=== PATIENT | male | born 1960 | race Caucasian/White ===

== ENCOUNTER → 2022-12-19 | Outpatient (CLI) | payer MEDICAID, SELFPAY ==
--- NOTE | 2022-12-19 07:57 | ECHOCS_ITS ---
Reason For Study: HTN urgency Procedure This was a 2D Doppler, Color Flow transthoracic echocardiogram. The study was technically difficult. Contrast injection was performed. Left Ventricle Normal LV size. Left ventricular systolic function is lower limits of normal. The estimated ejection fraction is 50 %. No regional wall motion abnormalities noted. Right Ventricle Normal RV size. Normal systolic function. Atria Normal left atrium. Normal right atrium. Mitral Valve Normal mitral valve. Tricuspid Valve Normal tricuspid valve. Aortic Valve The aortic valve is not well visualized. Pulmonic Valve The pulmonic valve is not well visualized. Great Vessels Normal aortic root. The pulmonary artery is normal size. Normal inferior vena cava. Pericardium/Pleural No pericardial effusion. Medication 22 gauge I.V. with prn adaptor inserted into right arm. Diluted definity 3ml given slow IV push to enhance endocardial definition. MMode/2D Measurements & Calculations LVIDd: 5.2 cm IVSd: 1.3 cm Ao root diam: 3.3 cm LVIDs: 4.3 cm LVPWd: 1.1 cm LA dimension: 3.8 cm RVDd: 3.6 cm FS: 17.5 % LAV(MOD-bp): 55.4 ml LA A4 area: 16.3 cm2 RA A4 area: 11.8 cm2 LAV(MOD-bp) Indexed: 24.2 ml/m2 LAV(MOD-sp2): 65.5 ml LAV(MOD-sp4): 41.2 ml Time Measurements MV dec time: 0.18 sec Doppler Measurements & Calculations MV E max stanley: 41.0 cm/sec Lat Peak E' Stanley: 5.4 cm/sec Med Peak E' Stanley: 6.0 cm/sec MV A max stanley: 92.9 cm/sec E/E' lat: 7.6 E/E' med: 6.8 MV E/A: 0.44 MV V2 max: 106.4 cm/sec MV P1/2t max stanley: 56.6 cm/sec Ao V2 max: 114.4 cm/sec MV max P.5 mmHg MV P1/2t: 75.9 msec Ao max P.2 mmHg MV V2 mean: 54.3 cm/sec MV dec slope: 218.5 cm/sec2 Ao V2 mean: 73.2 cm/sec MV mean P.5 mmHg Ao mean P.5 mmHg MV V2 VTI: 21.7 cm MVA(P1/2t): 2.9 cm2 Ao V2 VTI: 24.1 cm AV (velocity ratio): 0.79 LV V1 max: 92.9 cm/sec PA V2 max: 107.4 cm/sec LV V1 max P.5 mmHg PA V2 mean: 75.7 cm/sec LV V1 mean P.7 mmHg LV V1 mean: 60.9 cm/sec LV V1 VTI: 19.0 cm ECHO/Echo Complete W/ Contrast Interpretation Summary Normal LV size. Left ventricular systolic function is lower limits of normal. The estimated ejection fraction is 50 %. The study was technically difficult. Contrast injection was performed. Ordering Physician: Wendy Morillo Referring Physician: Wendy Morillo Performed By: Jun Frost RCS
== END | disposition home or self-care (01) ==
PROVIDERS: PCP Nurse Practitioner Family; Referring Provider Nurse Practitioner Family; Visit Provider Nurse Practitioner Family
DX: I16.0 Hypertensive urgency (principal)
CPT/HCPCS: 93306; Q9957; A4216; C8929

== ENCOUNTER → 2023-01-24 | Outpatient (CLI) | payer MEDICAID, SELFPAY ==
--- NOTE | 2023-01-24 12:42 | STRESSREP ---
Stress Test Report Date: 01/24/2023 Procedure: Exercise tolerance test Indications: Dyspnea Consent: Per the patient Procedure: The patient exercised on a Chema protocol for 5 minutes achieving a peak heart rate of 121 bpm (77% predicted maximal heart rate) with a peak blood pressure 204/90 mmHg and a peak MET capacity of approximately 7.0 MET's. The baseline ECG demonstrated T wave changes in inferior leads. The peak exercise ECG demonstrated pseudonormalization of the T waves changes. There were no cardiac dysrhythmias pretest, during exercise, or recovery. The functional capacity was considered suboptimal. The patient had no complaints of chest discomfort during exercise or recovery. He did complain of shortness of breath with exercise. The examination was discontinued secondary to complaints of shortness of breath. Impression: 1. 77% of maximal predicted heart rate achieved. 2. Baseline EKG with T wave changes in inferior leads suggestive of ischemia. This decreases the specificity of the test. There was resolution of these baseline T wave changes with exercise. This could denote pseudonormalization. Recommend repeat study with imaging if clinically indicated. 3. There were no cardiac dysrhythmias during exercise or recovery 4. Hypertensive response to exercise. This note was generated with [employer] software. It may contain incorrect words, spelling, and punctuation that were not noted in checking the note before signing.
== END | disposition home or self-care (01) ==
LOC: CVS 10:42
PROVIDERS: PCP Nurse Practitioner Family; Referring Provider Nurse Practitioner Family; Visit Provider Nurse Practitioner Family
DX: R06.09 Other forms of dyspnea (principal); I10 Essential (primary) hypertension
CPT/HCPCS: 93017

== ENCOUNTER → 2023-02-13 | Outpatient (CLI) | payer MEDICAID, SELFPAY ==
--- NOTE | 2023-02-13 09:48 | STRESSREP_ITS ---
Stress Test Report Date: 02/13/2023 Procedure: Exercise tolerance test/imaging study Indications: Abnormal ECG/abnormal exercise stress Consent: Per the patient Procedure: The patient exercised on a Chema protocol for 6 minutes and 1 seconds achieving a peak heart rate of 133 bpm (84% predicted maximal heart rate) with a peak blood pressure 220/90 mmHg and a peak MET capacity of 7.0 METs. The baseline ECG demonstrated normal sinus rhythm with T wave inversions in inferior leads. The peak exercise ECG demonstrated no diagnostic ischemic changes. Occasional PVCs noted with exercise. The functional capacity was considered average. There was complaint of shortness of breath with exercise. The examination was discontinued secondary to dyspnea. The patient was injected with 14.4 mCi of technetium 99m Cardiolite and subsequently rest SPECT Cardiolite nuclear imaging was obtained in the horizontal long, vertical long, and short axis views. Post-exercise, the patient was injected with 44.5 mCi of technetium 99m Cardiolite and subsequently stress SPECT Cardiolite nuclear imaging was obtained in the horizontal long, vertical long, and short axis views. A gated Cardiolite study at peak stress was obtained. Rest and stress SPECT Cardiolite nuclear imaging status post realignment, normalization, and attenuation correction, demonstrates medium sized inferior reversible defect of moderate intensity. The gated Cardiolite study demonstrates inferior hypokinesis. The reported LVEF is 45%. Impression: 1. Technically adequate (percent predicted maximal heart rate greater than 85%) exercise tolerance test 2. Peak exercise ECG with no diagnostic ischemic changes 3. Occasional PVCs noted 4. Rest and stress SPECT Cardiolite nuclear imaging demonstrate small to moderate inferior reversible perfusion defect suggestive of ischemia. 5. The gated Cardiolite study reports an LVEF of 45%. This note was generated with [employer] software. It may contain incorrect words, spelling, and punctuation that were not noted in checking the note before signing.
== END | disposition home or self-care (01) ==
LOC: CVS 06:11
PROVIDERS: Referring Provider Internal Medicine Cardiovascular Disease; Visit Provider Internal Medicine Cardiovascular Disease
DX: R94.30 Abnormal result of cardiovascular function study, unspecified (principal); E11.9 Type 2 diabetes mellitus without complications; R07.9 Chest pain, unspecified; E78.00 Pure hypercholesterolemia, unspecified; I10 Essential (primary) hypertension
CPT/HCPCS: 78452; 93017; A9500; A4216

== ENCOUNTER → 2023-02-15 | Outpatient (CLI) | payer MEDICAID, SELFPAY ==
--- NOTE | 2023-02-15 13:17 | RAD_ITS ---
INDICATION: for heart cath, sob, chest pain EXAMINATION/TECHNIQUE: X-RAY - XR Chest 2 Views COMPARISON: None. Findings: Frontal and lateral views of the chest. Low lung volumes. LUNG PARENCHYMA: No acute focal airspace disease or mass lesion. PLEURA: No pleural effusion. No pneumothorax. HEART/GREAT VESSELS: Cardiomediastinal silhouette is unremarkable. BONES: Lower thoracic spine vertebral body compression deformity of uncertain chronicity. Thoracic levoscoliosis. RAD/Chest PA and Lateral IMPRESSION: Lower thoracic spine vertebral body compression deformity of uncertain chronicity. Chest otherwise with no acute disease. Electronically Signed: Santiago Abad MD at 5:10 EDT ,
[2023-02-15 13:52] LABS: Absolute Lymphocyte Count 2.43 X10^3/uL (0.83-4.51); Absolute Neutrophil Count 3.6 X10^3/uL (2.0-7.7); Basophil# 0.06 X10^3/uL; Basophil% 0.9 % (0-1); Eosinophils% 4.3 % (0-5); Hematocrit 43.2 % (40-54); Hemoglobin 14.7 g/dL (13.0-16.5); Lymphocyte # 2.43 X10^3/ul (0.83-4.51); Lymphocyte % 34.7 % (19-41); Mean Corpuscular Hgb 29.9 pg (27.0-32.0); Mean Platelet Vol. 10.4 fl (6.2-12.0); Monocyte# 0.59 X10^3/uL; Monocyte% 8.4 % (0-10); NRBC Flagged by Analyzer 0 % (0-5); Neutrophil # 3.57 X10^3/uL (2.7-7.7); Platelet Count 324 K/mm3 (150-450); RBC Distribution Width SD 42.2 fl (35.1-43.9); Red Blood Count 4.91 M/mm3 (4.6-6.2)
[2023-02-15 15:57] LABS: Anion Gap 9 (5-15); BUN 17 mg/dL (7-18); BUN/Creat Ratio 16.5 RATIO (10-20); Calcium,Total 9.4 mg/dL (8.5-10.1); Chloride 105 mmol/L (98-107); Creatinine, Serum 1.03 mg/dL (0.70-1.30); EST Glomerular Filtration Rate 78 mL/min (>60); Est Glom Filt Rate - Afr Amer 95 mL/min (>60); Glucose 207 mg/dL (74-106); Potassium 4.3 mmol/L (3.5-5.1); Sodium Level 138 mmol/L (136-145)
== END | disposition home or self-care (01) ==
PROVIDERS: Referring Provider Internal Medicine Cardiovascular Disease; Visit Provider Internal Medicine Cardiovascular Disease
DX: R94.39 Abnormal result of other cardiovascular function study (principal); E11.9 Type 2 diabetes mellitus without complications; R07.9 Chest pain, unspecified; I10 Essential (primary) hypertension; G47.33 Obstructive sleep apnea (adult) (pediatric); R06.09 Other forms of dyspnea; Z99.89 Dependence on other enabling machines and devices
CPT/HCPCS: 36415; 71046; 80048; 85025

== ENCOUNTER 2023-03-13 07:12 | Day surgery (SDC) | payer MEDICAID, SELFPAY ==
--- NOTE | 2023-02-17 09:21 | HP.PCM_ITS ---
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 Patient was referred to us as he was noted to have a borderline abnormal exercise stress test in December 2022. His most recent stress test from 02/13/2023 demonstrated small to moderate inferior reversible perfusion defect suggestive of ischemia. Patient has past medical history significant for hypertension and diabetes mellitus.? Denies any history of coronary artery disease.? He does acknowledge occasional chest pain-he describes this as sharp and last a couple of seconds only.? He does complain of shortness of breath with activity which has been worsening for the last 6 months.? Denies any orthopnea or PND.? No ankle edema.? Denies any palpitations. Patient has history of obstructive sleep apnea but does not wear CPAP at night. Intake Vital Signs SEE EMR Allergies See EMR Medications See EMR [facility] Medical History Abnormal exercise tolerance test Abnormal stress test Chest pain Essential hypertension XIOMARA on CPAP Pure hypercholesterolemia Type 2 diabetes mellitus Surgical History? History of back surgery History of cholecystectomy History of nasal surgery History of shoulder surgery Family History? Father Diabetes Kidney disease Hypertension Social History? Smoking Status:? Former smoker alcohol intake:? current details:? Rare substance use type:? does not use caffeine:? Yes (occasional) ROS Const Const: Positive for fatigue; Negative for weakness, body ache, fever(s), headache(s), chills, frequent falls, night sweats, daytime sleepiness, difficulty sleeping, excessive sweating, weight gain, weight loss, increased appetite, poor appetite, anorexia or other Eyes Eyes: Negative for blurry vision or double vision ENT ENT: Negative for headache(s), dizziness or balance problems Cardio Chest Pain: Yes (Daily for years) Character: sharp (occasional) and dull (occasional) Onset: at rest and exercise Location: mid sternal Duration: brief Palpitations: No Edema: None Muscle aches with walking: None Resp Respiratory: Positive for SOB with activity (increased last couple of months) and SOB at rest (increased last couple of months); Negative for SOB orthopnea\SOB lying down, Cough, Coughing up blood/hemoptysis, chest congestion, pain on inspiration, snoring, stridor, wheezing, crackles, paroxysmal nocturnal dyspnea or other Musc Musc: Negative for muscle aches/ myalgia, muscle weakness, joint pain or balance problems Neuro Neuro: Negative for dizziness, lightheadedness, near syncope, syncope, orthostatic symptoms, frequent falls, headache(s), weakness, confusion, memory loss, restless legs, blurry vision, double vision, vertigo, seizures, lack of coordination or other Endo Endo: Positive for fatigue; Negative for excessive sweating Cardiology Exam Const Appearance: comfortable and no acute distress Nutritional Appearance: well nourished and obese Neck Neck: no JVD Carotids: Negative bruit Chest Auscultation: Bilateral: Clear to Auscultation Cardio Rate: regular rate Rhythm: regular rhythm Heart sounds: S1 normal and S2 normal GI GI: obese Neuro General: patient alert, patient awake and patient oriented x3 Extremities Lower Extremity Edema: None: Bilateral Supplemental Info Supplemental Information Stress test 02/13/2023: Procedure: Exercise tolerance test/imaging study Indications: Abnormal ECG/abnormal exercise stress Consent: Per the patient Procedure: The patient exercised on a Chema protocol for 6 minutes and 1 seconds achieving a peak heart rate of 133 bpm (84% predicted maximal heart rate) with a peak blood pressure 220/90 mmHg and a peak MET capacity of 7.0 METs. The baseline ECG demonstrated normal sinus rhythm with T wave inversions in inferior leads. The peak exercise ECG demonstrated no diagnostic ischemic changes. Occasional PVCs noted with exercise. The functional capacity was considered average. There was complaint of shortness of breath with exercise. The examination was discontinued secondary to dyspnea. The patient was injected with 14.4 mCi of technetium 99m Cardiolite and subs equently rest SPECT Cardiolite nuclear imaging was obtained in the horizontal long, vertical long, and short axis views. Post-exercise, the patient was injected with 44.5 mCi of technetium 99m Cardiolite and subsequently stress SPECT Cardiolite nuclear imaging was obtained in the horizontal long, vertical long, and short axis views. A gated Cardiolite study at peak stress was obtained. Rest and stress SPECT Cardiolite nuclear imaging status post realignment, normalization, and attenuation correction, demonstrates medium sized inferior reversible defect of moderate intensity. The gated Cardiolite study demonstrates inferior hypokinesis. The reported LVEF is 45%. Impression: 1. Technically adequate (percent predicted maximal heart rate greater than 85%) exercise tolerance test 2. Peak exercise ECG with no diagnostic ischemic changes 3. Occasional PVCs noted 4. Rest and stress SPECT Cardiolite nuclear imaging demonstrate small to moderate inferior reversible perfusion defect suggestive of ischemia. 5. The gated Cardiolite study reports an LVEF of 45%. ECHOCARDIOGRAM 12/19/22 Interpretation Summary Normal LV size. Left ventricular systolic function is lower limits of normal. The estimated ejection fraction is 50 %. The study was technically difficult. Contrast injection was performed. Stress Test Report:Date: 01/24/2023 Procedure: Exercise tolerance test ? Indications: Dyspnea Consent: Per the patient Procedure: ? The patient exercised on a Chema protocol for 5 minutes achieving a peak heart rate of 121 bpm (77% predicted maximal heart rate) with a peak blood pressure 204/90 mmHg and a peak MET capacity of approximately 7.0 MET's. ? The baseline ECG demonstrated T wave changes in inferior leads.? The peak exercise ECG demonstrated pseudonormalization of the T waves changes. ? There were no cardiac dysrhythmias pretest, during exercise, or recovery. ? The functional capacity was considered suboptimal. ? The patient had no complaints of chest discomfort during exercise or recovery.? He did complain of shortness of breath with exercise. ? The examination was discontinued secondary to complaints of shortness of breath. ? Impression: ? 1.? 77% of maximal predicted heart rate achieved. 2.? Baseline EKG with T wave changes in inferior leads suggestive of ischemia.? This decreases the specificity of the test.? There was resolution of these baseline T wave changes with exercise.? This could denote pseudonormalization.? Recommend repeat study with imaging if clinically indicated. 3.? There were no cardiac dysrhythmias during exercise or recovery 4.? Hypertensive response to exercise. Assessment and Plan Assessment and Plan (1) Abnormal stress test: ?Status:?Acute ?Plan: Patient's most recent stress test from 02/13/2023 demonstrated small to moderate inferior reversible perfusion defect suggestive of ischemia. He will proceed with a cardiac catheterization to further assess this. Depending on results, further recommendations will be made. (2) Dyspnea on exertion: ?Status:?Chronic ?Plan: Likely secondary to obesity however?risk factors for CAD.? (3) Essential hypertension: ?Status:?Chronic ?Plan: Blood pressure above goal.? Continue current medications. Patient asked to keep a log of blood pressure readings at home and call us with the log in 7 to 10 days time. (4) Type 2 diabetes mellitus: ?Status:?Chronic ?Plan: As per primary care physician. (5) Dyslipidemia: ?Status:?Chronic ?Plan: Manage as per primary care physician.? Recommend target LDL cholesterol less than 100 mg/dL. (6) Obstructive sleep apnea: ?Status:?Chronic ?Plan: Noncompliant with CPAP.? Follow as per PCP and sleep medicine. (7) Obesity: ?Status:?Chronic ?Plan: Counseled to lose weight. (8) Abnormal exercise tolerance test: ?Status:?Acute (9) Chest pain: ?Status:?Acute
[2023-03-10 08:19] VITALS: BMI 36.2
--- NOTE | 2023-03-13 09:39 | CL.D_ITS ---
Patient Name: JEISON RAYMOND Study Date: 03/13/2023 Performing: Carlos Miller MD Ht: 70 inches 177.8 cm : 1960 Wt: 252.43 lbs 114.5 kg Age: 62 Gender: male BSA: 2.3 PROCEDURE(S) PERFORMED DC02-(98660)C/COR CLINICAL PROFILE AND INDICATIONS Heart Failure: None Stress/Imaging Stress Test w/SPECT MPI: Yes Result: Positive Intermediate RiskStress Test with SPECT MPI: Positive Intermediate Risk CAD Presentations: Symptom unlikely to be ischemic. CONCLUSIONS 20% Prox RCA RECOMMENDATIONS Risk factor modification DESCRIPTION OF PROCEDURE The patient arrived to the procedure lab. The risks and benefits of the procedure as well as a full description of our services here and current unavailability of surgical backup were fully explained to the patient and/or their significant other prior to the catheterization. The Timeout was completed, verifying the correct patient and procedure. The patient's procedural site was prepped and draped in the usual fashion. Local anesthetic was given subcutaneously to right radial region with Lidocaine 2%. Using a modified Seldinger technique, arterial access was obtained via the right radial artery, a 6Fr sheath was inserted. Right Coronary Artery selective angiography was then performed in multiple views using a 5 Fr. 4.0 [place] catheter. Left Coronary Artery selective angiography was performed in multiple views using a 5 Fr. 4.0 [place] catheter.The arterial sheath was pulled and a TR Band was applied for hemostasis CORONARY ANGIOGRAPHY DOMINANCE: Right Dominant LEFT MAIN: Angiographically normal LEFT ANTERIOR DESCENDING ARTERY: Angiographically normal CIRCUMFLEX ARTERY: Angiographically normal RIGHT CORONARY ARTERY: RCA: Tubular 20% Proximal lesion in RCA COMPLICATIONS No Complications PROCEDURE MEDICATIONS Versed 1 mg IV Fentanyl 50 mcg IV Baby Aspirin (81mg) 1 Tabs PO @ 03/13/2023 07:46:20 Heparin given IA 03/13/2023 09:16:07 Verapamil 2.5mg, Ntg 200mcgs, 2000 units of Heparin given IA 03/13/2023 09:16:07 SUMMARY OF HEMODYNAMIC DATA Time AIR REST ECG 08:55:11 AO 126/71 (93) SA 09:23:30 Signed By Carlos Miller MD On 03/13/2023 09:37:53 Carlos Miller MD
== END 2023-03-13 11:40 | disposition home or self-care (01) ==
PROVIDERS: Referring Provider Internal Medicine Cardiovascular Disease; Visit Provider Internal Medicine Cardiovascular Disease
DX: R94.39 Abnormal result of other cardiovascular function study (principal); E11.9 Type 2 diabetes mellitus without complications; G47.33 Obstructive sleep apnea (adult) (pediatric); I10 Essential (primary) hypertension; I49.3 Ventricular premature depolarization; E66.9 Obesity, unspecified; Z91.199 Patient's noncompliance with other medical treatment and regimen due to unspecified reason; E78.00 Pure hypercholesterolemia, unspecified; R06.09 Other forms of dyspnea; Z87.891 Personal history of nicotine dependence; R07.9 Chest pain, unspecified
CPT/HCPCS: 93458; 99152; 99153; J7040; Q9967; C1769; C1894

== ENCOUNTER → 2023-10-10 | Outpatient (CLI) | payer MEDICAID, SELFPAY | END | disposition home or self-care (01) | PROVIDERS: Referring Provider Nurse Practitioner Family; Visit Provider Nurse Practitioner Family | DX: R06.00 Dyspnea, unspecified (principal) | CPT/HCPCS: 94060; 94726; 94729 ==

== ENCOUNTER → 2023-10-18 | Outpatient (CLI) | payer MEDICAID, SELFPAY ==
--- OUTSIDE RECORDS SUMMARY | 2023-10-18 12:35 | XMS RPT_ITS | CCD ---
Author Name Unknown Address [address] [place] [address] Organization [facility] Care Team Providers Care Pharmaceutical Officer Name Role Phone Mansfield Rhina Unavailable Unavailable PROVIDER, UNKNOWN Unavailable Unavailable Rebekah Cunninghamon Unavailable Unavailable BRANDYN DIEZ Unavailable Unavailable PROVIDER, UNKNOWN Unavailable Unavailable Rebekah Cunninghamon Unavailable Unavailable PROVIDER, UNKNOWN Unavailable Unavailable Didkathleen, Luis M Unavailable Unavailable Lalito Garcia Unavailable Unavailable BRANDYN DIEZ Unavailable Unavailable PROVIDER, UNKNOWN Unavailable Unavailable Rebekah Cunninghamon Unavailable Unavailable PROVIDER, UNKNOWN Unavailable Unavailable Rebekah Cunninghamon Unavailable Unavailable Bryson Durand Unavailable Unavailable PROVIDER, UNKNOWN Unavailable Unavailable Didkathleen Luis M Unavailable Unavailable Omar Martinez Unavailable Unavailable FAVIAN DIAZ, DIRECT SALES CONSULTANT Admitting Unavailable DIDKATHLEEN, LUIS M Primary Care Unavailable FAVIAN DIAZ, DIRECT SALES CONSULTANT Attending Unavailable DIDKATHLEEN, LUIS M Primary Care Unavailable CARRIEIN SINA Admitting Unavailable MILTON SINA Attending Unavailable WALE CÁRDENAS Admitting Unavailable AA NO PCP, NO PCP Primary Care Unavailable WALE CÁRDENAS Attending Unavailable AA NO PCP, NO PCP Primary Care Unavailable SAMANTA MURRAY A Admitting Unavailable SAMANTA MURRAY Attending Unavailable SAMANTA MURRAY Attending Unavailable DIDICH, LUIS M Primary Care Unavailable TREVOR SAMANTA A Admitting Unavailable SAMANTA MURRAY Attending Unavailable TREVOR SAMANTA A Admitting Unavailable DIDICH, LUIS M Primary Care Unavailable TREVOR, SAMANTA A Admitting Unavailable DIDICH, LUIS M Primary Care Unavailable TREVOR, SAMANTA A Attending Unavailable SAMANTA MURRAY A Attending Unavailable DIDICH, LUIS M Primary Care Unavailable TREVOR, SAMANTA A Admitting Unavailable TREVOR, SAMANTA A Admitting Unavailable DIDICH, LUIS M Primary Care Unavailable TREVOR SAMANTA A Attending Unavailable SAMANTA MURRAY A Attending Unavailable DIDICH, LUIS M Primary Care Unavailable SAMANTA MURRAY A Admitting Unavailable Didich DO, Luis M M Unavailable [phone] Starla BILLS, Ariana Unavailable Unavailable Darryl Byers DO Unavailable Eddie NUR Amina Unavailable Favian Hardwick MD Unavailable Jonathan Hardwick MD Unavailable [phone] Daniel Kumar [facility] Un[facility] [phone] [place], [place] Unavailable Starla BILLS, Ariana Unavailable Unavailable NAI SIMONS Admitting Unavailable NAI SIMONS Attending Unavailable NAI SIMONS Primary Care Unavailable JARED CHURCH DIRECT SALES CONSULTANT-C Consulting Unavailab le PROVIDER, UNKNOWN Consulting Unavailable JARED CHURCH Attending Unavailable RANJIT JARED Consulting Unavailable RANJIT, JARED Primary Care Unavailable RANJIT JARED Admitting Unavailable RANJIT, JARED Consulting Unavailable Marisa NUR Luis M M Unavailable [phone] Ariana Cha RN Unavailable Unavailable Darryl Byers DO Unavailable Eddie NUR Amina Unavailable Favian Harwdick MD Unavailable Jonathan Hardwick MD Unavailable Daniel Kumar MD Unavailable Donis Sosa DO Unavailable [phone] [facility] [place] Unavailable Starla BILLS, Ariana Unavailable Unavailable ELIZABETH VARELA Referring Unavailable RUSSELL RIDER Attending Unavailable Allergies Allergy Classification Reported Allergen(s) Allergy Type Date of Onset Reaction(s) Facility Lactase (1 source) Lactase; Translations: [Dairy Ease] Drug Allergy [facility] Lactose (1 source) Lactose; Translations: [Lactose] Drug Allergy [facility] Opioid Agonists (1 source) Codeine Drug Allergy [facility] (3 sources) Acetaminophen / HYDROcodone; Translations: [HYDROCODONE-ACET AMINOPHEN] Drug Allergy 8 Mental Status Change [facility] (3 sources) Acetaminophen / oxyCODONE; Translations: [OXYCODONE-ACETAM INOPHEN] Drug Allergy 8 Other: See Comments [facility] (3 sources) Lactose; Translations: [LACTOSE] Drug Allergy 7 Intolerance [facility] (1 source) HYDROcodone Drug Allergy [facility] Repository (1 source) Opioid Agonists Drug allergy (disorder) [facility] Repository Medications Current Medications Medication Drug Class(es) Dates Sig (Normalized) Sig (Original) methylPREDNISolone (1 source) Corticosteroid Start: 05-25-2023 End: 05-31-2023 methylPREDNISolone (MEDROL, JEAN CARLOS,) 4 mg Dose-Pack Follow dosing instructions, take with food. 21 tablet 0 05/25/2023 05/31/2023 Active Completed/Discontinued Medications Medication Drug Class(es) Dates Sig (Normalized) Sig (Original) alogliptin 25 mg oral tablet (2 sources) Start: 07-07-2020 take 1 tablet by mouth once daily alogliptin (NESINA) 25 mg tab Take 1 tablet by mouth once daily. 30 tablet 11 07/07/2020 Active Problems Active Problems Problem Classification Problem Date Documented Da te Episodic/Chronic Anxiety disorders (2 sources) Anxiety disorder; Translations: [Anxiety disorder, unspecified] Onset: 03-14-2018 03-29-2018 Chronic Cardiac dysrhythmias (6 sources) Cardiac arrhythmia, unspecified; Translations: [Ventricular premature depolarization] Onset: 03-19-2018 03-29-2018 Chronic Cardiac dysrhythmias (2 sources) Bradycardia; Translations: [Bradycardia, unspecified] 10-10-2019 Episodic Diabetes mellitus without complication (6 sources) Type 2 diabetes mellitus without complications; Translations: [Type 2 diabetes mellitus without complication] Onset: 10-11-2017 01-29-2021 Chronic Diseases of white blood cells (2 sources) Elevated white blood cell count, unspecified; Translations: [Elevated white blood cell count, unspecified] Onset: 03-19-2018 Chronic Diverticulosis and diverticulitis (2 sources) Diverticulosis of intestine, part unspecified, without perforation or abscess without bleeding; Translations: [Dvrtclos of intest, part unsp, w/o perf or abscess w/o bleed] Onset: 04-23-2018 Chronic Esophageal disorders (7 sources) Gastro-esophageal reflux disease with esophagitis; Translations: [Gastro-esophageal reflux disease without esophagitis] Onset: 03-19-2018 Chronic Essential hypertension (7 sources) Essential (primary) hypertension; Translations: [Essential hypertension] Onset: 03-14-2018 03-29-2018 Chronic Gastroduodenal ulcer (4 sources) Gastric ulcer, unspecified as acute or chronic, without hemorrhage or perforation; Translations: [Peptic ulcer] Onset: 03-19-2018 03-29-2018 Chronic Hyperplasia of prostate (4 sources) Benign prostatic hyperplasia without lower urinary tract symptoms; Translations: [Benign prostatic hypertrophy with outflow obstruction] Onset: 04-23-2018 09-13-2018 Chronic Mood disorders (2 sources) Major depressive disorder, single episode, unspecified; Translations: [Major depressive disorder, single episode, unspecified] Onset: 03-22-2018 Nausea and vomiting (2 sources) Vomiting, unspecified; Translations: [Vomiting, unspecified] Onset: 03-22-2018 Nutritional deficiencies (2 sources) Unspecified severe protein-calorie malnutrition; Translations: [Unspecified severe protein-calorie malnutrition] Onset: 03-19-2018 Chronic Osteoarthritis (2 sources) Osteoarthritis; Translations: [Unspecified osteoarthritis, unspecified site] Onset: 03-14-2018 03-29-2018 Chronic Other injuries and conditions due to external causes (1 source) Injury of left knee; Translations: [Unspecified injury of left lower leg, initial encounter] 05-25-2023 Episodic Other injuries and conditions due to external causes (1 source) Unspecified injury of left lower leg, initial encounter; Translations: [Left knee injury, initial encounter] Onset: 05-25-2023 Episodic Other lower respiratory disease (2 sources) Dyspnea; Translations: [Shortness of breath] 10-10-2019 Episodic Other non-traumatic joint disorders (1 source) Pain in right shoulder; Translations: [PAIN IN RIGHT SHOULDER] Onset: 12-17-2020 Episodic Other nutritional; endocrine; and metabolic disorders (2 sources) Obese class I; Translations: [Obesity, unspecified] Onset: 03-29-2018 03-29-2018 Chronic Other nutritional; endocrine; and metabolic disorders (2 sources) Obese class II; Translations: [Obesity, unspecified] Onset: 05-01-2019 05-01-2019 Chronic Peripheral and visceral atherosclerosis (2 sources) Unspecified atherosclerosis; Translations: [Unspecified atherosclerosis] Onset: 04-23-2018 Chronic Residual codes; unclassified (2 sources) Obstructive sleep apnea syndrome; Translations: [Obstructive sleep apnea (adult) (pediatric)] Onset: 03-14-2018 03-29-2018 Chronic Spondylosis; intervertebral disc disorders; other back problems (2 sources) Intervertebral disc disorder; Translations: [Unspecified thoracic, thoracolumbar and lumbosacral intervertebral disc disorder] Onset: 07-27-2017 10-11-2017 Chronic Spondylosis; intervertebral disc disorders; other back problems (3 sources) Spinal stenosis; Translations: [Spinal stenosis, site unspecified] Onset: 08-07-2017 03-29-2018 Episodic Sprains and strains (6 sources) Sprain of right rotator cuff capsule, initial encounter; Translations: [Sprain of right rotator cuff capsule, subsequent encounter] Onset: 02-03-2021 Episodic Substance-related disorders (2 sources) Nicotine dependence; Translations: [Nicotine dependence, cigarettes, uncomplicated] Onset: 08-06-2017 03-29-2018 Chronic Unclassified (4 sources) Acquired absence of other specified parts of digestive tract; Translations: [Family history of diabetes mellitus] Onset: 03-14-2018 Episodic Unclassified (2 sources) Sleep apnea, unspecified; Translations: [Sleep apnea, unspecified] Onset: 03-22-2018 Unclassified (2 sources) Abnormal radiologic findings on diagnostic imaging of renal pelvis, ureter, or bladder; Translations: [Abn radlgc find on dx imaging renal pelv, ureter, or blddr] Onset: 04-23-2018 Unclassified (2 sources) Elevated prostate specific antigen [PSA]; Translations: [Elevated prostate specific antigen [PSA]] Onset: 03-07-2018 Past or Other Problems Problem Classification Problem Date Documented Da te Episodic/Chronic Abdominal pain (2 sources) Unspecified abdominal pain; Translations: [Unspecified abdominal pain] Onset: 03-19-2018 Episodic Acute and unspecified renal failure (4 sources) Acute kidney failure, unspecified; Translations: [Acute injury of kidney] Onset: 03-22-2018 03-29-2018 Episodic Allergic reactions (6 sources) Allergy status to other drugs, medicaments and biological substances status; Translations: [Allergy status to narcotic agent status] Onset: 03-19-2018 Episodic Calculus of urinary tract (8 sources) Personal history of urinary calculi; Translations: [Calculus in bladder] Onset: 03-06-2018 03-29-2018 Episodic Conditions associated with dizziness or vertigo (2 sources) Dizziness and giddiness; Translations: [Dizziness and giddiness] Onset: 03-22-2018 Episodic Gastritis and duodenitis (2 sources) Acute gastritis without bleeding; Translations: [Acute gastritis without bleeding] Onset: 03-22-2018 Episodic Nausea and vomiting (2 sources) Nausea with vomiting, unspecified; Translations: [Nausea with vomiting, unspecified] Onset: 03-22-2018 Episodic Other aftercare (2 sources) buttermaker (current) use of aspirin; Translations: [assisted (current) use of aspirin] Onset: 03-19-2018 Episodic Other circulatory disease (2 sources) Hypotension, unspecified; Translations: [Hypotension, unspecified] Onset: 03-22-2018 Episodic Other disorders of stomach and duodenum (2 sources) Disease of stomach and duodenum, unspecified; Translations: [Disease of stomach and duodenum, unspecified] Onset: 03-19-2018 Episodic Other disorders of stomach and duodenum (2 sources) Cyclical vomiting syndrome; Translations: [Cyclical vomiting syndrome unrelated to migraine] Onset: 03-29-2018 03-29-2018 Episodic Other gastrointestinal disorders (2 sources) Other specified symptoms and signs involving the digestive system and abdomen; Translations: [Oth symptoms and signs involving the dgstv sys and abdomen] Onset: 03-19-2018 Episodic Other screening for suspected conditions (not mental disorders or infectious disease) (2 sources) Raised prostate specific antigen; Translations: [Elevated prostate specific antigen [PSA]] Onset: 03-06-2018 03-29-2018 Episodic Residual codes; unclassified (1 source) Other specified personal risk factors, not elsewhere classified; Translations: [23-polyvalent pneumococcal polysaccharide vaccine indication of diabetes in patient 6 to 64 years of age ([facility])] Onset: 07-15-2022 Episodic Screening or history of mental health and substance abuse (2 sources) Personal history of nicotine dependence; Translations: [Personal history of nicotine dependence] Onset: 03-22-2018 Episodic Urinary tract infections (4 sources) Acute cystitis without hematuria; Translations: [Personal history of urinary (tract) infections] Onset: 03-19-2018 Episodic Results Test Name Value Interpretation Reference Range Facil ity Vital Signs Date Time Vital Sign Value Performing Clinician Lupe mcdonald 05-25-2023 14:06-0400 Body temperature 97.39 [degF] Elizabeth Praisler-Wood TREE KILLER.TRANSFORMER ASSEMBLY SUPERVISOR Work Phone: [facility] 05-25-2023 14:06-0400 Body weight 111.95 kg Elizabeth Praisler-Rufino TREE KILLER.TRANSFORMER ASSEMBLY SUPERVISOR Work Phone: [facility] 05-25-2023 14:06-0400 Diastolic blood pressure 88 mm[Hg] Elizabeth Praisler-Wood TREE KILLER.TRANSFORMER ASSEMBLY SUPERVISOR Work Phone: [facility] 05-25-2023 14:06-0400 Heart rate 95 /min Elizabeth Praisler-Wood TREE KILLER.TRANSFORMER ASSEMBLY SUPERVISOR Work Phone: [facility] 05-25-2023 14:06-0400 Respiratory rate 19 /min Elizabeth Praisler-Wood TREE KILLER.TRANSFORMER ASSEMBLY SUPERVISOR Work Phone: [facility] 05-25-2023 14:06-0400 SaO2% (BldA) [Mass fraction] 98 % Elizabeth Praisler-Wood TREE KILLER.TRANSFORMER ASSEMBLY SUPERVISOR Work Phone: [facility] 05-25-2023 14:06-0400 Systolic blood pressure 140 mm[Hg] Elizabeth Praisler-Wood TREE KILLER.TRANSFORMER ASSEMBLY SUPERVISOR Work Phone: [facility] Encounters Encounter Date Encounter Type Care Provider Facility Start: 06-16-2023 End: 06-17-2023 ambulatory RUSSELL RIDER Facility:B Start: 06-16-2023 End: 06-16-2023 Patient encounter procedure RUSSELL RIDER MD [facility] Start: 05-25-2023 End: 05-25-2023 ambulatory ELIZABETH VARELA Facility:[facility] Start: 05-25-2023 End: 05-25-2023 Patient encounter procedure Elizabeth Praowenler-Rufino TREE KILLER.TRANSFORMER ASSEMBLY SUPERVISOR Work Phone: [facility] Procedures Date Procedure Procedure Detail Performing Clinician Start: 12-09-2022 Urinalysis NAI CANOS Plan of Treatment Date Care Activity Detail Author Start: 05-14-2028 Urine microalbumin profile [facility] Start: 08-25-2023 PROSTATE CANCER SCRE ENING DISCUSSION PROSTATE CANCER SCREENING DISCUSSION [facility] Start: 07-15-2023 Hepatitis B screening Urine Al bumin:Creatinine Ratio [facility] Start: 07-15-2023 Hepatitis B surface antibody level LDL Cholesterol [facility] Start: 04-28-2023 Influenza vaccination Influenza Vacc ine (#1) [facility] Start: 11-11-2022 COLOGUARD (FIT-DNA) COLOGUARD (FIT-D NA) [facility] Start: 11-11-2022 COLORECTAL CANCER SCREENING COLORECTAL CANCER SCREENING [facility] Start: 10-15-2022 Hemoglobin A1c/Hemoglobin.total in Blood HbA1C [facility] Start: 08-28-2022 Depression Assessment Depression Ass essment [facility] Start: 04-28-2022 Influenza vaccination INFLUENZA (#1) [facility] Start: 01-29-2022 ANNUAL PCP TEAM REEL MAN MARIELENA DISEASE VISIT ANNUAL PCP TEAM CHRONIC DISEASE VISIT [facility] Start: 05-01-2021 Hemoglobin A1c/Hemoglobin.total in Blood HBA1C [facility] Start: 04-02-2021 3 comp foot exam completed DIABETIC FOOT EXAM [facility] Start: 04-02-2021 BP CONTROLLED (<130/80) BP CONTROLLE D (<130/80) [facility] Start: 09-04-2020 Hepatitis C antibody , confirmatory test DILATED RETINAL EXAM [facility] Start: 08-25-2019 Hepatitis B screening URINE AL BUMIN:CREATININE RATIO [facility] Start: 08-25-2019 Hepatitis B surface antibody level LDL CHOLESTEROL [facility] Start: 2019 Hepatitis B Vaccine (1 of 3 - Risk 3-dose series) Hepatitis B Vaccine (1 of 3 - Risk 3-dose series) [facility] Start: 2009 SHINGRIX VACCINE (1 of 2) SHINGRIX V ACCINE (1 of 2) [facility] Start: 2004 Colonoscopy COLONOSCOPY [facility] Start: [address] COLONOGRAPHY [facility] Start: 2004 FECAL OCCULT BLOOD FECAL OCCULT BLOO D [facility] Start: 2004 SIGMOIDOSCOPY SIGMOIDOSCOPY [facility] Start: 1977 HIV SCREENING HIV SCREENING [facility] Start: 1971 Adult depression scr eening assessment DEPRESSION SCREENING [facility] Start: 1965 PNEUMOCOCCAL (1 - PCV) PNEUMOCOCCAL (1 - PCV) [facility] Start: 1965 Pneumococcal vaccination Pneum ococcal Vaccine (1 - PCV) [facility] Start: 01-12-1960 COVID-19 VACCINE (#1) COVID-19 VACCI NE (#1) [facility] Immunizations Immunization Date Immunization Notes Care Provider Fa adeel 05-14-2018 influenza virus vacc ine, unspecified formulation Elizabeth Varela APRN.TRANSFORMER ASSEMBLY SUPERVISOR Work Phone: [facility] Payers Date Payer Category Payer Unknown [id number] 2023 Unknown C [employer] GENER[employer] xxxDING [address] [id number] [id number] 2023 Unknown PENDING 2022 Unknown [id number] 1959 Unknown [id number] 1959 Unknown [id number] 1959 Unknown [id number] 1959 Unknown [id number] .[id number] 1959 Unknown [id number] .598 1959 Unknown [id number] .598 1959 Unknown [id number] .598 1959 Unknown [id number] .598 1959 Unknown [id number] [id number] .598 1959 Unknown [id number] [id number] .598 1959 Unknown [id number] .598 1959 Unknown [id number] [id number] .598 1959 Unknown [id number] [id number] .651 1959 Unknown [id number] .419 1959 Unknown [id number] Private Health Insurance Social History Date Type Detail Facility Start: 11-27-2019 End: 05-25-2023 Tobacco smoking status NHIS Ex-smoker [facility] End: 10-13-2019 History of tobacco use Current smoker [facility] End: 10-13-2019 History of tobacco use Cigarette Smoker [facility] Start: 11-27-2019 End: 05-25-2023 Tobacco use and exposure Smokeless tobacco non-user [facility] Start: 02-03-2021 End: 05-25-2023 Alcohol intake Current non-drinker of alcohol (finding) [facility] Start: 05-01-2019 End: 05-25-2023 Tobacco Comment trying to quit [facility] Start: 1960 Sex Assigned At Male [facility] Start: 08-03-2020 End: 05-25-2023 History of Social function [facility] Start: 08-03-2020 End: 05-25-2023 Tobacco use panel [facility] National Score (1-10 0), lower number is lower risk Not on file [facility] Start: 08-15-2017 Gender identity Identifies as male gender (finding) [facility] Start: 08-15-2017 Sexual orientation Heterosexual (whitney samuels) [facility] Tobacco smoking status No Smokin g Status Entered [facility] Clinical Notes 05-19-2022 to 05-25-2023 Patient InstructionsElizabeth Varela APRN.CNP - 05/25/2023 2:23 PM EDTTelephone Encounter - Zita Carver Ma - 05/19/2022 2:12 PM EDT Note Date & Type Note Facility 05-25-2023 Note HNO ID: [id number] Author: Ame Rojas RT(R) Service: ? Author Type: Polymerization Kettle Operator Type: Progress Notes Filed: 05/25/2023 3:09 PM Note Text: Radiology Service Progress Note PATIENT NAME: Jeison Raymond DATE OF SERVICE: May 25, 2023 TIME: 2:53 PM PATIENT IDENTITY VERIFICATION COMPLETED USING TWO (2) IDENTIFIERS: Name and Date of confirmed by patient verbally. FALL SCREENING: Has the patient had 2 falls in the last year or 1 fall with injury or currently using an Ambulatory Assistive Device (Walker, Cane, Wheelchair, Crutches, etc.)? No PATIENT GENDER DATA: Male PATIENT RELEVANT IMPLANT DATA REVIEWED: Yes RADIOLOGY DEPARTMENT: General X-ray: Exam(s) Completed: Lower Extremity X-Ray(s): Knee, AP / Lat / Tunne / Merchant Left PERIPHERAL IV DATA: Not applicable SIGNED BY: RT Raúl(R) May 25, 2023 2:[address] [facility] 05-25-2023 Note HNO ID: [id number] Author: Elizabeth Varela APRN.LIZZY Service: ? Author Type: Nurse Practitioner Type: Progress Notes Filed: 05/25/2023 3:47 PM Note Text: This note was created using NoteWriter. Subjective Jeison Raymond is a 62 year old male. Patient presents with one day of left knee pain and back pain that started after moving a television at work. Per patient, he was lifting a TV when he felt a pop in his posterior left knee. He developed sharp 6/10 pain that was shooting from foot to lower back. The pain has since subsided to a 3/10, however patient is reporting persistent numbness, weakness, and tingling from left upper thigh to foot that was not present before yesterday. He has taken aleve for pain with relief. The history is provided by the patient. Review of Systems Constitutional: Negative for chills and fever. Musculoskeletal: Positive for arthralgias and back pain. Negative for joint swelling. Skin: Negative for wound. Neurological: Positive for weakness and numbness. All other systems reviewed and are negative. Objective BP 140/88 Pulse 95 Temp 36.3 ?C (97.4 ?F) Resp 19 Wt 111.9 kg (246 lb 12.8 oz) SpO2 98% BMI 36.45 kg/m? PAST MEDICAL HISTORY Diagnosis Date Bladder calculus BPH with obstruction/lower urinary tract symptoms Bradycardia Chest pain Diabetes (HCC) type 2 Essential hypertension GERD (gastroesophageal reflux disease) PVC (premature ventricular contraction) SOB (shortness of breath) Spinal stenosis Tobacco abuse PAST SURGICAL HISTORY Procedure Laterality Date BACK SURGERY HX 08/15/2017 CHOLECYSTECTOMY HX 2006 HEART CATHETERIZATION 11/19/2019 no significant coronary artery disease. LITHOTRIPSY / 1 SIDE 03/09/2018 stent PAST SURGICAL HISTORY OF prostate reduction PROSTATE SURGERY HX 10/04/2013 REPAIR NASAL SEPTUM DEFECT Left 2015 SHOULDER SURGERY HX [facility]. UPPER GI ENDOSCOPY,EXAM ALLERGIES Lactose, Hydrocodone-Acetaminophen, and Oxycodone-Acetaminophen MEDICATIONS CHINAAGLAR RJAAN U-100 INSULIN 100 unit/mL (3 mL) metFORMIN (GLUCOPHAGE) 1,000 mg tablet Take 1 tablet by mouth every 12 (twelve) hours. hydroCHLOROthiazide 25 mg tablet Take 1 tablet by mouth every afternoon. amLODIPine (NORVASC) 5 mg tablet omeprazole (PRILOSEC) 40 mg capsule Take 1 capsule by mouth once daily lisinopril (ZESTRIL, PRINIVIL) 40 mg tablet Take 1 tablet by mouth once daily. glimepiride (AMARYL) 4 mg tablet Take 1 tablet by mouth twice daily with meals. alogliptin (NESINA) 25 mg tab Take 1 tablet by mouth once daily. carvedilol (COREG) 6.25 mg tablet Take 1 tablet by mouth twice daily. nitroglycerin sublingual (NITROSTAT) 0.4 mg SL tablet Dissolve 1 tablet under the tongue as needed for Chest Pain. If no pain relief call 911. sucralfate (CARAFATE) 1 gram tablet Take one tablet by mouth 4 times daily MULTI-VITAMIN ORAL Take by mouth. aspirin, enteric coated (ASPIRIN, ENTERIC COATED) 81 mg EC tablet Take 81 mg by mouth once daily. meloxicam (MOBIC) 15 mg tablet 1 tablet (Patient not taking: Reported on 05/25/2023) atorvastatin (LIPITOR) 40 mg tablet Take 1 tablet by mouth once daily. (Patient not taking: Reported on 05/25/2023) FARXIGA 5 mg tab TAKE ONE TABLET BY MOUTH ONCE DAILY WITH BREAKFAST (Patient not taking: Reported on 05/25/2023) nicotine (NICODERM) 21 mg/24 hr APPLY ONE PATCH EXTERNALLY ONCE DAILY (Patient not taking: Reported on 05/25/2023) [place]-3 Fatty Acids (SUPER TWIN EPA-DHA) 1,250 mg cap Take by mouth. (Patient not taking: Reported on 05/25/2023) FAMILY HISTORY Problem Relation Age of Onset Hypertension Mother Heart Father Diabetes Father Social History Tobacco Use Smoking status: Former Years: 39 Types: Cigarettes Quit date: 10/13/2019 Years since quittin.6 Smokeless tobacco: Never Tobacco comments: trying to quit Vaping Use Vaping Use: Never used Substance Use Topics Alcohol use: No Drug use: No Physical Exam Vitals reviewed. Constitutional: General: He is not in acute distress. Appearance: Normal appearance. He is not ill-appearing or toxic-appearing. Cardiovascular: Rate and Rhythm: Normal rate and regular rhythm. Pulmonary: Effort: Pulmonary effort is normal. No respiratory distress. Breath sounds: Normal breath sounds. Musculoskeletal: General: Tenderness present. No swelling or deformity. Normal range of motion. Lumbar back: No bony tenderness. Negative left straight leg raise test. Back: Right knee: Normal. Left knee: No swelling, deformity, effusion, erythema, ecchymosis, bony tenderness or crepitus. Normal range of motion. Tenderness present over the medial joint line and lateral joint line. No MCL, LCL, ACL, PCL or patellar tendon tenderness. No LCL laxity, MCL laxity, ACL laxity or PCL laxity.Normal alignment and normal patellar mobility. Normal pulse. Instability Tests: Anterior drawer test negative. Posterior drawer (more content not included)... [facility] 05-25-2023 Instructions Elizabeth Varela APRN.TRANSFORMER ASSEMBLY SUPERVISOR - 05/25/2023 3:47 PM EDT ASSESSMENT/PLAN: 1. Left knee injury, initial encounter - ICD9: 959.7, ICD10: S89.92XA (primary diagnosis) - XR negative. IMPRESSION: No acute fracture or dislocation. - Rest, ice, elevate, OTC analgesia PRN - Follow up with PCP or occupational health as needed - XR KNEE GENERAL 4V AP BOTH/PA BOTH/LAT/MERC LEFT 2. Acute left-sided back pain with sciatica - ICD9: 724.3, ICD10: M54.42 Sciatica - Ice for localized tenderness - Medrol dose pack - Monitor blood sugar with medrol - Patient given instructions use of medications as ordered, intermittent rest, and intermittent use of heat - Follow up in 1 week with primary care provider or sooner if symptoms persist or worsen E Alec [employer] RESIDENT HALL DIRECTOR Student TEACHING PROVIDER (Physician/PA/TREE KILLER) NOTE OF PERSONAL INVOLVEMENT IN CARE: I have personally seen and examined the patient and performed the medical decision-making components. I have reviewed the Advanced Practice Registered Nurse (TREE KILLER) Student's documentation and verified the findings in the note as written. Any additions or changes are noted in bold/italics. Signature: Elizabeth Varela Date: 05/25/2023 Time: 3:47 PM documented in this encounter [facility] 05-25-2023 History of Presen t illness Narrative Images from the original note were not included. This note was created using TouchFramer[employer]. Subjective Jeison Raymond is a 62 year old male. Patient presents with one day of left knee pain and back pain that started after moving a television at work. Per patient, he was lifting a TV when he felt a pop in his posterior left knee. He developed sharp 6/10 pain that was shooting from foot to lower back. The pain has since subsided to a 3/10, however patient is reporting persistent numbness, weakness, and tingling from left upper thigh to foot that was not present before yesterday. He has taken aleve for pain with relief. The history is provided by the patient. Review of Systems Constitutional: Negative for chills and fever. Musculoskeletal: Positive for arthralgias and back pain. Negative for joint swelling. Skin: Negative for wound. Neurological: Positive for weakness and numbness. All other systems reviewed and are negative. Objective BP 140/88 Pulse 95 Temp 36.3 C (97.4 F) Resp 19 Wt 111.9 kg (246 lb 12.8 oz) SpO2 98% BMI 36.45 kg/m PAST MEDICAL HISTORY Diagnosis Date Bladder calculus BPH with obstruction/lower urinary tract symptoms Bradycardia Chest pain Diabetes (HCC) type 2 Essential hypertension GERD (gastroesophageal reflux disease) PVC (premature ventricular contraction) SOB (shortness of breath) Spinal stenosis Tobacco abuse PAST SURGICAL HISTORY Procedure Laterality Date BACK SURGERY HX 08/15/2017 CHOLECYSTECTOMY HX 2006 HEART CATHETERIZATION 11/19/2019 no significant coronary artery disease. LITHOTRIPSY / 1 SIDE 03/09/2018 stent PAST SURGICAL HISTORY OF prostate reduction PROSTATE SURGERY HX 10/04/2013 REPAIR NASAL SEPTUM DEFECT Left 2015 SHOULDER SURGERY HX stewart. UPPER GI ENDOSCOPY,EXAM ALLERGIES Lactose, Hydrocodone-Acetaminophen, and Oxycodone-Acetaminophen MEDICATIONS BASAGLAR RAJAN U-100 INSULIN 100 unit/mL (3 mL) metFORMIN (GLUCOPHAGE) 1,000 mg tablet Take 1 tablet by mouth every 12 (twelve) hours. hydroCHLOROthiazide 25 mg tablet Take 1 tablet by mouth every afternoon. amLODIPine (NORVASC) 5 mg tablet omeprazole (PRILOSEC) 40 mg capsule Take 1 capsule by mouth once daily lisinopril (ZESTRIL, PRINIVIL) 40 mg tablet Take 1 tablet by mouth once daily. glimepiride (AMARYL) 4 mg tablet Take 1 tablet by mouth twice daily with meals. alogliptin (NESINA) 25 mg tab Take 1 tablet by mouth once daily. carvedilol (COREG) 6.25 mg tablet Take 1 tablet by mouth twice daily. nitroglycerin sublingual (NITROSTAT) 0.4 mg SL tablet Dissolve 1 tablet under the tongue as needed for Chest Pain. If no pain relief call 911. sucralfate (CARAFATE) 1 gram tablet Take one tablet by mouth 4 times daily MULTI-VITAMIN ORAL Take by mouth. aspirin, enteric coated (ASPIRIN, ENTERIC COATED) 81 mg EC tablet Take 81 mg by mouth once daily. meloxicam (MOBIC) 15 mg tablet 1 tablet (Patient not taking: Reported on 05/25/2023) atorvastatin (LIPITOR) 40 mg tablet Take 1 tablet by mouth once daily. (Patient not taking: Reported on 05/25/2023) FARXIGA 5 mg tab TAKE ONE TABLET BY MOUTH ONCE DAILY WITH BREAKFAST (Patient not taking: Reported on 05/25/2023) nicotine (NICODERM) 21 mg/24 hr APPLY ONE PATCH EXTERNALLY ONCE DAILY (Patient not taking: Reported on 05/25/2023) [place]-3 Fatty Acids (SUPER TWIN EPA-DHA) 1,250 mg cap Take by mouth. (Patient not taking: Reported on 05/25/2023) FAMILY HISTORY Problem Relation Age of Onset Hypertension Mother Heart Father Diabetes Father Social History Tobacco Use Smoking status: Former Years: 39 Types: Cigarettes Quit date: 10/13/2019 Years since quittin.6 Smokeless tobacco: Never Tobacco comments: trying to quit Vaping Use Vaping Use: Never used Substance Use Topics Alcohol use: No Drug use: No Physical Exam Vitals reviewed. Constitutional: General: He is not in acute distress. Appearance: Normal appearance. He is not ill-appearing or toxic-appearing. Cardiovascular: Rate and Rhythm: Normal rate and regular rhythm. Pulmonary: Effort: Pulmonary effort is normal. No respiratory distress. Breath sounds: Normal breath sounds. Musculoskeletal: General: Tenderness present. No swelling or deformity. Normal range of motion. Lumbar back: No bony tenderness. Negative left straight leg raise test. Back: Right knee: Normal. Left knee: No swelling, deformity, effusion, erythema, ecchymosis, bony tenderness or crepitus. Normal range of motion. Tenderness present over the medial joint line and lateral joint line. No MCL, LCL, ACL, PCL or patellar tendon tenderness. No LCL laxity, MCL laxity, ACL laxity or PCL laxity.Normal alignment and normal patellar mobility. Normal pulse. Instability Tests: Anterior drawer test negative. Posterior drawer test negative. Medial Love test negative and lateral Love test negative. Right lower leg: No edema. Left lower leg: Normal. No edema. Left foot: Normal. Normal capillary refill. Normal pulse. Skin: General: Skin is warm and dry. Capillary Refill: Capillary refill takes less than 2 seconds. Findings: No bruising or erythema. Neurological: General: No focal deficit present. Mental Status: He is alert and oriented to person, place, and time. Mental status is at baseline. Psychiatric: Mood and Affect: Mood normal. Behavior: Behavior normal. Thought Content: Thought content normal. Judgment: Judgment normal. Assessment and Plan ASSESSMENT/PLAN: 1. Left knee injury, initial encounter - ICD9: 959.7, ICD10: S89.92XA (primary diagnosis) - XR negative. IMPRESSION: No acute fracture or dislocation. - Rest, ice, elevate, OTC analgesia PRN - Follow up with PCP or occupational health as needed - XR KNEE GENERAL 4V AP BOTH/PA BOTH/LAT/MERC LEFT 2. Acute left-sided back pain with sciatica - ICD9: 724.3, ICD10: M54.42 Sciatica - Ice for localized tenderness - Medrol dose pack - Monitor blood sugar with medrol - Patient given instructions use of medications as ordered, intermittent rest, and intermittent use of heat - Follow up in 1 week with primary care provider or sooner if symptoms persist or worsen E Alec [employer] RESIDENT HALL DIRECTOR Student TEACHING PROVIDER (Physician/PA/TREE KILLER) NOTE OF PERSONAL INVOLVEMENT IN CARE: I have personally seen and examined the patient and performed the medical decision-making components. I have reviewed the Advanced Practice Registered Nurse (TREE KILLER) Student's documentation and verified the findings in the note as written. Any additions or changes are noted in bold/italics. Signature: Elizabeth Varela Date: 05/25/2023 Time: 3:47 PM documented in this encounter [facility] 05-19-2022 Miscellaneous Notes Patient has been identified by name and date of : Yes Requested Prescriptions Pending Prescriptions Disp Refills omeprazole (PRILOSEC) 40 mg capsule [Pharmacy Med Name: Omeprazole 40 MG Oral Capsule Delayed Release] 30 capsule 0 Sig: Take 1 capsule by mouth once daily RX INSTRUCTIONS: Patient due for office visit for physical. Forwarded to schedulers and Dr. Cunningham for short supply. Zita Carver Ma documented in this encounter [facility] Evaluation + Plan note No data available for this section [facility] Left [facility], initial encounter- Primary Acute left-sided back pain with sciatica [facility] No data available for this section [facility] Progress note No data available for this section [facility] Reason for referral (narrative)* Diagnostic Procedure Only (Urgent) - Closed Specialty Diagnoses / Procedures Referred By Tahira t Referred To Contact XR IMAGING Diagnoses Left knee injury, initial encounter Procedures XR KNEE GENERAL 4V AP BOTH/PA BOTH/LAT/MERC LEFT RADIOLOGIC EXAM KNEE COMPLETE 4/MORE VIEWS Elizabeth Varela, SARAH.TRANSFORMER ASSEMBLY SUPERVISOR [address] [place] [address] [place] [id number] Referral ID Status Reason Start Date Expiration Date V isits Requested Visits Authorized [id number] Closed Auto-Generate d Referral 05/25/2023 06/23/2024 1 1 [facility] Summary Purpose Family History No Family History Records FoundNo Family History Records FoundNo Family History Records FoundNo Family History Records FoundNo Family History Records FoundNo Family History Records FoundNo Family History Records FoundNo Family History Records Found No data available for this section No Family History Records Found Advance Directives No Advanced Directives Records FoundNo Advanced Directives Records FoundNo Advanced Directives Records FoundNo Advanced Directives Records FoundNo Advanced Directives Records FoundNo Advanced Directives Records FoundNo Advanced Directives Records FoundNo Advanced Directives Records FoundNo Advanced Directives Records Found Additional Source Comments (unrecognized sect ion and content) No Status Records FoundNo Status Records FoundNo Status Records FoundNo Status Records FoundNo Status Records FoundNo Status Records FoundNo Status Records FoundNo Status Records FoundNo Status Records Found INFORMATION SOURCE (unrecogn ized section and content) DATE CREATED AUTHOR AUTHOR'S ORGANIZ ATION 11/27/2019 [facility] DATE CREATED AUTHOR AUTHOR'S ORGANIZ ATION 09/18/2020 [facility] DATE CREATED AUTHOR AUTHOR'S ORGANIZ ATION 03/18/2021 [facility] DATE CREATED AUTHOR AUTHOR'S ORGANIZ ATION 09/02/2021 [facility] DATE CREATED AUTHOR AUTHOR'S ORGANIZ ATION 12/19/2022 [facility] DATE CREATED AUTHOR AUTHOR'S ORGANIZ ATION 01/11/2023 [facility] DATE CREATED AUTHOR AUTHOR'S ORGANIZ ATION 06/01/[address] [facility] DATE CREATED AUTHOR AUTHOR'S ORGANIZ ATION 06/23/2023 [facility] ([place]) Source Comments (unrecognize d section and content) In the event this informatio n is protected by the Federal Confidentiality of Alcohol and Drug Abuse Patient Records regulations: The Federal rules restrict any use of the information to criminally investigate or prosecute any alcohol or drug abuse patient[facility] event this information is protected by the Federal Confidentiality of Alcohol and Drug Abuse Patient Records regulations: The Federal rules restrict any use of the information to criminally investigate or prosecute any alcohol or drug abuse patient.[facility] Reason for Visit (unrecogniz ed section and content) Reason Comments Leg Pain Shooting pain in lef t leg, now having numbness and weakness x 1 day Care Teams (unrecognized sec tion and content) Pharmaceutical Officer Relationship Specialty Start Date End Date Luis M Cunningham DO [address] [place] [id number] Family Medicine 01/29/21 Ariana Cha, RN Registered Nurse 04/13/22 Darryl Byers DO [address] [place] [address] Primary Staff Physician Family Medicine 04/14/22 Amina Morgan DO [address] [place], [place] [id number] Primary Staff Physician Family Medicine 04/14/22 Favian Hardwick MD [address] [place] [address] Primary Staff Physician Family Medicine 04/14/22 Jonathan Hardwick MD [address] [place] [address] Primary Staff Physician Family Medicine 04/14/22 Daniel [place] [address] Primary Staff Physician Family Medicine 04/14/22 Donis Sosa DO [address] [place] [address] Primary Staff Physician Family Medicine 04/14/22 Benny Barboza [address] [place] [address] Primary Staff Physician Family Medicine 04/14/22 Ariana Cha, SANJU Registered Nurse Family Medicine 04/15/22 FOR RECORDS PERTAINING TO PATIENTS WHO ARE OR HAVE BEEN ENROLLED IN A CHEMICAL DEPENDENCY/SUBSTANCEABUSE PROGRAM, SOME INFORMATION MAY BE OMITTED. This clinical summary was aggregated from multiple sources. Caution should be exercised in using it in the provision of clinical care. This summary normalizes information from multiple sources, and as a consequence, information in this document may materially change the coding, format and clinical context of patient data. In addition, data may be omitted in some cases. CLINICAL DECISIONS SHOULD BE BASED ON THE PRIMARY CLINICAL RECORDS. [facility] [employer] [facility] provides no warranty or guarantee of the accuracy or completeness of information in this document.
[2023-10-18 12:55] LABS: Hematocrit 41.4 % (40-54); Mean Corp Hgb Conc 33.8 g/dL (32-36); Mean Corpuscular Hgb 29.7 pg (27.0-32.0); Mean Corpuscular Volume 87.9 fL (80-94); Mean Platelet Vol. 10.2 fl (6.2-12.0); Platelet Count 337 K/mm3 (150-450); RBC Distribution Width CV 13.3 % (11.6-14.6); Red Blood Count 4.71 M/mm3 (4.6-6.2); White Blood Count 7.2 K/mm3 (4.4-11.0)
[2023-10-18 13:19] LABS: ALB/GLOB Ratio 1.3 RATIO (0.9-2.4); AST(SGOT) 23 U/L (15-37); Alanine Aminotransfer ALT/SGPT 48 U/L (16-61); Albumin, Serum 3.9 g/dL (3.2-5.0); Alkaline Phosphatase 60 U/L (45-117); Anion Gap 7 (5-15); BUN 16 mg/dL (7-18); BUN/Creat Ratio 16.5 RATIO (10-20); Chloride 108 mmol/L (98-107); Cholesterol 139 mg/dL (200); Creatinine, Serum 0.97 mg/dL (0.70-1.30); EST Glomerular Filtration Rate 83 mL/min (>60); Est Glom Filt Rate - Afr Amer 101 mL/min (>60); Globulin 3.1 g/dL (2.2-4.2); Glucose 138 mg/dL (74-106); High Density Lipoprotein 38 mg/dL; PSA,Total - Annual Screen 3.35 ng/mL (0.00-4.00); Potassium 3.9 mmol/L (3.5-5.1); Sodium Level 140 mmol/L (136-145); Triglycerides 186 mg/dL; Very Low Density Lipoprotein 37 mg/dL (5-40)
== END | disposition home or self-care (01) ==
LOC: LAB 12:10
PROVIDERS: Referring Provider Nurse Practitioner Family; Visit Provider Nurse Practitioner Family
DX: Z12.5 Encounter for screening for malignant neoplasm of prostate (principal); E11.9 Type 2 diabetes mellitus without complications; E78.00 Pure hypercholesterolemia, unspecified
CPT/HCPCS: 36415; 80053; 80061; 82043; 84153; 85027; G0103

== ENCOUNTER 2025-06-11 17:31 | Inpatient (IN) | payer MEDICARE, SELFPAY ==
[2025-06-11 17:32] VITALS: BP 119/84; PULSE 125; RESP 24; TEMP 36.8; O2SAT 96
--- NOTE | 2025-06-11 18:00 | CT_ITS ---
PROCEDURE: ABDOMEN/PELVIS W IV CONT ONLY 06/11/2025 REASON FOR EXAM: RIGHT LOWER QUADRANT PAIN TECHNIQUE: Procedure Code: [id number] Modality: CT Procedure: ABDOMEN/PELVIS W IV CONT ONLY Coronal and Sagittal reconstruction series were provided. One or more dose reduction techniques were used (e.g., Automated exposure control, adjustment of the mA and/or kV according to patient size, use of iterative reconstruction technique. FINDINGS: The peripheral soft tissues unremarkable. Lung bases are clear. Degenerative changes of the spine. Moderate atherosclerosis. No suspicious lymphadenopathy. The liver is hypodense suspicious for steatosis. Surgically absent gallbladder. The pancreas, spleen, adrenals are unremarkable. Symmetric enhancement of the bilateral kidneys. No hydroureteronephrosis. The urinary bladder is unremarkable. Enlarged prostate. Normal caliber large and small bowel mild fat stranding and focal wall thickening of a loop of small bowel within the mid abdomen (series 2, image 67 of 134). There is also mild adjacent fat stranding. CT/Abdomen/Pelvis W IV Cont ONLY IMPRESSION: Focal wall thickening and mild adjacent fat stranding involving a loop of small bowel in the mid abdomen, most consistent with focal enteritis or mild segmental inflammation. Hepatic steatosis. Status post cholecystectomy. Enlarged prostate. No evidence of bowel obstruction, perforation, or abscess. Reading Location: [id number]
--- NOTE | 2025-06-11 18:00 | ED.VIS.GI ---
HPI HPI - GI History of Present Illness Chief Complaint: Abd Pain Narrative Narrative: 64-year-old male past medical history of diabetes, hypertension, remote cholecystectomy presents with nausea, vomiting, constipation, and right lower quadrant abdominal pain. He states that earlier this morning, he woke at around 4 AM, approximately 14 hours ago. [place] he needed to urinate. He was accompanied by right sided flank/lower abdominal pain. Has been getting progressively worse throughout the day. He states he has vomited 4 or 5 times without any blood in his emesis. He thinks he may have Food poisoning from chicken that he bought at [employer]. His pain is worse when he walks. He states that he has not had any problems with urination such as dysuria or hematuria. No fevers or chills. His pain has worse when he stands and sometimes when he walks around. His daughter states he has the same symptoms that she had when she had appendicitis. [facility] Medical History Abnormal exercise tolerance test Chest pain Abnormal stress test [id number] on CPAP Pure hypercholesterolemia Type 2 diabetes mellitus Essential hypertension Home Medications ?Medication ?Instructions ?Recorded ?Last Taken ?Type acetaminophen 325 mg tablet 325 mg PO DAILY PRN pain 01/30/23 Unknown History aspirin 81 mg tablet,delayed 81 mg PO DAILY 01/30/23 03/13/23 History release (Adult Low Dose Aspirin) carvedilol 25 mg tablet 25 mg PO BID 01/30/23 Unknown History dulaglutide 0.75 mg/0.5 mL 0.75 mg subcut QWEEK 01/30/23 Unknown History subcutaneous pen injector (Trulicity) hydrochlorothiazide 25 mg tablet 25 mg PO DAILY 01/30/23 Unknown History insulin glargine 100 unit/mL (3 12 unit subcut BID 01/30/23 Unknown History mL) subcutaneous pen (Basaglar KwikPen U-100 Insulin) lisinopril 40 mg tablet 40 mg PO DAILY 01/30/23 Unknown History metformin 1,000 mg tablet 1,000 mg PO BID 01/30/23 03/12/23 History naproxen sodium 220 mg tablet 220 mg PO DAILY PRN pain 01/30/23 Unknown History (Aleve) omeprazole 40 mg capsule,delayed 40 mg PO DAILY 01/30/23 Unknown History release amlodipine 5 mg tablet 5 mg PO DAILY #30 tabs 02/01/23 Unknown Rx glimepiride 4 mg tablet 4 mg PO DAILY 06/28/23 Unknown History dapagliflozin propanediol 10 mg 10 mg PO DAILY diabetes 06/11/25 Unknown History tablet (Farxiga) ezetimibe 10 mg tablet 10 mg PO DAILY 06/11/25 Unknown History gabapentin 100 mg capsule 100 mg PO DAILY pain 06/11/25 Unknown History ondansetron 4 mg disintegrating 4 mg PO Q6H PRN PRN nausea/vomiting 06/11/25 Unknown History tablet Allergy/AdvReac Type Severity Reaction Status Date / Time codeine AdvReac Unknown Unknown Verified 06/11/25 17:32 Family History Father Diabetes Kidney disease Hypertension Surgical History History of back surgery History of nasal surgery History of shoulder surgery History of cholecystectomy Social History Smoking Status: Former smoker alcohol intake: current details: Rare substance use type: does not use caffeine: Yes (occasional) ROS ROS ED ROS Narrative Review of systems positive for right lower quadrant abdominal pain. Positive nausea and vomiting. No fevers or chills. No dysuria or hematuria. Pain worse with standing and walking/movement. Relieved by nothing. Unable to take oral medications today. EXAM Physical Exam Narrative Exam Narrative: Afebrile. Vital signs noted. Nontoxic-appearing. Cardiovascular examination reveals mild tachycardia. Lungs are clear to auscultation bilaterally. Abdomen is soft with tenderness to palpation of the right lower quadrant over McBurney's point. Negative heel strike, negative obturator sign. No peritoneal signs such as Rovsing sign. Positive bowel sounds. Neurological examination nonfocal, nonlateralizing. Const Vital Signs: 06/11/25 17:32 06/11/25 19:31 06/11/25 21:00 Temperature 98.2 F 98.4 F Temperature Source Oral Oral Pulse Rate 125 H 115 H 109 H Respiratory Rate 24 H 20 H 20 H Blood Pressure 119/84 H 106/76 119/73 Blood Pressure Mean 95 86 88 Pulse Ox 96 95 92 Oxygen Delivery Method Room Air Room Air Room Air 06/11/25 21:45 Temperature 98.4 F Temperature Source Pulse Rate 109 H Respiratory Rate 20 H Blood Pressure 119/73 Blood Pressure Mean 88 Pulse Ox 92 Oxygen Delivery Method MDM MDM MDM Narrative Medical decision making narrative: The differential diagnosis includes but not limited to acute appendicitis versus diverticulitis on the right side versus ureterolithiasis versus pyelonephritis. History and physical does not support ureterolithiasis or pyelonephritis. Patient administered a bolus of normal saline as well as morphine and ondansetron. I do feel CT imaging is indicated. Baseline laboratory work was obtained including CBC, CMP, and lipase to look for pancreatitis. As he is status post cholecystectomy, I do not feel that he would have an acute cholecystitis. I reviewed his laboratory work and he has a leukocytosis of 17.7 with hemoglobin 15.8, hematocrit 45.6, platelet count normal at 281. Electrolyte panel shows slightly elevated anion gap of 17 with BUN of 22 and creatinine 1.22, LFTs slightly elevated at 41 and 70 which I think is nonspecific, total bilirubin slightly elevated at 1.53. Urinalysis negative for infection but there are 15 ketones consistent with mild dehydration. With 0-5 WBCs I do not feel antibiotics are indicated for UTI. Initially I reviewed the radiology report of the CT of the abdomen and pelvis. They comment on a focal area of small bowel inflammation consistent with enteritis. There was no comment initially on the appendix. I discussed patient with general surgery, Dr. Gaytan who reviewed the CT and states that he sees a normal appendix. I had radiology contacted to comment on the appendix as well, and the addendum states that there is a normal appendix. Given his focal enteritis and continued abdominal pain, attempt was made to ambulate him, but he is having intractable abdominal pain. His daughter is uncomfortable [place] Patient was administered fentanyl again as well as ondansetron. I discussed the patient with gastroenterology, Dr. Rowell who suggested attempted oral Cipro and Flagyl and observation/admission as needed. I discussed the patient with the hospitalist, Dr. Silva for observation. Patient is in stable condition. History & Record Review Discussion w/independent historian: Patient and Family (Daughter) Additional record(s) reviewed:: Prior ED visit (No prior ED visits) Lab Data Attestation: I reviewed the patient's lab results. Labs: Laboratory Results - last 24 hr 06/11/25 06/11/25 17:50 19:43 WBC 17.7 H RBC 5.26 Hgb 15.8 Hct 45.6 MCV 86.7 MCH 30.0 MCHC 34.6 RDW Std Deviation 41.8 RDW Coeff of Gar[place] 13.2 Plt Count 281 MPV 10.9 Immature Gran % (Auto) 0.600 Neut % (Auto) 86.7 H Lymph % (Auto) 4.7 L [place] % (Auto) 7.7 Eos % (Auto) 0.0 Baso % (Auto) 0.3 Absolute Neuts (auto) 15.3 H Absolute Lymphs (auto) 0.84 Nucleated RBC % 0 Sodium 136 Potassium 4.3 Chloride 98 Carbon Dioxide 21.1 Anion Gap 17 H BUN 22 H Creatinine 1.22 H Est GFR (MDRD) Non-Af 66 BUN/Creatinine Ratio 17.7 Glucose 275 H Calcium 10.2 Total Bilirubin 1.53 H AST 41 H ALT 70 H Alkaline Phosphatase 75 Total Protein 7.5 Albumin 4.6 Globulin 2.9 Albumin/Globulin Ratio 1.6 Lipase 30 Urine Color Yellow Urine Clarity Clear Urine pH 5.0 Ur Specific [place] 1.015 Urine Protein 15 H Urine Glucose (UA) 1000 H Urine Ketones 15 H Urine Occult Blood Negative Urine Nitrite Negative Urine Bilirubin Negative Urine Urobilinogen Normal Ur Leukocyte Esterase Negative Urine RBC 0 SEEN Urine WBC 0-5 SEEN Ur Squamous Epith Cells 0 SEEN Urine Bacteria 0 SEEN Urine Mucus 0 SEEN Radiography Diagnostic Testing: Clinical Impression(s) from Imaging Studies Abdomen/Pelvis CT 06/11/25 18:00 IMPRESSION: Focal wall thickening and mild adjacent fat stranding involving a loop of small bowel in the mid abdomen, most consistent with focal enteritis or mild segmental inflammation. Hepatic steatosis. Status post cholecystectomy. Enlarged prostate. No evidence of bowel obstruction, perforation, or abscess. Reading Location: [id number] Discharge Plan Dx/Rx/DC Orders Clinical Impression: Enteritis, Intractable abdominal pain, Nausea and vomiting Disposition Disposition: Acute Care [facility]
[2025-06-11] MEDS: 0.9% Normal Saline (1000mL) 1,000 ML 999 ML IV (18:07)
[2025-06-11] MEDS: fentaNYL 100 MCG/2 ML Ampul 50 MCG IV ×2 (18:08→21:39)
--- OUTSIDE RECORDS SUMMARY | 2025-06-11 18:10 | XMS RPT_ITS | CCD ---
Author Organization [facility] Care Team Providers Care Roll Finisher Name Role Phone Rhina Mansifeld Unavailable Unavailable PROVIDER, UNKNOWN Unavailable Unavailable Didkathleen, Sander Unavailable Unavailable BRANDYN DIEZ Unavailable Unavailable PROVIDER, UNKNOWN Unavailable Unavailable Didich, Sander Unavailable Unavailable PROVIDER, UNKNOWN Unavailable Unavailable Didich, Sander Unavailable Unavailable JoseBill álvarezntin Unavailable Unavailable BRANDYN DIEZ Unavailable Unavailable PROVIDER, UNKNOWN Unavailable Unavailable Didich, Sander Unavailable Unavailable PROVIDER, UNKNOWN Unavailable Unavailable Didich, Sander Unavailable Unavailable Bryson Durand Unavailable Unavailable PROVIDER, UNKNOWN Unavailable Unavailable Didich, Sander Unavailable Unavailable Omar Martinez Unavailable Unavailable FAVIAN DIAZ, WELDER APPRENTICE Admitting Unavailable DIDICH, SANDER Primary Care Unavailable FAVIAN DIAZ, WELDER APPRENTICE Attending Unavailable DIDICH, SANDER Primary Care Unavailable SOROKIN, SINA Admitting Unavailable SOROKIN, SINA Attending Unavailable WALE CÁRDENAS Admitting Unavailable AA NO PCP, NO PCP Primary Care Unavailable WALE CÁRDENAS Attending Unavailable AA NO PCP, NO PCP Primary Care Unavailable TREVOR SAMANTA A Admitting Unavailable TREVOR SAMANTA A Attending Unavailable TREVOR, SAMANTA A Attending Unavailable DIDICH, SANDER Primary Care Unavailable TREVOR, SAMANTA A Admitting Unavailable TREVOR, SAMANTA A Attending Unavailable TREVOR, SAMANTA A Admitting Unavailable DIDICH, SANDER Primary Care Unavailable TREVOR, SAMANTA A Admitting Unavailable DIDICH, SANDER Primary Care Unavailable TREVOR, SAMANTA A Attending Unavailable TREVOR, SAMANTA A Attending Unavailable DIDICH, SANDER Primary Care Unavailable TREVOR, SAMANTA A Admitting Unavailable TREVOR, SAMANTA A Admitting Unavailable DIDICH, SANDER Primary Care Unavailable TREVOR, SAMANTA A Attending Unavailable TREVOR, SAMANTA A Attending Unavailable DIDICH, SANDER Primary Care Unavailable TREVOR SAMANTA A Admitting Unavailable DidSander wang DO Unavailable [phone] Starla BILLS, Blessing Unavailable Unavailable Darryl Byers DO Unavailable Eddie DO, Amina Unavailable Favian Hardwick MD Unavailable Jonathan Hardwick MD Unavailable [phone] Daniel Kumar MD Unavailable Sheila NUR, Donis Albert Unavailable [phone] Mo, [place] Unavailable Starla BILLS, Blessing Unavailable Unavailable Ranjit WELDER APPRENTICE, WELDER APPRENTICE-C Wendy Primary Care Provider Dr. Bull Ospina Attending Provider WENDY CHURCH Attending Unavailable RANJIT WENDY Consulting Unavailable RANJIT WENDY Primary Care Unavailable RANJIT WENDY Admitting Unavailable ERENDIRA CHURCHSSICA Consulting Unavailable Dr. Bull Ospina Referring Provider Ranjit WELDER APPRENTICE, WELDER APPRENTICE-C Wendy Referring Provider Ranjit WELDER APPRENTICE, WELDER APPRENTICE-C Wendy Other Provider Dr. Carlos Miller Attending Provider Delores Monroe Attending Provider Unavailable Dr. Carlos Miller Referring Provider Dr. Carlos Miller Other Provider [facility] Primary Care Pro vider Tan WELDER APPRENTICE, WELDER APPRENTICE-C Pearl Attending Provider Sander Cunningham DO Unavailable Starla BILLS, Blessing Unavailable Unavailable Darryl Byers DO Unavailable Eddie NUR, Amina Unavailable Favian Hardwick MD Unavailable Jonathan Hardwick MD Unavailable [phone] Daniel Kumar MD Unavailable Vanessanadege Donis Albert Unavailable [phone] Mo, [place] Unavailable Blessing Cha RN Unavailable Unavailable ELIZABETH VARELA Referring Unavailable RUSSELL RIDER Attending Unavailable [facility], [facility] Referring Provid er ROQUE Mayes Attending Provider [facility], [facility] Primary Care Unavailable Santino Lazo Attending Unavailable Rebeca RIVERO, Peter Referring Unavailable Wendy Church NP Referring Unavailable Wendy Church NP Attending Unavailable [facility], [facility] Primary Care Unavailable [facility], Peter Attending Unavailable Delores Mayes Attending Unavail able [facility], [place] Tonemel Referring Unavailable [facility], [facility] Primary Care Unavailable WENDY CHURCH NP%C Consulting Unavailab KAITLIN Arauz APRN Attending Unavailable KAITLIN ALEJANDRO APRN Primary Care Unavailable KAITLIN ALEJANDRO APRN Admitting Unavailable PROVIDER, UNKNOWN Consulting Unavailable Allergies Allergy Classification Reported Allergen(s) Allergy Type Date of Onset Reaction(s) Facility Lactase (1 source) Lactase; Translations: [Dairy Ease] Drug Allergy [facility] Repository Lactose (1 source) Lactose; Translations: [Lactose] Drug Allergy [facility] Repository Opioid Agonists (1 source) Codeine Drug Allergy [facility] Repository (4 sources) Acetaminophen / HYDROcodone; Translations: [HYDROCODONE-ACET AMINOPHEN] Drug Allergy 8 Mental Status Change [facility] (4 sources) Acetaminophen / oxyCODONE; Translations: [OXYCODONE-ACETAM INOPHEN] Drug Allergy 8 Other: See Comments [facility] (4 sources) Lactose; Translations: [LACTOSE] Drug Allergy 7 Intolerance [facility] (4 sources) Codeine Drug Allergy 3 Unknown [facility] (1 source) Codeine Drug Allergy 3 [facility] Repository (1 source) HYDROcodone Drug Allergy [facility] Repository (1 source) Opioid Agonists Drug allergy (disorder) [facility] Repository Medications Current Medications Medication Drug Class(es) Dates Sig (Normalized) Sig (Original) acetaminophen 325 mg oral tablet (4 sources) Start: 01-30-2023 take 325 mg by mouth once daily Acetaminophen Active 325 MG PO DAILY January 29, 2023 11:00pm alogliptin 25 mg oral tablet (3 sources) Start: 07-07-2020 take 1 tablet by mouth once daily alogliptin (NESINA) 25 mg tab Take 1 tablet by mouth once daily. 30 tablet 11 07/07/2020 Active Comment on above: Take 1 tablet by soheila once daily. amLODIPine 5 mg oral tablet (10 sources) Dihydropyridine Calcium Channel Meredith Start: 05-24-2023 amLODIPine (NORVASC) 5 mg tablet 05/24/2023 Active Start: 02-01-2023 End: 02-01-2023 amLODIPine (NORVASC) 5 mg ta blet aspirin 81 mg delayed release oral tablet (7 sources) Platelet Aggregation Inhibitor, Nonsteroidal Anti-inflammatory Drug Start: 01-30-2023 Aspirin (Adult Low Dose Aspirin) 81 mg tablet,delayed release (DR/EC) Active 81 MG PO DAILY January 29, 2023 11:00pm Comment on above: Take 81 mg by mouth once daily. atorvastatin 40 mg oral tablet (3 sources) HMG-CoA Reductase Inhibitor Start: 07-02-2020 take 1 tablet by mouth once daily atorvastatin (LIPITOR) 40 mg tablet Indications: Mixed hyperlipidemia Take 1 tablet by mouth once daily. 90 tablet 3 07/02/2020 Active Comment on above: Take 1 tablet by soheila once daily. carvedilol 25 mg oral tablet (7 sources) alpha-Adrenergic Meredith, beta-Adrenergic Meredith Start: 01-30-2023 take 25 mg by mouth twice daily at mealtime Carvedilol Active 25 MG PO TWICE A DAY January 29, 2023 11:00pm must administer with a meal/food Start: 07-02-2020 take 1 tablet by soheila twice daily carvedilol (COREG) 6.25 mg tablet Indications: Essential (primary) hypertension Take 1 tablet by mouth twice daily. 180 tablet 3 07/02/2020 Active Comment on above: Take 1 tablet by soheila twice daily. dapagliflozin 5 mg oral tablet (3 sources) Sodium-Glucose Cotransporter 2 Inhibitor Start: 03-31-20 take 1 tablet by mouth once daily at breakfast FARXIGA 5 mg tab TAKE ONE TABLET BY MOUTH ONCE DAILY WITH BREAKFAST 90 tablet 1 03/31/2020 Active Comment on above: TAKE ONE TABLET BY M OUTH ONCE DAILY WITH BREAKFAST 0.5 ml dulaglutide 1.5 mg/ml auto-injector (4 sources) GLP-1 Receptor Agonist Start: 01-31-20 Dulaglutide (Trulicity) 0.75 mg/0.5 mL pen injector Active 0.75 MG SC EVERY WEEK January 29, 2023 11:00pm glimepiride 4 mg oral tablet (8 sources) Sulfonylurea Start: 06-28-20 take 4 mg by mouth once daily Glimepiride Active 4 MG PO DAILY June 28, 2023 9:52am Start: 01-29-2021 End: 06-28-2023 take 1 tablet by mouth twice daily at mealtime glimepiride (AMARYL) 4 mg tablet Indications: Type 2 diabetes mellitus without complication, without long-term current use of insulin (HCC) Take 1 tablet by mouth twice daily with meals. 180 tablet 3 01/29/2021 Active Comment on above: Take 1 tablet by soheila th twice daily with meals. hydroCHLOROthiazide 25 mg oral tablet (6 sources) Thiazide Diuretic Start: take 1 tablet by mouth once hydroCHLOROthiazide 25 mg tablet Take 1 tablet by mouth every afternoon. 05/03/2023 Active Comment on above: Take 1 tablet by soheila th every afternoon. 3 ml insulin glargine 100 unt/ml pen injector (6 sources) Insulin Analog Start: BASAGLAR KWIKPEN U-100 INSULIN 100 unit/mL (3 mL) 04/06/2023 Active Start: 01-30-2023 Insulin Glargi ne (Basaglar Kwikpen U-100 Insulin) 100 unit/mL (3 mL) insulin pen Active 12 UNIT SC TWICE A DAY January 29, 2023 11:00pm lisinopril 40 mg oral tablet (6 sources) Angiotensin Converting Enzyme Inhibitor Start: 06-18-2021 take 1 tablet by mouth once daily lisinopril (ZESTRIL, PRINIVIL) 40 mg tablet Indications: Essential (primary) hypertension Take 1 tablet by mouth once daily. 30 tablet 06/18/2021 Active Comment on above: Take 1 tablet by soheila th once daily. meloxicam 15 mg oral tablet (3 sources) Nonsteroidal Anti-inflammatory Drug Start: 12-24-2020 meloxicam (MOBIC) 15 mg tablet 1 tablet 12/24/2020 Active Comment on above: 1 tablet metFORMIN hydrochloride 1000 mg oral tablet (6 sources) Biguanide Start: 05-16-2023 take 1 tablet by mouth every twelve hours metFORMIN (GLUCOPHAGE) 1,000 mg tablet Take 1 tablet by mouth every 12 (twelve) hours. 05/16/2023 Active Start: 01-30-2023 take 1000 mg by mout h twice daily Metformin Active 1000 MG PO TWICE A DAY January 29, 2023 11:00pm Comment on above: Take 1 tablet by soheila th every 12 (twelve) hours. methylPREDNISolone (1 source) Corticosteroid Start: 05-25-2023 End: 05-31-2023 methylPREDNISolone (MEDROL, JEAN CARLOS,) 4 mg Dose-Pack Follow dosing instructions, take with food. 21 tablet 0 05/25/2023 05/31/2023 Active Comment on above: Follow dosing instru ctions, take with food. MULTI-VITAMIN ORAL (3 sources) MULTI-VITAMIN OR AL Take by mouth. Active MULTI-VITAMIN OR AL Take by mouth. 0 Active Comment on above: Take by mouth. Multivitamin preparation (4 sources) Start: 01-30-2023 take 1 tablet by mouth once daily Multivitamin Active 1 TABLET PO DAILY January 29, 2023 11:00pm Start: 01-30-2023 take 1 tablet by soheila th once daily Multivitamin Active 1 TABLET PO DAILY January 30, 2023 12:00am naproxen sodium 220 mg oral tablet (4 sources) Nonsteroidal Anti-inflammatory Drug Start: 01-30-2023 take 1 tablet by mouth once daily Naproxen Sodium (Aleve) 220 mg tablet Active 220 MG PO DAILY January 29, 2023 11:00pm 24 hr nicotine 0.875 mg/hr transdermal system (3 sources) Cholinergic Nicotinic Agonist Start: 11-18-2019 apply 1 dose transdermal route once daily nicotine (NICODERM) 21 mg/24 hr APPLY ONE PATCH EXTERNALLY ONCE DAILY 14 Patch 11/18/2019 Active Comment on above: APPLY ONE PATCH EXTE RNALLY ONCE DAILY nitroglycerin 0.4 mg sublingual tablet (3 sources) Nitrate Vasodilator Start: 10-11-2019 nitroglycerin sublingual (NITROSTAT) 0.4 mg SL tablet Dissolve 1 tablet under the tongue as needed for Chest Pain. If no pain relief call 911. 1 Bottle of 25 1 10/11/2019 Active Comment on above: Dissolve 1 tablet un tessy the tongue as needed for Chest Pain. If no pain relief call 911. [place]-3 Fatty Acids (SUPER TWIN EPA-DHA) 1,250 mg cap (3 sources) [place]-3 Fatty Acids (SUPER TWIN EPA-DHA) 1,250 mg cap Take by mouth. Active [place]-3 Fatty Ac ids (SUPER TWIN EPA-DHA) 1,250 mg cap Take by mouth. 0 Active Comment on above: Take by mouth. omeprazole 40 mg delayed release oral capsule (8 sources) Proton Pump Inhibitor Start: 05-24-20 End: 05-20-20 take 1 capsule by mouth once daily omeprazole (PRILOSEC) 40 mg capsule Indications: GERD without esophagitis Take 1 capsule by mouth once daily 30 capsule 05/20/2022 Active Comment on above: Take 1 capsule by mo uth once daily. Take 1 capsule by mo uth once daily sildenafil 50 mg oral tablet (4 sources) Phosphodiesterase 5 Inhibitor Start: 01-31-20 Sildenafil Active 50 MG PO DAILY January 29, 2023 11:00pm administer 30 minutes to 4 hours before activity sucralfate 1000 mg oral tablet (3 sources) Aluminum Complex Start: 09-02-19 take 1 tablet by mouth four times daily sucralfate (CARAFATE) 1 gram tablet Indications: PUD (peptic ulcer disease) Take one tablet by mouth 4 times daily 120 tablet 2 09/02/2019 Active Comment on above: Take one tablet by out 4 times daily Completed/Discontinued Medications Medication Drug Class(es) Dates Sig (Normalized) Sig (Original) ezetimibe 10 mg oral tablet (4 sources) Dietary Cholesterol Absorption Inhibitor Start: 01-30-2023 End: 02-01-2023 take 1 tablet by mouth once daily Ezetimibe (Zetia) 10 mg tablet Discontinued 10 MG PO DAILY January 29, 2023 11:00pm February 01, 2023 9:24am Problems Active Problems Problem Classification Problem Date Documented Da te Episodic/Chronic Anxiety disorders (3 sources) Anxiety disorder; Translations: [Anxiety disorder, unspecified] Onset: 03-14-2018 03-29-2018 Chronic Cardiac dysrhythmias (7 sources) Cardiac arrhythmia, unspecified; Translations: [Ventricular premature depolarization] Onset: 03-19-2018 03-29-2018 Chronic Cardiac dysrhythmias (3 sources) Bradycardia; Translations: [Bradycardia, unspecified] 10-10-2019 Episodic Diabetes mellitus without complication (15 sources) Type 2 diabetes mellitus without complications; Translations: [Type 2 diabetes mellitus without complication] Onset: 10-11-2017 01-29-2021 Chronic Diseases of white blood cells (2 sources) Elevated white blood cell count, unspecified; Translations: [Elevated white blood cell count, unspecified] Onset: 03-19-2018 Chronic Disorders of lipid metabolism (12 sources) Dyslipidemia; Translations: [Hyperlipidemia, unspecified] Onset: 07-22-2024 02-01-2023 Chronic Diverticulosis and diverticulitis (2 sources) Diverticulosis of intestine, part unspecified, without perforation or abscess without bleeding; Translations: [Dvrtclos of intest, part unsp, w/o perf or abscess w/o bleed] Onset: 04-23-2018 Chronic Esophageal disorders (9 sources) Gastro-esophageal reflux disease with esophagitis; Translations: [Gastro-esophageal reflux disease without esophagitis] Onset: 03-19-2018 Chronic Essential hypertension (17 sources) Essential (primary) hypertension; Translations: [Essential hypertension] Onset: 03-14-2018 03-29-2018 Chronic Gastroduodenal ulcer (5 sources) Gastric ulcer, unspecified as acute or chronic, without hemorrhage or perforation; Translations: [Peptic ulcer] Onset: 03-19-2018 03-29-2018 Chronic Hyperplasia of prostate (5 sources) Benign prostatic hyperplasia without lower urinary tract symptoms; Translations: [Benign prostatic hypertrophy with outflow obstruction] Onset: 04-23-2018 09-13-2018 Chronic Mood disorders (2 sources) Major depressive disorder, single episode, unspecified; Translations: [Major depressive disorder, single episode, unspecified] Onset: 03-22-2018 Nausea and vomiting (2 sources) Vomiting, unspecified; Translations: [Vomiting, unspecified] Onset: 03-22-2018 Nonspecific chest pain (7 sources) Chest pain; Translations: [Chest pain, unspecified] 02-01-2023 Episodic Nutritional deficiencies (2 sources) Unspecified severe protein-calorie malnutrition; Translations: [Unspecified severe protein-calorie malnutrition] Onset: 03-19-2018 Chronic Osteoarthritis (3 sources) Osteoarthritis; Translations: [Unspecified osteoarthritis, unspecified site] Onset: 03-14-2018 03-29-2018 Chronic Other injuries and conditions due to external causes (2 sources) Injury of left knee; Translations: [Unspecified injury of left lower leg, initial encounter] 05-25-2023 Episodic Other injuries and conditions due to external causes (1 source) Unspecified injury of left lower leg, initial encounter; Translations: [Left knee injury, initial encounter] Onset: 05-25-2023 Episodic Other lower respiratory disease (3 sources) Dyspnea; Translations: [Shortness of breath] 10-10-2019 Episodic Other lower respiratory disease (4 sources) Dyspnea on exertion; Translations: [Other forms of dyspnea] 02-01-2023 Episodic Other lower respiratory disease (3 sources) Other forms of dyspnea; Translations: [Other respiratory abnormalities] 02-01-2023 Episodic Other lower respiratory disease (1 source) Dyspnea, unspecified; Translations: [Dyspnea, unspecified] Onset: 03-26-2024 Episodic Other non-traumatic joint disorders (1 source) Pain in right shoulder; Translations: [PAIN IN RIGHT SHOULDER] Onset: 12-17-2020 Episodic Other nutritional; endocrine; and metabolic disorders (3 sources) Obese class I; Translations: [Obesity, unspecified] Onset: 03-29-2018 03-29-2018 Chronic Other nutritional; endocrine; and metabolic disorders (3 sources) Obese class II; Translations: [Obesity, unspecified] Onset: 05-01-2019 05-01-2019 Chronic Other nutritional; endocrine; and metabolic disorders (4 sources) Obesity; Translations: [Obesity, unspecified] 02-01-2023 Chronic Other nutritional; endocrine; and metabolic disorders (3 sources) Obesity, unspecified; Translations: [Obesity, unspecified] 02-01-2023 Chronic Peripheral and visceral atherosclerosis (2 sources) Unspecified atherosclerosis; Translations: [Unspecified atherosclerosis] Onset: 04-23-2018 Chronic Residual codes; unclassified (11 sources) Obstructive sleep apnea syndrome; Translations: [Obstructive sleep apnea (adult) (pediatric)] Onset: 03-14-2018 03-29-2018 Chronic Residual codes; unclassified (3 sources) Obstructive sleep apnea (adult) (pediatric); Translations: [Obstructive sleep apnea (adult)(pediatric)] 02-01-2023 Chronic Spondylosis; intervertebral disc disorders; other back problems (3 sources) Intervertebral disc disorder; Translations: [Unspecified thoracic, thoracolumbar and lumbosacral intervertebral disc disorder] Onset: 07-27-2017 10-11-2017 Chronic Sprains and strains (6 sources) Sprain of right rotator cuff capsule, initial encounter; Translations: [Sprain of right rotator cuff capsule, subsequent encounter] Onset: 02-03-2021 Episodic Substance-related disorders (3 sources) Nicotine dependence; Translations: [Nicotine dependence, cigarettes, [...] 03-19-2018 Episodic Acute and unspecified renal failure (5 sources) Acute kidney failure, unspecified; Translations: [Acute injury of kidney] Onset: 03-22-2018 03-29-2018 Episodic Allergic reactions (6 sources) Allergy status to other drugs, medicaments and biological substances status; Translations: [Allergy status to narcotic agent status] Onset: 03-19-2018 Episodic Calculus of urinary tract (10 sources) Personal history of urinary calculi; Translations: [...] Onset: 03-22-2018 Episodic Other aftercare (2 sources) intermission coordinator (current) use of aspirin; Translations: [intermission coordinator (current) use of aspirin] Onset: 03-19-2018 Episodic Other circulatory disease (2 sources) Hypotension, unspecified; Translations: [Hypotension, unspecified] Onset: 03-22-2018 Episodic Other disorders of stomach and duodenum (2 sources) Disease of stomach and duodenum, unspecified; Translations: [Disease of stomach and duodenum, unspecified] Onset: 03-19-2018 Episodic Other disorders of stomach and duodenum (3 sources) Cyclical vomiting syndrome; Translations: [Cyclical vomiting syndrome unrelated to migraine] Onset: 03-29-2018 03-29-2018 Episodic Other gastrointestinal disorders (2 sources) Other specified symptoms and signs involving the digestive system and abdomen; Translations: [Oth symptoms and signs involving the dgstv sys and abdomen] Onset: 03-19-2018 Episodic Other screening for suspected conditions (not mental disorders or infectious disease) (19 sources) Raised prostate specific antigen; Translations: [Elevated prostate specific antigen [PSA]] Onset: 03-06-2018 03-29-2018 Episodic Residual codes; unclassified (1 source) Other specified personal risk factors, not elsewhere classified; Translations: [23-polyvalent pneumococcal polysaccharide vaccine indication of diabetes in patient 6 to 64 years of age (HCC)] Onset: 07-15-2022 Episodic Screening or history of mental health and substance abuse (2 sources) Personal history of nicotine dependence; Translations: [Personal history of nicotine dependence] Onset: 03-22-2018 Episodic Spondylosis; intervertebral disc disorders; other back problems (4 sources) Spinal stenosis; Translations: [Spinal stenosis, site unspecified] Onset: 08-07-2017 03-29-2018 Episodic Urinary tract infections (4 sources) Acute cystitis without hematuria; Translations: [Personal history of urinary (tract) infections] Onset: 03-19-2018 Episodic Results Test Name Value Interpretation Reference Range Facility CBC + DIFFon 07-22-2024 Baso # 0.02 x10EE3/UL Normal 0.00 - 0.10 [facility] Comment on above: Performed By: #### [id number] #### [facility],[address] [place] [address] Basophils/100 WBC (Bld) 0.4 % Normal 0.0 - 2.0 [facility] Comment on above: Performed By: #### [id number] #### [facility],[address] [place] [address] CBC + DIFF Normal [facility] Comment on above: Result Comment: CBC- COMPLETE BLOOD COUNT Performed By: #### [id number] #### [facility],[address] [place] [address] EO # 0.22 x10EE3/UL Normal 0.00 - 0.50 [facility] Comment on above: Performed By: #### [id number] #### [facility],[address] [place] [address] Eosinophils/100 WBC (Bld) 3.3 % Normal 0.0 - 7.0 [facility] Comment on above: Performed By: #### [id number] #### [facility],[address] [place] [address] Erythrocyte distribution width (RBC) [Ratio] 13.7 % Normal 12.0 - 15.6 [facility] Comment on above: Performed By: #### 2 [id number] #### [facility],[address] [place] [address] Hematocrit (Bld) [Volume fraction] 46.7 % Normal 40.0 - 52.0 [facility] Comment on above: Performed By: #### 2 [id number] #### [facility],[address] [place] [address] Hemoglobin (Bld) [Mass/Vol] 15.4 g/dL Normal 13.0 - 17.5 [facility] Comment on above: Performed By: #### 2 [id number] #### [facility],[address] [place] [address] Lymph # 1.68 x10EE3/UL Normal 0.80 - 2.80 [facility] Comment on above: Performed By: #### 2 [id number] #### [facility],[address] [place] [address] Lymphocytes/100 WBC (Bld) 24.8 % Normal 20.0 - 45.0 [facility] Comment on above: Performed By: #### 2 [id number] #### [facility],[address] [place] [address] MANUAL DIFF N/A Normal [facility] Comment on above: Performed By: #### 2 [id number] #### [facility],[address] [place] [address] MCH (RBC) [Entitic mass] 30 pg Normal 27 - 33 [facility] Comment on above: Performed By: #### 2 [id number] #### [facility],[address] [place] [address] MCHC 33 X10 3 Normal 32 - 36 [facility] Comment on above: Performed By: #### 2 [id number] #### [facility],[address] [place] [address] MCV (RBC) [Entitic vol] 90 fL Normal 81 - 98 [facility] Comment on above: Performed By: #### 2 [id number] #### [facility] [facility] [place] [address] [place] # 0.49 x10EE3/UL Normal 0.20 - 1.00 [facility] Comment on above: Performed By: #### 2 88720 #### [facility],[address] [place] [address] MONOS % 7.3 % Normal 0.0 - 10.0 [facility] Comment on above: Performed By: #### 2 93288 #### [facility],[address] [place], [place] [id number] Morphology Ramon (Bld) [Interp] N/A Normal [facility] Comment on above: Performed By: #### 2 38215 #### [facility],[address] [place] [address] 98445 Neut # 4.37 x10EE3/UL Normal 1.50 - 7.10 [facility] Comment on above: Performed By: #### 2 14315 #### [facility],[address] [place] [address] 58309 Neutrophils/100 WBC (Bld) 64.3 % Normal 46.0 - 76.0 [facility] Comment on above: Performed By: #### 2 09616 #### [facility],[address] [place] [address] 03019 PLATELET 255 x10EE3/UL Normal 150 - 450 [facility] Comment on above: Performed By: #### 2 06677 #### [facility],[address] [place] [address] 54399 Platelet mean volume (Bld) [Entitic vol] 8.9 fL Normal 6.4 - 10.5 [facility] Comment on above: Result Comment: AUTO MATED DIFFERENTIAL Performed By: #### 2 70612 #### [facility],[address] [place] [address] 55032 RBC 5.21 x 10EE6/UL Normal 4.50 - 6.00 [facility] Comment on above: Performed By: #### 2 97971 #### [facility],[address] [place] [address] 44199 WBC 6.8 x 10EE3/UL Normal 4.5 - 10.8 [facility] Comment on above: Performed By: #### 2 20274 #### [facility],[address] [place] [address] 98679 CMP with eGFRon 07-22-2024 AGE 64 years Normal [facility] Comment on above: Performed By: #### 2 72537 #### [facility],[address] [place] [address] 87332 Albumin [Mass/Vol] 4.2 g/dL Normal 3.4 - 5.0 [facility] Comment on above: Performed By: #### 2 76930 #### [facility],[address] [place] [address] 31570 Albumin/Globulin [Mass ratio] 1.4 {ratio} Normal 0.9 - 1.6 [facility] Comment on above: Performed By: #### 2 27560 #### [facility],[address] [place] [address] 80369 ALK PHOS 72 U/L Normal 46 - 116 [facility] Comment on above: Performed By: #### 2 08881 #### [facility],[address] [place] [address] 33047 ALT [Catalytic activity/Vol] 45 U/L Normal 16 - 63 [facility] Comment on above: Performed By: #### 2 83266 #### [facility],[address] [place] [address] 06593 Anion gap [Moles/Vol] 13 mmol/L Normal 10 - 20 [facility] Comment on above: Performed By: #### 2 55042 #### [facility],[address] [place] [address] 51214 AST [Catalytic activity/Vol] 26 U/L Normal 15 - 37 [facility] Comment on above: Performed By: #### 2 66200 #### [facility],[address] [place] [address] 59731 B/C RATIO 16 ratio Normal 0 - 30 [facility] Comment on above: Performed By: #### 2 49251 #### [facility],[address] [place] [address] 65029 Bilirubin [Mass/Vol] 1.3 mg/dL High 0.2 - 1.0 [facility] Comment on above: Performed By: #### 2 22759 #### [facility],[address] [place] [address] 17438 Calcium [Mass/Vol] 9.5 mg/dL Normal 8.5 - 10.1 [facility] Comment on above: Performed By: #### 2 89948 #### [facility],[address] [place] [address] 40326 Chloride [Moles/Vol] 103 mmol/L Normal 98 - 107 [facility] Comment on above: Performed By: #### 2 16964 #### [facility],[address] [place] [address] 70543 CMP with eGFR Normal [facility] Comment on above: Result Comment: COMP REHENSIVE METABOLIC PANEL Performed By: #### 2 64988 #### [facility],[address] [place] [address] 45803 CO2 [Moles/Vol] 27.4 mmol/L Normal 21.0 - 32.0 [facility] Comment on above: Performed By: #### 2 79527 #### [facility],[address] [place] [address] 87953 Creatinine [Mass/Vol] 1.23 mg/dL Normal 0.70 - 1.30 [facility] Comment on above: Performed By: #### 2 44790 #### [facility],[address] [place] [address] 96576 eGFR 59 ML/MINUTE Low 60 - 999 [facility] Comment on above: Performed By: #### 2 48686 #### [facility],[address] [place] [address] 78108 GFR/1.73 sq M.predicted among non-blacks MDRD (S/P/Bld) [Vol rate/Area] mL/min/{1.73_m2} Normal 60 - 999 [facility] Comment on above: Result Comment: ACCO RDING TO THE NATIONAL KIDNEY DISEASE EDUCATION PROGRAM(NKDE), A NORMAL eGFR IS A VALUE GREATER THAN OR EQUAL TO 60 ML/MIN/1.73 SQ METERS. CHRONIC KIDNEY DISEASE: <60mL/MIN/1.73 SQ METERS KIDNEY FAILURE: <15mL/MIN/1.73 SQ METERS THIS TEST SHOULD ONLY BE USED FOR PATIENTS 18 YEARS OF AGE AND OLDER. Performed By: #### 2 80011 #### [facility],[address] [place] [address] 66356 Globulin (S) [Mass/Vol] 3.0 g/dL Normal 1.5 - 3.8 [facility] Comment on above: Performed By: #### 2 62007 #### [facility],[address] [place] [address] 36238 Glucose [Mass/Vol] 165 mg/dL High 74 - 106 [facility] Comment on above: Performed By: #### 2 21510 #### [facility],[address] [place] [address] 35580 Potassium [Moles/Vol] 4.5 mmol/L Normal 3.5 - 5.1 [facility] Comment on above: Performed By: #### 2 44604 #### [facility],[address] [place] [address] 32545 Protein [Mass/Vol] 7.2 g/dL Normal 6.4 - 8.2 [facility] Comment on above: Performed By: #### 2 20421 #### [facility],[address] [place] [address] 58333 Sodium [Moles/Vol] 139 mmol/L Normal 136 - 145 [facility] Comment on above: Performed By: #### 2 94388 #### [facility],[address] [place] [address] 05099 Urea nitrogen [Mass/Vol] 20 mg/dL High 7 - 18 [facility] Comment on above: Performed By: #### 2 06229 #### [facility],[address] [place] [address] 63695 HEMOGLOBIN A1C (POM)on 07-22 Glucose [Mass/Vol] 180.0 mg/dL High 0.0 - 0.0 [facility] Comment on above: Result Comment: BLDo HEMOGLOBIN A1C REFERENCE RANGESBLDo Suggested Diagnosis HbA1c(%) HbA1C (mmol/mol Diabetic >/=6.5 >/=48 Prediabetes 5.7 - 6.4 39 - 47 Normal <5.7 <39 Performed By: #### 2 61441 #### [facility],[address] [place] [address] 25728 HbA1c (Bld) [Mass fraction] 7.9 % High 0.0 - 6.5 [facility] Comment on above: Performed By: #### 2 46528 #### [facility],[address] [place] [address] 04911 LIPID PROFILEon 07-22-2024 Cholesterol [Mass/Vol] 179 mg/dL Normal 0 - 240 [facility] Comment on above: Performed By: #### 2 80686 #### [facility],[address] [place] [address] 63230 Cholesterol in HDL [Mass/Vol] 41 mg/dL Normal 40 - 60 [facility] Comment on above: Performed By: #### 2 13918 #### [facility],[address] [place] [address] 58276 Cholesterol in LDL [Mass/Vol] 73 mg/dL Normal 0 - 129 [facility] Comment on above: Performed By: #### 2 62453 #### [facility],[address] [place] [address] 62281 Cholesterol.total/Cho lesterol in HDL [Mass ratio] 4.4 {ratio} Normal 0.0 - 5.0 [facility] Comment on above: Performed By: #### 2 70439 #### [facility],[address] [place] [address] 45788 Lipid 1996 panel Normal [facility] Comment on above: Result Comment: LIPI D PROFILE Performed By: #### 2 89052 #### [facility],[address] [place] [address] 34170 Triglyceride [Mass/Vol] 323 mg/dL High 0 - 150 [facility] Comment on above: Performed By: #### 2 96738 #### [facility],[address] [place] [address] 86405 CBC-Complete Blood Cnt No Di ffon 10-18-2023 Erythrocyte distribution width (RBC) [Ratio] 13.3 % Normal 11.6-14.6 [facility] Comment on above: Performed By: #### L 500.4050, L501.9910, L500.4100, L100.0500, L502.0500 #### [facility] [address] [place], [address] Hematocrit (Bld) [Volume fraction] 41.4 % Normal 40-54 [facility] Comment on above: Performed By: #### L 500.4050, L501.9910, L500.4100, L100.0500, L502.0500 #### [facility] [address] [place], [address] Hemoglobin (Bld) [Mass/Vol] 14.0 g/dL Normal 13.0-16.5 [facility] Comment on above: Performed By: #### L 500.4050, L501.9910, L500.4100, L100.0500, L502.0500 #### [facility] [address] [place], [address] MCH (RBC) [Entitic mass] 29.7 pg Normal 27.0-32.0 [facility] Comment on above: Performed By: #### L 500.4050, L501.9910, L500.4100, L100.0500, L502.0500 #### [facility] [address] [place], [address] MCHC (RBC) [Mass/Vol] 33.8 g/dL Normal 32-36 [facility] Comment on above: Performed By: #### L 500.4050, L501.9910, L500.4100, L100.0500, L502.0500 #### [facility] [address] [place], [address] MCV (RBC) [Entitic vol] 87.9 fL Normal 80-94 [facility] Comment on above: Performed By: #### L 500.4050, L501.9910, L500.4100, L100.0500, L502.0500 #### [facility] [address] [place], [address] Platelet mean volume (Bld) [Entitic vol] 10.2 fL Normal 6.2-12.0 [facility] Comment on above: Performed By: #### L 500.4050, L501.9910, L500.4100, L100.0500, L502.0500 #### [facility] [address] [place], [address] Platelets (Bld) [#/Vol] 337 10*3/uL Normal 150-450 [facility] Comment on above: Performed By: #### L 500.4050, L501.9910, L500.4100, L100.0500, L502.0500 #### [facility] [address] [place], [address] RBC (Bld) [#/Vol] 4.71 10*6/uL Normal 4.6-6.2 [facility] Comment on above: Performed By: #### L 500.4050, L501.9910, L500.4100, L100.0500, L502.0500 #### [facility] [address] [place], [address] RDW SD 43.0 fl Normal 35.1-43.9 [facility] Comment on above: Performed By: #### L 500.4050, L501.9910, L500.4100, L100.0500, L502.0500 #### [facility] [address] [place], [address] WBC (Bld) [#/Vol] 7.2 10*3/uL Normal 4.4-11.0 [facility] Comment on above: Performed By: #### L 500.4050, L501.9910, L500.4100, L100.0500, L502.0500 #### [facility] [address] [place], [address] Comprehensive Metabolic Prof ilon 10-18-2023 Albumin [Mass/Vol] 3.9 g/dL Normal 3.2-5.0 [facility] Comment on above: Performed By: #### L 500.4050, L501.9910, L500.4100, L100.0500, L502.0500 #### [facility] [address] [place], [address] Albumin/Globulin [Mass ratio] 1.3 {ratio} Normal 0.9-2.4 [facility] Comment on above: Performed By: #### L 500.4050, L501.9910, L500.4100, L100.0500, L502.0500 #### [facility] [address] [place], [address] ALK P 60 U/L Normal 45-117 [facility] Comment on above: Performed By: #### L 500.4050, L501.9910, L500.4100, L100.0500, L502.0500 #### [facility] [address] [place], [address] ALT [Catalytic activity/Vol] 48 U/L Normal 16-61 [facility] Comment on above: Performed By: #### L 500.4050, L501.9910, L500.4100, L100.0500, L502.0500 #### [facility] [address] [place], [address] AST [Catalytic activity/Vol] 23 U/L Normal 15-37 [facility] Comment on above: Performed By: #### L 500.4050, L501.9910, L500.4100, L100.0500, L502.0500 #### [facility] [address] [place], [address] Bilirubin [Mass/Vol] 0.90 mg/dL Normal 0.20-1.00 [facility] Comment on above: Result Comment: For patients on eltrombopag therapy, use of Dimension Clever TBIL is not recommended. Performed By: #### L 500.4050, L501.9910, L500.4100, L100.0500, L502.0500 #### [facility] [address] [place], [address] BUN/CRE 16.5 RATIO Normal 10-20 [facility] Comment on above: Performed By: #### L 500.4050, L501.9910, L500.4100, L100.0500, L502.0500 #### [facility] [address] [place], [address] CA,Total 9.0 mg/dL Normal 8.5-10.1 [facility] Comment on above: Performed By: #### L 500.4050, L501.9910, L500.4100, L100.0500, L502.0500 #### [facility] [address] [place], [address] Chloride [Moles/Vol] 108 mmol/L High 98-107 [facility] Comment on above: Performed By: #### L 500.4050, L501.9910, L500.4100, L100.0500, L502.0500 #### [facility] [address] [place], [address] CO2 [Moles/Vol] 25.0 mmol/L Normal 21.0-32.0 [facility] Comment on above: Performed By: #### L 500.4050, L501.9910, L500.4100, L100.0500, L502.0500 #### [facility] [address] [place], [address] Creatinine [Mass/Vol] 0.97 mg/dL Normal 0.70-1.30 [facility] Comment on above: Result Comment: The validity of the calculated GFR GFRAA in patients over 70 years has not been determined. Clinical correlation is essential. Performed By: #### L 500.4050, L501.9910, L500.4100, L100.0500, L502.0500 #### [facility] [address] [place], [address] EST GFR - AA 101 mL/min Normal >60 [facility] Comment on above: Result Comment: Afri can Guamanian GFR Calc Performed By: #### L 500.4050, L501.9910, L500.4100, L100.0500, L502.0500 #### [facility] [address] [place], [address] GAP 7 Normal 5-15 [facility] Comment on above: Performed By: #### L 500.4050, L501.9910, L500.4100, L100.0500, L502.0500 #### [facility] [address] [place], [address] GFR/1.73 sq M.predicted among non-blacks MDRD (S/P/Bld) [Vol rate/Area] 83 mL/min/{1.73_m2} Normal >60 [facility] Comment on above: Result Comment: Non- GFR Calc Performed By: #### L 500.4050, L501.9910, L500.4100, L100.0500, L502.0500 #### [facility] [address] [place], [address] Globulin (S) [Mass/Vol] 3.1 g/dL Normal 2.2-4.2 [facility] Comment on above: Performed By: #### L 500.4050, L501.9910, L500.4100, L100.0500, L502.0500 #### [facility] [address] [place], [address] Glucose [Mass/Vol] 138 mg/dL High 74-106 [facility] Comment on above: Result Comment: Fast ing Glucose result greater than or equal to 126 mg/dL suggests DIABETES MELLITUS per A.D.A. criteria. Performed By: #### L 500.4050, L501.9910, L500.4100, L100.0500, L502.0500 #### [facility] [address] [place], [address] Potassium [Moles/Vol] 3.9 mmol/L Normal 3.5-5.1 [facility] Comment on above: Performed By: #### L 500.4050, L501.9910, L500.4100, L100.0500, L502.0500 #### [facility] [address] [place], [address] Sodium [Moles/Vol] 140 mmol/L Normal 136-145 [facility] Comment on above: Performed By: #### L 500.4050, L501.9910, L500.4100, L100.0500, L502.0500 #### [facility] [address] [place], [address] T PROT 7.0 g/dL Normal 6.4-8.2 [facility] Comment on above: Performed By: #### L 500.4050, L501.9910, L500.4100, L100.0500, L502.0500 #### [facility] [address] [place], [address] Urea nitrogen [Mass/Vol] 16 mg/dL Normal 7-18 [facility] Comment on above: Performed By: #### L 500.4050, L501.9910, L500.4100, L100.0500, L502.0500 #### [facility] [address] [place], [address] Lipid Profileon 10-18-2023 Cholesterol [Mass/Vol] 139 mg/dL Normal 200 [facility] Comment on above: Result Comment: <200 mg/dL Desirable 200-240 mg/dL Borderline >240 mg/dL High Risk Performed By: #### L 500.4050, L501.9910, L500.4100, L100.0500, L502.0500 #### [facility] [address] [place], [address] Cholesterol in HDL [Mass/Vol] 38 mg/dL Low [facility] Comment on above: Result Comment: The drugs N-Acetylcysteine and Metamizole may falsely depress this assay. Reference Range HDL <40 mg/dL Low HDL Cholesterol HDL >or= 60 mg/dL High HDL Cholesterol Performed By: #### L 500.4050, L501.9910, L500.4100, L100.0500, L502.0500 #### [facility] [address] [place], [address] Cholesterol in LDL [Mass/Vol] 64 mg/dL Normal 0-130 [facility] Comment on above: Performed By: #### L 500.4050, L501.9910, L500.4100, L100.0500, L502.0500 #### [facility] [address] [place], [address] Cholesterol in VLDL [Mass/Vol] 37 mg/dL Normal 5-40 [facility] Comment on above: Performed By: #### L 500.4050, L501.9910, L500.4100, L100.0500, L502.0500 #### [facility] [address] [place], [address] Triglyceride [Mass/Vol] 186 mg/dL Normal [facility] Comment on above: Result Comment: The drugs N-Acetylcysteine and Metamizole may falsely depress this assay. Serum Triglycerides Reference Interval Normal <150 mg/dL Borderline high 150 - 199 mg/dL High 200 - 499 mg/dL Very High > or = 500 mg/dL Performed By: #### L 500.4050, L501.9910, L500.4100, L100.0500, L502.0500 #### [facility] [address] [place], [place], [id number] (251) Microalbumin,Random Urineon 10-18-2023 MICROALBUMIN,UR 131.0 mg/L Normal NO RANGE EST. [facility] Comment on above: Performed By: #### L 500.4050, L501.9910, L500.4100, L100.0500, L502.0500 #### [facility] [address] [place], [place], [id number] (063) PSA,Total - Annual Screenon 10-18-2023 PSA,TOT SCREEN 3.35 ng/mL Normal 0.00-4.00 [facility] Comment on above: Result Comment: This test was performed using the TPSA assay method for the Gamestaq chemistry system. Values obtained with different assay methods cannot be used interchangably. When changing PSA assays in the course of monitoring a patient, additional sequential testing should be carried out to confirm baseline values. Performed By: #### L 500.4050, L501.9910, L500.4100, L100.0500, L502.0500 #### [facility] [address] [place], [place], [address] Cardiology Visit Reporton Cardiology Visit Report [facility] [address] [place], [place] [address] OFFICE VISIT Date of Service: 06/28/23 MR#: [id number] Acct: [id number] Name: JEISON GARCIA Rep #: [id number] : 1960 Provider: ROQUE Gomez Age/Sex: 62/M Location: [facility] [place] Status: Signed HPI HPI History of Present Illness Details: Jeison Garcia is a 62-year-old gentleman that presents here today for a cardiovascular follow-up. He had established with us earlier this year for a borderline abnormal exercise stress test. Stress test demonstrated pseudonormalization of the T waves in the inferior leads. Echocardiogram demonstrated borderline low ejection fraction of 50%. He did undergo a diagnostic heart catheterization which did demonstrate normal coronary arteries. He does have a history of hypertension and diabetes. He also has a history of obstructive sleep apnea but does not wear CPAP at night. From a cardiac standpoint, patient is doing well. He does not have any chest discomfort/heaviness/tig htness. His exercise tolerance is stable for his age. He does not have any worsening symptoms of shortness of breath. He denies any PND. He does not have any orthopnea. He does not have any symptoms of congestive heart failure. He does not have any palpitations that he is aware of. He does not have any lightheadedness or dizziness. He does not have any near-syncope or syncope. He does not have any lower extremity edema. He does not have any symptoms of claudication. 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 Is patient in pain?: No Allergies codeine Adverse Reaction (Unknown, Verified 06/28/23 10:34) Unknown Medications acetaminophen 325 mg tablet 325 mg PO DAILY PRN pain 01/30/23 [History Confirmed 03/10/23] aspirin 81 mg tablet,delayed release (Adult Low Dose Aspirin) 81 mg PO DAILY 01/30/23 [History Confirmed 06/28/23] carvedilol 25 mg tablet 25 mg PO BID 01/30/23 [History Confirmed 06/28/23] dulaglutide 0.75 mg/0.5 mL subcutaneous pen injector (Trulicity) 0.75 mg subcut QWEEK 01/30/23 [History Confirmed 06/28/23] hydrochlorothiazide 25 mg tablet 25 mg PO DAILY 01/30/23 [History Confirmed 06/28/23] insulin glargine 100 unit/mL (3 mL) subcutaneous pen (Basaglar KwikPen U-100 Insulin) 12 unit subcut BID 01/30/23 [History Confirmed 06/28/23] lisinopril 40 mg tablet 40 mg PO DAILY 01/30/23 [History Confirmed 06/28/23] metformin 1,000 mg tablet 1,000 mg PO BID 01/30/23 [History Confirmed 06/28/23] multivitamin 1 tab PO DAILY 01/30/23 [History Confirmed 06/28/23] naproxen sodium 220 mg tablet (Aleve) 220 mg PO DAILY PRN pain 01/30/23 [History Confirmed 06/28/23] omeprazole 40 mg capsule,delayed release 40 mg PO DAILY 01/30/23 [History Confirmed 06/28/23] sildenafil 50 mg tablet 50 mg PO DAILY PRN sexual activity 01/30/23 [History Confirmed 03/10/23] amlodipine 5 mg tablet 5 mg PO DAILY #30 tabs 02/01/23 [Rx Confirmed 06/28/23] glimepiride 4 mg tablet 4 mg PO DAILY 06/28/23 [History Confirmed 06/28/23] Nurse's Note: Patient does not know medication nor does he have a list of medications [facility] Medical History Abnormal exercise tolerance test Abnormal stress test Chest pain Essential hypertension XIOMARA on CPAP Pure hypercholesterolemia Type 2 diabetes mellitus Surgical History History of back surgery History of cholecystectomy History of nasal surgery History of shoulder surgery Family History Father Diabetes Kidney disease Hypertension Social History Smoking Status: Former smoker alcohol intake: current details: Rare substance use type: does not use caffeine: Yes (occasional) ROS Const Const: Negative for fatigue, weakness, fever(s) or headache(s) Eyes Eyes: Negative for blind spots, loss of peripheral vision or transient loss of vision ENT ENT: Negative for headache(s), dizziness, tinnitus, Nosebleed/epistaxis or balance problems Cardio Chest Pain: No Palpitations: No Edema: None Muscle aches with walking: None Resp Respiratory: Negative for SOB with activity, SOB at rest, SOB orthopnea SOB lying down or Cough GI GI: Negative nausea, vomiting, heartburn or vomiting blood/hematemesis : Negative for hematuria Musc Musc: Negative for muscle aches/ myalgia, (more content not included)... Normal [facility] MRI SPINE LUMBAR W/O CONTRAS Ton 06-21-2023 MRI SPINE LUMBAR W/O CONTRAST ORIGINAL INDICATION:ORDERING SYSTEM PROVIDED HISTORY: Reason for Exam: LUMBOSACRAL STRAIN TECHNIQUE: MRI of the lumbar spine was performed without the administration of intravenous contrast, according to standard protocol. COMPARISON: None FINDINGS: ALIGNMENT: 7 mm anterolisthesis of L5 on S1 with associated bilateral L5 pars interarticularis defects. Mild lumbar rotary dextroscoliosis. VERTEBRAE: No acute/recent fracture or significant chronic height loss. A remote compression deformity associated with a Schmorl's node involves the superior L1 endplate. A hemangioma is located in the T12 vertebral body. DISCS: Widespread disc desiccation. Severe disc height at loss at L3-L4 and L5-S1. SPINAL CANAL: A 5 mm nodule is located in the posterior spinal canal at the superior L4 level (sagittal T2 image 11 series 5). SURGERY: L3-L5 laminectomies. CONUS MEDULLARIS AND CAUDA EQUINA: The conus medullaris terminates at L1 and is normal. The cauda equina are unremarkable. PARAVERTEBRAL SOFT TISSUES: Postsurgical changes L3 through the sacrum. EVALUATION OF INDIVIDUAL LEVELS DEMONSTRATES: T12-L1: No central canal or foraminal stenosis. Mild bilateral, left greater than right facet arthrosis. L1-L2: Small disc bulge slightly asymmetric to the left subarticular zone effaces the ventral thecal sac in combination with facet arthrosis causes left lateral recess narrowing and mild left foraminal without right foraminal or central canal stenosis. L2-L3: Diffuse posterior disc bulge with a superimposed right central protrusion in combination with ligamentum flavum hypertrophy and facet arthrosis causes bilateral lateral recess narrowing mild central canal and mild bilateral, right greater than left foraminal stenosis. L3-L4: Posterior decompression with circumferential posterior fusion. A diffuse disc osteophyte bulge asymmetric to the left and facet arthrosis causes moderate to severe right and moderate left foraminal without central canal stenosis. Disc may contact the exited left L3 nerve root L4-L5: Posterior decompression with fully expanded thecal sac. Small diffuse disc bulge and facet arthrosis causes moderate left and mild to moderate right foraminal stenosis. L5-S1: Diffuse posterior disc bulge most pronounced to the right subarticular and foraminal zones, disc unroofing associated with an anterolisthesis of L5 on S1, and facet arthrosis causes severe right and mild left foraminal stenosis LIMITED EVALUATION OF UPPER SACRUM AND SACROILIAC JOINTS: Degenerative changes of the bilateral sacroiliac joints. IMPRESSION: 1. No levels of moderate or severe central canal stenosis. 2. 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 3. Level by level findings as discussed above. Interpreted by: Maverick Gomez MD Preliminary Report By: Maverick Gomez MD Electronically signed By Maverick Gomez MD Dictated Date: 06/21/2023 1:32:44 PM Prelim Date: 06/21/2023 1:53:01 PM Sign Date: 06/21/2023 1:53:01 PM Ordering Provider: RUSSELL Ba [facility] Office Visit (WSTR ) -------- JEISON GARCIA ([id number]) 1960 M [facility] Date Time Provider Department 05/25/23 2:15 PM ELIZABETH VARELA RUST During your visit today, we recorded the following information about you: Temperature Pulse Respiration Blood pressure 97.4 degrees 95/minute 19/minute 140/88 Weight 111.9 kg Elizabeth Varela APRN.[employer] 05/25/2023 3:47 PM Signed This note was created using NoteWriter. Subjective Jeison Garcia is a 62 year old male. Patient [...] HX stewart. UPPER GI ENDOSCOPY,EXAM ALLERGIES Lactose, Hydrocodone-Acetaminophe n, and Oxycodone-Acetaminophen MEDICATIONS SIM TOLENTINO U-100 INSULIN 100 unit/mL (3 mL) metFORMIN [...] DAILY (Patient not taking: Reported on 05/25/2023) [place]-3 Fatty Acids (SUPER TWIN EPA-DHA) 1,250 mg [...] crepitus. Normal range of motion. Tenderness present (more content not included)... Normal [facility] Garvey XR KNEE 4V AP/PA BOTH+LAT/ME R LTon 05-25-2023 XR KNEE 4V AP/PA BOTH+LAT/REBEKA LT * * *Final Report* * * DATE OF EXAM: May 25 2023 3:10PM WOX 5202 - XR KNEE 4V AP/PA BOTH+LAT/REBEKA LT / PROCEDURE REASON: Left knee injury, initial encounter * * * * Physician Interpretation * * * * EXAM(s): XR KNEE 4V AP/PA BOTH+LAT/REBEKA LT EXAM DATE/TIME: 05/25/2023 3:10 PM HISTORY: 62 years old Clinical information: Left knee injury, initial encounter Left knee pain and tingling after lifting a heavy tv last night. TECHNIQUE: Images: XR KNEE 4V AP/PA BOTH+LAT/REBEKA LT Comparison: None. RESULT: Findings: Bone density appears well-preserved. No fractures or dislocations are seen. Joint spaces are preserved without degenerative proliferation. No joint effusion. IMPRESSION: No acute fracture or dislocation. Excellence Coach: ALEX Transcribe Date/Time: May 25 2023 3:16P Dictated by : TRUDY CERVANTES MD This examination was interpreted and the report reviewed and electronically signed by: TRUDY CERVANTES MD on May 25 2023 3:18PM EST [id number] Normal [facility] XR KNEE GENERAL 4V AP BOTH/P A BOTH/LAT/MERC LEFTon 05-25-2023 [facility] XR Knee - left 4 Viewson IMPRESSION: No acute fracture or dislocation. Excellence Coach: ALEX Transcribe Date/Time: May 25 2023 3:16P Dictated by : TRUDY CERVANTES MD This examination was interpreted and the report reviewed and electronically signed by: TRUDY CERVANTES MD on May 25 2023 3:18PM EST DIVISION OF RADIOLOGY * * *Final Report* * * DATE OF EXAM: May 25 2023 3:10PM WOX 5202 - XR KNEE 4V AP/PA BOTH+LAT/REBEKA LT / PROCEDURE REASON: Left knee injury, initial encounter * * * * Physician Interpretation * * * * EXAM(s): XR KNEE 4V AP/PA BOTH+LAT/REBEKA LT EXAM DATE/TIME: 05/25/2023 3:10 PM HISTORY: 62 years old Clinical information: Left knee injury, initial encounter Left knee pain and tingling after lifting a heavy tv last night. TECHNIQUE: Images: XR KNEE 4V AP/PA BOTH+LAT/REBEKA LT Comparison: None. RESULT: Findings: Bone density appears well-preserved. No fractures or dislocations are seen. Joint spaces are preserved without degenerative proliferation. No joint effusion. DIVISION OF RADIOLOGY Provider, [facility] - 05/25/2023 * * *Final Report* * * DATE OF EXAM: May 25 2023 3:10PM WOX 5202 - XR KNEE 4V AP/PA BOTH+LAT/REBEKA LT / PROCEDURE REASON: Left knee injury, initial encounter * * * * Physician Interpretation * * * * EXAM(s): XR KNEE 4V AP/PA BOTH+LAT/REBEKA LT EXAM DATE/TIME: 05/25/2023 3:10 PM HISTORY: 62 years old Clinical information: Left knee injury, initial encounter Left knee pain and tingling after lifting a heavy tv last night. TECHNIQUE: Images: XR KNEE 4V AP/PA BOTH+LAT/REBEKA LT Comparison: None. RESULT: Findings: Bone density appears well-preserved. No fractures or dislocations are seen. Joint spaces are preserved without degenerative proliferation. No joint effusion. IMPRESSION IMPRESSION: No acute fracture or dislocation. Excellence Coach: ALEX Transcribe Date/Time: May 25 2023 3:16P Dictated by : TRUDY CERVANTES MD This examination was interpreted and the report reviewed and electronically signed by: TRUDY CERVANTES MD on May 25 2023 3:18PM EST [facility] Radiology Study observation (narrative) [facility] XR Knee - left 4 ViewsOrdere d By: Ccf Provider on 05-25-2023 [facility] Absolute lymphocyte countOrd ered By: Dr. Miller on 02-15-2023 Lymphocytes Auto (Unsp spec) [#/Vol] 2.43 10*3/uL 0.83-4.51 [facility] Basophil percentageOrdered B y: Dr. Miller on 02-15-2023 Basophils/100 WBC (Bld) 0.9 % 0-1 [facility] Chloride [Moles/Vol] 105 mmol/L 98-107 [facility] Eosinophils/100 WBC (Bld) 4.3 % 0-5 [facility] Glucose [Mass/Vol] 207 mg/dL 74-106 [facility] Comment on above: Glucose result great er than or equal to 200 mg/dLsuggests DIABETES MELLITUS per A.D.A. criteria. Neutrophils (Bld) [#/Vol] 3.6 10*3/uL 2.0-7.7 [facility] Neutrophils/100 WBC (Bld) 51.0 % 47-70 [facility] Potassium [Moles/Vol] 4.3 mmol/L 3.5-5.1 [facility] Comment on above: Moderate Hemolysis, Result may be falsely increased. Sodium [Moles/Vol] 138 mmol/L 136-145 [facility] WBC (Bld) [#/Vol] 7.0 10*3/uL 4.4-11.0 [facility] Blood erythrocytes count (nu mber/volume)Ordered By: Dr. Miller on 02-15-2023 RBC (Bld) [#/Vol] 4.91 10*6/uL 4.6-6.2 [facility] Blood hemoglobin measurement (mass/volume)Ordered By: Dr. Miller on 02-15-2023 Hemoglobin (Bld) [Mass/Vol] 14.7 g/dL 13.0-16.5 [facility] Blood lymphocytes/100 leukoc ytesOrdered By: Dr. Miller on 02-15-2023 Lymphocytes/100 WBC (Bld) 34.7 % 19-41 [facility] Blood monocytes/100 leukocyt esOrdered By: Dr. Miller on 02-15-2023 Monocytes/100 WBC (Bld) 8.4 % 0-10 [facility] Blood platelet mean volumeOr dered By: Dr. Miller on 02-15-2023 Platelet mean volume (Bld) [Entitic vol] 10.4 fL 6.2-12.0 [facility] Determination of erythrocyte mean corpuscular volume (MCV)Ordered By: Dr. Miller on 02-15-2023 MCV (RBC) [Entitic vol] 88.0 fL 80-94 [facility] Hematocrit Auto (Bld) [Volum e fraction]Ordered By: Dr. Miller on 02-15-2023 Hematocrit (Bld) [Volume fraction] 43.2 % 40-54 [facility] Laboratory - Chemistry and C hemistry - challengeOrdered By: Dr. Miller on 02-15-2023 CO2 [Moles/Vol] 24.0 mmol/L 21.0-32.0 [facility] Urea nitrogen/Creatinine [Mass ratio] 16.5 mg/mg 10-20 [facility] Laboratory - Hematology and Cell countsOrdered By: Dr. Miller on 02-15-2023 Erythrocyte distribution width (RBC) [Entitic vol] 42.2 fL 35.1-43.9 [facility] Erythrocyte distribution width (RBC) [Ratio] 13.0 % 11.6-14.6 [facility] Immature granulocytes/100 WBC (Bld) 0.700 % 0.0-0.9 [facility] Comment on above: IG% - Immature Granu locytes (promyelocytes, myelocytes and metamyelocytes) > 1% indicates that a LEFT SHIFT is Present. MCH (RBC) [Entitic mass] 29.9 pg 27.0-32.0 [facility] Nucleated RBC/100 WBC (Bld) [Ratio] 0 % 0-5 [facility] MCHC Auto (RBC) [Mass/Vol]Or dered By: Dr. Miller on 02-15-2023 MCHC (RBC) [Mass/Vol] 34.0 g/dL 32-36 [facility] No Panel InformationOrdered By: Dr. Miller on 02-15-2023 Estimated GFR (MDRD) Amer 95 mL/min >60 [facility] Estimated GFR (MDRD) Non-Af Amer 78 mL/min >60 [facility] Platelets bldOrdered By: Dr. Miller on 02-15-2023 Platelets (Bld) [#/Vol] 324 10*3/uL 150-450 [facility] Serum or plasma calcium pilar urement (mass/volume)Ordered By: Dr. Miller on 02-15-2023 Calcium [Mass/Vol] 9.4 mg/dL 8.5-10.1 [facility] Serum or plasma creatinine m easurement (mass/volume)Ordered By: Dr. Miller on 02-15-2023 Creatinine [Mass/Vol] 1.03 mg/dL 0.70-1.30 [facility] Comment on above: The validity of the calculated GFR & GFRAA in patients over 70 years has not been determined. Clinical correlation is essential. Serum or plasma urea nitroge n measurement (mass/volume)Ordered By: Dr. Miller on 02-15-2023 Urea nitrogen [Mass/Vol] 17 mg/dL 7-18 [facility] Thin prep Papanicolaou smear with manual screeningOrdered By: Dr. Miller on 02-15-2023 Thin prep Papanicolaou smear with manual screening 9 5-15 [facility] Comprehensive metabolic 2000 panelon 01-10-2023 Albumin [Mass/Vol] 3.9 g/dL Normal 3.4-5.0 [facility] Comment on above: Performed By: #### 2 4323-8 #### [facility] [address] [place] [address] Visual Specialist - Angélica VIDAL [id number] ALP [Catalytic activity/Vol] 110 U/L Normal 50-136 [facility] Comment on above: Performed By: #### 2 4323-8 #### [facility] [address] [place] [address] Visual Specialist - Angélica Valentin CLIA [id number] ALT [Catalytic activity/Vol] 68 U/L High 16-63 [facility] Comment on above: Performed By: #### 2 4323-8 #### [facility] [address] [place] [address] Visual Specialist - Angélica HICKSIA [id number] Anion gap [Moles/Vol] 4.0 mmol/L Normal <=15.0 [facility] Comment on above: Performed By: #### 2 4323-8 #### [facility] [address] [place] [address] Visual Specialist - Angélica Valentin KURTIA [id number] AST [Catalytic activity/Vol] 31 U/L Normal 15-37 [facility] Comment on above: Performed By: #### 2 4323-8 #### [facility] [address] [place] [address] Visual Specialist - Angélica Valentin CLIA [id number] Bilirubin [Mass/Vol] 0.9 mg/dL Normal 0.2-1.0 [facility] Comment on above: Performed By: #### 2 4323-8 #### [facility] [address] [place] [address] Visual Specialist - Angélica Valentin CLIA [id number] Calcium [Mass/Vol] 9.1 mg/dL Normal 8.5-10.1 [facility] Comment on above: Performed By: #### 2 4323-8 #### [facility] [address] [place] [address] Visual Specialist - Angélica Valentin CLIA [id number] Chloride [Moles/Vol] 103 mmol/L Normal 98-107 [facility] Comment on above: Performed By: #### 2 4323-8 #### [facility] [address] [place] [address] Visual Specialist - Angélica Valentin CLIA [id number] CO2 [Moles/Vol] 30 mmol/L Normal 21-32 [facility] Comment on above: Performed By: #### 2 4323-8 #### [facility] [address] [place] [address] Visual Specialist - Angélica HICKSIA [id number] Creatinine [Mass/Vol] 0.86 mg/dL Normal 0.67-1.17 [facility] Comment on above: Performed By: #### 2 4323-8 #### [facility] [address] [place] [address] Visual Specialist - Angélica Valentin CLIA [id number] GFR/1.73 sq M.predicted MDRD (S/P/Bld) [Vol rate/Area] mL/min/{1.73_m2} Normal >=59 [facility] Comment on above: Performed By: #### 2 4323-8 #### [facility] [address] [place] [address] Visual Specialist - Angélica Valentin CLIA [id number] Glucose [Mass/Vol] 298 mg/dL High 74-106 [facility] Comment on above: Performed By: #### 2 4323-8 #### [facility] [address] [place] [address] Visual Specialist - Angélica VIDAL [id number] HGFR GLOMERULAR FILTRATIO N RATE INTERPRETATION~The eGFR is calculated using the MDRD equation.~This equation has been validated in patients with chronic kidney disease;~however, it underestimates the GFR in healthy patients with GFR's over 60 mL/min.~The equation is not valid in children under the age of 18.~NOTE: Criteria for Chronic Kidney Disease:~ ~1. Kidney damage for at least three months, as defined~by structural or functional abnormalities of the kidney,~with or without decreased glomerular filtration rate, manifested by either:~* Pathological abnormalities or~* Markers of Kidney damage, including abnormalities in~the composition of the blood or urine or abnormalities in imaging tests.~ ~2. GFR <60 mL/min/1.73 m squared for at least three months, with or without kidney damage.~ Normal [facility] Comment on above: Performed By: #### 2 4323-8 #### [facility] [address] [place] [address] Visual Specialist - Angélica VIDAL [id number] Potassium [Moles/Vol] 4.2 mmol/L Normal 3.5-5.1 [facility] Comment on above: Performed By: #### 2 4323-8 #### [facility] [address] [place] [address] Visual Specialist - Angélica VIDAL [id number] Protein [Mass/Vol] 6.9 g/dL Normal 6.4-8.2 [facility] Comment on above: Performed By: #### 2 4323-8 #### [facility] [address] [place] [address] Visual Specialist - Angélica VIDAL [id number] Sodium [Moles/Vol] 137 mmol/L Normal 136-145 [facility] Comment on above: Performed By: #### 2 4323-8 #### [facility] [address] [place], [place] [address] Visual Specialist - Angélica Valentin CLIA [id number] Urea nitrogen [Mass/Vol] 18 mg/dL Normal 9-20 [facility] Comment on above: Performed By: #### 2 4323-8 #### [facility] [address] [place], [place] [address] Visual Specialist - Angélica HICKSIA [id number] ALBUMIN/CREAT RATIO RND URon 07-15-2022 Albumin DL <= 20 mg/L (U) [Mass/Vol] 231.4 mg/L Normal [facility] Comment on above: Order Comment: Speci men Type: URINE SPECIMEN Ordering Facility: [facility] Address: [address] [place] [address], [place] [address] Performed By: #### U ACR #### [facility] CLIA [id number] [address] [place] [address] [place] Albumin/Creatinine (U) [Mass ratio] 127 mg/g High <30 [facility] Comment on above: Order Comment: Speci men Type: URINE SPECIMEN Ordering Facility: [facility] Address: [address] [place] [address], [place] [address] Result Comment: Adul t Male and Female Nephrotic Criteria: <30 mg/g is considered normal to mildly increased 30-300 mg/g is considered moderately increased >300 mg/g is considered severely increased KDIGO. (2013). KDIGO 2012 Clinical Practice Guideline for the Evaluation and Management of Chronic Kidney Disease. Official Journal of the International Society of Nephrology, 3(1), 1-150. Performed By: #### U ACR #### [facility] CLIA [id number] [address] [place] [address] [place] Creatinine (U) [Mass/Vol] 182.8 mg/dL Normal 20.0-300.0 [facility] Comment on above: Order Comment: Speci men Type: URINE SPECIMEN Ordering Facility: [facility] Address: [address] [place] [address], [place] [address] Performed By: #### U ACR #### [facility] CLIA [id number] [address] [place] [address] [place] CBC panel Auto (Bld)on 07-15 Erythrocyte distribution width (RBC) [Ratio] 13.3 % Normal 11.5-15.0 [facility] Comment on above: Order Comment: Speci men Type: BLOOD SPECIMEN Ordering Facility: [facility] Address: [address] [place] [address] Performed By: #### 5 8410-2 #### [facility] CLIA [id number] [address] [place] [address] [place] Hematocrit (Bld) [Volume fraction] 48.3 % Normal 39.0-51.0 [facility] Comment on above: Order Comment: Speci men Type: BLOOD SPECIMEN Ordering Facility: [facility] Address: [address] [place] [address] Performed By: #### 5 8410-2 #### [facility] [place] [id number] [address] [place] [address] [place] Hemoglobin (Bld) [Mass/Vol] 16.0 g/dL Normal 13.0-17.0 [facility] Comment on above: Order Comment: Speci men Type: BLOOD SPECIMEN Ordering Facility: [facility] Address: [address] [place] [address] Performed By: #### 5 8410-2 #### [facility] [place] [id number] [address] [place] [address] [place] MCH (RBC) [Entitic mass] 29.7 pg Normal 26.0-34.0 [facility] Comment on above: Order Comment: Speci men Type: BLOOD SPECIMEN Ordering Facility: [facility] Address: [address] [place] [address] Performed By: #### 5 8410-2 #### [facility] [place] [id number] [address] [place] [id number] [address] [place] MCHC (RBC) [Mass/Vol] 33.1 g/dL Normal 30.5-36.0 [facility] Comment on above: Order Comment: Speci men Type: BLOOD SPECIMEN Ordering Facility: [facility] Address: [address] [place] [address] Performed By: #### 5 8410-2 #### [facility] CLIA [id number] [address] [place] [address] [place] MCV (RBC) [Entitic vol] 89.6 fL Normal 80.0-100.0 [facility] Comment on above: Order Comment: Speci men Type: BLOOD SPECIMEN Ordering Facility: [facility] Address: [address] [place] [address] Performed By: #### 5 8410-2 #### [facility] CLIA [id number] [address] [place] [address] [place] Nucleated RBC (Bld) [#/Vol] 10*3/uL Normal <0.01 [facility] Comment on above: Order Comment: Speci men Type: BLOOD SPECIMEN Ordering Facility: [facility] Address: [address] [place] [address] Performed By: #### 5 8410-2 #### [facility] CLIA [id number] [address] [place] [address] [place] Platelet mean volume (Bld) [Entitic vol] 11.3 fL Normal 9.0-12.7 [facility] Comment on above: Order Comment: Speci men Type: BLOOD SPECIMEN Ordering Facility: [facility] Address: [address] [place] [address] Performed By: #### 5 8410-2 #### [facility] CLIA [id number] [address] [place] [address] [place] Platelets (Bld) [#/Vol] 256 10*3/uL Normal 150-400 [facility] Comment on above: Order Comment: Speci men Type: BLOOD SPECIMEN Ordering Facility: [facility] Address: [address] [place] [address] Performed By: #### 5 8410-2 #### [facility] CLIA [id number] [address] [place] [address] [place] RBC (Bld) [#/Vol] 5.39 10*6/uL Normal 4.20-6.00 [facility] Comment on above: Order Comment: Speci men Type: BLOOD SPECIMEN Ordering Facility: [facility] Address: [address] [place] [address] Performed By: #### 5 8410-2 #### [facility] CLIA [id number] [address] [place] [address] [place] WBC (Bld) [#/Vol] 6.17 10*3/uL Normal 3.70-11.00 [facility] Comment on above: Order Comment: Speci men Type: BLOOD SPECIMEN Ordering Facility: [facility] Address: [address] [place] [address], [place] [address] Performed By: #### 5 8410-2 #### [facility] CLIA [id number] [address] [place] [address] [place] Comprehensive metabolic 2000 panelon 07-15-2022 Albumin [Mass/Vol] 4.5 g/dL Normal 3.9-4.9 [facility] Comment on above: Order Comment: Speci men Type: BLOOD SPECIMEN Ordering Facility: [facility] Address: [address] [place] [address] Performed By: #### 2 4323-8, 42792-5 #### [facility] CLIA [id number] [address] [place] [address] [place] ALP [Catalytic activity/Vol] 119 U/L High 38-113 [facility] Comment on above: Order Comment: Speci men Type: BLOOD SPECIMEN Ordering Facility: [facility] Address: [address] [facility], [place] [address] Performed By: #### 2 4323-8, 11605-0 #### [facility] CLIA [id number] [address] [place] [address] [place] ALT [Catalytic activity/Vol] 39 U/L Normal 10-54 [facility] Comment on above: Order Comment: Speci men Type: BLOOD SPECIMEN Ordering Facility: [facility] Address: [address] [place] [address], [place] [address] Performed By: #### 2 4323-8, 75447-2 #### [facility] CLIA [id number] [address] [place] [address] [place] Anion gap [Moles/Vol] 10 mmol/L Normal 9-18 [facility] Comment on above: Order Comment: Speci men Type: BLOOD SPECIMEN Ordering Facility: [facility] Address: [address] [place] [address], [place] [address] Performed By: #### 2 4323-8, 39639-0 #### [facility] CLIA [id number] [address] [place] [address] [place] AST [Catalytic activity/Vol] 24 U/L Normal 14-40 [facility] Comment on above: Order Comment: Speci men Type: BLOOD SPECIMEN Ordering Facility: [facility] Address: [address] [place] [address], [place] [address] Performed By: #### 2 4323-8, 86356-1 #### [facility] CLIA [id number] [address] [place], [place] [id number] [place] Bilirubin [Mass/Vol] 1.1 mg/dL Normal 0.2-1.3 [facility] Comment on above: Order Comment: Speci men Type: BLOOD SPECIMEN Ordering Facility: [facility] Address: [address] [place] [address], [place] [address] Performed By: #### 2 4323-8, #### [facility] CLIA [id number] [address] [address] [place] Calcium [Mass/Vol] 9.0 mg/dL Normal 8.5-10.2 [facility] Comment on above: Order Comment: Speci men Type: BLOOD SPECIMEN Ordering Facility: [facility] Address: [address] [place] [address], [place] [address] Performed By: #### 2 4323-8, 30425-6 #### [facility] CLIA [id number] [address] [place] [id number] [place] Chloride [Moles/Vol] 101 mmol/L Normal 97-105 [facility] Comment on above: Order Comment: Speci men Type: BLOOD SPECIMEN Ordering Facility: [facility] Address: [address] [place] [address], [place] [address] Performed By: #### 2 43238, #### [facility] CLIA [id number] [address] [place] [id number] [place] CO2 [Moles/Vol] 27 mmol/L Normal 22-30 [facility] Comment on above: Order Comment: Speci men Type: BLOOD SPECIMEN Ordering Facility: [facility] Address: [address] [place] [address], [place] [address] Performed By: #### 2 4323-8, #### [facility] CLIA [id number] [address] [place] [id number] [place] Creatinine [Mass/Vol] 0.78 mg/dL Normal 0.73-1.22 [facility] Comment on above: Order Comment: Speci men Type: BLOOD SPECIMEN Ordering Facility: [facility] Address: [address] [place] [address], [place] [address] Performed By: #### 2 4323-8, 31792-3 #### [facility] CLIA [id number] [address] [place] [address] [place] ESTIMATED GLOMERULAR FILTRATION RATE 100 mL/min/1.73m??? Normal >=60 [facility] Comment on above: Order Comment: Brittany reeder Type: BLOOD SPECIMEN Ordering Facility: [facility] Address: [address] [place] [address], [place] [address] Result Comment: Leeanna mated Glomerular Filtration Rate (eGFR) is calculated using the 2020 CKD-EPI creatinine equation. This equation utilizes serum creatinine, sex, and age as parameters. The creatinine assay has traceable calibration to isotope dilution-mass spectrometry. Refer to KDIGO guidelines for clinical interpretation. In patients with unstable renal function, e.g. those with acute kidney injury, the eGFR may not accurately reflect actual GFR. Performed By: #### 2 4323-8, 84278-5 #### [facility] CLIA [id number] [address] [place] [address] [place] Glucose [Mass/Vol] 230 mg/dL High 74-99 [facility] Comment on above: Order Comment: Brittany reeder Type: BLOOD SPECIMEN Ordering Facility: [facility] Address: [address] [place] [address], [place] [address] Result Comment: The [place] Diabetes Association (ADA) provides guidance for cutoff values for fasting glucose and random glucose. The ADA defines fasting as no caloric intake for at least 8 hours. Fasting plasma glucose results between 100 to 125 mg/dL indicate increased risk for diabetes (prediabetes). Fasting plasma glucose results greater than or equal to 126 mg/dL meet the criteria for diagnosis of diabetes. In the absence of unequivocal hyperglycemia, results should be confirmed by repeat testing. In a patient with classic symptoms of hyperglycemia or hyperglycemic crisis, random plasma glucose results greater than or equal to 200 mg/dL meet the criteria for diagnosis of diabetes. Reference: Standards of Medical Care in Diabetes 2016, [place] Diabetes Association. Diabetes Care. 2016.39(Suppl 1). Performed By: #### 2 4323-8, 22675-1 #### [facility] CLIA [id number] [address] [place] [address] [place] Potassium [Moles/Vol] 4.9 mmol/L Normal 3.7-5.1 [facility] Comment on above: Order Comment: Speci men Type: BLOOD SPECIMEN Ordering Facility: [facility] Address: [address] [facility], [place] [address] Performed By: #### 2 4323-8, 69214-5 #### [facility] CLIA [id number] [address] [place] [address] [place] Protein [Mass/Vol] 6.6 g/dL Normal 6.3-8.0 [facility] Comment on above: Order Comment: Speci men Type: BLOOD SPECIMEN Ordering Facility: [facility] Address: [address] [place] [address], [place] [address] Performed By: #### 2 4323-8, 86660-2 #### [facility] CLIA [id number] [address] [place] [address] [place] Sodium [Moles/Vol] 138 mmol/L Normal 136-144 [facility] Comment on above: Order Comment: Speci men Type: BLOOD SPECIMEN Ordering Facility: [facility] Address: [address] [place] [address], [place] [address] Performed By: #### 2 4323-8, 56358-2 #### [facility] CLIA [id number] [address] [place] [address] [place] Urea nitrogen [Mass/Vol] 13 mg/dL Normal 9-24 [facility] Comment on above: Order Comment: Speci men Type: BLOOD SPECIMEN Ordering Facility: [facility] Address: [address] [place] [address], [place] [address] Performed By: #### 2 4323-8, 64160-1 #### [facility] CLIA [id number] [address] [place] [address] [place] HbA1c (Bld)on 07-15-2022 Average glucose Estimated from glycated hemoglobin (Bld) [Mass/Vol] 240 mg/dL Normal [facility] Comment on above: Order Comment: Speci men Type: BLOOD SPECIMEN Ordering Facility: [facility] Address: [address] [place] [address] Result Comment: eAG: (Estimated average glucose) is a calculated value from HgbA1c and is veterans service representative of the average blood glucose level in the last 2-3 month period. Performed By: #### 5 5454-3 #### [facility] CLIA [id number] [address] [place] [address] [place] HbA1c (Bld) [Mass fraction] 10.0 % High 4.3-5.6 [facility] Comment on above: Order Comment: Speci men Type: BLOOD SPECIMEN Ordering Facility: [facility] Address: [address] [place] [address] Result Comment: [place] Diabetes Association guidelines indicate that patients with HgbA1c in the range 5.7-6.4% are at increased risk for development of diabetes, and intervention by lifestyle modification may be beneficial. HgbA1c greater or equal to 6.5% is considered diagnostic of diabetes. Performed By: #### 5 5454-3 #### [facility] CLIA [id number] [address] [place] [address] [place] Lipid 1996 panelon 18-202 2 Cholesterol [Mass/Vol] 168 mg/dL Normal <200 [facility] Comment on above: Order Comment: Speci men Type: BLOOD SPECIMEN Ordering Facility: [facility] Address: [address] [place] [address] Result Comment: <200 mg/dL, Desirable 200-239 mg/dL, Borderline high >239 mg/dL, High Performed By: #### 2 4323-8, 61555-2 #### [facility] CLIA [id number] [address] [place] [address] [place] Cholesterol in HDL [Mass/Vol] 36 mg/dL Low >39 [facility] Comment on above: Order Comment: Speci varinder Type: BLOOD SPECIMEN Ordering Facility: [facility] Address: [address] [place] [address] Result Comment: 40-5 9 mg/dL, Acceptable >59 mg/dL, High: Negative risk factor for coronary heart disease <40 mg/dL, Low: Positive risk factor for coronary heart disease Performed By: #### 2 4323-8, 05051-8 #### [facility] CLIA [id number] [address] [address] [place] Cholesterol in LDL [Mass/Vol] 83 mg/dL Normal <100 [facility] Comment on above: Order Comment: Speci men Type: BLOOD SPECIMEN Ordering Facility: [facility] Address: [address] [place] [address], [place] [address] Result Comment: <100 mg/dL, Optimal 100-129 mg/dL, Near optimal/above optimal 130-159 mg/dL, Borderline high 160-189 mg/dL, High >189 mg/dL, Very high Secondary prevention optimal LDL Cholesterol levels are recommended to be < 70 mg/dL Performed By: #### 2 4323-8, 53325-0 #### [facility] CLIA [id number] [address] [place] [address] [place] Cholesterol in LDL/Cholesterol in HDL [Mass ratio] 2.31 {ratio} Normal <2.54 [facility] Comment on above: Order Comment: Brittany reeder Type: BLOOD SPECIMEN Ordering Facility: [facility] Address: [address] [place] [address], [place] [address] Result Comment: Refe rence: 1. National Cholesterol Education Program ATP III Guideline At-A-Glance Quick Desk Reference: National Heart, Lung, and Blood [place]. National Institutes of Health. 2001: NIH Publication No. 01-3305. 2. An International Atherosclerosis Society position paper: global recommendations for the management of dyslipidemia: executive summary, Atherosclerosis. 2014: 232(2):410-413. Performed By: #### 2 4323-8, 64380-1 #### [facility] CLIA [id number] [address] [place] [id number] [place] Cholesterol in VLDL [Mass/Vol] 49 mg/dL High <30 [facility] Comment on above: Order Comment: Speci men Type: BLOOD SPECIMEN Ordering Facility: [facility] Address: [address] [place] [address], [place] [address] Performed By: #### 2 4323-8, 62067-5 #### [facility] CLIA [id number] [address] [address] [place] Cholesterol non HDL [Mass/Vol] 132 mg/dL High <130 [facility] Comment on above: Order Comment: Speci men Type: BLOOD SPECIMEN Ordering Facility: [facility] Address: [address] [place] [address], [place] [address] Result Comment: <130 mg/dL, Optimal 130-159 mg/dL, Near optimal/above optimal 160-189 mg/dL, Borderline high 190-219 mg/dL, High >219 mg/dL, Very high Secondary prevention optimal non HDL Cholesterol levels are recommended to be <100 mg/dL Performed By: #### 2 4323-8, 35588-0 #### [facility] CLIA [id number] [address] [place] [address] [place] Cholesterol.total/Cho lesterol in HDL [Mass ratio] 4.67 {ratio} Normal <5.10 [facility] Comment on above: Order Comment: Speci men Type: BLOOD SPECIMEN Ordering Facility: [facility] Address: [address] [place] [address], [place] [address] Performed By: #### 2 4323-8, #### [facility] CLIA [id number] [address] [place] [id number] [place] FASTING TIME 10 hrs Normal [facility] Comment on above: Order Comment: Speci men Type: BLOOD SPECIMEN Ordering Facility: [facility] Address: [address] [place] [address], [place] [address] Performed By: #### 2 4323-8, 10838-8 #### [facility] CLIA [id number] [address] [place] [id number] [place] Triglyceride [Mass/Vol] 247 mg/dL High <150 [facility] Comment on above: Order Comment: Speci men Type: BLOOD SPECIMEN Ordering Facility: [facility] Address: [address] [facility], [place] [address] Result Comment: <150 mg/dL, Normal 150-199 mg/dL, Borderline high 200-499 mg/dL, High >499 mg/dL, Very high Performed By: #### 2 4323-8, 17494-4 #### [facility] CLIA [id number] [address] [facility] [address] [address] [place] Hemoglobin A1con 09-01-2021 Glucose [Mass/Vol] 306 mg/dL Normal [facility] Comment on above: Performed By: #### H BA1C #### [facility] Routine Lab [facility] [place], [place] [id number] HbA1c (Bld) [Mass fraction] 12.3 % High 4.3-5.6 [facility] Comment on above: Performed By: #### H BA1C #### [facility] Routine Lab [address] [place] [id number] Basic Metabolic Panelon 01-26 Anion gap [Moles/Vol] 9 mmol/L Normal 8-15 [facility] Comment on above: Performed By: #### B MP #### [facility] [address] [place] [address] Calcium [Mass/Vol] 9.3 mg/dL Normal 8.6-10.6 [facility] Comment on above: Performed By: #### B MP #### [facility] [address] [place], [place] [address] Chloride [Moles/Vol] 103 mmol/L Normal 98-107 [facility] Comment on above: Performed By: #### B MP #### [facility] [address] [place], [place] [address] CO2 [Moles/Vol] 26 mmol/L Normal 22-29 [facility] Comment on above: Performed By: #### B MP #### [facility] [address] [place] [address] Creatinine [Mass/Vol] 0.8 mg/dL Normal 0.5-1.2 [facility] Comment on above: Performed By: #### B MP #### [facility] [address] [place] [address] eGFR -Amer >=60 Normal >=60 [facility] Comment on above: Performed By: #### B MP #### [facility] [address] [place] [address] GFR/1.73 sq M.predicted among non-blacks MDRD (S/P/Bld) [Vol rate/Area] mL/min/{1.73_m2} Normal >=60 [facility] Comment on above: Performed By: #### B MP #### [facility] [address] [place] [address] Glucose [Mass/Vol] 300 mg/dL High 74-109 [facility] Comment on above: Performed By: #### B MP #### [facility] [address] [place] [address] Potassium [Moles/Vol] 4.6 mmol/L Normal 3.4-5.1 [facility] Comment on above: Performed By: #### B MP #### [facility] [address] [place] [address] Sodium [Moles/Vol] 138 mmol/L Normal 136-145 [facility] Comment on above: Performed By: #### B MP #### [facility] [address] [place] [address] Urea nitrogen [Mass/Vol] 15 mg/dL Normal 6-23 [facility] Comment on above: Performed By: #### B MP #### [facility] [address] [place] [address] CBC with Diffon 02-04-2021 BA# 0.1 x(10)3/cumm Normal 0.0-0.1 [facility] Comment on above: Performed By: #### C BCDIFF #### [facility] [address] [place] [address] Basophils/100 WBC (Bld) 0.6 % Normal 0.0-1.0 [facility] Comment on above: Performed By: #### C BCDIFF #### [facility] [address] [place] [address] EO# 0.3 x(10)3/cumm Normal 0.0-0.4 [facility] Comment on above: Performed By: #### C BCDIFF #### [facility] [address] [place] [address] Eosinophils/100 WBC (Bld) 2.8 % Normal 0.0-6.1 [facility] Comment on above: Performed By: #### C BCDIFF #### [facility] [address] [place] [address] Erythrocyte distribution width (RBC) [Ratio] 13.9 % Normal 11.1-15.3 [facility] Comment on above: Performed By: #### C BCDIFF #### [facility] [address] [place] [address] Hematocrit (Bld) [Volume fraction] 45.6 % Normal 37.6-50.6 [facility] Comment on above: Performed By: #### C BCDIFF #### [facility] [address] [place] [address] Hemoglobin (Bld) [Mass/Vol] 15.6 g/dL Normal 12.9-17.5 [facility] Comment on above: Performed By: #### C BCDIFF #### [facility] [address] [place] [address] LY# 2.3 x(10)3/cumm Normal 0.8-2.9 [facility] Comment on above: Performed By: #### C BCDIFF #### [facility] [address] [place] [address] Lymphocytes/100 WBC (Bld) 25.1 % Normal 12.2-42.6 [facility] Comment on above: Performed By: #### C BCDIFF #### [facility] [address] [place] [address] MCH (RBC) [Entitic mass] 30.0 pg Normal 27.2-33.6 [facility] Comment on above: Performed By: #### C BCDIFF #### [facility] [address] [place] [address] MCHC (RBC) [Mass/Vol] 34.3 g/dL Normal 32.9-35.3 [facility] Comment on above: Performed By: #### C BCDIFF #### [facility] [address] [place] [address] MCV (RBC) [Entitic vol] 87.4 fL Normal 81.3-96.7 [facility] Comment on above: Performed By: #### C BCDIFF #### [facility] [address] [place] [address] MO# 0.9 x(10)3/cumm High 0.2-0.8 [facility] Comment on above: Performed By: #### C BCDIFF #### [facility] [address] [place] [address] Monocytes/100 WBC (Bld) 10.1 % Normal 3.3-11.6 [facility] Comment on above: Performed By: #### C BCDIFF #### [facility] [address] [place] [address] NE# 5.5 x(10)3/cumm Normal 1.3-7.4 [facility] Comment on above: Performed By: #### C BCDIFF #### [facility] [address] [place] [address] Neutrophils/100 WBC (Bld) 61.4 % Normal 44.9-78.8 [facility] Comment on above: Performed By: #### C BCDIFF #### [facility] [address] [place] [address] Platelet mean volume (Bld) [Entitic vol] 9.2 fL Normal 6.4-10.0 [facility] Comment on above: Performed By: #### C BCDIFF #### [facility] [address] [place] [address] PLT 244 x(10)3/cumm Normal 138-367 [facility] Comment on above: Performed By: #### C BCDIFF #### [facility] [address] [place] [address] Plt Morph Normal [facility] Comment on above: Performed By: #### C BCDIFF #### [facility] [address] [place] [address] RBC 5.21 X(10)6/cumm Normal 4.20-5.80 [facility] Comment on above: Performed By: #### C BCDIFF #### [facility] [address] [place] [address] RBC Morph cont Normal [facility] Comment on above: Performed By: #### C BCDIFF #### [facility] [address] [place] [address] RBC morphology finding Nom (Bld) Normal [facility] Comment on above: Performed By: #### C BCDIFF #### [facility] [address] [place] [address] WBC 9.0 x(10)3/cumm Normal 3.6-10.3 [facility] Comment on above: Performed By: #### C BCDIFF #### [facility] [address] [place] [address] WBC Morph Normal [facility] Comment on above: Performed By: #### C BCDIFF #### [facility] [address] [place] [address] MRI Up Ext RT Jt wo contrast on 12-22-2020 MRI Up Ext RT Jt wo contrast Examination: MRI right shoulder Clinical Indication: [id number]: Sprain of right rotator cuff capsule Comparison: None Findings: Multiplanar multisequence 0.7 Danni open MRI images were obtained through the right shoulder without intravenous gadolinium. No osseous contusion or fracture. Acromioclavicular joint demonstrates mild osteoarthropathy. There is slight lateral downsloping acromion with some truncation and slight artifact suggesting prior acromioplasty. Mild inflammation in the subacromial subdeltoid bursa. Long head biceps demonstrates tendinitis and tendon tenosynovitis. There is partial-thickness intermediate grade surface tear at the proximal bicipital groove. Biceps is slightly medially subluxed Subscapularis demonstrates low-grade partial-thickness 0.5 cm interstitial tear of the distal superior fibers superimposed on tendinitis. Supraspinatus demonstrates low to intermediate grade partial-thickness articular sided tear measuring 2 cm anterior to posterior and significantly thinning the tendon more anteriorly. No full-thickness component. There is mild articular sided tear retraction up to 1.1 cm. There is subchondral cystic change greater humeral tuberosity at the supraspinatus insertion, largest more posteriorly measures 1.2 cm. Infraspinatus demonstrates mild tendinitis, no tear. Teres minor is normal in appearance. No significant muscular atrophy. No shoulder joint effusion. Moderate glenohumeral articular cartilage thinning. There is degenerative tear of the glenoid labrum more pronounced posteriorly. Small glenohumeral osteophytes. Minimal inflammation joint capsule anterior inferiorly and posterior inferiorly which can be seen with a mild sprain or adhesive capsulitis. Impression: 1. Postsurgical changes consistent with prior acromioplasty. There is mild AC joint and acromial impingement and mild subacromial subdeltoid bursitis. 2. Partial-thickness tear, tendinitis and tendon tenosynovitis long head biceps with slight medial subluxation at the biceps lila. 3. Low-grade partial-thickness articular sided tear distal superior subscapularis 0.5 cm. 4. Low to intermediate grade partial tear articular surface anterior to mid supraspinatus and thinning the tendon. Finding superimposed on tendinitis and enthesopathy. 5. Moderate glenohumeral cartilage loss with mild to moderate osteoarthropathy. Degenerative labral tear. 6. Mild inferior capsular inflammation which can be seen with a mild sprain or adhesive capsulitis, no tear. Report Dictated on Authenticated by: Santiago Mccurdy On: 12/22/2020 15:56 Read by: SANTIAGO MCCURDY MD Date: 12/22/2020 15:[address] [facility] Comment on above: Order Comment: CONTR AST PER RADIOLOGIST DISCRETION PROGRESSon 11-27-2019 PROGRESS HNO ID: [id number] Author: Vishal Serrano Service: ? Author Type: Physician Type: Progress Notes Filed: 11/27/2019 8:31 AM Note Text: PRIMARY CARE PHYSICIAN: Sander Cunningham DO REFERRING PHYSICIAN: PCP CHIEF COMPLAINT: Patient presents with: CARD Follow Up 1 Month Virtual Visit: Patient has been identified by name and date of : Yes . This is a FaceTime visit. HISTORY OF PRESENT ILLNESS: Mr. Garcia is a 59 year old male who presents today for cardiac follow up. I had seen him in September for evaluation of chest pain. Cardiac risk factors include uncontrolled diabetes, hyperlipidemia, hypertension and active tobacco abuse. Patient had been having exertional chest pain for weeks to months and was told it is related to acid reflux. He also had NYHA class 2-3 shortness of breath. Chest pain was left-sided, felt like tightness and at times relieved by rest. He occasionally felt strong beats. Patient underwent a nuclear stress test which showed EF of 48%, with small RCA territory infarction with no ischemia. He then had a cardiac catheterization which did not show any significant CAD. He denies any current chest pain, shortness of breath, orthopnea, cough, edema, palpitations, PND, lightheadedness or syncope. He has quit smoking and is on nicotine patch. He reports compliance with his medications but not CPAP. PAST CARDIAC HISTORY: Diabetes type 2 Hypertension Hyperlipidemia Tobacco abuse 10 year ASCVD risk is 30% PAST MEDICAL HISTORY Diagnosis Date - Bladder calculus - BPH with obstruction/lower urinary tract symptoms - Bradycardia - Chest pain - Diabetes (HCC) type 2 - Essential hypertension - GERD (gastroesophageal reflux disease) - PVC (premature ventricular contraction) - SOB (shortness of breath) - Spinal stenosis - Tobacco abuse PAST SURGICAL HISTORY Procedure Laterality Date - BACK SURGERY HX 08/15/2017 - CHOLECYSTECTOMY HX 2006 - HEART CATHETERIZATION 11/19/2019 no significant coronary artery disease. - LITHOTRIPSY / 1 SIDE 03/09/2018 stent - PAST SURGICAL HISTORY OF prostate reduction - PROSTATE SURGERY HX 10/04/2013 - REPAIR NASAL SEPTUM DEFECT Left 2015 - SHOULDER SURGERY HX stewart. - UPPER GI ENDOSCOPY,EXAM SOCIAL HISTORY Social History Tobacco Use - Smoking status: Former Smoker Years: 40.00 Types: Cigarettes Last attempt to quit: 10/13/2019 Years since quittin.1 - Smokeless tobacco: Never Used - Tobacco comment: trying to quit Substance Use Topics - Alcohol use: No - Drug use: No FAMILY HISTORY Problem Relation Age of Onset - Hypertension Mother - Heart Father - Diabetes Father ALLERGIES: ALLERGIES Allergen Reactions - Lactose Intolerance - Hydrocodone-Acetami* Mental Status Change Hallucinations - Oxycodone-Acetamino* Other: See Comments Hallucinations MEDICATIONS: nicotine (NICODERM) 21 mg/24 hr APPLY ONE PATCH EXTERNALLY ONCE DAILY atorvastatin (LIPITOR) 40 mg tablet Take 1 tablet by mouth once daily. carvedilol (COREG) 6.25 mg tablet Take 1 tablet by mouth twice daily. nitroglycerin sublingual (NITROSTAT) 0.4 mg SL tablet Dissolve 1 tablet under the tongue as needed for Chest Pain. If no pain relief call 911. sucralfate (CARAFATE) 1 gram tablet Take one tablet by mouth 4 times daily Omeprazole 40 mg capsule Take 1 capsule by mouth once daily. MULTI-VITAMIN ORAL Take by mouth. sitaGLIPtin (JANUVIA) 100 mg tablet Take 1 tablet by mouth once daily. glimepiride (AMARYL) 4 mg tablet Take 1 tablet by mouth once daily. lisinopril (ZESTRIL, PRINIVIL) 20 mg tablet Take 1 tablet by mouth once daily. [place]-3 Fatty Acids (SUPER TWIN EPA-DHA) 1,250 mg cap Take by mouth. aspirin, enteric coated (ASPIRIN, ENTERIC COATED) 81 mg EC tablet Take 81 mg by mouth once daily. dapagliflozin (FARXIGA) 5 mg tab Take 1 tablet by mouth daily with breakfast. canagliflozin (INVOKANA) 100 mg tab Take 1 tablet by mouth daily with breakfast. docusate sodium (COLACE) 100 mg capsule Take 1 capsule by mouth twice daily. REVIEW OF SYSTEMS: GENERAL: Negative for: Weight loss or gain, Fever or Chills, Weakness and Sleep difficulties and Fatigue. HEENT: Negative for: Headache, Impaired Vision, Glasses, Hearing Impairment, Ringing in Ears, Nosebleeds, Poor dental care, Bleeding Gums, Dentures NECK: Negative for: Swelling, Pain, Stiffness RESPIRATORY: Negative for: Cough, Blood in Sputum, Shortness of breath, Wheezing, Apnea CARDIOVASCULAR: As noted in HPI GASTROINTESTINAL: Negative for: Trouble swallowing, Heartburn, Change in bowel habits, Blood in stool, Dark black stools MUSCULOSKELETAL: Negative for: Muscle or joint pain, Stiffness , Joint swelling NEUROLOGIC/PSYCHIATRIC: Negative for: Weakness, Paralysis, Numbness, Tingling, Tremor, Nervousness, Depressed mood, Memory loss SKIN: Negative for: Rashes, Itching HEMATOLOGICAL/LYMPHATIC: Negative for: Easy bruising , Easy bleeding ENDOCRINE: Negative for: Heat or cold intolerance, Excessive sweating, Frequent urination, Frequent thirst Ht 5' 9 (1.753 m) Wt 240 lb (108.9 kg) BMI 35.44 kg/m? CARDIOVASCULAR MEDICINE TESTING: Electrocardiogram: 10/11/19: Sinus rhythm, PVC's, LVH, NS T wave changes I have personally reviewed the Electrocardiogram. CXR: IMPRESSION: No acute process. Cardiac cath 11/19/19: Impression:No significant coronary aretry disease Recommended Treatment: Medical Therapy. Plan: Continue medical therapy Echo 10/28/19: CONCLUSIONS: - Technically difficult exam due to body habitus. - Exam indication: chest pain - The left ventricle is normal in size. Left ventricular systolic function is normal. EF = 54 ? 5% (2D biplane) Definity contrast used for endocardial border detection. Normal left ventricular diastolic function. - The right ventricle is normal in size. Right ventricular systolic function is normal. - There are no significant valvular abnormalities. - The patient has not had a prior CC echocardiographic exam for comparison. Lexiscan 11/08/19: CONCLUSIONS: ?1. SPECT Perfusion Study: Abnormal. ?2. There is no scintigraphic evidence for inducible ischemia. ?3. There is a small (<10%) fixed perfusion defect in the RCA territory. ?4. Functional capacity N/A (pharmacological). ?5. Left ventricle is mildly dilated. The left ventricle systolic function is mildly decreased. ?6. Right ventricle is normal in size. The right ventricle systolic function is normal. ?7. This is an intermediate risk scan. ?Gated Stress FBP ?LVEF % 48 Component Latest Ref Rng AND Units 08/16/2019 10/10/2019 11/08/2019 WBC 3.70 - 11.00 k/uL 8.63 9.70 RBC 4.20 - 6.00 m/uL 5.93 5.45 Hemoglobin 13.0 - 17.0 g/dL 17.4 (H) 16.4 Hematocrit 39.0 - 51.0 % 52.6 (H) 48.4 MCV 80.0 - 100.0 fL 88.7 88.8 MCH 26.0 - 34.0 pG 29.3 30.1 MCHC 30.5 - 36.0 g/dL 33.1 33.9 RDW-CV 11.5 - 15.0 % 13.2 13.0 Platelet Count 150 - 400 k/uL 268 236 MPV 9.0 - 12.7 fL 11.9 11.8 Neut% % 57.3 Abs Neut (ANC) 1.45 - 7.50 k/uL 4.95 Lymph% % 31.1 Abs Lymph 1.00 - 4.00 k/uL 2.68 [place]% % 8.9 Abs [place] <0.87 k/uL 0.77 Eosin% % 1.9 Abs Eosin <0.46 k/uL 0.16 Baso% % 0.8 Abs Baso <0.11 k/uL 0.07 Nucleated Reds 0 /100 WBC 0.0 Absolute nRBC <0.01 k/uL <0.01 <0.01 Diff Type Auto Diff Protein, Total 6.3 - 8.0 g/dL 7.3 Albumin 3.9 - 4.9 g/dL 4.6 Calcium 8.5 - 10.2 mg/dL 10.1 9.6 Bilirubin, Total 0.2 - 1.3 mg/dL 0.7 Alkaline Phosphatase 38 - 113 U/L 123 (H) AST 14 - 40 U/L 23 Glucose 74 - 99 mg/dL 191 (H) 172 (H) BUN 9 - 24 mg/dL 13 13 Creatinine 0.73 - 1.22 mg/dL 0.94 0.93 Sodium 136 - 144 mmol/L 141 141 Potassium 3.7 - 5.1 mmol/L 4.7 4.1 Chloride 97 - 105 mmol/L 102 103 CO2 22 - 30 mmol/L 24 25 Anion Gap 9 - 18 mmol/L 15 13 ALT 10 - 54 U/L 30 eGFR- >60 >60 eGFR-All Other Races . >60 >60 Hemoglobin A1C (POCT) 4.2 - 5.6 % 10.0 (A) TSH 0.270 - 4.200 uU/mL 0.915 Troponin T 0.000 - 0.029 ng/mL <0.010 Component Latest Ref Rng AND Units 08/25/2018 Cholesterol, Total <200 mg/dL 146 Triglyceride <150 mg/dL 166 (H) HDL Cholesterol >39 mg/dL 31 (L) LDL Cholesterol <100 mg/dL 82 Non HDL Cholesterol <130 mg/dL 115 Fasting Time hrs 12 VLDL Cholesterol <30 mg/dL 33 (H) TC:HDL Ratio <5.10 4.71 LDL:HDL Ratio <2.54 2.65 (H) IMPRESSION: Mr. Garcia is a 59 year old male with the following cardiac issues . PLAN AND RECOMMENDATIONS: 1. Mixed hyperlipidemia - ICD9: 272.2, ICD10: E78.2 (primary diagnosis) Continue with high intensity statin 10 year ASCVD risk is 30% Will recheck lipids - LIPID PANEL BASIC - AST/SGOT BLD - ALT/SGPT 2. Essential (primary) hypertension - ICD9: 401.9, ICD10: I10 Continue with current meds- coreg and lisinopril Asked him to monitor his BP at home Goal BP< 130/80 - LISINOPRIL 40 MG TABLET 3. Chest pain, unspecified type - ICD9: 786.50, ICD10: R07.9 No significant CAD seen on cath Continue with cardiac risk factor modification 4. Type 2 diabetes mellitus with other specified complication, 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) - ICD9: 250.80, ICD10: E11.69 Recommend goal A1c < 7 5. Smoker - ICD9: 305.1, ICD10: F17.200 - Cessation encouraged. Is on nicotine patch. - Physiologic and physical aspects of tobacco addiction as well as strategies for quitting were discussed. - Counseling was given focusing on the harmful effects of this addiction especially given the patient's medical condition(s) which will be worsened because of the chemicals in tobacco. 6. Abnormal stress test - ICD9: 794.39, ICD10: R94.39 Cardiac cath did not show any significant CAD FU in 6 months This is a virtual health visit in lieu of in-person visit due to nationwide COVID?19 emergency. Verbal consent was obtained from the patient prior to initiation of this visit. Face Time between my location and the patient's location was used for this visit. Patient's name and date of were confirmed verbally. I spent a total of 20 min time during this real-time, interactive virtual clinical encounter, which was conducted using virtual technology. Greater than 50% of the time was devoted to counseling and coordinating care including the review of records, pertinent lab data and studies, discussing diagnostic evaluation and workup, planned therapeutic interventions and future disposition of care. All questions from patient were answered. Vishal Serrano MD, [facility] BRIEF OP NOTon 11-19-2019 BRIEF OP NOT HNO ID: [id number] Author: Martin Mueller Service: Cardiovascular Medicine Author Type: Physician Type: Brief Op Note Filed: 11/19/2019 9:30 AM Note Text: Brief Cath note: Indications: Chest pain, abnormal stress test Access: 6Fr. Right radial artery Closure: TR band Findings: Left main Normal LAD mild diffuse disease LCx Normal RCA Normal LVEDP: 16mmHg Impressions: No significant coronary artery disease. Recommend: Continue medical therapy Martin Izaguirre MD Interventional Cardiology [facility] HISTORY PHYSICALon 0 HISTORY PHYSICAL HNO ID: [id number] Author: Martin Mueller Service: Cardiovascular Medicine Author Type: Physician Type: HANDP Filed: 11/19/2019 8:22 AM Note Text: UPDATED HANDP PRE-CARDIAC CATHETERIZATION SERVICE DATE: 11/19/2019 SERVICE TIME: 8:21 AM PHYSICAL EXAM MUST BE COMPLETED ON ADMISSION The History and Physical (completed in the past 30 days) has been reviewed and the patient has been examined. The contents accurately reflect the patient's condition with the following additions or revisions since the HANDP was completed. Examination indicates no changes. Planned Procedure: Left Heart Cath + Possible PCI Primary Indication for Procedure: Abnormal Stress Test and Angina, Stable High Risk Features: History of Prior CABG: No History of Prior PCI: No Cardiomyopathy: Yes Anti-ischemic Meds in Past 2 Weeks: Beta blockers and Nitrates Ejection Fraction: 48% from Previous Stress Test HISTORY OF BLEEDING: No This HANDP can be found in the Electronic Medical Record dated 10/11/2019. SIGNATURE: Martin Mueller MD PATIENT NAME: Jeison Garcia DATE: November 19, 2019 TIME: 8:21 AM PAGER: [id number] [facility] NURSING PROGon 11-19-2019 NURSING PROG HNO ID: [id number] Author: Chad Goins) SANJU Cohen Service: Nursing Author Type: Registered Nurse Type: Nursing Progress Note Filed: 11/19/2019 12:12 PM Note Text: When removing TR band, a small hematoma started to form, TR band replaced and 6cc air added. Will continue protocol Normal [facility] Hector 11-11-2019 CNPN Telephone (AKJEANNIE) -------- SEGUNDOJEISON ([id number]) 1960 M [facility] Date Time Provider Department 11/11/19 VISHAL SERRANO During your visit today, we recorded the following information about you: Vishal Serrano MD, [facility] 11/11/2019 12:39 PM Signed Labs are ok. Thx Prabhu Irizarry Ma 11/11/2019 3:24 PM Signed Pt contacted, has no questions at this time Prabhu Irizarry Ma Allergies As of Date: 11/11/2019 Noted Allergy Reaction LACTOSE 08/15/2017 5 - Intolerance HYDROCODONE-ACETAMINOPHE N 03/14/2018 1 - Mental Status Change Comments: Hallucinations OXYCODONE-ACETAMINOPHEN 03/14/2018 14 - Other: See Comments Comments: Hallucinations Date Reviewed: 10/11/2019 Reviewed by: Vishal Serrano - Fully Assessed Reason for Visit: Results [95] Prescriptions as of 11/11/2019 Sig: NICOTINE 21 MG/24 HR DAILY TR* Apply 1 Patch as directed serenity* ATORVASTATIN 40 MG TABLET Take 1 tablet by mouth once d* CARVEDILOL 6.25 MG TABLET Take 1 tablet by mouth twice * NITROGLYCERIN 0.4 MG SUBLINGU* Dissolve 1 tablet under the t* LISINOPRIL 20 MG TABLET Take one tablet by mouth once* SUCRALFATE 1 GRAM TABLET Take one tablet by mouth 4 ti* FARXIGA 5 MG TABLET Take 1 tablet by mouth daily * OMEPRAZOLE 40 MG CAPSULE,CLEMENT* Take 1 capsule by mouth once * INVOKANA 100 MG TABLET Take 1 tablet by mouth daily * Patient not taking: Reported on 10/10/2019 BABY ASPIRIN ORAL Take by mouth. MULTI-VITAMIN ORAL Take by mouth. SITAGLIPTIN 100 MG TABLET Take 1 tablet by mouth once d* GLIMEPIRIDE 4 MG TABLET Take 1 tablet by mouth once d* TAMSULOSIN 0.4 MG CAPSULE Take 1 capsule by mouth once * Patient not taking: Reported on 12/10/2018 OXYBUTYNIN CHLORIDE ER 5 MG T* Take 1 tablet by mouth once d* Patient not taking: Reported on 09/12/2018 LISINOPRIL 20 MG TABLET Take 1 tablet by mouth once d* OMEGA-3 FATTY ACIDS 1,250 MG * Take by mouth. DOCUSATE SODIUM 100 MG CAPSULE Take 1 capsule by mouth twice* Patient not taking: Reported on 10/10/2019 ASPIRIN 81 MG TABLET,DELAYED * Take 81 mg by mouth once candace* Problem List As Of Date 11/11/2019 Noted Resolved Uncontrolled type 2 diabetes mellitus without c*10/11/2017 Spinal stenosis [M48.00] 08/07/2017 Disorder of intervertebral disc [M51.9] 07/27/2017 Elevated prostate specific antigen (PSA) [R97.2*03/06/2018 Calculus of kidney [N20.0] 03/06/2018 Anxiety disorder [F41.9] 03/14/2018 Acute kidney injury (HCC) [N17.9] 03/22/2018 Essential (primary) hypertension [I10] 03/14/2018 Gastroesophageal reflux disease [K21.9] 03/29/2018 Intractable cyclical vomiting with nausea [R11.*03/29/2018 Cigarette nicotine dependence, uncomplicated [F*08/06/2017 Obstructive sleep apnea [G47.33] 03/14/2018 PUD (peptic ulcer disease) [K27.9] 03/22/2018 PVC (premature ventricular contraction) [I49.3] 03/29/2018 Osteoarthritis [M19.90] 03/14/2018 Obesity, Class I, BMI 30-34.9 [E66.9] 03/29/2018 BPH with obstruction/lower urinary tract sympto*09/13/2018 More... Bladder calculus [N21.0] 09/13/2018 More... Obesity, Class II, BMI 35-39.9 [E66.9] 05/01/2019 SOB (shortness of breath) [R06.02] Bradycardia [R00.1] High blood pressure [I10] Encounter Status:Closed by VISHAL SERRANO on 11/11/[address] [facility] CNPNon 11-08-2019 CNPN Telephone (AGCARDHWN ) -------- JEISON GARCIA ([id number]) 1960 [facility] [place] Date Time Provider Department 11/08/19 VISHAL SERRANO AGCARDHWN During your visit today, we recorded the following information about you: Vishal Serrano MD, [facility] 11/08/2019 1:09 PM Signed Stress test shows small heart attack with mildly reduced EF. His insurance should approve the cardiac cath now. Ordered [facility]. x Blessing Concepcion RN 11/08/2019 1:12 PM Signed Left message on [employer] requesting pt return call for test results. Office phone number provided. SANJU Lowe RN 11/08/2019 1:42 PM Signed Pt notified of stress test results and Dr Serrano's message. He voices understanding. Patient scheduled for left heart cath, rt radial, with Dr Izaguirre on 11/19/19. Instructions reviewed. Questions answered. Patient verbalized understanding. Instructions were as follows: -Arrive to [facility] HANDV Entrance 11/19/19 at time assigned by [facility] record label intern staff in phone call 11/18/19 PM.. -Nothing by mouth after midnight evening prior. -With a sip of water on 11/19/19 morning take: Aspirin 325mg along with usual BP meds- coreg and lisinopril -Pt to hold oral DM meds morning of cath. Pt does not take metformin. -Labs to be done no later than 11/22/29. Orders entered within this encounter - You must have someone drive you home from your procedure. -record label intern policy is pt not be alone first evening Office phone number provided for questions or concerns. [facility] analytical lab technician notified. SANJU Lowe RN 11/08/2019 1:42 PM Signed Addended by: BLESSING CONCEPCION on: 11/08/2019 01:42 PM Modules accepted: Orders Allergies As of Date: 11/08/2019 Noted Allergy Reaction LACTOSE 08/15/2017 5 - Intolerance HYDROCODONE-ACETAMINOPHE N 03/14/2018 1 - Mental Status Change Comments: Hallucinations OXYCODONE-ACETAMINOPHEN 03/14/2018 14 - Other: See Comments Comments: Hallucinations Date Reviewed: 10/11/2019 Reviewed by: Vishal Serrano - Fully Assessed Reason for Visit: Results [95] Primary Visit Diagnosis:Abnormal stress test [R94.39] Other Visit Diagnosis:Stable angina pectoris (HCC) [I20.8] Order(s):LEFT HEART CATH,PERCUTANEOUS [19247KII] Order #: [id number]: 1 BASIC METABOLIC PNL [SQBMP] Order #: [id number] FUTURE CBC [SQCBC] Order #: [id number] FUTURE Prescriptions as of 11/08/2019 Sig: NICOTINE 21 MG/24 HR DAILY TR* Apply 1 Patch as directed serenity* ATORVASTATIN 40 MG TABLET Take 1 tablet by mouth once d* CARVEDILOL 6.25 MG TABLET Take 1 tablet by mouth twice * NITROGLYCERIN 0.4 MG SUBLINGU* Dissolve 1 tablet under the t* LISINOPRIL 20 MG TABLET Take one tablet by mouth once* SUCRALFATE 1 GRAM TABLET Take one tablet by mouth 4 ti* FARXIGA 5 MG TABLET Take 1 tablet by mouth daily * OMEPRAZOLE 40 MG CAPSULE,CLEMENT* Take 1 capsule by mouth once * INVOKANA 100 MG TABLET Take 1 tablet by mouth daily * Patient not taking: Reported on 10/10/2019 BABY ASPIRIN ORAL Take by mouth. MULTI-VITAMIN ORAL Take by mouth. SITAGLIPTIN 100 MG TABLET Take 1 tablet by mouth once d* GLIMEPIRIDE 4 MG TABLET Take 1 tablet by mouth once d* TAMSULOSIN 0.4 MG CAPSULE Take 1 capsule by mouth once * Patient not taking: Reported on 12/10/2018 OXYBUTYNIN CHLORIDE ER 5 MG T* Take 1 tablet by mouth once d* Patient not taking: Reported on 09/12/2018 LISINOPRIL 20 MG TABLET Take 1 tablet by mouth once d* OMEGA-3 FATTY ACIDS 1,250 MG * Take by mouth. DOCUSATE SODIUM 100 MG CAPSULE Take 1 capsule by mouth twice* Patient not taking: Reported on 10/10/2019 ASPIRIN 81 MG TABLET,DELAYED * Take 81 mg by mouth once candace* Problem List As Of Date 11/08/2019 Noted Resolved Uncontrolled type 2 diabetes mellitus without c*10/11/2017 Spinal stenosis [M48.00] 08/07/2017 Disorder of intervertebral disc [M51.9] 07/27/2017 Elevated prostate specific antigen (PSA) [R97.2*03/06/2018 Calculus of kidney [N20.0] 03/06/2018 Anxiety disorder [F41.9] 03/14/2018 Acute kidney injury (HCC) [N17.9] 03/22/2018 Essential (primary) hypertension [I10] 03/14/2018 Gastroesophageal reflux disease [K21.9] 03/29/2018 Intractable cyclical vomiting with nausea [R11.*03/29/2018 Cigarette nicotine dependence, uncomplicated [F*08/06/2017 Obstructive sleep apnea [G47.33] 03/14/2018 PUD (peptic ulcer disease) [K27.9] 03/22/2018 PVC (premature ventricular contraction) [I49.3] 03/29/2018 Osteoarthritis [M19.90] 03/14/2018 Obesity, Class I, BMI 30-34.9 [E66.9] 03/29/2018 BPH with obstruction/lower urinary tract sympto*09/13/2018 More... Bladder calculus [N21.0] 09/13/2018 More... Obesity, Class II, BMI 35-39.9 [E66.9] 05/01/2019 SOB (shortness of breath) [R06.02] Bradycardia [R00.1] High blood pressure [I10] Encounter Status:Closed by VISHAL SERRANO on 11/08/19 [facility] HOSPon 11-08-2019 HOSP Patient:Jeison Garcia MRN: Height:5' 10(1.778 m) Weight:245 lb 9.6 oz (111.403 kg) Outpatient Medications as of 11/19/19: aspirin, enteric coated (ASPIRIN, ENTERIC COATED) 325 mg EC tablet nicotine (NICODERM) 21 mg/24 hr atorvastatin (LIPITOR) 40 mg tablet carvedilol (COREG) 6.25 mg tablet nitroglycerin sublingual (NITROSTAT) 0.4 mg SL tablet lisinopril (ZESTRIL, PRINIVIL) 20 mg tablet sucralfate (CARAFATE) 1 gram tablet dapagliflozin (FARXIGA) 5 mg tab Omeprazole 40 mg capsule canagliflozin (INVOKANA) 100 mg tab BABY ASPIRIN ORAL MULTI-VITAMIN ORAL sitaGLIPtin (JANUVIA) 100 mg tablet glimepiride (AMARYL) 4 mg tablet tamsulosin ER (FLOMAX) 0.4 mg cap oxybutynin XL (DITROPAN XL) 5 mg 24 hr tablet lisinopril (ZESTRIL, PRINIVIL) 20 mg tablet [place]-3 Fatty Acids (SUPER TWIN EPA-DHA) 1,250 mg cap docusate sodium (COLACE) 100 mg capsule aspirin, enteric coated (ASPIRIN, ENTERIC COATED) 81 mg EC tablet Admission/Clinic Administered Medications as of 11/19/19: heparin 1,000 Units in D5W 250 mL heparin 3,000 Units in NaCl 0.9% 500 mL irrigation Problem List: Uncontrolled type 2 diabetes mellitus without complication, without long-term current use of insulin [[id number]] Spinal stenosis [M48.00] Disorder of intervertebral disc [M51.9] Elevated prostate specific antigen (PSA) [R97.20] Calculus of kidney [N20.0] Anxiety disorder [F41.9] Acute kidney injury (HCC) [N17.9] Essential (primary) hypertension [I10] Gastroesophageal reflux disease [K21.9] Intractable cyclical vomiting with nausea [R11.15] Cigarette nicotine dependence, uncomplicated [F17.210] Obstructive sleep apnea [G47.33] PUD (peptic ulcer disease) [K27.9] PVC (premature ventricular contraction) [I49.3] Osteoarthritis [M19.90] Obesity, Class I, BMI 30-34.9 [E66.9] BPH with obstruction/lower urinary tract symptoms [N40.1, N13.8] Bladder calculus [N21.0] Obesity, Class II, BMI 35-39.9 [E66.9] SOB (shortness of breath) [R06.02] Bradycardia [R00.1] High blood pressure [I10] Allergies: Lactose Hydrocodone-Acetaminophe n Oxycodone-Acetaminophen Date Verified: 11/19/19 Lab Values Lab Value Units Date High Low POTA* 4.1 mmol/L 11/08/2019 5.1 3.7 MARLON* 48.4 % 11/08/2019 51.0 39.0 Progress Notes ([facility]): Sander Cunningham, 11/18/2019 12:44 PM Signed Please let patient know his cologuard was negative. Wendy Guy Ma 11/18/2019 1:02 PM Signed Patient contacted. 11/18/2019 1:01 PM Wendy Guy Ma Progress Notes ([facility]): Angelika Velásquez Ma 11/18/2019 8:38 AM Signed Patient phones requesting refills as follows: Pending Prescriptions Disp Refills NICOTINE 21 MG/24 HR DAILY TRANSDERMAL PATCH 14 Patch 0 Sig: APPLY ONE PATCH EXTERNALLY ONCE DAILY SHAQUILLE: Yes Please review and advise. Angelika Velásquez Ma [facility] NM CARDIAC PERF STRESS/PHARM on 11-08-2019 NM CARDIAC PERF STRESS/PHARM * * *Final Report* * * DATE OF EXAM: Nov 08 2019 10:50AM [facility] 0006 - NM CARDIAC PERF STRESS/PHARM / PROCEDURE REASON: multiple diagnoses * * * * Physician Interpretation * * * * PATIENT: Name: MR. JEISON GARCIA Age: 59 years Gender: M CONCLUSIONS: 1. SPECT Perfusion Study: Abnormal. 2. There is no scintigraphic evidence for inducible ischemia. 3. There is a small (<10%) fixed perfusion defect in the RCA territory. 4. Functional capacity N/A (pharmacological). 5. Left ventricle is mildly dilated. The left ventricle systolic function is mildly decreased. 6. Right ventricle is normal in size. The right ventricle systolic function is normal. 7. This is an intermediate risk scan. Gated Stress FBP LVEF % 48 Prior Study Comparison No prior nuclear cardiology exam available for comparison. Nuclear Med Report:1-Day Tc-Tetrofosmin Gated SPECT Myocardial Perfusion with Regadenoson Stress: Myocardial perfusion imaging was performed at rest 30 minutes following the IV injection of Tc-99m tetrofosmin. The patient received 0.4 mg of regadenoson, via rapid IV push, immediately followed by Tc-99m tetrofosmin IV. Gated post stress tomographic imaging was performed 30 to 60 minutes later. See administered doses below. [facility] Date of service: 11/08/2019 8:00:00 AM Ordering Physician: Skyler Serrano Requesting Physician: Indication: Assessment for suspected CAD and CP - ECG uniterpretable OR unable to exercise. Interpreting physician: Shawn Salazar MD Patient History: History of hypertension, diabetes mellitus, dyslipidemia. Medications currently taking are B-meredith, statins, ASA, ACEI and Farxiga, Glimepiride, Vitamin, NTG, Omeprazole, Januvia, Carafate. Height: 177.80 cm BSA: 2.31 m? Weight: 108.41 kg BMI: 34.3 kg/m? Imaging Protocol Limitation Reason G.I. uptake, Patient motion and Diaphragmatic attenuation. Primary Rhythm: Sinus and PVC. Secondary Rhythm: Sinus, PVC and Non-Specific ST/T Wave Changes. Exam Type: Rest Stress Radiopharm: Tc-99m Tetrofosmin Tc-99m Tetrofosmin Dosage(mCi): 13.2 34.5 Stress Agent: Regadenoson 0.4mg Supply provided from [facility] Resting Heart Rate: 72 bpm Resting Blood Press: 148/90 mmHg Image Quality The overall study imaging quality was deemed to be fair. The following technical issues were noted: G.I. uptake, Patient motion and Diaphragmatic attenuation. FINDINGS: Left Ventricle Wall Motion: Stress IR:3D - All segments are normal. Rest IR:3D - Gated Stress FBP - Reversibility - Stress IR:3D Stress IR:3D Gated Stress FBP LVEF: 48 % ED Volume: 167 ml ES Volume: 87 ml TID: 1.16 Perfusion Findings Stress IR:3D - Summed Score=6 There is a moderate perfusion defect in the mid and distal inferior wall and apex. All remaining scored segments show normal perfusion. Rest IR:3D - Summed Score=6 There is a moderate perfusion defect in the mid and distal inferior wall and apex. All remaining scored segments show normal perfusion. Stress IR:3D Rest IR:3D Summed Score=6 Summed Score=6 LEFT VENTRICLE The left ventricle is mildly dilated. Left ventricular systolic function is mildly decreased. Right Ventricle The right ventricle is normal in size. Right ventricle systolic function is normal. Stress Test Findings: There is no scintigraphic evidence for inducible ischemia. The stress test was terminated due to the following: End of Protocol. Peak HR 93 bpm. (58 % MPHR) Peak BP 158 mmHg/102 mmHg Patient experienced shortness of breath and headache during stress. Stress ECG was non-diagnostic due to abnormal rest ECG. Stress complications: none. Final -- Stress ECG Report: [facility] Date of service: 11/08/2019 8:00:00 AM Ordering physician: VISHAL SERRANO Specialist: Monica Evans Order Entry: Yessy Farah Stress ECG interpreting physician: Johnny Davis MD PATIENT: Name: MR. JEISON GARCIA Age: 59 years Gender: M Height: 177.80 cm BSA: 2.31 m? Weight: 108.41 kg BMI: 34.3 kg/m? STRESS ECG CONCLUSION: ECG Response: Normal STRESS ECG SUMMARY: The patient's resting heart rate was 72 bpm and blood pressure was 148/90 mmHg. The maximum heart rate was 93 bpm, which is 58% predicted for age. The double product achieved [place] [address]. Peak heart rate was 93 bpm and peak blood pressure was 158/102 mmHg. STRESS ECG FINDINGS: Indications: Assessment for suspected CAD, CP - ECG un-interpretable or unable to exercise and Dyspnea Diagnosis: Hyperlipidemia, Hypertension, Obesity and PVCs Medications: Statins, Diabetic medication, Betablocker and COCO inhibitor Resting ECG: Normal Sinus Rhythm and T Wave Inversion Pharamcologic Protocol: Regadenoson Stress Test: +----+--+---+---+ Step HR SYS ABDIFATAH +----+--+---+---+ 1 89 163 98 +----+--+---+---+ 2 93 169 100 +----+--+---+---+ 3 88 160 103 +----+--+---+---+ 4 86 +----+--+---+---+ 5 83 159 94 +----+--+---+---+ 6 83 +----+--+---+---+ 7 81 +----+--+---+---+ 8 82 158 102 +----+--+---+---+ +-----+--+---+---+ HR SYS ABDIFATAH +-----+--+---+---+ Final 93 158 102 +-----+--+---+---+ +----+ + --- ----+ Step Arrhythmias Comments +----+ + --- ----+ 1 Rare Aberrant Denied Chest Sx, Shortness Of Breath. EKG With Further T Wave Inversion. +----+ + --- ----+ 2 Denied Chest Sx, Shortness Of Breath Easing. Almost Baseline EKG +----+ + --- ----+ 3 Rare PVC (<3/min) Denied Chest Sx, Shortness Of Breath Easing. Almost Baseline EKG +----+ + --- ----+ 4 Denied Chest Sx, Shortness Of Breath Gone, Slight Headache. Almost Baseline EKG +----+ + --- ----+ 5 Denied Chest Sx, Slight Headache. Almost Baseline EKG +----+ + --- ----+ 6 Denied Chest Sx, Slight Headache. Almost Baseline EKG +----+ + --- ----+ 7 Denied Chest Sx, Slight Headache Easing. Almost Baseline EKG +----+ + --- ----+ 8 Denied Chest Sx, Slight Headache Easing. Almost Baseline EKG +----+ + --- ----+ Resting HR: 72 bpm Peak HR: 93 bpm (58% MPHR) Resting BP: 148 / 90 mmHg Peak BP: 158 / 102 mmHg Chronotropic response index (CRI): 0.33 Rate Pressure Product (RPP): 82743 Reason for test termination: End of Protocol. Symptoms during test: Shortness of breath and headache. Blood pressure response: Normal BP response ST segment and T wave changes: T-wave changes - stress Comments: Lexiscan 0.4mg IVP Over Ten Seconds Followed By Nuclear Isotope IVP. Lungs CTA. Denied Chest Sx With Lexiscan Infusion. Resting EKG With T Wave Inversion. With Lexiscan, EKG With Brief Further T Wave Inversion, Rare PVC, Rare Aberrant. Final -- Stress Real Estate Operations Manager Report: [facility] Date of service: 11/08/2019 8:00:00 AM Supervising physician: Johnny Davis MD PATIENT: Name: MR. JEISON GARCIA Age: 59 years Gender: M The supervising physician was present during the stress procedure. Final Excellence Coach: GILBERT Transcribe Date/Time: Nov 08 2019 8:00A Dictated by : SHAWN SALAZAR MD This examination was interpreted and the report reviewed and electronically signed by: SHAWN SALAZAR MD on Nov 08 2019 1:12PM EST Normal [facility] PROGRESSon 11-08-2019 PROGRESS HNO ID: [id number] Author: Lobito Vasquez (Rt) Service: ? Author Type: Freight Engineer Type: Progress Notes Filed: 11/08/2019 10:39 AM Note Text: RADIOLOGY SERVICE PROGRESS NOTE SERVICE DATE: 11/08/2019 SERVICE TIME: 10:35 AM PATIENT IDENTITY VERIFICATION COMPLETED USING TWO (2) STANDARD IDENTIFIERS: Name and Date of confirmed by patient verbally PATIENT GENDER DATA: .male : No ALLERGIES: Reviewed and unchanged MEDICATIONS REVIEWED: Yes PATIENT RELEVANT IMPLANT DATA REVIEWED: Not Applicable CREATININE: Creatinine Date Value Ref Range Status 10/10/2019 0.94 0.73 - 1.22 mg/dL Final 08/25/2018 0.81 0.73 - 1.22 mg/dL Final 08/16/2017 0.85 0.67 - 1.17 mg/dL Final eGFR-All Other Races Date Value Ref Range Status 10/10/2019 >60 . Final Comment: eGFR (Estimated GFR) Units of measure: mL/min/1.73 meters squared eGFR is derived from the reexpressed MDRD Study equation using the following parameters: serum creatinine, age, gender and race. The creatinine assay has been calibrated to be traceable to IDMS. An eGFR <60 mL/min/1.73m2 for >3 months is consistent with chronic kidney disease. Refer to KDOQI guidelines for clinical interpretation. In patients with unstable renal function, e.g. those with acute kidney injury, the eGFR may not accurately reflect actual GFR. eGFR- Date Value Ref Range Status 10/10/2019 >60 Final P.O.C.T. RESULTS: N/A November 08, [address] PERFORMED: No IV SITE: Ambulatory: A peripheral IV was started in the Left antecubital site with a Angio cath: 22 gauge. POST EXAM PIV STATUS: Discontinued PROCEDURE TYPE: NM Stress: 13.2mCi [id number] was administered IV for Rest Imaging at 0830 by dd. 34.5 mCi [id number] was administered IV for Stress Imaging at 0955 by ms. ADMINISTRATION TIME: 0955 PATIENT DISCHARGED TO: Ambulatory patient, left NM department area. A Diagnostic radioactive procedure has taken place, with no further precautions necessary other than routine body substance precautions. More information regarding radiation safety can be found using this link: [email or web address] SIGNATURE: RT Pedro PATIENT NAME: Jeison Garcia DATE: November 08, 2019 TIME: 10:35 AM PAGER/CONTACT #: [facility] PROGRESS HNO ID: [id number] Author: Monica (Rn) SANJU Evans Service: Cardiovascular Testing Author Type: Registered Nurse Type: Progress Notes Filed: 11/08/2019 10:32 AM Note Text: #[id number] Jedarrello Left AC Per Katerina BILLS. Lexiscan Nuclear Stress Test Explained And Questions Answered Prior To Testing. Salo D/C'ed Post Test. [facility] CNOVon 10-11-2019 CNOV Office Visit (AGCARD HWN) -------- JEISON GARCIA ([id number]) 1960 [facility] [place] Date Time Provider Department 10/11/19 10:20 AM VISHAL SERRANO AGCARDHWN During your visit today, we recorded the following information about you: Pulse Respiration Blood pressure Weight 92/minute 16/minute 142/78 108.4 kg Height 1.778 m Pascual Buchanan MA, MA 10/11/2019 10:21 AM Signed Patient complains of chest tightness today. Vishal Serrano MD, [facility] 10/11/2019 10:54 AM Signed PRIMARY CARE PHYSICIAN: Sander Cunningham DO REFERRING PHYSICIAN: PCP CHIEF COMPLAINT: Patient presents with: CARD New Patient Consult HISTORY OF PRESENT ILLNESS: Mr. Garcia is a 59 year old male who presents today for cardiac evaluation of chest pain. Cardiac risk factors include uncontrolled diabetes, hyperlipidemia, hypertension and active tobacco abuse. Patient has been having exertional chest pain for weeks to months and was told it is related to acid reflux. He also has NYHA class 2-3 shortness of breath. Chest pain is left-sided, feels like tightness and may or may not be relieved by rest. At times he has also felt strong beats. He denies any orthopnea or PND ankle edema, lightheadedness dizziness or syncope He denies any current chest pain, shortness of breath, orthopnea, cough, edema, palpitations, PND, lightheadedness or syncope. He was seen by Dr. Cunningham yesterday and had blood work including troponin which was normal. His EKG shows occasional PVCs with LVH and nonspecific T-wave changes. His A1c is around 10. He smokes half a pack of cigarettes a day. His 10 year ASCVD risk is 30%, he is not currently on a statin. PAST CARDIAC HISTORY: Diabetes type 2 Hypertension Hyperlipidemia Tobacco abuse 10 year ASCVD risk is 30% PAST MEDICAL HISTORY Diagnosis Date - Bladder calculus - BPH with obstruction/lower urinary tract symptoms - Bradycardia - Chest pain - Diabetes (HCC) type 2 - GERD (gastroesophageal reflux disease) - High blood pressure - PVC (premature ventricular contraction) - SOB (shortness of breath) - Spinal stenosis PAST SURGICAL HISTORY Procedure Laterality Date - BACK SURGERY HX 08/15/2017 - CHOLECYSTECTOMY HX 2006 - LITHOTRIPSY / 1 SIDE 03/09/2018 stent - PAST SURGICAL HISTORY OF prostate reduction - PROSTATE SURGERY HX 10/04/2013 - REPAIR NASAL SEPTUM DEFECT Left 2015 - SHOULDER SURGERY HX stewart. - UPPER GI ENDOSCOPY,EXAM SOCIAL HISTORY Social History Tobacco Use - Smoking status: Current Every Day Smoker Packs/day: 0.50 Years: 40.00 Pack years: 20.00 Types: Cigarettes - Smokeless tobacco: Never Used - Tobacco comment: trying to quit Substance Use Topics - Alcohol use: No - Drug use: No FAMILY HISTORY Problem Relation Age of Onset - Hypertension Mother - Heart Father - Diabetes Father ALLERGIES: ALLERGIES Allergen Reactions - Lactose Intolerance - Hydrocodone-Acetami* Mental Status Change Hallucinations - Oxycodone-Acetamino* Other: See Comments Hallucinations MEDICATIONS: sucralfate (CARAFATE) 1 gram tablet Take one tablet by mouth 4 times daily dapagliflozin (FARXIGA) 5 mg tab Take 1 tablet by mouth daily with breakfast. Omeprazole 40 mg capsule Take 1 capsule by mouth once daily. MULTI-VITAMIN ORAL Take by mouth. glimepiride (AMARYL) 4 mg tablet Take 1 tablet by mouth once daily. lisinopril (ZESTRIL, PRINIVIL) 20 mg tablet Take 1 tablet by mouth once daily. [place]-3 Fatty Acids (SUPER TWIN EPA-DHA) 1,250 mg cap Take by mouth. aspirin, enteric coated (ASPIRIN, ENTERIC COATED) 81 mg EC tablet Take 81 mg by mouth once daily. lisinopril (ZESTRIL, PRINIVIL) 20 mg tablet Take one tablet by mouth once daily canagliflozin (INVOKANA) 100 mg tab Take 1 tablet by mouth daily with breakfast. BABY ASPIRIN ORAL Take by mouth. sitaGLIPtin (JANUVIA) 100 mg tablet Take 1 tablet by mouth once daily. tamsulosin ER (FLOMAX) 0.4 mg cap Take 1 capsule by mouth once daily. oxybutynin XL (DITROPAN XL) 5 mg 24 hr tablet Take 1 tablet by mouth once daily. docusate sodium (COLACE) 100 mg capsule Take 1 capsule by mouth twice daily. REVIEW OF SYSTEMS: GENERAL: Negative for: Weight loss or gain, Fever or Chills, Weakness and Sleep difficulties and Fatigue. HEENT: Negative for: Headache, Impaired Vision, Glasses, Hearing Impairment, Ringing in Ears, Nosebleeds, Poor dental care, Bleeding Gums, Dentures NECK: Negative for: Swelling, Pain, Stiffness RESPIRATORY: Negative for: Cough, Blood in Sputum, Shortness of breath, Wheezing, Apnea CARDIOVASCULAR: As noted in HPI GASTROINTESTINAL: Negative for: Trouble swallowing, Heartburn, Change in bowel habits, Blood in stool, Dark black stools MUSCULOSKELETAL: Negative for: Muscle or joint pain, Stiffness , Joint swelling NEUROLOGIC/PSYCHIATRIC: Negative for: Weakness, Paralysis, Numbness, Tingling, Tremor, Nervousness, Depressed mood, Memory loss SKIN: Negative for: Rashes, Itching HEMATOLOGICAL/LYMPHATIC: Negative for: Easy bruising , Easy bleeding ENDOCRINE: Negative for: Heat or cold intolerance, Excessive sweating, Frequent urination, Frequent thirst PHYSICAL EXAMINATION: BP 142/78 (BP Site: Right Arm, BP Position: Sitting, BP Cuff Size: Large Adult) Pulse 92 Resp 16 Ht 5' 10 (1.778 m) Wt 239 lb (108.4 kg) SpO2 97% BMI 34.29 kg/m? General: Well appearing, in no acute distress. Skin: No clubbing, no cyanosis. Eyes: No conjunctival pallor or scleral icterus Oropharynx: Mucous membranes are moist Neck: No jugular venous distention, no carotid bruits, carotids have a normal upstroke, no palpable thyromegaly. Lungs: Clear to auscultation bilaterally, no wheezing or rhonchi. Heart: Regular rhythm, PMI not displaced, S1, S2 normal, no S3, no S4, no heaves, no rub and no murmur. Abdomen: Soft, nontender, bowel sounds normal, no palpable organomegaly, no bruits. Extremities: No peripheral edema . Grade 2/4 distal pulses bilaterally. Neuro: Oriented to person, place and time, alert, cooperative, gait coordinated. CARDIOVASCULAR MEDICINE TESTING: Electrocardiogram: 10/11/19: Sinus rhythm, PVC's, LVH, NS T wave changes I have personally reviewed the Electrocardiogram. CXR: IMPRESSION: No acute process. Component Latest Ref Rng AND Units 05/01/2019 08/16/2019 10/10/2019 WBC 3.70 - 11.00 k/uL 8.63 RBC 4.20 - 6.00 m/uL 5.93 Hemoglobin 13.0 - 17.0 g/dL 17.4 (H) Hematocrit 39.0 - 51.0 % 52.6 (H) MCV 80.0 - 100.0 fL 88.7 MCH 26.0 - 34.0 pG 29.3 MCHC 30.5 - 36.0 g/dL 33.1 RDW-CV 11.5 - 15.0 % 13.2 Platelet Count 150 - 400 k/uL 268 MPV 9.0 - 12.7 fL 11.9 Neut% % 57.3 Abs Neut (ANC) 1.45 - 7.50 k/uL 4.95 Lymph% % 31.1 Abs Lymph 1.00 - 4.00 k/uL 2.68 [place]% % 8.9 Abs [place] <0.87 k/uL 0.77 Eosin% % 1.9 Abs Eosin <0.46 k/uL 0.16 Baso% % 0.8 Abs Baso <0.11 k/uL 0.07 Nucleated Reds 0 /100 WBC 0.0 Absolute nRBC <0.01 k/uL <0.01 Diff Type Auto Diff Protein, Total 6.3 - 8.0 g/dL 7.3 Albumin 3.9 - 4.9 g/dL 4.6 Calcium 8.5 - 10.2 mg/dL 10.1 Bilirubin, Total 0.2 - 1.3 mg/dL 0.7 Alkaline Phosphatase 38 - 113 U/L 123 (H) AST 14 - 40 U/L 23 Glucose 74 - 99 mg/dL 191 (H) BUN 9 - 24 mg/dL 13 Creatinine 0.73 - 1.22 mg/dL 0.94 Sodium 136 - 144 mmol/L 141 Potassium 3.7 - 5.1 mmol/L 4.7 Chloride 97 - 105 mmol/L 102 CO2 22 - 30 mmol/L 24 Anion Gap 9 - 18 mmol/L 15 ALT 10 - 54 U/L 30 eGFR- >60 eGFR-All Other Races . >60 Hemoglobin A1C (POCT) 4.2 - 5.6 % 10.1 (A) 10.0 (A) TSH 0.270 - 4.200 uU/mL 0.915 Troponin T 0.000 - 0.029 ng/mL <0.010 Component Latest Ref Rng AND Units 08/25/2018 Cholesterol, Total <200 mg/dL 146 Triglyceride <150 mg/dL 166 (H) HDL Cholesterol >39 mg/dL 31 (L) LDL Cholesterol <100 mg/dL 82 Non HDL Cholesterol <130 mg/dL 115 Fasting Time hrs 12 VLDL Cholesterol <30 mg/dL 33 (H) TC:HDL Ratio <5.10 4.71 LDL:HDL Ratio <2.54 2.65 (H) IMPRESSION: Mr. Garcia is a 59 year old male with the following cardiac issues . PLAN AND RECOMMENDATIONS: 1. Chest pain, unspecified type - ICD9: 786.50, ICD10: R07.9 (primary diagnosis) His chest pain is concerning for angina Will arrange for a cardiac catheterization for further evaluation and management Ordered and echo to assess LV function He is currently on aspirin 81 mg daily and lisinopril 20 mg daily Added Lipitor 40 mg daily, Coreg 6.25 mg twice a day and sublingual nitroglycerin as needed with instructions to call 911 if he has chest pain unrelieved by nitroglycerin - ECG B/O W INTERP (MED OFFICE) - LEFT HEART CATH,PERCUTANEOUS - ECHO 2. Essential hypertension - ICD9: 401.9, ICD10: I10 - fair control - Continue current medication(s)-lisinopril 20 mg a day. Added Coreg 6.25 mg twice a day - Recommended regular aerobic exercise. - Recommend home blood pressure monitoring, to bring results in on next visit - Goal of BP <130/80 - LEFT HEART CATH,PERCUTANEOUS - ECHO 3. Type 2 diabetes mellitus with other specified complication, unspecified whether chcf insulin use (HCC) - ICD9: 250.80, ICD10: E11.69 Recommend goal A1c less than 7 - LEFT HEART CATH,PERCUTANEOUS - ECHO 4. Mixed hyperlipidemia - ICD9: 272.2, ICD10: E78.2 10 year ASCVD risk is 30% Added Lipitor 40 mg daily - LEFT HEART CATH,PERCUTANEOUS 5. Tobacco abuse - ICD9: 305.1, ICD10: Z72.0 - Cessation encouraged. - Physiologic and physical aspects of tobacco addiction as well as strategies for quitting were discussed. - Counseling was given focusing on the harmful effects of this addiction especially given the patient's medical condition(s) which will be worsened because of the chemicals in tobacco. - LEFT HEART CATH,PERCUTANEOUS - ECHO 6. PVC (premature ventricular contraction) - ICD9: 427.69, ICD10: I49.3 Could be secondary to underlying ischemic heart disease Added carvedilol 6.25 mg twice a day - LEFT HEART CATH,PERCUTANEOUS - ECHO 7. XIOMARA (obstructive sleep apnea) - ICD9: 327.23, ICD10: G47.33 Advised him to be compliant with his CPAP Follow-up in 4 weeks Vishal Serrano MD, [facility] Referring Provider: SELF [[id number]] Allergies As of Date: 10/11/2019 Noted Allergy Reaction LACTOSE 08/15/2017 5 - Intolerance HYDROCODONE-ACETAMINOPHE N 03/14/2018 1 - Mental Status Change Comments: Hallucinations OXYCODONE-ACETAMINOPHEN 03/14/2018 14 - Other: See Comments Comments: Hallucinations Date Reviewed: 10/11/2019 Reviewed by: Vishal Serrano - Fully Assessed Reason for Visit: CARD New Patient Consult [1228] Primary Visit Diagnosis:Chest pain, unspecified type [R07.9] Other Visit Diagnoses:Essential hypertension [I10] Type 2 diabetes mellitus with other specified complication, 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) [E11.69] Mixed hyperlipidemia [E78.2] Tobacco abuse [Z72.0] PVC (premature ventricular contraction) [I49.3] XIOMARA (obstructive sleep apnea) [G47.33] Order(s):ECG B/O W INTERP (MED OFFICE) [ECG06] Order #: [id number] atorvastatin (LIPITOR) 40 mg tabletTake 1 tablet by mouth once daily.Disp: 90 tabletRfl: 3 carvedilol (COREG) 6.25 mg tabletTake 1 tablet by mouth twice daily.Disp: 180 tabletRfl: 3 LEFT HEART CATH,PERCUTANEOUS [34353ACU] Order #: [id number]: 1 ECHO [745124] Order #: [id number]: 1 FUTURE nitroglycerin sublingual (NITROSTAT) 0.4 mg SL tabletDissolve 1 tablet under the tongue as needed for Chest Pain. If no pain relief call 911.Disp: 1 Bottle of 25Rfl: 1 Prescriptions as of 10/11/2019 Sig: SUCRALFATE 1 GRAM TABLET Take one tablet by mouth 4 ti* FARXIGA 5 MG TABLET Take 1 tablet by mouth daily * OMEPRAZOLE 40 MG CAPSULE,CLEMENT* Take 1 capsule by mouth once * MULTI-VITAMIN ORAL Take by mouth. GLIMEPIRIDE 4 MG TABLET Take 1 tablet by mouth once d* LISINOPRIL 20 MG TABLET Take 1 tablet by mouth once d* OMEGA-3 FATTY ACIDS 1,250 MG * Take by mouth. ASPIRIN 81 MG TABLET,DELAYED * Take 81 mg by mouth once candace* ATORVASTATIN 40 MG TABLET Take 1 tablet by mouth once d* CARVEDILOL 6.25 MG TABLET Take 1 tablet by mouth twice * NITROGLYCERIN 0.4 MG SUBLINGU* Dissolve 1 tablet under the t* LISINOPRIL 20 MG TABLET Take one tablet by mouth once* INVOKANA 100 MG TABLET Take 1 tablet by mouth daily * Patient not taking: Reported on 10/10/2019 BABY ASPIRIN ORAL Take by mouth. SITAGLIPTIN 100 MG TABLET Take 1 tablet by mouth once d* TAMSULOSIN 0.4 MG CAPSULE Take 1 capsule by mouth once * Patient not taking: Reported on 12/10/2018 OXYBUTYNIN CHLORIDE ER 5 MG T* Take 1 tablet by mouth once d* Patient not taking: Reported on 09/12/2018 DOCUSATE SODIUM 100 MG CAPSULE Take 1 capsule by mouth twice* Patient not taking: Reported on 10/10/2019 Medication notes this encounter BABY ASPIRIN ORAL >> Pascual Buchanan MA, JOSE 10/11/2019 10:15 AM >> PASCUAL BUCHANAN MonOct 11, 2019 10:15 AM Not taking Problem List As Of Date 10/11/2019 Noted Resolved Uncontrolled type 2 diabetes mellitus without c*10/11/2017 Spinal stenosis [M48.00] 08/07/2017 Disorder of intervertebral disc [M51.9] 07/27/2017 Elevated prostate specific antigen (PSA) [R97.2*03/06/2018 Calculus of kidney [N20.0] 03/06/2018 Anxiety disorder [F41.9] 03/14/2018 Acute kidney injury (HCC) [N17.9] 03/22/2018 Essential (primary) hypertension [I10] 03/14/2018 Gastroesophageal reflux disease [K21.9] 03/29/2018 Intractable cyclical vomiting with nausea [R11.*03/29/2018 Cigarette nicotine dependence, uncomplicated [F*08/06/2017 Obstructive sleep apnea [G47.33] 03/14/2018 PUD (peptic ulcer disease) [K27.9] 03/22/2018 PVC (premature ventricular contraction) [I49.3] 03/29/2018 Osteoarthritis [M19.90] 03/14/2018 Obesity, Class I, BMI 30-34.9 [E66.9] 03/29/2018 BPH with obstruction/lower urinary tract sympto*09/13/2018 More... Bladder calculus [N21.0] 09/13/2018 More... Obesity, Class II, BMI 35-39.9 [E66.9] 05/01/2019 SOB (shortness of breath) [R06.02] Bradycardia [R00.1] High blood pressure [I10] Visit Notes: >> Pascual Buchanan MA MonOct 11, 2019 10:18 AM Status: Signed Patient complains of chest tightness today. Prescriptions ordered this encounter Disp Refills Start End ATORVASTATIN 40 MG TABLET 90 t* 3 10/11/2019 Route: ORAL Sig: Take 1 tablet by mouth once daily. CARVEDILOL 6.25 MG TABLET 180 * 3 10/11/2019 Route: ORAL Sig: Take 1 tablet by mouth twice daily. NITROGLYCERIN 0.4 MG SUBLINGUAL TABL* 1 Andrew* 1 10/11/2019 Route: SUBLINGUAL Sig: Dissolve 1 tablet under the tongue as needed for Chest Pain. If no pain relief call 911. Disposition: Return in about 4 weeks (around 11/08/2019). Follow-up and Disposition History Recorded Letter Text Encounter Status:Closed by VISHAL SERRANO on 10/11/19 [facility] CNP[facility] Telephone (AGCARDPOB ) -------- JEISON GARCIA ([id number]) 1960 [facility] [place] Date Time Provider Department 10/11/19 VISHAL SERRANO AGCARDFancy During your visit today, we recorded the following information about you: Blessing Concepcion RN 10/11/2019 11:16 AM Signed Left message on [employer] requesting pt return call to discuss cath date. Office phone number provided. SANJU Lowe LPN 10/11/2019 2:57 PM Signed Patient scheduled for left heart cath, 10/11/2019, with Dr Izaguirre on 10/21/2019. Instructions reviewed and patient verbalized understanding. Instructions: -Arrive to [facility] Entrance 10/21/2019 according to the time assigned by the analytical lab technician staff in phone call 10/18/2019 PM. -Nothing by mouth after midnight evening prior. -With a sip of water on 10/21/2019 morning take: Aspirin 325mg along with usual BP meds- Coreg and Lisinopril -Hold Farxiga, Glimepiride, and Januvia. Informed to call his PCP for instructions due to will be NPO after midnight for procedure. - You must have someone drive you home from your procedure. Please contact me at [phone] with any questions or concern. Blessing Concepcion RN 10/18/2019 2:11 PM Signed Notification received from [facility] that heart cath is not approved. I left voicemail on pt's voicemail and on spouse Kell voicemail that cath is cancelled for 10/21/19. I notified Sary [facility] analytical lab technician that cath is cancelled. SANJU Lowe MD, [facility] 10/18/2019 3:37 PM Signed Please let the patient know his insurance did not approve cardiac cath. Ordered a stress test. If abn, will do Cardiac cath then. Thx Wendy Coleman LPN 10/18/2019 3:49 PM Signed I called and left a message for to call [facility] for update. OBDULIO Cali) [employer] 10/18/2019 3:57 PM Signed Patient returned phone call. Recommendations given per Dr. Serrano's instructions. Central scheduling phone number given to patient. Patient verbalized understanding. Pearl Ortega) [place] Allergies As of Date: 10/11/2019 Noted Allergy Reaction LACTOSE 08/15/2017 5 - Intolerance HYDROCODONE-ACETAMINOPHE N 03/14/2018 1 - Mental Status Change Comments: Hallucinations OXYCODONE-ACETAMINOPHEN 03/14/2018 14 - Other: See Comments Comments: Hallucinations Date Reviewed: 10/11/2019 Reviewed by: Vishal Serrano - Fully Assessed Reason for Visit: Preparations For Procedures [899] Primary Visit Diagnosis:Angina pectoris (HCC) [I20.9] Other Visit Diagnoses:Shortness of breath [R06.02] PVC (premature ventricular contraction) [I49.3] Essential hypertension [I10] Mixed hyperlipidemia [E78.2] Smoker [F17.200] Order(s):NM CARDIAC PERF STRESS/PHARM [7181480] Order #: [id number] FUTURE Prescriptions as of 10/11/2019 Sig: NICOTINE 21 MG/24 HR DAILY TR* Apply 1 Patch as directed serenity* ATORVASTATIN 40 MG TABLET Take 1 tablet by mouth once d* CARVEDILOL 6.25 MG TABLET Take 1 tablet by mouth twice * NITROGLYCERIN 0.4 MG SUBLINGU* Dissolve 1 tablet under the t* LISINOPRIL 20 MG TABLET Take one tablet by mouth once* SUCRALFATE 1 GRAM TABLET Take one tablet by mouth 4 ti* FARXIGA 5 MG TABLET Take 1 tablet by mouth daily * OMEPRAZOLE 40 MG CAPSULE,CLEMENT* Take 1 capsule by mouth once * INVOKANA 100 MG TABLET Take 1 tablet by mouth daily * Patient not taking: Reported on 10/10/2019 BABY ASPIRIN ORAL Take by mouth. MULTI-VITAMIN ORAL Take by mouth. SITAGLIPTIN 100 MG TABLET Take 1 tablet by mouth once d* GLIMEPIRIDE 4 MG TABLET Take 1 tablet by mouth once d* TAMSULOSIN 0.4 MG CAPSULE Take 1 capsule by mouth once * Patient not taking: Reported on 12/10/2018 OXYBUTYNIN CHLORIDE ER 5 MG T* Take 1 tablet by mouth once d* Patient not taking: Reported on 09/12/2018 LISINOPRIL 20 MG TABLET Take 1 tablet by mouth once d* OMEGA-3 FATTY ACIDS 1,250 MG * Take by mouth. DOCUSATE SODIUM 100 MG CAPSULE Take 1 capsule by mouth twice* Patient not taking: Reported on 10/10/2019 ASPIRIN 81 MG TABLET,DELAYED * Take 81 mg by mouth once candace* Problem List As Of Date 10/11/2019 Noted Resolved Uncontrolled type 2 diabetes mellitus without c*10/11/2017 Spinal stenosis [M48.00] 08/07/2017 Disorder of intervertebral disc [M51.9] 07/27/2017 Elevated prostate specific antigen (PSA) [R97.2*03/06/2018 Calculus of kidney [N20.0] 03/06/2018 Anxiety disorder [F41.9] 03/14/2018 Acute kidney injury (HCC) [N17.9] 03/22/2018 Essential (primary) hypertension [I10] 03/14/2018 Gastroesophageal reflux disease [K21.9] 03/29/2018 Intractable cyclical vomiting with nausea [R11.*03/29/2018 Cigarette nicotine dependence, uncomplicated [F*08/06/2017 Obstructive sleep apnea [G47.33] 03/14/2018 PUD (peptic ulcer disease) [K27.9] 03/22/2018 PVC (premature ventricular contraction) [I49.3] 03/29/2018 Osteoarthritis [M19.90] 03/14/2018 Obesity, Class I, BMI 30-34.9 [E66.9] 03/29/2018 BPH with obstruction/lower urinary tract sympto*09/13/2018 More... Bladder calculus [N21.0] 09/13/2018 More... Obesity, Class II, BMI 35-39.9 [E66.9] 05/01/2019 SOB (shortness of breath) [R06.02] Bradycardia [R00.1] High blood pressure [I10] Encounter Status:Closed by VISHAL SERRANO on 10/18/19 [facility] PROGRESSon 10-11-2019 PROGRESS HNO ID: [id number] Author: Vishal Serrano Service: ? Author Type: Physician Type: Progress Notes Filed: 10/11/2019 10:54 AM Note Text: PRIMARY CARE PHYSICIAN: Sander Cunningham DO REFERRING PHYSICIAN: PCP CHIEF COMPLAINT: Patient presents with: CARD New Patient Consult HISTORY OF PRESENT ILLNESS: Mr. Garcia is a 59 year old male who presents today for cardiac evaluation of chest pain. Cardiac risk factors include uncontrolled diabetes, hyperlipidemia, hypertension and active tobacco abuse. Patient has been having exertional chest pain for weeks to months and was told it is related to acid reflux. He also has NYHA class 2-3 shortness of breath. Chest pain is left-sided, feels like tightness and may or may not be relieved by rest. At times he has also felt strong beats. He denies any orthopnea or PND ankle edema, lightheadedness dizziness or syncope He denies any current chest pain, shortness of breath, orthopnea, cough, edema, palpitations, PND, lightheadedness or syncope. He was seen by Dr. Cunningham yesterday and had blood work including troponin which was normal. His EKG shows occasional PVCs with LVH and nonspecific T-wave changes. His A1c is around 10. He smokes half a pack of cigarettes a day. His 10 year ASCVD risk is 30%, he is not currently on a statin. PAST CARDIAC HISTORY: Diabetes type 2 Hypertension Hyperlipidemia Tobacco abuse 10 year ASCVD risk is 30% PAST MEDICAL HISTORY Diagnosis Date - Bladder calculus - BPH with obstruction/lower urinary tract symptoms - Bradycardia - Chest pain - Diabetes (HCC) type 2 - GERD (gastroesophageal reflux disease) - High blood pressure - PVC (premature ventricular contraction) - SOB (shortness of breath) - Spinal stenosis PAST SURGICAL HISTORY Procedure Laterality Date - BACK SURGERY HX 08/15/2017 - CHOLECYSTECTOMY HX 2005 - LITHOTRIPSY / 1 SIDE 03/09/2018 stent - PAST SURGICAL HISTORY OF prostate reduction - PROSTATE SURGERY HX 10/04/2013 - REPAIR NASAL SEPTUM DEFECT Left 2015 - SHOULDER SURGERY HX stewart. - UPPER GI ENDOSCOPY,EXAM SOCIAL HISTORY Social History Tobacco Use - Smoking status: Current Every Day Smoker Packs/day: 0.50 Years: 40.00 Pack years: 20.00 Types: Cigarettes - Smokeless tobacco: Never Used - Tobacco comment: trying to quit Substance Use Topics - Alcohol use: No - Drug use: No FAMILY HISTORY Problem Relation Age of Onset - Hypertension Mother - Heart Father - Diabetes Father ALLERGIES: ALLERGIES Allergen Reactions - Lactose Intolerance - Hydrocodone-Acetami* Mental Status Change Hallucinations - Oxycodone-Acetamino* Other: See Comments Hallucinations MEDICATIONS: sucralfate (CARAFATE) 1 gram tablet Take one tablet by mouth 4 times daily dapagliflozin (FARXIGA) 5 mg tab Take 1 tablet by mouth daily with breakfast. Omeprazole 40 mg capsule Take 1 capsule by mouth once daily. MULTI-VITAMIN ORAL Take by mouth. glimepiride (AMARYL) 4 mg tablet Take 1 tablet by mouth once daily. lisinopril (ZESTRIL, PRINIVIL) 20 mg tablet Take 1 tablet by mouth once daily. [place]-3 Fatty Acids (SUPER TWIN EPA-DHA) 1,250 mg cap Take by mouth. aspirin, enteric coated (ASPIRIN, ENTERIC COATED) 81 mg EC tablet Take 81 mg by mouth once daily. lisinopril (ZESTRIL, PRINIVIL) 20 mg tablet Take one tablet by mouth once daily canagliflozin (INVOKANA) 100 mg tab Take 1 tablet by mouth daily with breakfast. BABY ASPIRIN ORAL Take by mouth. sitaGLIPtin (JANUVIA) 100 mg tablet Take 1 tablet by mouth once daily. tamsulosin ER (FLOMAX) 0.4 mg cap Take 1 capsule by mouth once daily. oxybutynin XL (DITROPAN XL) 5 mg 24 hr tablet Take 1 tablet by mouth once daily. docusate sodium (COLACE) 100 mg capsule Take 1 capsule by mouth twice daily. REVIEW OF SYSTEMS: GENERAL: Negative for: Weight loss or gain, Fever or Chills, Weakness and Sleep difficulties and Fatigue. HEENT: Negative for: Headache, Impaired Vision, Glasses, Hearing Impairment, Ringing in Ears, Nosebleeds, Poor dental care, Bleeding Gums, Dentures NECK: Negative for: Swelling, Pain, Stiffness RESPIRATORY: Negative for: Cough, Blood in Sputum, Shortness of breath, Wheezing, Apnea CARDIOVASCULAR: As noted in HPI GASTROINTESTINAL: Negative for: Trouble swallowing, Heartburn, Change in bowel habits, Blood in stool, Dark black stools MUSCULOSKELETAL: Negative for: Muscle or joint pain, Stiffness , Joint swelling NEUROLOGIC/PSYCHIATRIC: Negative for: Weakness, Paralysis, Numbness, Tingling, Tremor, Nervousness, Depressed mood, Memory loss SKIN: Negative for: Rashes, Itching HEMATOLOGICAL/LYMPHATIC: Negative for: Easy bruising , Easy bleeding ENDOCRINE: Negative for: Heat or cold intolerance, Excessive sweating, Frequent urination, Frequent thirst PHYSICAL EXAMINATION: BP 142/78 (BP Site: Right Arm, BP Position: Sitting, BP Cuff Size: Large Adult) Pulse 92 Resp 16 Ht 5' 10 (1.778 m) Wt 239 lb (108.4 kg) SpO2 97% BMI 34.29 kg/m? General: Well appearing, in no acute distress. Skin: No clubbing, no cyanosis. Eyes: No conjunctival pallor or scleral icterus Oropharynx: Mucous membranes are moist Neck: No jugular venous distention, no carotid bruits, carotids have a normal upstroke, no palpable thyromegaly. Lungs: Clear to auscultation bilaterally, no wheezing or rhonchi. Heart: Regular rhythm, PMI not displaced, S1, S2 normal, no S3, no S4, no heaves, no rub and no murmur. Abdomen: Soft, nontender, bowel sounds normal, no palpable organomegaly, no bruits. Extremities: No peripheral edema . Grade 2/4 distal pulses bilaterally. Neuro: Oriented to person, place and time, alert, cooperative, gait coordinated. CARDIOVASCULAR MEDICINE TESTING: Electrocardiogram: 10/11/19: Sinus rhythm, PVC's, LVH, NS T wave changes I have personally reviewed the Electrocardiogram. CXR: IMPRESSION: No acute process. Component Latest Ref Rng AND Units 05/01/2019 08/16/2019 10/10/2019 WBC 3.70 - 11.00 k/uL 8.63 RBC 4.20 - 6.00 m/uL 5.93 Hemoglobin 13.0 - 17.0 g/dL 17.4 (H) Hematocrit 39.0 - 51.0 % 52.6 (H) MCV 80.0 - 100.0 fL 88.7 MCH 26.0 - 34.0 pG 29.3 MCHC 30.5 - 36.0 g/dL 33.1 RDW-CV 11.5 - 15.0 % 13.2 Platelet Count 150 - 400 k/uL 268 MPV 9.0 - 12.7 fL 11.9 Neut% % 57.3 Abs Neut (ANC) 1.45 - 7.50 k/uL 4.95 Lymph% % 31.1 Abs Lymph 1.00 - 4.00 k/uL 2.68 [place]% % 8.9 Abs [place] <0.87 k/uL 0.77 Eosin% % 1.9 Abs Eosin <0.46 k/uL 0.16 Baso% % 0.8 Abs Baso <0.11 k/uL 0.07 Nucleated Reds 0 /100 WBC 0.0 Absolute nRBC <0.01 k/uL <0.01 Diff Type Auto Diff Protein, Total 6.3 - 8.0 g/dL 7.3 Albumin 3.9 - 4.9 g/dL 4.6 Calcium 8.5 - 10.2 mg/dL 10.1 Bilirubin, Total 0.2 - 1.3 mg/dL 0.7 Alkaline Phosphatase 38 - 113 U/L 123 (H) AST 14 - 40 U/L 23 Glucose 74 - 99 mg/dL 191 (H) BUN 9 - 24 mg/dL 13 Creatinine 0.73 - 1.22 mg/dL 0.94 Sodium 136 - 144 mmol/L 141 Potassium 3.7 - 5.1 mmol/L 4.7 Chloride 97 - 105 mmol/L 102 CO2 22 - 30 mmol/L 24 Anion Gap 9 - 18 mmol/L 15 ALT 10 - 54 U/L 30 eGFR- >60 eGFR-All Other Races . >60 Hemoglobin A1C (POCT) 4.2 - 5.6 % 10.1 (A) 10.0 (A) TSH 0.270 - 4.200 uU/mL 0.915 Troponin T 0.000 - 0.029 ng/mL <0.010 Component Latest Ref Rng AND Units 08/25/2018 Cholesterol, Total <200 mg/dL 146 Triglyceride <150 mg/dL 166 (H) HDL Cholesterol >39 mg/dL 31 (L) LDL Cholesterol <100 mg/dL 82 Non HDL Cholesterol <130 mg/dL 115 Fasting Time hrs 12 VLDL Cholesterol <30 mg/dL 33 (H) TC:HDL Ratio <5.10 4.71 LDL:HDL Ratio <2.54 2.65 (H) IMPRESSION: Mr. Garcia is a 59 year old male with the following cardiac issues . PLAN AND RECOMMENDATIONS: 1. Chest pain, unspecified type - ICD9: 786.50, ICD10: R07.9 (primary diagnosis) His chest pain is concerning for angina Will arrange for a cardiac catheterization for further evaluation and management Ordered and echo to assess LV function He is currently on aspirin 81 mg daily and lisinopril 20 mg daily Added Lipitor 40 mg daily, Coreg 6.25 mg twice a day and sublingual nitroglycerin as needed with instructions to call 911 if he has chest pain unrelieved by nitroglycerin - ECG B/O W INTERP (MED OFFICE) - LEFT HEART CATH,PERCUTANEOUS - ECHO 2. Essential hypertension - ICD9: 401.9, ICD10: I10 - fair control - Continue current medication(s)-lisinopril 20 mg a day. Added Coreg 6.25 mg twice a day - Recommended regular aerobic exercise. - Recommend home blood pressure monitoring, to bring results in on next visit - Goal of BP <130/80 - LEFT HEART CATH,PERCUTANEOUS - ECHO 3. Type 2 diabetes mellitus with other specified complication, unspecified whether chcf insulin use (HCC) - ICD9: 250.80, ICD10: E11.69 Recommend goal A1c less than 7 - LEFT HEART CATH,PERCUTANEOUS - ECHO 4. Mixed hyperlipidemia - ICD9: 272.2, ICD10: E78.2 10 year ASCVD risk is 30% Added Lipitor 40 mg daily - LEFT HEART CATH,PERCUTANEOUS 5. Tobacco abuse - ICD9: 305.1, ICD10: Z72.0 - Cessation encouraged. - Physiologic and physical aspects of tobacco addiction as well as strategies for quitting were discussed. - Counseling was given focusing on the harmful effects of this addiction especially given the patient's medical condition(s) which will be worsened because of the chemicals in tobacco. - LEFT HEART CATH,PERCUTANEOUS - ECHO 6. PVC (premature ventricular contraction) - ICD9: 427.69, ICD10: I49.3 Could be secondary to underlying ischemic heart disease Added carvedilol 6.25 mg twice a day - LEFT HEART CATH,PERCUTANEOUS - ECHO 7. XIOMARA (obstructive sleep apnea) - ICD9: 327.23, ICD10: G47.33 Advised him to be compliant with his CPAP Follow-up in 4 weeks Vishal Serrano MD, [facility] Normal [facility] XR CHEST 2V FRONTAL/LATon XR CHEST 2V FRONTAL/LAT * * *Final Report* * * DATE OF EXAM: Oct 10 2019 10:26AM ANX 5291 - XR CHEST 2V FRONTAL/LAT / PROCEDURE REASON: Chest pain, unspecified type * * * * Physician Interpretation * * * * EXAMINATION: CHEST RADIOGRAPH (2 VIEW FRONTAL & LATERAL) CLINICAL HISTORY: Chest pain, unspecified type MQ: XC2_5 Comparison: 10/11/2017 RESULT: No focal consolidation, pleural effusion or pneumothorax. Normal cardiomediastinal silhouette. No acute osseous findings. Degenerative changes in the thoracic spine. IMPRESSION: No acute process. Excellence Coach: ALEX Transcribe Date/Time: Oct 10 2019 11:13A Dictated by : JOSE A CONROY MD This examination was interpreted and the report reviewed and electronically signed by: JOSE A CONROY MD on Oct 10 2019 11:14AM EST Normal [facility] CT Abdomen/Pelvis w/o Contra ston 04-23-2018 CT Abdomen/Pelvis w/o Contrast Patient Name: JEISON GARCIA CT Exam Date/Time 04/23/2018 08:16:[address] Abdomen/Pelvis (No PO, No IV) Ordering Physician MD RG [place] Accession Number [id number] CPT4 Codes 11948 (CT Abdomen/Pelvis (No PO, No IV)) Reason For Exam calculus of kidney - right hydro Report Study: CT abdomen pelvis. INDICATION: Renal calculus COMPARISON: 03/14/2018 FINDINGS: Imaging of the abdomen and pelvis were performed without contrast Free air: None Bowel: Diverticulosis. No mass obstruction or abscess. Liver: Unremarkable as seen. Gallbladder: Absent. Pancreas: Unremarkable as seen. Spleen: No splenomegaly. No focal lesion. Adrenal glands:No adrenal mass visible. Vascular: Calcifications. Kidneys , ureters and bladder: No hydronephrosis or renal calculi. Bladder calculus 7 mm. Previously seen stent has been removed. Mild urinary bladder wall thickening suspected; bladder decompressed. Retroperitoneum: No adenopathy seen. Pelvic structures: Prostatomegaly, 5.6 cm. Spine and musculoskeletal: No spinal compression visible. Some degenerative appearing change noted.. Abdominal wall:Unremarkable as seen. Lung bases:No major volume loss. IMPRESSION: Bladder calculus. Mild urinary bladder wall thickening. No hydronephrosis. Prostatomegaly. Diverticulosis. Atherosclerotic calcifications. Cholecystectomy. Report Dictated on Workstation: [id number] Final Dictated: 04/23/2018 8:37 am Dictating Physician: MD WYNN JOHN Signed Date and Time: 04/23/2018 8:43 am Signed by: MD WYNN JOHN Transcribed Date and Time: 04/23/2018 8:37 Normal [facility] CULTURE URINEon 03-24-2018 CULTURE URINE CULTURE URINE --> Status: F No growth (<1,000 CFU/ml). Normal [facility] Comment on above: Order Comment: Speci men Source Comment:Urine, clean catch Performed By: #### U AMAC, UAMIC ####[facility] [address] [place], [place] Eosinophils,Uron 03-24-2018 Eosinophils Urine NO EOSINS SEEN Normal [facility] Comment on above: Performed By: #### C MP3, LIPA4, LACT3, HEMDF ####[facility] [address] [place] [address] Glucose,Bedsideon 03-24-2018 Glucose mass conc 125 mg/dL High 70-100 [facility] Comment on above: Result Comment: Test performed by glucose meter. Results may be 10%-15% lowerthan serum/plasma values. (CLIA ID [id number]) Performed By: #### U AMAC, UAMIC ####[facility] [address] [place] [address] Basic Metabolic Panelon 02-26 Anion gap 3 molar conc 6 Normal [facility] Comment on above: Performed By: #### U AMAC, UAMIC ####[facility] [address] [place], [place] Calcium mass conc 8.8 mg/dL Normal 8.4-10.4 [facility] Comment on above: Performed By: #### U AMAC, UAMIC ####[address] [place], [place] CO2 molar conc 22 mmol/L Normal 22-30 [facility] Comment on above: Performed By: #### U AMAC, UAMIC ####[address] [place], [place] Creatinine mass conc 0.89 mg/dL Normal 0.52-1.25 [facility] Comment on above: Performed By: #### U AMAC, UAMIC ####[address] [place], [place] GFR/1.73 sq M predicted among blacks MDRD vol rate/area (S/P/Bld) mL/min/{1.73_m2} Normal >60 [facility] Comment on above: Performed By: #### U AMAC, UAMIC ####[address] [place], [place] GFR/1.73 sq M predicted among non-blacks MDRD vol rate/area (S/P/Bld) mL/min/{1.73_m2} Normal >60 [facility] Comment on above: Result Comment: Sour ce- MDRD equation with creatinine calibration to IDMS(NKDEP) eGFR not recommended for drug dose adjustment Performed By: #### U AMAC, UAMIC ####[address] [place], [place] Glucose mass conc 142 mg/dL High 70-100 [facility] Comment on above: Performed By: #### U AMAC, UAMIC ####[address] [place], [place] Urea nitrogen mass conc 21 mg/dL High 7-20 [facility] Comment on above: Performed By: #### U AMAC, UAMIC ####[address] [place], [place] Chloride molar conc 109 mmol/L High 98-107 [facility] Comment on above: Performed By: #### U AMAC, UAMIC ####[address] [place], [place] Potassium molar conc 3.8 mmol/L Normal 3.5-5.1 [facility] Comment on above: Performed By: #### U AMAC, UAMIC ####[address] [place], [place] Sodium molar conc 137 mmol/L Normal 137-145 [facility] Comment on above: Performed By: #### U AMAC, UAMIC ####[address] [place], [place] Calcium mass conc 9.2 mg/dL Normal 8.4-10.4 [facility] Comment on above: Performed By: #### U AMAC, UAMIC ####[address] Glucose mass conc 159 mg/dL High 70-100 [facility] Comment on above: Performed By: #### U AMAC, UAMIC ####[address] [place], [place] Urea nitrogen mass conc 26 mg/dL High 7-20 [facility] Comment on above: Performed By: #### U AMAC, UAMIC ####[address] Anion gap 3 molar conc 12 Normal [facility] Comment on above: Performed By: #### U AMAC, UAMIC ####[address] [place], [place] CO2 molar conc 23 mmol/L Normal 22-30 [facility] Comment on above: Performed By: #### U AMAC, UAMIC ####[address] [place], [place] Creatinine mass conc 1.45 mg/dL High 0.52-1.25 [facility] Comment on above: Performed By: #### U AMAC, UAMIC ####[address] [place] [address] GFR/1.73 sq M predicted among blacks MDRD vol rate/area (S/P/Bld) mL/min/{1.73_m2} Normal >[address] [facility] Comment on above: Performed By: #### U AMAC, UAMIC ####[address] [place] [address] GFR/1.73 sq M predicted among non-blacks MDRD vol rate/area (S/P/Bld) 49.9 mL/min/{1.73_m2} Normal >60 [facility] Comment on above: Result Comment: Sour ce- MDRD equation with creatinine calibration to IDMS(NKDEP) eGFR not recommended for drug dose adjustment Performed By: #### U AMAC, UAMIC ####[address] [address] Potassium molar conc 4.3 mmol/L Normal 3.5-5.1 [facility] Comment on above: Performed By: #### U AMAC, UAMIC ####[address] [address] Chloride molar conc 107 mmol/L Normal 98-107 [facility] Comment on above: Performed By: #### U AMAC, UAMIC ####[address] [address] Sodium molar conc 141 mmol/L Normal 137-145 [facility] Comment on above: Performed By: #### U AMAC, UAMIC ####[address] [address] Creatinine, Ur Randomon 02-26 Creatinine, Ur Random 214.7 mg/dL Normal No Range [facility] Comment on above: Performed By: #### C MP3, LIPA4, LACT3, HEMDF ####[address] [place] [address] Glucose,Bedsideon 03-23-2018 Glucose mass conc 143 mg/dL High 70-100 [facility] Comment on above: Result Comment: Test performed by glucose meter. Results may be 10%-15% lowerthan serum/plasma values. (CLIA ID [id number]) Performed By: #### U AMAC, UAMIC ####[address] [place] [address] Glucose mass conc 154 mg/dL High 70-100 [facility] Comment on above: Result Comment: Test performed by glucose meter. Results may be 10%-15% lowerthan serum/plasma values. (CLIA ID [id number]) Performed By: #### U AMAC, UAMIC ####[address] [place] [address] Glucose mass conc 139 mg/dL High 70-100 [facility] Comment on above: Result Comment: Test performed by glucose meter. Results may be 10%-15% lowerthan serum/plasma values. (CLIA ID [id number]) Performed By: #### U AMAC, UAMIC ####[email or web address] [place] [address] Glucose mass conc 140 mg/dL High 70-100 [facility] Comment on above: Result Comment: Test performed by glucose meter. Results may be 10%-15% lowerthan serum/plasma values. (CLIA ID [id number]) Performed By: #### U AMAC, UAMIC ####[address] [place] [address] Hemoglobin A1Con 03-23-2018 Glucose mass conc 192 mg/dL Normal [facility] Comment on above: Performed By: #### C MP3, LIPA4, LACT3, HEMDF ####[address] [place] [address] Hemoglobin A1c/Hemoglobin.total mass fraction (Bld) 8.3 % High 4.0-5.7 [facility] [employer] Comment on above: Result Comment: --Hg bA1C levels may not be accurate in patients who haverenal disease, received recent blood transfusions, are anemic,or who have dyshemoglobinemia. Performed By: #### C MP3, LIPA4, LACT3, HEMDF ####[address] Hemogramon 03-23-2018 Erythrocyte distribution width Auto Ratio (RBC) 13.2 % Normal 11.5-14.5 [facility] Comment on above: Performed By: #### C MP3, LIPA4, LACT3, HEMDF ####[address] Hematocrit Auto Volume Fraction (Bld) 43.3 % Normal 40.0-52.0 [facility] Comment on above: Performed By: #### C MP3, LIPA4, LACT3, HEMDF ####[address] Hemoglobin mass conc (Bld) 15.0 g/dL Normal 13.0-18.0 [facility] Comment on above: Performed By: #### C MP3, LIPA4, LACT3, HEMDF ####[address] MCH Auto Entitic mass (RBC) 30.7 pg Normal 26.0-34.0 [facility] Comment on above: Performed By: #### C MP3, LIPA4, LACT3, HEMDF ####[address] MCHC Auto mass conc (RBC) 34.6 % Normal 32.0-36.0 [facility] Comment on above: Performed By: #### C MP3, LIPA4, LACT3, HEMDF ####[address] MCV Auto Entitic volume (RBC) 88.6 fL Normal 80.0-98.0 [facility] Comment on above: Performed By: #### C MP3, LIPA4, LACT3, HEMDF ####[address] Platelet mean volume Auto Entitic volume (Bld) 9.6 fL Normal 7.4-10.4 [facility] Comment on above: Performed By: #### C MP3, LIPA4, LACT3, HEMDF ####[facility] [address] [place], [place] Platelets Auto #/vol (Bld) 280 10*3/uL Normal 140-440 [facility] Comment on above: Performed By: #### C MP3, LIPA4, LACT3, HEMDF ####[facility] [address] . [place], [place] RBC Auto #/vol (Bld) 4.89 10*6/uL Normal 4.40-5.90 [facility] Comment on above: Performed By: #### C MP3, LIPA4, LACT3, HEMDF ####[facility] [address] . [place], [place] WBC Auto #/vol (Bld) 16.3 10*3/uL High 3.6-10.7 [facility] Comment on above: Performed By: #### C MP3, LIPA4, LACT3, HEMDF ####[facility] [address] [address] [place], [place] Procalcitoninon 03-23-2018 Protein mass conc g/dL Normal <0.10 [facility] Comment on above: Performed By: #### U AMAC, UAMIC ####[facility] [address] [place], [place] Sodium, Ur Randomon 03-23-20 18 Sodium molar conc 81 mmol/L Normal No Range [facility] Comment on above: Performed By: #### C MP3, LIPA4, LACT3, HEMDF ####[facility] [address] [place], [place] Urinalysis,Macroon 8 Appearance slcloudy Normal Clear [facility] Comment on above: Performed By: #### C MP3, LIPA4, LACT3, HEMDF ####[facility] [address] [place], [place] Bilirubin,Ur 1 Normal Negative [facility] Comment on above: Performed By: #### C MP3, LIPA4, LACT3, HEMDF ####[address] [place], [place] Color yellow Normal Lt. Yellow [facility] Comment on above: Performed By: #### C MP3, LIPA4, LACT3, HEMDF ####[address] [place], [place] Glucose Ql (U) NORM Normal Negative [facility] Comment on above: Performed By: #### C MP3, LIPA4, LACT3, HEMDF ####[address] Ketone,Urine 2 + mg/dL Normal Negative [facility] Comment on above: Performed By: #### C MP3, LIPA4, LACT3, HEMDF ####[address] [place], [place] Leukocytes Trace Normal Negative [facility] Comment on above: Performed By: #### C MP3, LIPA4, LACT3, HEMDF ####[address] Nitrites Negative Normal Negative [facility] Comment on above: Performed By: #### C MP3, LIPA4, LACT3, HEMDF ####[address] Occult Blood,Ur Negative Normal Negative [facility] Comment on above: Performed By: #### C MP3, LIPA4, LACT3, HEMDF ####[address] pH Test strip (U) 5.0 Normal 5.0-8.0 [facility] Comment on above: Performed By: #### C MP3, LIPA4, LACT3, HEMDF ####[address] Specific [place],Urine 1.015 Normal 1.005-1.030 [facility] Comment on above: Performed By: #### C MP3, LIPA4, LACT3, HEMDF ####[address] Total Protein,Urine 75 mg/dL Normal Negative [facility] Comment on above: Performed By: #### C MP3, LIPA4, LACT3, HEMDF ####[facility] [address] [place], [place] Urobilinogen NORM Normal 0-1 [facility] Comment on above: Performed By: #### C MP3, LIPA4, LACT3, HEMDF ####[facility] [address] [place], [place] Urinalysis,Microscopicon Bacteria Moderate (6-50) Normal Negative [facility] Comment on above: Performed By: #### C MP3, LIPA4, LACT3, HEMDF ####[facility] [address] [place], [place] Cast, Granular 0 - 2 Normal Negative [facility] Comment on above: Performed By: #### C MP3, LIPA4, LACT3, HEMDF ####[facility] [address] [place], [place] Cast, Hyaline 6 - 10 Normal 0-1 [facility] Comment on above: Performed By: #### C MP3, LIPA4, LACT3, HEMDF ####[facility] [address] [place], [place] Epithelial Cells 3 - 5 Normal 3-5 [facility] Comment on above: Performed By: #### C MP3, LIPA4, LACT3, HEMDF ####[facility] [address] [place], [place] Mucous Threads Moderate Normal Negative [facility] Comment on above: Performed By: #### C MP3, LIPA4, LACT3, HEMDF ####[facility] [address] [place], [place] RBC LM.HPF #/area (Urine sed) 0 - 2 Normal 0-2 [facility] Comment on above: Performed By: #### C MP3, LIPA4, LACT3, HEMDF ####[facility] [address] [place], [place] WBC LM.HPF #/area (Urine sed) 6 - 10 Normal 0-5 [facility] Comment on above: Performed By: #### C MP3, LIPA4, LACT3, HEMDF ####[facility] [address] [place], [place] Basic Metabolic Panelon 07-2 Anion gap 3 molar conc 11 Normal [facility] Comment on above: Performed By: #### C MP3, LIPA4, LACT3, HEMDF ####[facility] [address] [place], [place] Calcium mass conc 9.2 mg/dL Normal 8.4-10.4 [facility] Comment on above: Performed By: #### C MP3, LIPA4, LACT3, HEMDF ####[facility] [address] [place], [place] CO2 molar conc 20 mmol/L Low 22-30 [facility] Comment on above: Performed By: #### C MP3, LIPA4, LACT3, HEMDF ####[facility] [address] [place], [place] Glucose mass conc 182 mg/dL High 70-100 [facility] Comment on above: Performed By: #### C MP3, LIPA4, LACT3, HEMDF ####[facility] [address] [place], [place] Urea nitrogen mass conc 30 mg/dL High 7-20 [facility] Comment on above: Performed By: #### C MP3, LIPA4, LACT3, HEMDF ####[facility] [address] [place], [place] Creatinine mass conc 2.41 mg/dL High 0.52-1.25 [facility] Comment on above: Performed By: #### C MP3, LIPA4, LACT3, HEMDF ####[facility] [address] [place], [place] GFR/1.73 sq M predicted among blacks MDRD vol rate/area (S/P/Bld) 33.6 mL/min/{1.73_m2} Normal >60 [facility] Comment on above: Performed By: #### C MP3, LIPA4, LACT3, HEMDF ####[facility] [address] [place] [address] GFR/1.73 sq M predicted among non-blacks MDRD vol rate/area (S/P/Bld) 27.7 mL/min/{1.73_m2} Normal >60 [facility] Comment on above: Result Comment: Sour ce- MDRD equation with creatinine calibration to IDMS(NKDEP) eGFR not recommended for drug dose adjustment Performed By: #### C MP3, LIPA4, LACT3, HEMDF ####[facility] [address] [place] [address] Chloride molar conc 106 mmol/L Normal 98-107 [facility] Comment on above: Performed By: #### C MP3, LIPA4, LACT3, HEMDF ####[facility] [address] [place] [address] Potassium molar conc 4.2 mmol/L Normal 3.5-5.1 [facility] Comment on above: Performed By: #### C MP3, LIPA4, LACT3, HEMDF ####[facility] [address] [place] [address] Sodium molar conc 137 mmol/L Normal 137-145 [facility] Comment on above: Performed By: #### C MP3, LIPA4, LACT3, HEMDF ####[facility] [address] [place] [address] CR Chest Portableon 03-22-20 18 CR Chest Portable Patient Name: JEISON GARCIA Diagnostic Radiology Exam Date/Time 03/22/2018 17:52:59 EDT Exam CR Chest Portable Ordering Physician VANI BAE ROBERT Accession Number [id number] CPT4 Codes 86371 () Reason For Exam hypotension, weakness Report SINGLE FRONTAL VIEW OF THE CHEST CLINICAL INDICATION: hypotension, weakness TECHNIQUE: Single frontal view of the chest COMPARISON: 07/09/2012 FINDINGS: Minor atelectasis left lung base. No vascular congestion, pleural effusion, or pneumothorax. Heart size normal. IMPRESSION: 1. Minor atelectasis left lung base. Report Dictated on Final Dictated: 03/22/2018 6:13 pm Dictating Physician: MD PARRA JOHN R Signed Date and Time: 03/22/2018 6:15 pm Signed by: MD PARRA JOHN R Transcribed Date and Time: 03/22/2018 6:13 Normal [facility] Comp Panel with Mg Reflexon 03-22-2018 ALT enzyme act/vol 29 U/L Normal 13-69 [facility] Comment on above: Performed By: #### C MP3, LIPA4, LACT3, HEMDF ####[facility] [address] [place], [place] Calcium mass conc 9.0 mg/dL Normal 8.4-10.4 [facility] Comment on above: Performed By: #### C MP3, LIPA4, LACT3, HEMDF ####[facility] [address] [place], [place] Glucose mass conc 130 mg/dL High 70-100 [facility] Comment on above: Performed By: #### C MP3, LIPA4, LACT3, HEMDF ####[facility] [address] [place], [place] Urea nitrogen mass conc 20 mg/dL Normal 7-20 [facility] Comment on above: Performed By: #### C MP3, LIPA4, LACT3, HEMDF ####[facility] [address] [place], [place] ALP enzyme act/vol 73 U/L Normal 38-126 [facility] Comment on above: Performed By: #### C MP3, LIPA4, LACT3, HEMDF ####[facility] [address] [place], [place] Anion gap 3 molar conc 10 Normal [facility] Comment on above: Performed By: #### C MP3, LIPA4, LACT3, HEMDF ####[facility] [address] AST enzyme act/vol 16 U/L Normal 15-46 [facility] Comment on above: Performed By: #### C MP3, LIPA4, LACT3, HEMDF ####[facility] [address] [place], [place] Bilirubin mass conc 1.8 mg/dL High 0.2-1.3 [facility] Comment on above: Performed By: #### C MP3, LIPA4, LACT3, HEMDF ####[facility] [address] [place], [place] CO2 molar conc 22 mmol/L Normal 22-30 [facility] Comment on above: Performed By: #### C MP3, LIPA4, LACT3, HEMDF ####[facility] [address] [place], [place] Creatinine mass conc 0.95 mg/dL Normal 0.52-1.25 [facility] Comment on above: Performed By: #### C MP3, LIPA4, LACT3, HEMDF ####[facility] [address] GFR/1.73 sq M predicted among blacks MDRD vol rate/area (S/P/Bld) mL/min/{1.73_m2} Normal >60 [facility] Comment on above: Performed By: #### C MP3, LIPA4, LACT3, HEMDF ####[facility] [address] GFR/1.73 sq M predicted among non-blacks MDRD vol rate/area (S/P/Bld) mL/min/{1.73_m2} Normal >60 [facility] Comment on above: Result Comment: Sour ce- MDRD equation with creatinine calibration to IDMS(NKDEP) eGFR not recommended for drug dose adjustment Performed By: #### C MP3, LIPA4, LACT3, HEMDF ####[facility] [address] [place], [place] Protein mass conc 6.5 g/dL Normal 6.3-8.2 [facility] Comment on above: Performed By: #### C MP3, LIPA4, LACT3, HEMDF ####[address] [place] [address] Chloride molar conc 105 mmol/L Normal 98-107 [facility] Comment on above: Performed By: #### C MP3, LIPA4, LACT3, HEMDF ####[address] [place] [address] Potassium molar conc 3.6 mmol/L Normal 3.5-5.1 [facility] Comment on above: Performed By: #### C MP3, LIPA4, LACT3, HEMDF ####[address] [place] [address] Sodium molar conc 137 mmol/L Normal 137-145 [facility] Comment on above: Performed By: #### C MP3, LIPA4, LACT3, HEMDF ####[address] [place] [address] Albumin mass conc 4.3 g/dL Normal 3.5-5.0 [facility] Comment on above: Performed By: #### C MP3, LIPA4, LACT3, HEMDF ####[address] [place] [address] Glucose,Bedsideon 03-22-2018 Glucose mass conc 183 mg/dL High 70-100 [facility] Comment on above: Result Comment: Test performed by glucose meter. Results may be 10%-15% lowerthan serum/plasma values. (CLIA ID [id number]) Performed By: #### C MP3, LIPA4, LACT3, HEMDF ####[address] [place] [address] Glucose mass conc 133 mg/dL High 70-100 [facility] Comment on above: Result Comment: Test performed by glucose meter. Results may be 10%-15% lowerthan serum/plasma values. (CLIA ID [id number]) Performed By: #### C MP3, LIPA4, LACT3, HEMDF ####[address] [place], [place] Hemogramon 03-22-2018 Erythrocyte distribution width Auto Ratio (RBC) 13.3 % Normal 11.5-14.5 [facility] Comment on above: Performed By: #### C MP3, LIPA4, LACT3, HEMDF ####[address] [place], [place] Hematocrit Auto Volume Fraction (Bld) 43.7 % Normal 40.0-52.0 [facility] Comment on above: Performed By: #### C MP3, LIPA4, LACT3, HEMDF ####[address] [place], [place] Hemoglobin mass conc (Bld) 15.1 g/dL Normal 13.0-18.0 [facility] Comment on above: Performed By: #### C MP3, LIPA4, LACT3, HEMDF ####[address] [place], [place] MCH Auto Entitic mass (RBC) 30.3 pg Normal 26.0-34.0 [facility] Comment on above: Performed By: #### C MP3, LIPA4, LACT3, HEMDF ####[address] MCHC Auto mass conc (RBC) 34.5 % Normal 32.0-36.0 [facility] Comment on above: Performed By: #### C MP3, LIPA4, LACT3, HEMDF ####[address] MCV Auto Entitic volume (RBC) 87.8 fL Normal 80.0-98.0 [facility] Comment on above: Performed By: #### C MP3, LIPA4, LACT3, HEMDF ####[address] Platelet mean volume Auto Entitic volume (Bld) 9.5 fL Normal 7.4-10.4 [facility] Comment on above: Performed By: #### C MP3, LIPA4, LACT3, HEMDF ####[address] [place] Platelets Auto #/vol (Bld) 279 10*3/uL Normal 140-440 [facility] Comment on above: Performed By: #### C MP3, LIPA4, LACT3, HEMDF ####[address] [place], [place] RBC Auto #/vol (Bld) 4.98 10*6/uL Normal 4.40-5.90 [facility] Comment on above: Performed By: #### C MP3, LIPA4, LACT3, HEMDF ####[address] WBC Auto #/vol (Bld) 16.0 10*3/uL High 3.6-10.7 [facility] Comment on above: Performed By: #### C MP3, LIPA4, LACT3, HEMDF ####[address] Magnesiumon 03-22-2018 Magnesium mass conc 2.2 mg/dL Normal 1.6-2.3 [facility] Comment on above: Performed By: #### C MP3, LIPA4, LACT3, HEMDF ####[address] Procalcitoninon 03-22-2018 Interpretation See Below Normal [facility] Comment on above: Result Comment: PCT <0.50 = Low risk of severe sepsis and/or septic shock.PCT >2.00 = High risk of severe sepsis and/or septic shock. Performed By: #### U AMAC, UAMIC ####[address] Troponin Ion 03-22-2018 Troponin I.cardiac mass conc ng/mL Normal 0.000-0.034 [facility] Comment on above: Result Comment: 0.04 6 - 0.400 = Indeterminate> 0.400 = Consider Myocardial Injury Performed By: #### C MP3, LIPA4, LACT3, HEMDF ####[address] Basic Metabolic Panelon 07-2 Anion gap 3 molar conc 7 Normal [facility] Comment on above: Performed By: #### C MP3, LIPA4, LACT3, HEMDF ####[facility] [address] [place], [place] Calcium mass conc 8.9 mg/dL Normal 8.4-10.4 [facility] Comment on above: Performed By: #### C MP3, LIPA4, LACT3, HEMDF ####[address] [place], [place] CO2 molar conc 26 mmol/L Normal 22-30 [facility] Comment on above: Performed By: #### C MP3, LIPA4, LACT3, HEMDF ####[address] [place], [place] Glucose mass conc 161 mg/dL High 70-100 [facility] Comment on above: Performed By: #### C MP3, LIPA4, LACT3, HEMDF ####[facility] [address] Urea nitrogen mass conc 20 mg/dL Normal 7-20 [facility] Comment on above: Performed By: #### C MP3, LIPA4, LACT3, HEMDF ####[facility] [address] Creatinine mass conc 0.92 mg/dL Normal 0.52-1.25 [facility] Comment on above: Performed By: #### C MP3, LIPA4, LACT3, HEMDF ####[facility] [address] [place], [place] GFR/1.73 sq M predicted among blacks MDRD vol rate/area (S/P/Bld) mL/min/{1.73_m2} Normal >60 [facility] Comment on above: Performed By: #### C MP3, LIPA4, LACT3, HEMDF ####[address] [place] [address] GFR/1.73 sq M predicted among non-blacks MDRD vol rate/area (S/P/Bld) mL/min/{1.73_m2} Normal >60 [facility] Comment on above: Result Comment: Sour ce- MDRD equation with creatinine calibration to IDMS(NKDEP) eGFR not recommended for drug dose adjustment Performed By: #### C MP3, LIPA4, LACT3, HEMDF ####[address] [place] [address] Potassium molar conc 3.7 mmol/L Normal 3.5-5.1 [facility] Comment on above: Performed By: #### C MP3, LIPA4, LACT3, HEMDF ####[address] [place] [address] Sodium molar conc 139 mmol/L Normal 137-145 [facility] Comment on above: Performed By: #### C MP3, LIPA4, LACT3, HEMDF ####[address] [place] [address] Chloride molar conc 106 mmol/L Normal 98-107 [facility] Comment on above: Performed By: #### C MP3, LIPA4, LACT3, HEMDF ####[email or web address] [place] [address] Glucose,Bedsideon 03-21-2018 Glucose mass conc 129 mg/dL High 70-100 [facility] Comment on above: Result Comment: Test performed by glucose meter. Results may be 10%-15% lowerthan serum/plasma values. (CLIA ID [id number]) Performed By: #### C MP3, LIPA4, LACT3, HEMDF ####[email or web address] [place] [address] Glucose mass conc 184 mg/dL High 70-100 [facility] Comment on above: Result Comment: Test performed by glucose meter. Results may be 10%-15% lowerthan serum/plasma values. (CLIA ID [id number]) Performed By: #### C MP3, LIPA4, LACT3, HEMDF ####[email or web address] [place] [address] Glucose mass conc 171 mg/dL High 70-100 [facility] Comment on above: Result Comment: Test performed by glucose meter. Results may be 10%-15% lowerthan serum/plasma values. (CLIA ID [id number]) Performed By: #### C MP3, LIPA4, LACT3, HEMDF ####[address] [place] [address] Glucose mass conc 171 mg/dL High 70-100 [facility] Comment on above: Result Comment: Test performed by glucose meter. Results may be 10%-15% lowerthan serum/plasma values. (CLIA ID [id number]) Performed By: #### C MP3, LIPA4, LACT3, HEMDF ####[address] [place] [address] Glucose mass conc 157 mg/dL High 70-100 [facility] Comment on above: Result Comment: Test performed by glucose meter. Results may be 10%-15% lowerthan serum/plasma values. (CLIA ID [id number]) Performed By: #### C MP3, LIPA4, LACT3, HEMDF ####[address] [place] [address] Troponin Ion 03-21-2018 Troponin I.cardiac mass conc ng/mL Normal 0.000-0.034 [facility] [employer] Comment on above: Result Comment: 0.04 6 - 0.400 = Indeterminate> 0.400 = Consider Myocardial Injury Performed By: #### C MP3, LIPA4, LACT3, HEMDF ####[address] [place] [address] Basic Metabolic Panelon -2 Anion gap 3 molar conc 12 Normal [facility] [employer] Comment on above: Performed By: #### C MP3, LIPA4, LACT3, HEMDF ####[address] [place] [address] Calcium mass conc 9.1 mg/dL Normal 8.4-10.4 [facility] Comment on above: Performed By: #### C MP3, LIPA4, LACT3, HEMDF ####[address] [place] [address] CO2 molar conc 20 mmol/L Low 22-30 [facility] Comment on above: Performed By: #### C MP3, LIPA4, LACT3, HEMDF ####[address] [place] [address] Glucose mass conc 147 mg/dL High 70-100 [facility] Comment on above: Performed By: #### C MP3, LIPA4, LACT3, HEMDF ####[address] [place] [address] Urea nitrogen mass conc 23 mg/dL High 7-20 [facility] Comment on above: Performed By: #### C MP3, LIPA4, LACT3, HEMDF ####[employer] [address] [place] [address] Creatinine mass conc 0.88 mg/dL Normal 0.52-1.25 [facility] Comment on above: Performed By: #### C MP3, LIPA4, LACT3, HEMDF ####[address] [place] [address] GFR/1.73 sq M predicted among blacks MDRD vol rate/area (S/P/Bld) mL/min/{1.73_m2} Normal >60 [facility] Comment on above: Performed By: #### C MP3, LIPA4, LACT3, HEMDF ####[address] [place] [address] GFR/1.73 sq M predicted among non-blacks MDRD vol rate/area (S/P/Bld) mL/min/{1.73_m2} Normal >60 [facility] Comment on above: Result Comment: Sour ce- MDRD equation with creatinine calibration to IDMS(NKDEP) eGFR not recommended for drug dose adjustment Performed By: #### C MP3, LIPA4, LACT3, HEMDF ####[employer] [address] [place] [address] Potassium molar conc 4.0 mmol/L Normal 3.5-5.1 [facility] Comment on above: Performed By: #### C MP3, LIPA4, LACT3, HEMDF ####[facility] [address] [place] [address] Sodium molar conc 139 mmol/L Normal 137-145 [facility] Comment on above: Performed By: #### C MP3, LIPA4, LACT3, HEMDF ####[facility] [address] [place] [address] Chloride molar conc 107 mmol/L Normal 98-107 [facility] Comment on above: Performed By: #### C MP3, LIPA4, LACT3, HEMDF ####[facility] [address] [employer] [place] [address] Echo Complete w/wo Contrasto n 03-20-2018 Echo Complete w/wo Contrast Patient Name: JEISON GARCIA Ultrasound Exam Date/Time 03/20/2018 14:04:19 EDT Exam Echo Complete w/wo Contrast Ordering Physician [id number] KELL GOFF Accession Number [id number] Reason For Exam frequent PVC Report TRANSTHORACIC ECHOCARDIOGRAM PATIENT: Jeison Garcia STUDY DATE: 03/20/2018 : 1960 AGE: 57 HT/WT: 177.8 cm (70 97.5 kg (214.5 in) lb) GENDER: M BP: 163 / 99 LOCATION: [facility] PATIENT Observation [facility] STATUS: *ORDERING PHYSICIAN: * Kell Wu *READING PHYSICIAN: * Jerald Lemus MD *HUMAN RESOURCES PARTNER: * Clarissa YUNG --- --- INDICATIONS: Arrhythmia. --- --- CONCLUSIONS SUMMARY: 1. Left ventricle: There is mild concentric hypertrophy. Systolic function is normal by the biplane method of disks. The estimated ejection fraction is 63%. There are no regional wall motion abnormalities. Doppler parameters are consistent with abnormal left ventricular relaxation (grade 1 diastolic dysfunction). 2. No significant valve disease. --- --- STUDY DATA: Complete transthoracic echocardiogram. Procedure: Image quality was good. M-mode, complete 2D, complete spectral Doppler, and color flow Doppler images were acquired and archived for permanent storage and are available for subsequent review. Study status: Routine. Patient status: Observation. --- --- FINDINGS LEFT VENTRICLE: The cavity size is normal. Wall thickness is mildly increased. There is mild concentric hypertrophy. Systolic function is normal by the biplane method of disks. The estimated ejection fraction is 63%. There are no regional wall motion abnormalities. The pulmonary vein flow pattern is normal. Doppler parameters are consistent with abnormal left ventricular relaxation (grade 1 diastolic dysfunction). E/e' average: 10 RIGHT VENTRICLE: The cavity size is normal. Wall thickness is normal. Systolic function is normal. Right ventricular systolic pressure is within the normal range. VENTRICULAR SEPTUM: There is no evidence of a ventricular septal defect. LEFT ATRIUM: The atrium is normal in size. RIGHT ATRIUM: The atrium is normal in size. ATRIAL SEPTUM: Color Doppler shows no evidence of shunt. MITRAL VALVE: Structurally normal valve. Doppler: There is no evidence for stenosis. There is trivial, less than 1+ regurgitation. Peak gradient (D): 2 mm Hg. AORTIC VALVE: Structurally normal valve. Trileaflet. Doppler: There is no stenosis. There is no regurgitation. Dimensionless index: 0.69. Valve area (VTI): 3 cm2. Indexed valve area (VTI): 1.4 cm2/m2. Mean gradient (S): 7 mm Hg. Peak gradient (S): 12 mm Hg. Peak velocity (S): 1.8 m/sec. TRICUSPID VALVE: Structurally normal valve. Doppler: There is trivial, less than 1+ regurgitation. PULMONIC VALVE: Not well visualized. Structurally normal valve. Doppler: There is no regurgitation. AORTA: The aorta is normal. PULMONARY ARTERY: Main pulmonary artery: Normal. PERICARDIUM: There is no pericardial effusion. SYSTEMIC VEINS: Inferior vena cava: The vessel is normal. The IVC collapses by greater than 50% with inspiration. Diameter: 2.6 cm. Hepatic veins: The flow pattern is normal. --- --- Measurements IVC Value Reference ID 2.6 cm --------- Left ventricle Value Reference LV ID, ED 4.8 cm 4.2 - 5.9 LV ID, ES 3.4 cm --------- LV PW thickness, ED (H) 1.1 cm 0.6 - 1.0 LV end-diastolic volume, 1-p A4C 108 ml 67 - 155 LV end-systolic volume, 1-p A4C 45 ml 22 - 58 LV end-diastolic volume, 2-p 125 ml 67 - 155 LV end-systolic volume, 2-p 46 ml 22 - 58 LV ejection fraction, 2-p 63 % >=55 LV E/e', lateral 11.1 --------- LV E/e', medial 8.9 --------- LV E/e', average 9.9 --------- Ventricular septum Value Reference IVS thickness, ED (H) 1.3 cm 0.6 - 1.0 LVOT Value Reference LVOT ID, A-P 2.4 cm --------- LVOT mean velocity, S 0.8 m/sec --------- LVOT VTI, S 19.4 cm --------- LVOT peak gradient, S 5 mm Hg --------- Stroke volume (SV), LVOT DP 85 ml --------- Stroke index (SV/bsa), LVOT DP 38 ml/m2 --------- Aortic valve Value Reference Aortic valve peak velocity, S 1.8 m/sec --------- Aortic valve mean velocity, S 1.2 m/sec --------- Aortic valve VTI, S 28.2 cm --------- Aortic mean gradient, S 7 mm Hg --------- Aortic peak gradient, S 12 mm Hg --------- DI 0.69 --------- Aortic valve area, VTI 3 cm2 --------- Aortic valve area/bsa, VTI 1.4 cm2/m2 --------- Aorta Value Reference Aortic root ID 3.1 cm <4.3 Aortic root ID, ED (sinus) 3.1 cm <4.3 Aortic root ID, STJ, ED 2.7 cm --------- Ascending aorta ID, A-P 3.4 cm --------- Ascending aorta ID, max 3.4 cm --------- Ascending aorta ID, A-P, S 3.4 cm --------- Left atrium Value Reference LA volume/bsa, ES, 2-p 29 ml/m2 --------- Mitral valve Value Reference Mitral E-wave peak velocity 0.7 m/sec --------- Mitral A-wave peak velocity 1 m/sec --------- Mitral deceleration time 148 ms --------- Mitral peak gradient, D 2 mm Hg --------- Mitral E/A ratio, peak 0.7 --------- Right atrium Value Reference RA area, ES, A4C 18 cm2 10 - 18 Systemic veins Value Reference Estimated RAP 3 mm Hg --------- Right ventricle Value Reference RV ID, minor axis, ED, A4C base 3.9 cm 2.4 - 4.2 RV ID, minor axis, ED, A4C mid 3.0 cm 2.0 - 3.5 TAPSE 3.9 cm --------- RV s', lateral, S 0.16 m/sec --------- Legend: (L) and (H) peter values outside specified reference range. Electronically signed by Jerald Lemus MD 03/20/2018 14:56 Final Dictated: 03/20/2018 2:57 pm Dictating Physician: MD LEMUS STEPHEN M Signed Date and Time: 03/20/2018 2:56 pm Signed by: MD LEMUS STEPHEN M Normal [employer] Glucose,Bedsideon 03-20-2018 Glucose mass conc 159 mg/dL High 70-100 [facility] Comment on above: Result Comment: Test performed by glucose meter. Results may be 10%-15% lowerthan serum/plasma values. (CLIA ID [id number]) Performed By: #### C MP3, LIPA4, LACT3, HEMDF ####[email or web address] [place] [address] Glucose mass conc 141 mg/dL High 70-100 [facility] Comment on above: Result Comment: Test performed by glucose meter. Results may be 10%-15% lowerthan serum/plasma values. (CLIA ID [id number]) Performed By: #### C MP3, LIPA4, LACT3, HEMDF ####[address] [place] [address] Glucose mass conc 171 mg/dL High 70-100 [facility] Comment on above: Result Comment: Test performed by glucose meter. Results may be 10%-15% lowerthan serum/plasma values. (CLIA ID [id number]) Performed By: #### C MP3, LIPA4, LACT3, HEMDF ####[address] [place], [place] Glucose mass conc 145 mg/dL High 70-100 [facility] Comment on above: Result Comment: Test performed by glucose meter. Results may be 10%-15% lowerthan serum/plasma values. (CLIA ID [id number]) Performed By: #### C MP3, LIPA4, LACT3, HEMDF ####[address] [place] [address] Glucose mass conc 168 mg/dL High 70-100 [facility] Comment on above: Result Comment: Test performed by glucose meter. Results may be 10%-15% lowerthan serum/plasma values. (CLIA ID [id number]) Performed By: #### C MP3, LIPA4, LACT3, HEMDF ####[address] [place] [address] Glucose mass conc 170 mg/dL High 70-100 [facility] Comment on above: Result Comment: Test performed by glucose meter. Results may be 10%-15% lowerthan serum/plasma values. (CLIA ID [id number]) Performed By: #### C MP3, LIPA4, LACT3, HEMDF ####[address] [place] [address] Hemogram w/ Autodiffon 03-20 Abs Baso Cnt 0.1 10*3/uL Normal 0.0-0.2 [facility] Comment on above: Performed By: #### C MP3, LIPA4, LACT3, HEMDF ####[employer] [address] Abs Neutrophile Cnt 8.1 10*3/uL High 1.8-7.0 [facility] [employer] Comment on above: Performed By: #### C MP3, LIPA4, LACT3, HEMDF ####[address] [place], [place] Basophils/100 WBC Auto (Bld) 0.8 % Normal 0.0-2.0 [facility] Comment on above: Performed By: #### C MP3, LIPA4, LACT3, HEMDF ####[address] Eosinophils Auto #/vol (Bld) 0.2 10*3/uL Normal 0.0-0.5 [facility] Comment on above: Performed By: #### C MP3, LIPA4, LACT3, HEMDF ####[address] Eosinophils/100 WBC Auto (Bld) 1.5 % Normal 1.0-6.0 [facility] Comment on above: Performed By: #### C MP3, LIPA4, LACT3, HEMDF ####[address] Erythrocyte distribution width Auto Ratio (RBC) 13.4 % Normal 11.5-14.5 [facility] Comment on above: Performed By: #### C MP3, LIPA4, LACT3, HEMDF ####[address] Granulocytes/100 WBC (Bld) 63.5 % Normal 40.0-80.0 [facility] Comment on above: Performed By: #### C MP3, LIPA4, LACT3, HEMDF ####[address] Hematocrit Auto Volume Fraction (Bld) 43.4 % Normal 40.0-52.0 [facility] Comment on above: Performed By: #### C MP3, LIPA4, LACT3, HEMDF ####[address] Hemoglobin mass conc (Bld) 15.0 g/dL Normal 13.0-18.0 [facility] Comment on above: Performed By: #### C MP3, LIPA4, LACT3, HEMDF ####[address] Lymphocytes Auto #/vol (Bld) 3.0 10*3/uL Normal 1.0-4.3 [facility] Comment on above: Performed By: #### C MP3, LIPA4, LACT3, HEMDF ####[address] Lymphocytes/100 WBC Auto (Bld) 23.3 % Normal 20.0-40.0 [facility] Comment on above: Performed By: #### C MP3, LIPA4, LACT3, HEMDF ####[address] MCH Auto Entitic mass (RBC) 30.1 pg Normal 26.0-34.0 [facility] Comment on above: Performed By: #### C MP3, LIPA4, LACT3, HEMDF ####[address] MCHC Auto mass conc (RBC) 34.5 % Normal 32.0-36.0 [facility] Comment on above: Performed By: #### C MP3, LIPA4, LACT3, HEMDF ####[address] MCV Auto Entitic volume (RBC) 87.5 fL Normal 80.0-98.0 [facility] Comment on above: Performed By: #### C MP3, LIPA4, LACT3, HEMDF ####[address] Monocytes Auto #/vol (Bld) 1.4 10*3/uL High 0.0-0.8 [facility] Comment on above: Performed By: #### C MP3, LIPA4, LACT3, HEMDF ####[address] Monocytes/100 WBC Auto (Bld) 10.9 % High 2.0-10.0 [facility] Comment on above: Performed By: #### C MP3, LIPA4, LACT3, HEMDF ####[facility] [place], [place] Platelet mean volume Auto Entitic volume (Bld) 9.5 fL Normal 7.4-10.4 [facility] Comment on above: Performed By: #### C MP3, LIPA4, LACT3, HEMDF ####[address] [place], [place] Platelets Auto #/vol (Bld) 268 10*3/uL Normal 140-440 [facility] Comment on above: Performed By: #### C MP3, LIPA4, LACT3, HEMDF ####[address] [place], [place] RBC Auto #/vol (Bld) 4.96 10*6/uL Normal 4.40-5.90 [facility] Comment on above: Performed By: #### C MP3, LIPA4, LACT3, HEMDF ####[address] [place], [place] WBC Auto #/vol (Bld) 12.7 10*3/uL High 3.6-10.7 [facility] Comment on above: Performed By: #### C MP3, LIPA4, LACT3, HEMDF ####[address] [place], [place] Surgical Pathologyon 018 Surgical Pathology [id number] [facility] PATHOLOGY AND LABORATORY MEDICINE [address] [place] [address] FINAL SURGICAL PATHOLOGY REPORT NAME: JEISON GARCIA Neema .O.B.: 1960 57 Y M BILLING NO.: [id number]: [id number] PROCEDURE 03/20/2018 DATE:SURGEON: ELICIA AGARWAL MD RECEIVED 03/20/2018 DATE:ATTENDING: SPENCER HATHAWAY MD REPORT DATE: 03/21/2018 COPIES TO: ___DIAGNOSIS:STOMACH, PRE-PYLORIC ULCER, BIOPSY - GASTRIC MUCOSA WITH REACTIVECHANGES, MILD CHRONIC INFLAMMATION, AND FOCAL INTESTINAL METAPLASIA.NEGATIVE FOR DYSPLASIA OR MALIGNANCY.NEGATIVE FOR H. PYLORI ORGANISMS ON H&E STAINED SLIDES.CRH/SINDHU CORRIGAN M.D. ____CLINICAL INFORMATION: Nausea, vomitingSPECIMEN: GASTRIC BIOPSY GROSS DESCRIPTION:Pre-pyloric ulcer biopsyReceived in formalin are two segments of champagne tissue 0.3 cm each.Submitted in toto. (2 ns, 1) JCK/MCDDisclaimer: The following statement applies to allimmunohistochemistry, in situ hybridization, molecular studies, andimmunofluorescence testing.The use of one or more reagents in the above tests is regulated as ananalyte specific reagent (ASR). These tests were developed and theirperformance characteristics determined by the clinical [facility]. They have not been cleared by the US Food and DrugAdministration (FDA). The FDA has determined that such clearance orapproval is not necessary.All the above immunostains were performed on paraffin embedded tissue.Appropriate positive and negative controls (where applicable) were runin parallel with the patient's specimen; these controls showed expectedstaining pattern, with acceptable intensity of staining.Immunohistochem ical assays have not been validated on decalcifiedtissues. Results should be interpreted with caution given the raisedpossibility of false negativity on decalcified specimens.Professional Performing Location: [address] [address]. DEPARTMENT OF PATHOLOGY AND LABORATORY MEDICINE [place], [place] [address] Normal [facility] Troponin Ion 03-20-2018 Troponin I.cardiac mass conc ng/mL Normal 0.000-0.034 [facility] Comment on above: Result Comment: 0.04 6 - 0.400 = Indeterminate> 0.400 = Consider Myocardial Injury Performed By: #### C MP3, LIPA4, LACT3, HEMDF ####[address] [place], [place] Basic Metabolic Panelon 02-26 Anion gap 3 molar conc 11 Normal [facility] Comment on above: Performed By: #### P SA3 ####[address] [place], [place] Calcium mass conc 9.4 mg/dL Normal 8.4-10.4 [facility] Comment on above: Performed By: #### P SA3 ####[address] [place], [place] CO2 molar conc 22 mmol/L Normal 22-30 [facility] Comment on above: Performed By: #### P SA3 ####[address] [place], [place] Glucose mass conc 184 mg/dL High 70-100 [facility] Comment on above: Performed By: #### P SA3 ####[address] [place], [place] Urea nitrogen mass conc 36 mg/dL High 7-20 [facility] Comment on above: Performed By: #### P SA3 ####[address] [place] [address] Creatinine mass conc 1.00 mg/dL Normal 0.52-1.25 [facility] Comment on above: Performed By: #### P SA3 ####[facility] [id number] [place] [address] GFR/1.73 sq M predicted among blacks MDRD vol rate/area (S/P/Bld) mL/min/{1.73_m2} Normal >60 [facility] Comment on above: Performed By: #### P SA3 ####[facility] [address] [place] [address] GFR/1.73 sq M predicted among non-blacks MDRD vol rate/area (S/P/Bld) mL/min/{1.73_m2} Normal >60 [facility] Comment on above: Result Comment: Sour ce- MDRD equation with creatinine calibration to IDMS(NKDEP) eGFR not recommended for drug dose adjustment Performed By: #### P SA3 ####[facility] [address] [address] Potassium molar conc 4.0 mmol/L Normal 3.5-5.1 [facility] Comment on above: Performed By: #### P SA3 ####[facility] [id number] [place] [address] Sodium molar conc 139 mmol/L Normal 137-145 [facility] Comment on above: Performed By: #### P SA3 ####[facility] [address] [place] [address] Chloride molar conc 107 mmol/L Normal 98-107 [facility] Comment on above: Performed By: #### P SA3 ####[facility] [id number] [place] [address] CULTURE URINEon 03-19-2018 CULTURE URINE CULTURE URINE --> Status: F Insignificant growth based on current clinical guidelines. Normal [facility] Comment on above: Order Comment: Speci men Source Comment:Urine, clean catch Performed By: #### C MP3, LIPA4, LACT3, HEMDF ####[facility] [address] [place] [address] Glucose,Bedsideon 03-19-2018 Glucose mass conc 157 mg/dL High 70-100 [facility] Comment on above: Result Comment: Test performed by glucose meter. Results may be 10%-15% lowerthan serum/plasma values. (CLIA ID [id number]) Performed By: #### C MP3, LIPA4, LACT3, HEMDF ####[address] [place] [address] Glucose mass conc 173 mg/dL High 70-100 [facility] Comment on above: Result Comment: Test performed by glucose meter. Results may be 10%-15% lowerthan serum/plasma values. (CLIA ID [id number]) Performed By: #### C MP3, LIPA4, LACT3, HEMDF ####[address] [place] [address] Glucose mass conc 171 mg/dL High 70-100 [facility] Comment on above: Result Comment: Test performed by glucose meter. Results may be 10%-15% lowerthan serum/plasma values. (CLIA ID [id number]) Performed By: #### C MP3, LIPA4, LACT3, HEMDF ####[address] [place] [address] Glucose mass conc 174 mg/dL High 70-100 [facility] Comment on above: Result Comment: Test performed by glucose meter. Results may be 10%-15% lowerthan serum/plasma values. (CLIA ID [id number]) Performed By: #### P SA3 ####[address] [place] [address] Hemoglobin A1Con 03-19-2018 Glucose mass conc 189 mg/dL Normal [facility] Comment on above: Performed By: #### C MP3, LIPA4, LACT3, HEMDF ####[address] [place] [address] Hemoglobin A1c/Hemoglobin.total mass fraction (Bld) 8.2 % High 4.0-5.7 [facility] [employer] Comment on above: Result Comment: --Hg bA1C levels may not be accurate in patients who haverenal disease, received recent blood transfusions, are anemic,or who have dyshemoglobinemia. Performed By: #### C MP3, LIPA4, LACT3, HEMDF ####[address] [address] Hemogram w/ Autodiffon 03-19 Abs Baso Cnt 0.1 10*3/uL Normal 0.0-0.[address] [facility] Comment on above: Performed By: #### P SA3 ####[address] [address] Abs Neutrophile Cnt 11.4 10*3/uL High 1.8-7.0 [facility] Comment on above: Performed By: #### P SA3 ####[address] [address] Basophils/100 WBC Auto (Bld) 0.5 % Normal 0.0-2.0 [facility] Comment on above: Performed By: #### P SA3 ####[address] [address] Eosinophils Auto #/vol (Bld) 0.1 10*3/uL Normal 0.0-0.5 [facility] Comment on above: Performed By: #### P SA3 ####[address] [address] Eosinophils/100 WBC Auto (Bld) 0.7 % Low 1.0-6.0 [facility] Comment on above: Performed By: #### P SA3 ####[address] [address] Erythrocyte distribution width Auto Ratio (RBC) 13.3 % Normal 11.5-14.5 [facility] Comment on above: Performed By: #### P SA3 ####[address] [address] Granulocytes/100 WBC (Bld) 71.2 % Normal 40.0-80.0 [facility] Comment on above: Performed By: #### P SA3 ####[address] Hematocrit Auto Volume Fraction (Bld) 47.1 % Normal 40.0-52.0 [facility] Comment on above: Performed By: #### P SA3 ####[address] Hemoglobin mass conc (Bld) 15.9 g/dL Normal 13.0-18.0 [facility] Comment on above: Performed By: #### P SA3 ####[address] Lymphocytes Auto #/vol (Bld) 2.7 10*3/uL Normal 1.0-4.3 [facility] Comment on above: Performed By: #### P SA3 ####[address] Lymphocytes/100 WBC Auto (Bld) 16.9 % Low 20.0-40.0 [facility] Comment on above: Performed By: #### P SA3 ####[address] MCH Auto Entitic mass (RBC) 30.0 pg Normal 26.0-34.0 [facility] Comment on above: Performed By: #### P SA3 ####[address] MCHC Auto mass conc (RBC) 33.8 % Normal 32.0-36.0 [facility] Comment on above: Performed By: #### P SA3 ####[address] MCV Auto Entitic volume (RBC) 88.7 fL Normal 80.0-98.0 [facility] Comment on above: Performed By: #### P SA3 ####[address] Monocytes Auto #/vol (Bld) 1.7 10*3/uL High 0.0-0.8 [facility] Comment on above: Performed By: #### P SA3 ####[address] Monocytes/100 WBC Auto (Bld) 10.7 % High 2.0-10.0 [facility] Comment on above: Performed By: #### P SA3 ####[address] Platelet mean volume Auto Entitic volume (Bld) 9.2 fL Normal 7.4-10.4 [facility] Comment on above: Performed By: #### P SA3 ####[address] Platelets Auto #/vol (Bld) 284 10*3/uL Normal 140-440 [facility] Comment on above: Performed By: #### P SA3 ####[address] RBC Auto #/vol (Bld) 5.31 10*6/uL Normal 4.40-5.90 [facility] Comment on above: Performed By: #### P SA3 ####[address] WBC Auto #/vol (Bld) 16.0 10*3/uL High 3.6-10.7 [facility] Comment on above: Performed By: #### P SA3 ####[address] Troponin Ion 03-19-2018 Troponin I.cardiac mass conc ng/mL Normal 0.000-0.034 [facility] Comment on above: Result Comment: 0.04 6 - 0.400 = Indeterminate> 0.400 = Consider Myocardial Injury Performed By: #### C MP3, LIPA4, LACT3, HEMDF ####[address] Troponin I.cardiac mass conc ng/mL Normal 0.000-0.034 [facility] Comment on above: Result Comment: 0.04 6 - 0.400 = Indeterminate> 0.400 = Consider Myocardial Injury Performed By: #### P SA3 ####[address] [address] CR Abdomen APon 03-18-2018 CR Abdomen AP Patient Name: JEISON GARCIA Diagnostic Radiology Exam Date/Time 03/18/2018 19:23:28 EDT Exam CR Abdomen AP Ordering Physician FELECIA ACEVEDO REBECCA E. Accession Number [id number] CPT4 Codes 22240 () Reason For Exam stone disease, abdominal pain Report Indication: Stone disease. Abdominal pain. Comparison 03/06/2018. Findings and impression: Abdomen frontal view. There is a pill-shaped density projecting over the expected location of the left kidney, 1 cm in diameter, and similar finding projecting over the right innominate bone. Cholecystectomy clips. No definite calculi seen.. No acute process visualized. Note made of suspected bladder calculus on CT 03/14/2018. Report Dictated on Workstation: [employer] Final Dictated: 03/18/2018 7:28 pm Dictating Physician: MD WYNN JOHN Signed Date and Time: 03/18/2018 7:31 pm Signed by: MD WYNN JOHN Transcribed Date and Time: 03/18/2018 7:28 Normal [facility] Comp Metabolic Panelon 03-18 ALP enzyme act/vol 103 U/L Normal 38-126 [facility] Comment on above: Performed By: #### P SA3 ####[facility] [id number] [place] [address] ALT enzyme act/vol 36 U/L Normal 13-69 [facility] Comment on above: Performed By: #### P SA3 ####[facility] [address] [place] [address] Calcium mass conc 10.4 mg/dL Normal 8.4-10.4 [facility] Comment on above: Performed By: #### P SA3 ####[facility] [id number] [place] [address] Glucose mass conc 195 mg/dL High 70-100 [facility] Comment on above: Performed By: #### P SA3 ####[address] [place], [place] Anion gap 3 molar conc 14 Normal [facility] Comment on above: Performed By: #### P SA3 ####[address] [place], [place] AST enzyme act/vol 23 U/L Normal 15-46 [facility] [place] Comment on above: Performed By: #### P SA3 ####[address] [place], [place] Bilirubin mass conc 2.1 mg/dL High 0.2-1.3 [facility] Comment on above: Performed By: #### P SA3 ####[address] CO2 molar conc 19 mmol/L Low 22-30 [facility] Comment on above: Performed By: #### P SA3 ####[address] Creatinine mass conc 0.86 mg/dL Normal 0.52-1.25 [facility] Comment on above: Performed By: #### P SA3 ####[address] [place], [place] GFR/1.73 sq M predicted among blacks MDRD vol rate/area (S/P/Bld) mL/min/{1.73_m2} Normal >60 [facility] Comment on above: Performed By: #### P SA3 ####[address] [place], [place] GFR/1.73 sq M predicted among non-blacks MDRD vol rate/area (S/P/Bld) mL/min/{1.73_m2} Normal >60 [facility] Comment on above: Result Comment: Sour ce- MDRD equation with creatinine calibration to IDMS(NKDEP) eGFR not recommended for drug dose adjustment Performed By: #### P SA3 ####[address] [place], [place] Protein mass conc 7.8 g/dL Normal 6.3-8.2 [facility] Comment on above: Performed By: #### P SA3 ####[address] [place] [address] Urea nitrogen mass conc 32 mg/dL High 7-20 [facility] Comment on above: Performed By: #### P SA3 ####[address] Potassium molar conc 3.8 mmol/L Normal 3.5-5.1 [facility] Comment on above: Performed By: #### P SA3 ####[address] Sodium molar conc 136 mmol/L Low 137-145 [facility] Comment on above: Performed By: #### P SA3 ####[address] Albumin mass conc 4.9 g/dL Normal 3.5-5.0 [facility] Comment on above: Performed By: #### P SA3 ####[address] Chloride molar conc 103 mmol/L Normal 98-107 [facility] Comment on above: Performed By: #### P SA3 ####[address] Hemogram w/ Autodiffon 03-18 Abs Baso Cnt 0.1 10*3/uL Normal 0.0-0.2 [facility] Comment on above: Performed By: #### P SA3 ####[address] [place], [place] Abs Neutrophile Cnt 12.4 10*3/uL High 1.8-7.0 [facility] Comment on above: Performed By: #### P SA3 ####[address] Basophils/100 WBC Auto (Bld) 0.5 % Normal 0.0-2.0 [facility] Comment on above: Performed By: #### P SA3 ####[address] [place] [address] Eosinophils Auto #/vol (Bld) 0.0 10*3/uL Normal 0.0-0.5 [facility] Comment on above: Performed By: #### P SA3 ####[address] [address] Eosinophils/100 WBC Auto (Bld) 0.3 % Low 1.0-6.0 [facility] Comment on above: Performed By: #### P SA3 ####[address] [address] Erythrocyte distribution width Auto Ratio (RBC) 13.6 % Normal 11.5-14.5 [facility] Comment on above: Performed By: #### P SA3 ####[address] [address] Granulocytes/100 WBC (Bld) 73.4 % Normal 40.0-80.0 [facility] Comment on above: Performed By: #### P SA3 ####[address] [address] Hematocrit Auto Volume Fraction (Bld) 49.6 % Normal 40.0-52.0 [facility] Comment on above: Performed By: #### P SA3 ####[address] [address] Hemoglobin mass conc (Bld) 17.1 g/dL Normal 13.0-18.0 [facility] Comment on above: Performed By: #### P SA3 ####[address] [address] Lymphocytes Auto #/vol (Bld) 2.7 10*3/uL Normal 1.0-4.3 [facility] Comment on above: Performed By: #### P SA3 ####[address] [address] Lymphocytes/100 WBC Auto (Bld) 16.0 % Low 20.0-40.0 [facility] Comment on above: Performed By: #### P SA3 ####[address] MCH Auto Entitic mass (RBC) 30.2 pg Normal 26.0-34.0 [facility] Comment on above: Performed By: #### P SA3 ####[address] [address] MCHC Auto mass conc (RBC) 34.6 % Normal 32.0-36.0 [facility] Comment on above: Performed By: #### P SA3 ####[address] MCV Auto Entitic volume (RBC) 87.5 fL Normal 80.0-98.0 [facility] Comment on above: Performed By: #### P SA3 ####[address] Monocytes Auto #/vol (Bld) 1.6 10*3/uL High 0.0-0.8 [facility] Comment on above: Performed By: #### P SA3 ####[address] Monocytes/100 WBC Auto (Bld) 9.8 % Normal 2.0-10.0 [facility] Comment on above: Performed By: #### P SA3 ####[address] Platelet mean volume Auto Entitic volume (Bld) 9.0 fL Normal 7.4-10.4 [facility] Comment on above: Performed By: #### P SA3 ####[address] Platelets Auto #/vol (Bld) 335 10*3/uL Normal 140-440 [facility] Comment on above: Performed By: #### P SA3 ####[address] RBC Auto #/vol (Bld) 5.67 10*6/uL Normal 4.40-5.90 [facility] Comment on above: Performed By: #### P SA3 ####[facility] [id number] [place], [place] WBC Auto #/vol (Bld) 16.8 10*3/uL High 3.6-10.7 [facility] Comment on above: Performed By: #### P SA3 ####[address] Magnesiumon 03-18-2018 Magnesium mass conc 2.0 mg/dL Normal 1.6-2.3 [facility] Comment on above: Performed By: #### P SA3 ####[address] [place], [place] Urinalysis,Macroon 8 Appearance clear Normal Clear [facility] Comment on above: Performed By: #### P SA3 ####[address] Bilirubin,Ur Negative Normal Negative [facility] Comment on above: Performed By: #### P SA3 ####[address] Color yellow Normal Lt. Yellow [facility] Comment on above: Performed By: #### P SA3 ####[address] Glucose Ql (U) 300 mg/dL Normal Negative [facility] Comment on above: Performed By: #### P SA3 ####[address] Ketone,Urine 3 + mg/dL Normal Negative [facility] Comment on above: Performed By: #### P SA3 ####[facility] [id number] [place], [place] Leukocytes Trace Normal Negative [facility] Comment on above: Performed By: #### P SA3 ####[address] [place], [place] Nitrites Negative Normal Negative [facility] Comment on above: Performed By: #### P SA3 ####[address] [place], [place] Occult Blood,Ur 25 {RBC}/uL Normal Negative [facility] Comment on above: Performed By: #### P SA3 ####[address] pH Test strip (U) 5.0 Normal 5.0-8.0 [facility] Comment on above: Performed By: #### P SA3 ####[address] Specific [place],Urine 1.020 Normal 1.005-1.030 [facility] Comment on above: Performed By: #### P SA3 ####[address] Total Protein,Urine 75 mg/dL Normal Negative [facility] Comment on above: Performed By: #### P SA3 ####[address] Urobilinogen NORM Normal 0-1 [facility] Comment on above: Performed By: #### P SA3 ####[address] Urinalysis,Microscopicon Bacteria Moderate (6-50) Normal Negative [facility] Comment on above: Performed By: #### P SA3 ####[address] Epithelial Cells 0 - 2 Normal 3-5 [facility] Comment on above: Performed By: #### P SA3 ####[address] Mucous Threads Few Normal Negative [facility] Comment on above: Performed By: #### P SA3 ####[address] RBC LM.HPF #/area (Urine sed) 3 - 5 Normal 0-2 [facility] Comment on above: Performed By: #### P SA3 ####[address] WBC LM.HPF #/area (Urine sed) 11 - 25 Normal 0-5 [facility] Comment on above: Performed By: #### P SA3 ####[facility] [place] [address] CULTURE URINEon 03-15-2018 CULTURE URINE CULTURE URINE --> Status: F No growth (<1,000 CFU/ml). Normal [facility] Comment on above: Order Comment: Speci men Source Comment:Urine, clean catch Performed By: #### C /UR ####[facility] [place] [address] [address] Abdomen/Pelvis w/o Contra ston 03-14-2018 CT Abdomen/Pelvis w/o Contrast Patient Name: JEISON GARCIA CT Exam Date/Time 03/14/2018 21:01:[address] Abdomen/Pelvis (No PO, No IV) Ordering Physician [id number] DWIGHT VELEZ Accession Number [id number] CPT4 Codes 42083 (CT Abdomen/Pelvis (No PO, No IV)) Reason For Exam eval for renal obstruction Report EXAM: CT Abdomen and pelvis INDICATION: Evaluate for renal obstruction COMPARISON: none TECHNIQUE: CT of the abdomen and pelvis was performed without intravenous contrast. Coronal and sagittal reformats were obtained. FINDINGS: LOWER CHEST: within normal limits. ABDOMEN: LIVER: within normal limits. BILE DUCTS: normal caliber. GALLBLADDER: No calcified gallstones. Normal caliber wall. PANCREAS: within normal limits. SPLEEN: within normal limits. ADRENALS: within normal limits. KIDNEYS: No renal calculi. No hydronephrosis. PELVIS: REPRODUCTIVE ORGANS: Enlarged prostate gland measuring up to 5.6 cm. URETERS: Double-J stent noted within the right ureter. No ureteral calculi. No hydroureteronephrosis. BLADDER: There is hyperdensity measuring up to 7 mm, which may represent a bladder calculus. BOWEL: Normal caliber. Appendix within normal limits. There is sigmoid colonic diverticulosis. No evidence of acute diverticulitis. No enlarged mesenteric lymph nodes. PERITONEUM: no ascites or free air, no fluid collection. VESSELS: Atherosclerotic changes in the aortoiliac vessels. LYMPH NODES: No enlarged nodes. RETROPERITONEUM: within normal limits. ABDOMINAL WALL: within normal limits. BONES: Degenerative changes of the imaged spine with bilateral pars defects at L5 with grade 1 anterolisthesis of L5 on S1. IMPRESSION: 1. Indwelling right double-J stent. No hydroureteronephrosis. 2. Bladder calculus measuring 7 mm. 3. Sigmoid colonic diverticulosis. No evidence of acute diverticulitis. Report Dictated on Final Dictated: 03/14/2018 9:41 pm Dictating Physician: MD MARTIN KEVIN Signed Date and Time: 03/14/2018 9:57 pm Signed by: MD MARTIN KEVIN Transcribed Date and Time: 03/14/2018 9:41 Normal [facility] Comp Metabolic Panelon 03-14 ALP enzyme act/vol 119 U/L Normal 38-126 [facility] Comment on above: Performed By: #### C MP3, LIPA4, LACT3, HEMDF ####[facility] [id number] [place], [place] ALT enzyme act/vol 40 U/L Normal 13-69 [facility] Comment on above: Performed By: #### C MP3, LIPA4, LACT3, HEMDF ####[facility] [id number] [place] [address] Anion gap 3 molar conc 17 Normal [facility] Comment on above: Performed By: #### C MP3, LIPA4, LACT3, HEMDF ####[facility] [id number] [place] AST enzyme act/vol 23 U/L Normal 15-46 [facility] Comment on above: Performed By: #### C MP3, LIPA4, LACT3, HEMDF ####[facility] [id number] [place], [place] Bilirubin mass conc 1.8 mg/dL High 0.2-1.3 [facility] Comment on above: Performed By: #### C MP3, LIPA4, LACT3, HEMDF ####[facility] [id number] [place] [address] Calcium mass conc 10.3 mg/dL Normal 8.4-10.4 [facility] Comment on above: Performed By: #### C MP3, LIPA4, LACT3, HEMDF ####[address] [place] [address] CO2 molar conc 19 mmol/L Low 22-30 [facility] Comment on above: Performed By: #### C MP3, LIPA4, LACT3, HEMDF ####[id number] [place] [address] Creatinine mass conc 0.87 mg/dL Normal 0.52-1.25 [facility] Comment on above: Performed By: #### C MP3, LIPA4, LACT3, HEMDF ####[address] [place] [address] GFR/1.73 sq M predicted among blacks MDRD vol rate/area (S/P/Bld) mL/min/{1.73_m2} Normal >60 [facility] Comment on above: Performed By: #### C MP3, LIPA4, LACT3, HEMDF ####[address] [place] [address] GFR/1.73 sq M predicted among non-blacks MDRD vol rate/area (S/P/Bld) mL/min/{1.73_m2} Normal >60 [facility] Comment on above: Result Comment: Sour ce- MDRD equation with creatinine calibration to IDMS(NKDEP) eGFR not recommended for drug dose adjustment Performed By: #### C MP3, LIPA4, LACT3, HEMDF ####[address] [place] [address] Glucose mass conc 238 mg/dL High 70-100 [facility] Comment on above: Performed By: #### C MP3, LIPA4, LACT3, HEMDF ####[address] [place] [address] Protein mass conc 8.2 g/dL Normal 6.3-8.2 [facility] Comment on above: Performed By: #### C MP3, LIPA4, LACT3, HEMDF ####[address] [place], [place] Urea nitrogen mass conc 19 mg/dL Normal 7-20 [facility] Comment on above: Performed By: #### C MP3, LIPA4, LACT3, HEMDF ####[address] [place], [place] Potassium molar conc 4.5 mmol/L Normal 3.5-5.1 [facility] Comment on above: Performed By: #### C MP3, LIPA4, LACT3, HEMDF ####[address] [place], [place] Albumin mass conc 5.3 g/dL High 3.5-5.0 [facility] Comment on above: Performed By: #### C MP3, LIPA4, LACT3, HEMDF ####[address] Chloride molar conc 104 mmol/L Normal 98-107 [facility] Comment on above: Performed By: #### C MP3, LIPA4, LACT3, HEMDF ####[address] [place], [place] Sodium molar conc 139 mmol/L Normal 137-145 [facility] Comment on above: Performed By: #### C MP3, LIPA4, LACT3, HEMDF ####[address] [place], [place] Hemogram w/ Autodiffon 03-14 Abs Neutrophile Cnt 9.7 10*3/uL High 1.8-7.0 [facility] Comment on above: Performed By: #### C MP3, LIPA4, LACT3, HEMDF ####[address] [place], [place] Basophils/100 WBC Auto (Bld) 0.4 % Normal 0.0-2.0 [facility] Comment on above: Performed By: #### C MP3, LIPA4, LACT3, HEMDF ####[address] [place], [place] Eosinophils/100 WBC Auto (Bld) 0.7 % Low 1.0-6.0 [facility] Comment on above: Performed By: #### C MP3, LIPA4, LACT3, HEMDF ####[address] [place], [place] Erythrocyte distribution width Auto Ratio (RBC) 14.1 % Normal 11.5-14.5 [facility] Comment on above: Performed By: #### C MP3, LIPA4, LACT3, HEMDF ####[address] Granulocytes/100 WBC (Bld) 75.9 % Normal 40.0-80.0 [facility] Comment on above: Performed By: #### C MP3, LIPA4, LACT3, HEMDF ####[address] Hematocrit Auto Volume Fraction (Bld) 49.2 % Normal 40.0-52.0 [facility] Comment on above: Performed By: #### C MP3, LIPA4, LACT3, HEMDF ####[address] [place], [place] Hemoglobin mass conc (Bld) 17.0 g/dL Normal 13.0-18.0 [facility] Comment on above: Performed By: #### C MP3, LIPA4, LACT3, HEMDF ####[address] Lymphocytes Auto #/vol (Bld) 2.1 10*3/uL Normal 1.0-4.3 [facility] Comment on above: Performed By: #### C MP3, LIPA4, LACT3, HEMDF ####[address] Lymphocytes/100 WBC Auto (Bld) 16.1 % Low 20.0-40.0 [facility] Comment on above: Performed By: #### C MP3, LIPA4, LACT3, HEMDF ####[address] MCH Auto Entitic mass (RBC) 30.5 pg Normal 26.0-34.0 [facility] Comment on above: Performed By: #### C MP3, LIPA4, LACT3, HEMDF ####[address] [place], [place] MCHC Auto mass conc (RBC) 34.6 % Normal 32.0-36.0 [facility] Comment on above: Performed By: #### C MP3, LIPA4, LACT3, HEMDF ####[address] [place], [place] MCV Auto Entitic volume (RBC) 87.9 fL Normal 80.0-98.0 [facility] Comment on above: Performed By: #### C MP3, LIPA4, LACT3, HEMDF ####[address] [place], [place] Monocytes Auto #/vol (Bld) 0.9 10*3/uL High 0.0-0.8 [facility] Comment on above: Performed By: #### C MP3, LIPA4, LACT3, HEMDF ####[address] [place], [place] Monocytes/100 WBC Auto (Bld) 6.9 % Normal 2.0-10.0 [facility] Comment on above: Performed By: #### C MP3, LIPA4, LACT3, HEMDF ####[address] [place], [place] Platelet mean volume Auto Entitic volume (Bld) 10.2 fL Normal 7.4-10.4 [facility] Comment on above: Performed By: #### C MP3, LIPA4, LACT3, HEMDF ####[address] [place], [place] Platelets Auto #/vol (Bld) 313 10*3/uL Normal 140-440 [facility] Comment on above: Performed By: #### C MP3, LIPA4, LACT3, HEMDF ####[address] RBC Auto #/vol (Bld) 5.59 10*6/uL Normal 4.40-5.90 [facility] Comment on above: Performed By: #### C MP3, LIPA4, LACT3, HEMDF ####[facility] [id number] [place], [place] WBC Auto #/vol (Bld) 12.8 10*3/uL High 3.6-10.7 [facility] Comment on above: Performed By: #### C MP3, LIPA4, LACT3, HEMDF ####[facility] [address] [place], [place] Abs Baso Cnt 0.0 10*3/uL Normal 0.0-0.[address] [facility] Comment on above: Performed By: #### C MP3, LIPA4, LACT3, HEMDF ####[facility] [address] Eosinophils Auto #/vol (Bld) 0.0 10*3/uL Normal 0.0-0.5 [facility] Comment on above: Performed By: #### C MP3, LIPA4, LACT3, HEMDF ####[facility] [id number] [place], [place] Lactic Acidon 03-14-2018 Lactate molar conc 2.6 mmol/L Critically high 0.7-2.0 [facility] Comment on above: Result Comment: REPE ATED Performed By: #### C MP3, LIPA4, LACT3, HEMDF ####[facility] [address] [place], [place] Lipaseon 03-14-2018 Lipase enzyme act/vol 108 U/L Normal 23-300 [facility] Comment on above: Performed By: #### C MP3, LIPA4, LACT3, HEMDF ####[facility] [address] [place], [place] Urinalysis,Macroon 8 Appearance Sl. Cloudy Normal Clear [facility] Comment on above: Performed By: #### U AMAC, UAMIC ####[address] [place], [place] Color Dark Yellow Normal Lt. Yellow [facility] Comment on above: Performed By: #### U AMAC, UAMIC ####[address] [place], [place] Bilirubin,Ur 1 Normal Negative [facility] Comment on above: Performed By: #### U AMAC, UAMIC ####[address] [place], [place] Glucose Ql (U) 1000 mg/dL Normal Negative [facility] Comment on above: Performed By: #### U AMAC, UAMIC ####[address] [place], [place] Ketone,Urine 3 + mg/dL Normal Negative [facility] Comment on above: Performed By: #### U AMAC, UAMIC ####[address] [place], [place] Leukocytes 1 + Normal Negative [facility] Comment on above: Performed By: #### U AMAC, UAMIC ####[address] [place], [place] Nitrites Positive Normal Negative [facility] Comment on above: Performed By: #### U AMAC, UAMIC ####[address] [place], [place] Occult Blood,Ur 250 {RBC}/uL Normal Negative [facility] Comment on above: Performed By: #### U AMAC, UAMIC ####[address] [place], [place] pH Test strip (U) 5.0 Normal 5.0-8.0 [facility] Comment on above: Performed By: #### U AMAC, UAMIC ####[address] [place], [place] Specific [place],Urine 1.020 Normal 1.005-1.030 [facility] Comment on above: Performed By: #### U AMAC, UAMIC ####[address] Total Protein,Urine 500(3+) Normal Negative [facility] Comment on above: Performed By: #### U AMAC, UAMIC ####[facility] [id number] [place], [place] Urobilinogen 1 mg/dL Normal 0-1 [facility] Comment on above: Performed By: #### U AMAC, UAMIC ####[facility] [address] [place], [place] Urinalysis,Microscopicon Bacteria Present Normal Negative [facility] Comment on above: Performed By: #### U AMAC, UAMIC ####[facility] [address] [place], [place] Epithelial Cells Present Normal 3-5 [facility] Comment on above: Performed By: #### U AMAC, UAMIC ####[facility] [id number] [place], [place] Mucous Threads Present Normal Negative [facility] Comment on above: Performed By: #### U AMAC, UAMIC ####[facility] [address] [place], [place] RBC LM.HPF #/area (Urine sed) see below Normal 0-2 [facility] Comment on above: Result Comment: Nataliia sly loaded, unable to identify any other formed elements. Performed By: #### U AMAC, UAMIC ####[facility] [address] [place], [place] WBC LM.HPF #/area (Urine sed) Present Normal 0-5 [facility] Comment on above: Performed By: #### U AMAC, UAMIC ####[facility] [address] [place], [place] CR Abdomen APon 03-07-2018 CR Abdomen AP Patient Name: JEISON GARCIA Diagnostic Radiology Exam Date/Time 03/06/2018 17:12:05 EDT Exam CR Abdomen AP Ordering Physician ROQUE MANSFIELD, RHINA BONDS Accession Number [id number] CPT4 Codes 96999 () Reason For Exam kidney stone Report ABDOMEN: 03/06/2018 CLINICAL INDICATION: Abdominal pain. TECHNIQUE: Two views of the abdomen COMPARISON: Radiographs 02/19/2015. FINDINGS: The bowel gas pattern is unremarkable. No abnormal soft tissue calcifications are noted in the expected location of the kidneys, ureters, and urinary bladder. A 4 mm round hyperdensity projecting superior to the right pubic ramus was seen on the prior radiograph and CT most consistent with a phlebolith. The osseous structures are unremarkable. IMPRESSION: No abnormality identified. Report Dictated on Final Dictated: 03/07/2018 11:46 am Dictating Physician: BONNY BAILEY Signed Date and Time: 03/07/2018 11:49 am Signed by: BONNY BAILEY Transcribed Date and Time: 03/07/2018 11:46 Normal [facility] Prostatic Specific Ag- Diagn osticon 03-07-2018 Prostatic Specific Ag 2.100 ng/mL Normal < 4.000 [facility] Comment on above: Result Comment: Test ing performed on the [employer] 5600 usingan immunometric methodology. Results obtained bydifferent methods should not be used interchangeably. Performed By: #### P SA3 ####[facility] [place] [address] Vital Signs Date Time Vital Sign Value Performing Clinician Facility 06-28-2023 10:55-0400 Diastolic blood pressure 80 mm[Hg] [facility] Work Phone: [phone] [place] [address] 06-28-2023 10:55-0400 Systolic blood pressure 120 mm[Hg] [facility] Work Phone: [phone] [address] 06-28-2023 10:34-0400 Body height 177.8 cm [facility] Work Phone: [phone] [place] [address] 06-28-2023 10:34-0400 Body mass index (BMI) [Ratio] 35.3 kg/m2 [facility] Work Phone: [phone] [address] 06-28-2023 10:34-0400 Body weight 111.58 kg [facility] Work Phone: [phone] [address] 06-28-2023 10:34-0400 Heart rate 79 /min [facility] Work Phone: [facility] 06-28-2023 10:34-0400 Respiratory rate 20 /min [facility] Work Phone: [facility] 06-28-2023 10:34-0400 SaO2% (BldA) [Mass fraction] 94 % [facility] Work Phone: [facility] 05-25-2023 14:06-0400 Body temperature 97.39 [degF] Elizabeth Praisler-Wood ANESTHESIOLOGY CRNA.[employer] Work Phone: [facility] 05-25-2023 14:06-0400 Body weight 111.95 kg Elizabeth Praisler-Wood ANESTHESIOLOGY CRNA.[employer] Work Phone: [facility] 05-25-2023 14:06-0400 Diastolic blood pressure 88 mm[Hg] Elizabeth Praisler-Wood ANESTHESIOLOGY CRNA.[employer] Work Phone: [facility] 05-25-2023 14:06-0400 Heart rate 95 /min Elizabeth Praisler-Wood ANESTHESIOLOGY CRNA.[employer] Work Phone: [facility] 05-25-2023 14:06-0400 Respiratory rate 19 /min Elizabeth Praisler-Wood ANESTHESIOLOGY CRNA.[employer] Work Phone: [facility] 05-25-2023 14:06-0400 SaO2% (BldA) [Mass fraction] 98 % Elizabeth Praisler-Wood ANESTHESIOLOGY CRNA.[employer] Work Phone: [facility] 05-25-2023 14:06-0400 Systolic blood pressure 140 mm[Hg] Elizabeth Praisler-Wood ANESTHESIOLOGY CRNA.[employer] Work Phone: [facility] 03-13-2023 07:40-0400 Body height 177.8 cm WELDER APPRENTICE-C Wendy Church WELDER APPRENTICE Work Phone: [facility] 03-13-2023 07:40-0400 Body weight 114.5 kg WELDER APPRENTICEAllan Church WELDER APPRENTICE Work Phone: [facility] 03-10-2023 08:19-0400 Body mass index (BMI) [Ratio] 36.2 kg/m2 WELDER APPRENTICE-C Wendy Church WELDER APPRENTICE Work Phone: [facility] 02-01-2023 10:23-0400 Body height 177.8 cm WELDER APPRENTICE-C Wendy Church WELDER APPRENTICE Work Phone: [facility] 02-01-2023 10:23-0400 Body mass index (BMI) [Ratio] 36.2 kg/m2 WELDER APPRENTICE-C Wendy Church WELDER APPRENTICE Work Phone: [facility] 02-01-2023 10:23-0400 Body weight 114.5 kg WELDER APPRENTICE-C Wendy Church WELDER APPRENTICE Work Phone: 3([phone] [place] [address] 02-01-2023 10:23-0400 Diastolic blood pressure 92 mm[Hg] WELDER APPRENTICE-C Wendy Church WELDER APPRENTICE Work Phone: 3([phone] [place] [address] 02-01-2023 10:23-0400 Heart rate 79 /min WELDER APPRENTICE-C Wendy Church WELDER APPRENTICE Work Phone: 5([phone] [place] [address] 02-01-2023 10:23-0400 Respiratory rate 16 /min WELDER APPRENTICE-C Wendy Church WELDER APPRENTICE Work Phone: 2([phone] [place] [address] 02-01-2023 10:23-0400 Systolic blood pressure 144 mm[Hg] WELDER APPRENTICE-C Wendy Church WELDER APPRENTICE Work Phone: [facility] Encounters Encounter Date Encounter Type Care Provider Facility Start: 07-22-2024 End: 07-22-2024 ambulatory WENDY MERCADO%C [facility] Start: 10-18-2023 End: 10-18-2023 ambulatory Wendy Chucrh WELDER APPRENTICE Facility:[facility] Start: 10-10-2023 End: 10-10-2023 ambulatory [facility] Work Phone: [facility] Work Phone: Start: 10-10-2023 End: 10-10-2023 Patient encounter procedure [facility] Work Phone: [facility]-Pulmonary Services/Neurology Work Phone: Start: 10-10-2023 End: 10-10-2023 ambulatory [facility] Facility:[facility] Start: 06-28-2023 End: 06-28-2023 Patient encounter procedure [facility] Work Phone: [facility] Work Phone: Start: 06-28-2023 End: 06-28-2023 ambulatory Delores NEVAREZ Facility:[facility] Start: 06-16-2023 End: 06-17-2023 ambulatory RUSSELL RIDER Facility:[facility] Start: 06-16-2023 End: 06-16-2023 Patient encounter procedure RUSSELL RIDER MD [facility] Start: 05-25-2023 End: 05-25-2023 ambulatory ELIZABETH VARELA Facility:[facility] Start: 05-25-2023 End: 05-25-2023 Subsequent hospital visit by physician Xr [facility] Work Phone: Radiology Comment on above: Left knee injury, in itial encounter [S89.92XA] Start: 05-25-2023 End: 05-25-2023 Patient encounter procedure Elizabeth Varela ANESTHESIOLOGY CRNA.[employer] Work Phone: [facility] Comment on above: Left knee injury, in itial encounter (Primary Dx); Acute left-sided back pain with sciatica Start: 03-13-2023 End: 03-13-2023 Admission to same day surgery center WELDER APPRENTICE-C Wendy Church WELDER APPRENTICE Work Phone: [facility]-Kids Activities Coach/Special Procedures Work Phone: Start: 03-13-2023 End: 03-13-2023 ambulatory WELDER APPRENTICE-Genevieve Church WELDER APPRENTICE Work Phone: [facility] Work Phone: Start: 02-17-2023 Non-patient / Non-visit WELDER APPRENTICE-Genevieve Church WELDER APPRENTICE Work Phone: [facility] Start: 02-15-2023 End: 02-15-2023 ambulatory WELDER APPRENTICE-C Wendy Church WELDER APPRENTICE Work Phone: [facility] Work Phone: Start: 02-15-2023 End: 02-15-2023 Patient encounter procedure WELDER APPRENTICE-Genevieve Church WELDER APPRENTICE Work Phone: [facility]-Laboratory Start: 02-13-2023 Non-patient / Non-visit WELDER APPRENTICE-C Juan Antonio Church WELDER APPRENTICE Work Phone: [facility] Start: 02-13-2023 End: 02-13-2023 ambulatory WELDER APPRENTICE-C Wendy Church WELDER APPRENTICE Work Phone: [facility] Work Phone: Start: 02-13-2023 End: 02-13-2023 Patient encounter procedure WELDER APPRENTICE-Genevieve Church WELDER APPRENTICE Work Phone: [facility]-Cardiovasla r Services Start: 02-01-2023 End: 02-01-2023 Patient encounter procedure WELDER APPRENTICE-Genevieve Church WELDER APPRENTICE Work Phone: [facility] Start: 01-30-2023 Non-patient / Non-visit WELDER APPRENTICE-C Juan Antonio Church WELDER APPRENTICE Work Phone: [facility] Start: 01-24-2023 Non-patient / Non-visit WELDER APPRENTICE-C Juan Antonio Church WELDER APPRENTICE Work Phone: [facility] Start: 01-24-2023 End: 01-24-2023 Patient encounter procedure WELDER APPRENTICE-Genevieve Church WELDER APPRENTICE Work Phone: [facility]-Cardiovascula r Services Start: 01-10-2023 End: 01-11-2023 ambulatory WENDY CHURCH Facility:[facility] Start: 12-19-2022 Non-patient / Non-visit WELDER APPRENTICE-C Juan Antonio Church WELDER APPRENTICE Work Phone: [facility] Start: 12-19-2022 End: 12-19-2022 ambulatory WELDER APPRENTICE-Genevieve Church WELDER APPRENTICE Work Phone: [facility] Work Phone: Start: 12-19-2022 End: 12-19-2022 Patient encounter procedure WELDER APPRENTICE-C Wendy Church WELDER APPRENTICE Work Phone: [facility]-Cardiovascula r Services Start: 07-15-2022 End: 07-15-2022 [facility] Start: 05-16-2022 Refill Sander Cunningham DO Work Phone: [facility] Comment on above: Refill Request Start: 02-25-2021 ambulatory [facility] Start: 02-08-2021 Encounter for other preprocedural examination FAVIAN Bethea NP [facility] Start: 02-04-2021 End: 02-05-2021 ambulatory FAVIAN Bethea NP [facility] Start: 02-01-2021 End: 02-02-2021 ambulatory [facility] Start: 01-26-2021 End: 02-25-2021 ambulatory [facility] Start: 01-11-2021 End: 01-12-2021 ambulatory [facility] Start: 01-05-2021 End: 01-26-2021 ambulatory [facility] Start: 12-24-2020 End: 12-25-2020 ambulatory NO PCP AA NO PCP [facility] Start: 12-22-2020 End: 12-23-2020 ambulatory [facility] Start: 12-18-2020 End: 12-19-2020 ambulatory WALE CÁRDENAS [facility] Start: 12-11-2020 End: 12-12-2020 ambulatory SANDER CUNNINGHAM [facility] Start: 04-23-2018 Patient encounter BRANDYN Mcfarland [facility] Start: 03-22-2018 Patient encounter UNKNOWN PROVIDER S [facility] Start: 03-19-2018 Patient encounter UNKNOWN PROVIDER [facility] Start: 03-14-2018 Emergency department patient visit UNKNOWN PROVIDER [facility] Start: 03-07-2018 Patient encounter BRANDYN RG [facility] Start: 03-06-2018 Patient encounter Rhina Mansfield [facility] Procedures Date Procedure Procedure Detail Performing Clinician Start: 05-25-2023 Radiologic exam knee complete 4/more views Elizabeth Varela APRN.[employer] Work Phone: Start: 02-15-2023 Plain chest X-ray WELDER APPRENTICE-C Wendy Church WELDER APPRENTICE Work Phone: Start: 02-13-2023 Radionuclide imaging of perfusion of myocardium under exercise stress WELDER APPRENTICE-Genevieve Church WELDER APPRENTICE Work Phone: Plan of Treatment Date Care Activity Detail Author Start: 05-14-2028 Urine microalbumin profile [facility] Start: 04-28-2024 Covid-19 Vaccine () Covid-19 Vaccine () [facility] Start: 04-28-2024 Influenza vaccination Influenza Vaccine (#1) [facility] Start: 08-25-2023 PROSTATE CANCER SCREENING DISCUSSION PROSTATE CANCER SCREENING DISCUSSION [facility] Start: 08-25-2023 Prostate specific antigen measurement Prostate Cancer Screening Discussion [facility] Start: 07-15-2023 Hepatitis B screening Urine Albumin:Creatinine Ratio [facility] Start: 07-15-2023 Hepatitis B surface antibody level LDL Cholesterol [facility] Start: 04-28-2023 Influenza vaccination Influenza Vaccine (#1) [facility] Start: 03-13-2023 Patient discharge [facility] Start: 11-11-2022 COLOGUARD (FIT-DNA) COLOGUARD (FIT-DNA) [facility] Start: 11-11-2022 COLORECTAL CANCER SCREENING COLORECTAL CANCER SCREENING [facility] Start: 11-11-2022 Screening for malignant neoplasm of colon [facility] Start: 10-15-2022 Hemoglobin A1c measurement HbA1C [facility] Start: 10-15-2022 Hemoglobin A1c/Hemoglobin.total in Blood HbA1C [facility] Start: 08-28-2022 Depression Assessment Depression Assessment [facility] Start: 04-28-2022 Influenza vaccination INFLUENZA (#1) [facility] Start: 01-29-2022 ANNUAL PCP TEAM CHRONIC DISEASE VISIT ANNUAL PCP TEAM CHRONIC DISEASE VISIT [facility] Start: 05-01-2021 Hemoglobin A1c/Hemoglobin.total in Blood HBA1C [facility] Start: 04-02-2021 3 comp foot exam completed DIABETIC FOOT EXAM [facility] Start: 04-02-2021 BP CONTROLLED (<130/80) BP CONTROLLED (<130/80) [facility] Start: 04-02-2021 Diabetic foot examination Diabetic Foot Exam [facility] Start: 09-04-2020 Glaucoma screening Dilated Retinal Exam [facility] Start: 09-04-2020 Hepatitis C antibody, confirmatory test DILATED RETINAL EXAM [facility] Start: 08-25-2019 Hepatitis B screening URINE ALBUMIN:CREATININE RATIO [facility] Start: 08-25-2019 Hepatitis B surface antibody level LDL CHOLESTEROL [facility] Start: 2019 Hepatitis B Vaccine (1 of 3 - Risk 3-dose series) Hepatitis B Vaccine (1 of 3 - Risk 3-dose series) [facility] Start: 2019 RSV Vaccine (1 - 1-dose 60+ series) RSV Vaccine (1 - 1-dose 60+ series) [facility] Start: 2009 SHINGRIX VACCINE (1 of 2) SHINGRIX VACCINE (1 of 2) [facility] Start: 2004 Colonoscopy COLONOSCOPY [facility] Start: [address] COLONOGRAPHY [facility] Start: 2004 FECAL OCCULT BLOOD FECAL OCCULT BLOOD [facility] Start: 2004 Screening for malignant neoplasm of colon [facility] Start: 2004 SIGMOIDOSCOPY SIGMOIDOSCOPY [facility] Start: 1977 Depression Screening Depression Screening [facility] Start: 1977 HIV SCREENING HIV SCREENING [facility] Start: 1977 HIV screening HIV Screening [facility] Start: 1971 Adult depression screening assessment DEPRESSION SCREENING [facility] Start: 1965 PNEUMOCOCCAL (1 - PCV) PNEUMOCOCCAL (1 - PCV) [facility] Start: 1965 Pneumococcal vaccination [facility] Start: 01-12-1960 COVID-19 VACCINE (#1) COVID-19 VACCINE (#1) [facility] Patient referral [facility] Work Phone: Immunizations Immunization Date Immunization Notes Care Provider Suleman denis 05-14-2018 influenza virus vacc ine, unspecified formulation Elizabeth Varela APRN.LIZZY Work Phone: [facility] Payers Date Payer Category Payer Self-pay 2023 Unknown [id number] 2023 Unknown [id number] 2023 Unknown PENDING 2022 Unknown [id number] 1959 Unknown [id number] 1959 Unknown [id number] 1959 Unknown [id number] 2.16.8 [id number] 1959 Unknown [id number] 2.16.8 [id number] 1959 Unknown [id number] 2.16.8 [id number] 1959 Unknown [id number] 2.16.8 [id number] 1959 Unknown [id number] 2.16.8 [id number] 1959 Unknown [id number] 2.16.8 [id number] 1959 Unknown [id number] 2.16.8 [id number] 1959 Unknown [id number] 2.16.8 40.1.709991.3.579.2.598 1959 Unknown [id number] 2.16.8 40.1.140951.3.579.2.598 1959 Unknown [id number] 2.16.8 40.1.638748.3.579.2.598 1959 Unknown [id number] 2.16.8 [id number] 1959 Unknown [id number] 2.16.8 [id number] 1959 Unknown [id number] 2.16.8 [id number] Private Health Insurance Unknown [facility] [id number] Unknown [id number] 2.16.8 [id number] Unknown [id number] 2.16.8 [id number] Unknown [id number] 2.16.8 [id number] Unknown [id number] 2.16.8 [id number] Unknown [id number] Social History Date Type Detail Facility Start: 11-27-2019 End: 05-25-2023 Tobacco smoking status NHIS Ex-smoker [facility] Start: 10-13-1979 End: 10-13-2019 History of tobacco use Current smoker [facility] Start: 10-13-1979 End: 10-13-2019 History of tobacco use Cigarette Smoker [facility] Start: 11-27-2019 End: 05-25-2023 Tobacco use and exposure Smokeless tobacco non-user [facility] Start: 02-03-2021 End: 05-25-2023 Alcohol intake Current non-drinker of alcohol (finding) [facility] Start: 05-01-2019 End: 05-25-2023 Tobacco Comment trying to quit [facility] Start: 1960 Sex Assigned At Male [facility] Start: 02-01-2023 End: 06-28-2023 Tobacco smoking status MIIS Unknown if ever smoked [facility] Start: 08-03-2020 End: 05-25-2023 History of Social function [facility] Start: 08-03-2020 End: 05-25-2023 Tobacco use panel [facility] National Score (1-10 0), lower number is lower risk Not on file [facility] Start: 08-15-2017 Gender identity Identifies as male gender (finding) [facility] Start: 12-19-2017 Sexual orientation Heterosexual (fin ding) [facility] Tobacco smoking status No Smokin g Status Entered [facility] Clinical Notes 05-19-2022 to 05-25-2023 Patient InstructionsElizabeth Varela APRN.CNP - 05/25/2023 2:23 PM EDT Note Date & Type Note Facility 05-25-2023 Note HNO ID: [id number] Author: Ame Rojas RT(R) Service: ? Author Type: Freight Engineer Type: Progress Notes Filed: 05/25/2023 3:09 PM Note Text: Radiology Service Progress Note PATIENT NAME: Jeison Garcia DATE OF SERVICE: May 25, 2023 TIME: [...] RT Raúl(R) May 25, 2023 2:53 PM [facility] 05-25-2023 Note HNO ID: [id number] Author: Elizabeth Varela APRN.LIZZY Service: ? Author Type: Nurse Practitioner Type: Progress Notes Filed: 05/25/2023 3:47 PM Note Text: This note was created using PIE Softwareriter. Subjective Jeison Garcia is a 62 year old male. Patient [...] ALLERGIES Lactose, Hydrocodone-Acetaminophen, and Oxycodone-Acetaminophen MEDICATIONS BASAGLAR HARMANIKPEN U-100 INSULIN 100 unit/mL (3 mL) metFORMIN [...] DAILY (Patient not taking: Reported on 05/25/2023) [place]-3 Fatty Acids (SUPER TWIN EPA-DHA) 1,250 mg [...] negative. Posterior drawer (more content not included)... [facility] 05-25-2023 Instructions Elizabeth Varela APRN.[employer] - 05/25/2023 3:47 PM EDT ASSESSMENT/PLAN: 1. [...] symptoms persist or worsen E Alec [employer] SUPPORT DBA Student TEACHING PROVIDER (Physician/PA/ANESTHESIOLOGY CRNA) NOTE OF PERSONAL INVOLVEMENT IN CARE: I have personally seen and examined the patient and performed the medical decision-making components. I have reviewed the Advanced Practice Registered Nurse (ANESTHESIOLOGY CRNA) Student's documentation and verified the findings in the note as written. Any additions or changes are noted in bold/italics. Signature: Elizabeth Varela Date: 05/25/2023 Time: 3:47 PM documented in this encounter [facility] 05-25-2023 History of Presen t illness Narrative Images from the original note were not included. This note was created using PIE Softwareriter. Subjective Jeison Garcia is a 62 year old male. Patient [...] ENDOSCOPY,EXAM ALLERGIES Lactose, Hydrocodone-Acetaminophen, and Oxycodone-Acetaminophen MEDICATIONS SIM TOLENTINO U-100 INSULIN 100 unit/mL (3 mL) metFORMIN [...] DAILY (Patient not taking: Reported on 05/25/2023) [place]-3 Fatty Acids (SUPER TWIN EPA-DHA) 1,250 mg [...] symptoms persist or worsen E Alec [employer] SUPPORT DBA Student TEACHING PROVIDER (Physician/PA/ANESTHESIOLOGY CRNA) NOTE OF PERSONAL INVOLVEMENT IN CARE: I have personally seen and examined the patient and performed the medical decision-making components. I have reviewed the Advanced Practice Registered Nurse (ANESTHESIOLOGY CRNA) Student's documentation and verified the findings in the note as written. Any additions or changes are noted in bold/italics. Signature: Elizabeth Varela Date: 05/25/2023 Time: 3:47 PM documented in this encounter [facility] 02-18-2023 History and physi janae note Note Date/Time February 17, 2023 9:29am [facility] Medical Records Department [address] [place] [address] History & Physical Exam 02/17/23 0921 MR#: [id number] Acct: [id number] Name: JEISON GARCIA Rep #:[id number] : [id number] 62 From: Pearl BALDERAS PCP: [facility] atus:PRE [facility] Location: [facility] History and Physical Date of Admission: 03/13/23 Jeison Garcia is a 62 year old male who presents to the cardiac analytical lab technician today fora cardiac catheterization. Patient was referred to us as he was noted to have a borderline abnormal exercise stress test in December 2022. His most recent stress test from 02/13/2023 demonstrated small to moderate inferior reversible perfusiondefect suggestive of ischemia. Patient has past medical history significant for hypertension and diabetes mellitus.? Denies any history of coronary artery disease.? He does acknowledge occasional chest pain-he describes this as sharp and last a couple of seconds only.? He does complain of shortness of breath with activity which has been worsening for the last 6 months.? Denies any orthopnea or PND.? No ankle edema.?Denies any palpitations. Patient has history of obstructive sleep apnea but does not wear CPAP at night. Intake Vital Signs SEE EMR Allergies See EMR Medications See EMR [facility] Medical History Abnormal exercise tolerance test Abnormal stress test Chest pain Essential hypertension XIOMARA on CPAP Pure hypercholesterolemia Type 2 diabetes mellitus Surgical History? History of back surgery History of cholecystectomy History of nasal surgery History of shoulder surgery Family History? Father Diabetes Kidney disease Hypertension Social History? Smoking Status:? Former smoker alcohol intake:? current details:? Rare substance use type:? does not use caffeine:? Yes (occasional) ROS Const Const: Positive for fatigue; Negative for weakness, body ache, fever(s), headache(s), chills, frequent falls,night sweats, daytime sleepiness, difficulty sleeping, excessive sweating, weight gain, weight loss, increased appetite, poor appetite, anorexia or other Eyes Eyes: Negative for blurry vision or double vision ENT ENT: Negative for headache(s), dizziness or balance problems Cardio Chest Pain: Yes (Daily for years) Character: sharp (occasional) and dull (occasional) Onset: at rest and exercise Location: mid sternal Duration: brief Palpitations: No Edema: None Muscle aches with walking: None Resp Respiratory: Positive for SOB with activity (increased last couple of months) and SOB at rest (increased last couple of months); Negative for SOB orthopnea\SOB lying down, Cough, Coughing up blood/hemoptysis, chest congestion, pain on inspiration, snoring, stridor, wheezing, crackles, paroxysmal nocturnal dyspnea or other Musc Musc: Negative for muscle aches/ myalgia, muscle weakness, joint pain or balanceproblems Neuro Neuro: Negative for dizziness, lightheadedness, near syncope, syncope, orthostatic symptoms, frequent falls, headache(s), weakness, confusion, memory loss, restless legs, blurry vision, double vision, vertigo, seizures, lack of coordination or other Endo Endo: Positive for fatigue; Negative for excessive sweating Cardiology Exam Const Appearance: comfortable and no acute distress Nutritional Appearance: well nourished and obese Neck Neck: no JVD Carotids: Negative bruit Chest Auscultation: Bilateral: Clear to Auscultation Cardio Rate: regular rate Rhythm: regular rhythm Heart sounds: S1 normal and S2 normal GI GI: obese Neuro General: patient alert, patient awake and patient oriented x3 Extremities Lower Extremity Edema: None: Bilateral Supplemental Info Supplemental Information Stress test 02/13/2023: Procedure: Exercise tolerance test/imaging study Indications: Abnormal ECG/abnormal exercise stress Consent: Per the patient Procedure: The patient exercised on a Chema protocol for 6 minutes and 1 seconds achieving a peak heart rate of 133 bpm (84% predicted maximal heart rate) with a peak blood pressure 220/90 mmHg and a peak MET capacity of 7.0 METs. The baseline ECG demonstrated normal sinus rhythm with T wave inversions in inferior leads. The peak exercise ECG demonstrated no diagnostic ischemic changes. Occasional PVCs noted with exercise. The functional capacity was considered average. There was complaint of shortness of breath with exercise. The examination was discontinued secondary to dyspnea. The patient was injected with 14.4 mCi of technetium 99m Cardiolite and subsequently rest SPECT Cardiolite nuclear imaging was obtained in the horizontal long, vertical long, and short axis views. Post-exercise, the patientwas injected with 44.5 mCi of technetium 99m Cardiolite and subsequently stress SPECT Cardiolite nuclear imaging was obtained in the horizontal long, vertical long, and short axis views. A gated Cardiolite study at peak stress was obtained. Rest and stress SPECT Cardiolite nuclear imaging status post realignment, normalization, and attenuation correction, demonstrates medium sized inferior reversible defect of moderate intensity. The gated Cardiolite study demonstrates inferior hypokinesis. The reported LVEF is 45%. Impression: 1. Technically adequate (percent predicted maximal heart rate greater than 85%)exercise tolerance test 2. Peak exercise ECG with no diagnostic ischemic changes 3. Occasional PVCs noted 4. Rest and stress SPECT Cardiolite nuclear imaging demonstrate small to moderate inferior reversible perfusion defect suggestive of ischemia. 5. The gated Cardiolite study reports an LVEF of 45%. ECHOCARDIOGRAM 12/19/22 Interpretation Summary Normal LV size. Left ventricular systolic function is lower limits of normal. The estimated ejection fraction is 50 %. The study was technically difficult. Contrast injection was performed. Stress Test Report:Date: 01/24/2023 Procedure: Exercise tolerance test ? Indications: Dyspnea Consent: Per the patient Procedure: ? The patient exercised on a Chema protocol for 5 minutes achieving a peak heart rate of 121 bpm (77% predicted maximal heart rate) with a peak blood pressure 204/90 mmHg and a peak MET capacity of approximately 7.0 MET's. ? The baseline ECG demonstrated T wave changes in inferior leads.? The peak exercise ECG demonstrated pseudonormalization of the T waves changes. ? There were no cardiac dysrhythmias pretest, during exercise, or recovery. ? The functional capacity was considered suboptimal. ? The patient had no complaints of chest discomfort during exercise or recovery.? He did complain of shortness of breath with exercise. ? The examination was discontinued secondary to complaints of shortness of breath. ? Impression: ? 1.? 77% of maximal predicted heart rate achieved. 2.? Baseline EKG with T wave changes in inferior leads suggestive of ischemia.? This decreases the specificity of the test.? There was resolution of these baseline T wave changes with exercise.? This could denote pseudonormalization.? Recommend repeat study with imaging if clinically indicated. 3.? There were no cardiac dysrhythmias during exercise or recovery 4.? Hypertensive response to exercise. Assessment and Plan Assessment and Plan (1) Abnormal stress test: ?Status:?Acute ?Plan: Patient's most recent stress test from 02/13/2023 demonstrated small to moderate inferior reversible perfusion defect suggestive of ischemia. He will proceed with a cardiac catheterization to further assess this. Depending on results, further recommendations will be made. (2) Dyspnea on exertion: ?Status:?Chronic ?Plan: Likely secondary to obesity however?risk factors for CAD.? (3) Essential hypertension: ?Status:?Chronic ?Plan: Blood pressure above goal.? Continue current medications. Patient asked to keep a log of blood pressure readings at home and call us with the log in 7 to 10 days time. (4) Type 2 diabetes mellitus: ?Status:?Chronic ?Plan: As per primary care physician. (5) Dyslipidemia: ?Status:?Chronic ?Plan: Manage as per primary care physician.? Recommend target LDL cholesterol less than 100 mg/dL. (6) Obstructive sleep apnea: ?Status:?Chronic ?Plan: Noncompliant with CPAP.? Follow as per PCP and sleep medicine. (7) Obesity: ?Status:?Chronic ?Plan: Counseled to lose weight. (8) Abnormal exercise tolerance test: ?Status:?Acute (9) Chest pain: ?Status:?Acute 02/17/23 0929 <Electronically signed by Pearl STEVENSONC> Cosigner Signature (if applicable): 02/18/23 1055 <Electronically signed by Carlos Miller MD> CC: WELDER APPRENTICE-C Pearl Maddox; Dr. Carlos Miller MD; [facility]~ Signed [facility] Work Phone: [phone]) 843-292509-22-2022 Miscellaneous Notes* Telephone Encounter - Zita Carver Ma - 05/19/2022 2:12 PM EDT Patient has been identified by name and [...] supply. Zita Carver Ma documented in this encounterTriHealthaluation + Plan note No data available for this section [facility] Evaluation note* Diagnosis GERD without esophagitis Esophageal reflux documented in this encounter [facility] noteNo assessment information availableWCleveland Clinic [facility] Work Phone: Evaluation note* Diagnosis Onset Date Resolution Status Abnormal exercise tolerance test acute Abnormal stress test acute Chest pain acute Dyslipidemia chronic Dyspnea on exertion chronic Essential hypertension chron ic Obesity chronic Obstructive sleep apnea a and p mechanic ion Type 2 diabetes mellitus chr onic [facility] Work Phone: Evaluation note* Diagnosis Left knee injury, initial encounter- Primary Acute left-sided back pain with sciatica documented in this encounter [facility] note* Diagnosis Onset Date Resolution Status Abnormal exercise tolerance test acute Essential hypertension chron ic [facility] Work Phone: Evaluation note* Diagnosis Left knee injury, initial encounter documented in this encounter [facility] Discharge instructions No data available for this section [facility] Progress note No data available for this section [facility] Reason for referral (narrative)* Diagnostic Procedure Only (Urgent) - Closed Specialty Diagnoses / Procedures Referred By Contac t Referred To Contact XR IMAGING Diagnoses Left knee injury, initial encounter Procedures XR KNEE GENERAL 4V AP BOTH/PA BOTH/LAT/MERC LEFT RADIOLOGIC EXAM KNEE COMPLETE 4/MORE VIEWS Elizabeth Varela APRN.[employer] [address] [place] [address] [place] [address] Referral ID Status Reason Start Date Expiration Date V isits Requested Visits Authorized [id number] Closed Auto-Generate d Referral 05/25/2023 06/23/2024 1 1 [facility] for referral (narrative)* Diagnostic Procedure Only (Urgent) - Closed Specialty Diagnoses / Procedures Referred By Contac t Referred To Contact XR IMAGING Diagnoses Left knee injury, initial encounter Procedures XR KNEE GENERAL 4V AP BOTH/PA BOTH/LAT/MERC LEFT RADIOLOGIC EXAM KNEE COMPLETE 4/MORE VIEWS Elizabeth Varela APRN.CNP [address] [place] [address] [place] [address] Referral ID Status Reason Start Date Expiration Date V isits Requested Visits Authorized [id number] Closed Auto-Generate d Referral 05/25/2023 05/25/2023 1 1 [facility] Diagnostic Procedure Only (Urgent) - Closed Specialty Diagnoses / Procedures Referred By Contac t Referred To Contact XR IMAGING Diagnoses Left knee injury, initial encounter Procedures XR KNEE GENERAL 4V AP BOTH/PA BOTH/LAT/MERC LEFT RADIOLOGIC EXAM KNEE COMPLETE 4/MORE VIEWS Elizabeth Varela, SARAH.[employer] [address] [facility] [place] [address] [place] [address] Referral ID Status Reason Start Date Expiration Date V isits Requested Visits Authorized [id number] Closed Auto-Generate d Referral 05/25/2023 05/25/2023 1 1 [facility] Summary Purpose Family History No Family History Records Found Relationship Condition Age at Onset Recorded Date/T avinash father Diabetes mellitus Unknown Kidney disorder Unknown Hypertension Unknown Advance Directives No Advanced Directives Records Found Advance Directive Response Recorded Date/ Time Advance Directives No March 13 7:40am Living Will No March 13, 2023 7:40am Power of Recycling Collections Driver No March 13 7:40am Advance Directive Response Recorded Date/ Time Advance Directives No March 13 6:40am Living Will No March 13, 2023 6:40am Power of Recycling Collections Driver No March 13 6:40am Chief Complaint and Reason for Visit Chief Complaint HYPERTENSIVE URGENCY Chief Complaint HYPERTENSIVE URGENCY DYSPNEA DYSPNEA Amb Documentation Abn Stress ABNORMAL TM STRESS TEST ABNORMAL TM STRESS TEST INT LABS AND RAD Reason for Visit Abnormal exercise to lerance test Abnormal stress test Chest pain Dyslipidemia Dyspnea on exertion Essential hypertension Obesity Obstructive sleep apnea Type 2 diabetes mellitus Chief Complaint HYPERTENSIVE URGENCY DYSPNEA DYSPNEA Amb Documentation Abn Stress ABNORMAL TM STRESS TEST ABNORMAL TM STRESS TEST INT LABS AND RAD ABN STRESS SOB CHST PAIN Reason for Visit Abnormal exercise to lerance test Abnormal stress test Chest pain Dyslipidemia Dyspnea on exertion Essential hypertension Obesity Obstructive sleep apnea Type 2 diabetes mellitus Chief Complaint HYPERTENSIVE URGENCY DYSPNEA DYSPNEA Amb Documentation Abn Stress ABNORMAL TM STRESS TEST ABNORMAL TM STRESS TEST INT LABS AND RAD ABN STRESS SOB CHST PAIN ABN STRESS SOB CHST PAIN Reason for Visit Abnormal exercise to lerance test Abnormal stress test Chest pain Dyslipidemia Dyspnea on exertion Essential hypertension Obesity Obstructive sleep apnea Type 2 diabetes mellitus Chief Complaint 3 M FU (R/S NO SHOW) DYSPNEA Reason for Visit Abnormal exercise to lerance test Essential hypertension Additional Source Comments (unrecognized sect ion and content) No Status Records FoundNo Status Records FoundNo Status Records FoundNo Status Records FoundNo Status Records FoundNo Status Records FoundNo Status Records FoundNo Status Records FoundNo Status Records FoundNo Status Records Found INFORMATION SOURCE (unrecogn ized section and content) DATE CREATED AUTHOR 06/26/2018 [facility] DATE CREATED AUTHOR AUTHOR'S ORGANIZ ATION 11/27/2019 [facility] DATE CREATED AUTHOR AUTHOR'S ORGANIZ ATION 09/18/2020 [facility] DATE CREATED AUTHOR AUTHOR'S ORGANIZ ATION 03/18/2021 [facility] DATE CREATED AUTHOR AUTHOR'S ORGANIZ ATION 09/02/2021 [facility] DATE CREATED AUTHOR AUTHOR'S ORGANIZ ATION 01/11/2023 [facility] DATE CREATED AUTHOR AUTHOR'S ORGANIZ ATION 06/01/2023 [facility] DATE CREATED AUTHOR AUTHOR'S ORGANIZ ATION 06/23/2023 [facility] DATE CREATED AUTHOR AUTHOR'S ORGANIZ ATION 03/27/2024 [facility] DATE CREATED AUTHOR AUTHOR'S ORGANIZ ATION 07/24/2024 [facility] Source Comments (unrecognize d section and content) In the event this informatio n is protected by the Federal Confidentiality of Alcohol and Drug Abuse Patient Records regulations: The Federal rules restrict any use of the information to criminally investigate or prosecute any alcohol or drug abuse patient.[facility] the event this information is protected by the Federal Confidentiality of Alcohol and Drug Abuse Patient Records regulations: The Federal rules restrict any use of the information to criminally investigate or prosecute any alcohol or drug abuse patient.[facility] the event this information is protected by the Federal Confidentiality of Alcohol and Drug Abuse Patient Records regulations: The Federal rules restrict any use of the information to criminally investigate or prosecute any alcohol or drug abuse patient.[facility] Reason for Visit (unrecogniz ed section and content) Reason Comments Refill Request Reason Comments Leg Pain Shooting pain in lef t leg, now having numbness and weakness x 1 day Care Teams (unrecognized sec tion and content) Roll Finisher Relationship Specialty Start Date End Date Sander Cunningham, DO [address] [place] [address] Family Medicine 01/29/21 Blessing Cha, RN Registered Nurse 04/13/22 Darryl Byers, DO [address] [place] [address] Primary Staff Physician Family Medicine 04/14/22 Amina Morgan, DO [address] [place] [address] Primary Staff Physician Family Medicine 04/14/22 Favian Hardwick MD [address] [place] [address] Primary Staff Physician Family Medicine 04/14/22 Jonathan Hardwick MD [address] [place] [address] Primary Staff Physician Family Medicine 04/14/22 Daniel Kumar MD [address] [facility] [place] [address] Primary Staff Physician Family Medicine 04/14/22 Donis Sosa DO [address] [facility] [place] [address] Primary Staff Physician Family Medicine 04/14/22 [facility] [place] [address] [facility] [place] [phone] Primary Staff Physician Family Medicine 04/14/22 Blessing Cha, SANJU Registered Nurse Family Medicine 04/15/22 Team Status: Active Member Role Status Dates Butros Latouf Family Provider Active Wendy Church WELDER APPRENTICE, WELDER APPRENTICE-C Primary Care Provider Active Team Status: Active Member Role Status Dates Wendy Church WELDER APPRENTICE, WELDER APPRENTICE-C Primary Care Provider Active Dr. Bull Ospina MD Attending Provider Active Team Status: Inactive Member Role Status Dates Wendy Church WELDER APPRENTICE, WELDER APPRENTICE-C Primary Care P rovider, Attending Provider, Referring Provider Active Team Status: Active Member Role Status Dates Butros Latouf Family Provider Active [facility] Primary Care Provider A ctive Team Status: Active Member Role Status Dates Wendy Church WELDER APPRENTICE, WELDER APPRENTICE-C Primary Care Provider Active Dr. Bull Ospina MD Attending Provider, Referring Pro vider Active Team Status: Active Member Role Status Dates Wendy Church WELDER APPRENTICE, WELDER APPRENTICE-C Primary Care P rovider, Referring Provider, Other Provider Active Dr. Carlos Miller MD Attending Provider Active Team Status: Inactive Member Role Status Dates Wendy Church NP, WELDER APPRENTICE-C Primary Care Provider, Refer ring Provider Active Dr. Carlos Miller MD Attending Provider Active Team Status: Active Member Role Status Dates Wendy Church NP, WELDER APPRENTICE-C Primary Care Provider Active Delores Monroe Attending Provider Active Team Status: Active Member Role Status Dates Dr. Carlos Miller MD Attending Provider , Referring Provider, Other Provider Active [facility] Primary Care Provider A ctive Team Status: Active Member Role Status Dates Wendy Church WELDER APPRENTICE, WELDER APPRENTICE-C Primary Care [facility] shaw, Attending Provider, Referring Provider Active Team Status: Inactive Member Role Status Dates Dr. Carlos Miller MD Attending Provider, Referring Pr ovider Active [facility] Primary Care Provider A ctive Team Status: Active Member Role Status Dates [facility] Primary Care Provider A ctive Dr. Carlos Miller MD Attending Provider, Referring Pr ovider Active Wendy Church WELDER APPRENTICE, WELDER APPRENTICE-C Other Provider Active Team Status: Active Member Role Status Dates [facility] Primary Care Provider A ctive Dr. Carlos Miller MD Other Provider Active Pearl Maddox WELDER APPRENTICE, WELDER APPRENTICE-C Attending Provider Active Team Status: Inactive Member Role Status Dates [facility] Primary Care Provider A ctive Dr. Carlos Miller MD Attending Provider, Referring Pr ovider Active Wendy Church WELDER APPRENTICE, WELDER APPRENTICE-C Other Provider Active Team Status: Inactive Member Role Status Dates [facility] Primary Care Provider A ctive Dr. Carlos Miller MD Attending Provider, Referring Pr ovider Active Roll Finisher Relationship Specialty Start Date End Date Sander Cunningham, DO [address] [place] [phone] Family Medicine 01/29/21 Blessing Cha, SANJU Registered Nurse 04/13/22 Darryl Byers, DO [address] [place] [address] Primary Staff Physician Family Medicine 04/14/22 Amina Morgan, DO [address] [place], [place] [phone] Primary Staff Physician Family Medicine 04/14/22 Favian Hardwick MD [address] [place] [address] Primary Staff Physician Family Medicine 04/14/22 Jonathan Hardwick MD [address] [facility] [place] [address] Primary Staff Physician Family Medicine 04/14/22 Daniel Kumar MD [address] [place] [address] Primary Staff Physician Family Medicine 04/14/22 Donis Sosa DO [address] [place] [address] Primary Staff Physician Family Medicine 04/14/22 [facility] [place] [address] [place] [address] Primary Staff Physician Family Medicine 04/14/22 Blsesing Cha, SANJU Registered Nurse Family Medicine 04/15/22 Team Status: Inactive Member Role Status Dates [facility] Primary Care Provider, Referring Provider Active Delores Fowler PA, PA Attending Provider Active Team Status: Inactive Member Role Status Dates [facility] Primary Care Provider A ctive Peter Jose [facility], WELDER APPRENTICE-C Attending Provider, Referring Pro vider Active Roll Finisher Relationship Specialty Start Date End Date Sander Cunningham DO [address] [place] [address] Family Medicine 01/29/21 Blessing Cha, RN Registered Nurse 04/13/22 Darryl Byers DO [address] [place] [address] Primary Staff Physician Family Medicine 04/14/22 Amina Morgan DO [address] [place], [place] [phone] Primary Staff Physician Family Medicine 04/14/22 Favian Hardwick MD [address] [place] [address] Primary Staff Physician Family Medicine 04/14/22 Jonathan Hardwick MD [address] [place] [address] Primary Staff Physician Family Medicine 04/14/22 Daniel Kumar MD [address] [place] [address] Primary Staff Physician Family Medicine 04/14/22 Donis Sosa DO [address] [place] [address] Primary Staff Physician Family Medicine 04/14/22 KurtBenny [address] [place] [address] Primary Staff Physician Family Medicine 04/14/22 Blessing Cha, RN Registered Nurse Family Medicine 04/15/22 Goals (unrecognized section and content) Goals may be documented in a n alternate sectionGoals may be documented in an alternate sectionGoals may be documented in an alternate sectionGoals may be documented in an alternate section No data available for this sectionGoals may be documented in an alternate section FOR RECORDS PERTAINING TO PATIENTS WHO ARE [...] BE BASED ON THE PRIMARY CLINICAL RECORDS. [facility]. provides no warranty or guarantee of the accuracy or completeness of information in this document.
[2025-06-11 18:24] LABS: Hematocrit 45.6 % (40-54); Hemoglobin 15.8 g/dL (13.0-16.5); Immature Granulocytes Count 0.100 X10^3/uL (0.0-0.0); Mean Corp Hgb Conc 34.6 g/dL (32-36); Mean Corpuscular Volume 86.7 fL (80-94); Mean Platelet Vol. 10.9 fl (6.2-12.0); NRBC Flagged by Analyzer 0 % (0-5); Platelet Count 281 K/mm3 (150-450); RBC Distribution Width CV 13.2 % (11.6-14.6); RBC Distribution Width SD 41.8 fl (35.1-43.9); Red Blood Count 5.26 M/mm3 (4.6-6.2); White Blood Count 17.7 K/mm3 (4.4-11.0)
[2025-06-11 19:17] LABS: AST(SGOT) 41 U/L (<=37); Alanine Aminotransfer ALT/SGPT 70 U/L (<=46); Albumin, Serum 4.6 g/dL (3.4-4.8); Alkaline Phosphatase 75 U/L (40-129); Anion Gap 17 (5-15); BUN 22 mg/dL (4-19); BUN/Creat Ratio 17.7 RATIO (10-20); Calcium,Total 10.2 mg/dL (7.6-11.0); Carbon Dioxide 21.1 mmol/L (21.0-32.0); Chloride 98 mmol/L (98-108); Globulin 2.9 g/dL (2.2-4.2); Glucose 275 mg/dL (70-99); Lipase 30 U/L (13-75); Potassium 4.3 mmol/L (3.3-5.1)
[2025-06-11 19:31] VITALS: BP 106/76; PULSE 115; RESP 20; O2SAT 95
[2025-06-11 19:49] LABS: Mucous, Urine 0 SEEN /hpf (<or=2+); Red Blood Cells-Urine 0 SEEN /hpf (0-5); Squamous Epithelial Cells - UA 0 SEEN /hpf (0-5)
[2025-06-11 19:53] VITALS: BMI 34.9
[2025-06-11 20:01] LABS: Color, Urine Yellow (Yellow); Glucose, Dipstick 1000 mg/dl (Normal); Ketone-Dipstick 15 mg/dl (Negative); Leukocyte Esterase-Dipstick Negative /ul (Negative); Nitrite-Dipstick Negative (Negative); Occult Blood-Urine Negative /ul (Negative); Protein-Dipstick 15 mg/dl (Negative); Specific Gravity, Urine 1.015 (1.002-1.030); Urine Bilirubin Dipstick Negative (Negative)
[2025-06-11 21:00] VITALS: BP 119/73; PULSE 109; RESP 20; TEMP 36.9; O2SAT 92
--- NOTE | 2025-06-11 21:34 | HP.PCM.HOS_ITS ---
HPI - General General Date of Admission: 06/11/25 Date of Service: 06/11/25 Chief Complaint: abdominal pain HPI Narrative JEISON RAYMOND, is a 64 M with a PMH as outlined who presents via the ED on 06/11/2025 with a complaitn of abdominal pain, nausea and vomiting. He said he bought some chicken at [facility] and was concerned that this may have been the cause of his symptoms. He denied any fever, chills, shortness of breath or any other symptoms. Review of systems is otherwise negative. Vitals in the ED were BP of 119/73, TX of 20 and temp of 98.4F. He was saturating at 92% on room air. CBC showed Hb of 15.8, wbc of 17.7 and platelets of 281. Chemsitry showed sodium of 136, potassium of 4.3 and bicarb of 21. Cr is 1.22. Total bilirubiin was 1.53 and AST/ALT were 41/70. Urinalysis showed no evidence of UTI. CT abdomen and pelvis showed focal wall thickening and mild adjaent fat stranding involving a small loop of small bowel in the mid abdomen, consistent with focal enteritis or mild segmental inflammation, hepatic steatosis and enlarged prostate. There is no evidence of bowel obstruction, perforation or abscess and appendix was normal. He has been admitted to the manage for acute focal enteritis. [facility] Medical History Abnormal exercise tolerance test Chest pain Abnormal stress test XIOMARA on CPAP Pure hypercholesterolemia Type 2 diabetes mellitus Essential hypertension Home Medications ?Medication ?Instructions ?Recorded ?Last Taken ?Type acetaminophen 325 mg tablet 325 mg PO DAILY PRN pain 0 01/30/23 Unknown History aspirin 81 mg tablet,delayed 81 mg PO DAILY blood thin ner 01/30/23 03/13/23 History release (Adult Low Dose Aspirin) carvedilol 25 mg tablet 25 mg PO BID heart 01/30/23 Unknown History dulaglutide 0.75 mg/0.5 mL 0.75 mg subcut QWEEK dm 01/17 Unknown History subcutaneous pen injector (Trulicity) hydrochlorothiazide 25 mg tablet 25 mg PO DAILY bp 01/17 Unknown History insulin glargine 100 unit/mL (3 14 unit subcut BID emerita betes 01/30/23 Unknown History mL) subcutaneous pen (Basaglar KwikPen U-100 Insulin) lisinopril 40 mg tablet 40 mg PO DAILY bp 01/30/23 U nknown History metformin 1,000 mg tablet 1,000 mg PO BID diabetes 01/1703/12/23 History naproxen sodium 220 mg tablet 220 mg PO DAILY PRN pain 01/30/23 Unknown History (Aleve) omeprazole 40 mg capsule,delayed 40 mg PO DAILY gerd 0 01/30/23 Unknown History release amlodipine 5 mg tablet 5 mg PO DAILY bp #30 tabs Unknown Rx glimepiride 4 mg tablet 2 mg PO DAILY diabetes 06/28 Unknown History dapagliflozin propanediol 10 mg 10 mg PO DAILY diabete s 06/11/25 Unknown History tablet (Farxiga) ezetimibe 10 mg tablet 10 mg PO DAILY 06/11/25 Unkn own History gabapentin 100 mg capsule 100 mg PO DAILY pain 5 Unknown History ondansetron 4 mg disintegrating 4 mg PO Q6H PRN PRN na usea/vomiting 06/11/25 Unknown History tablet Allergy/AdvReac Type Severity Reaction Status Date / Time codeine AdvReac Unknown Unknown Verified 06/11/25 17:32 Family History Father Diabetes Kidney disease Hypertension Surgical History History of back surgery History of nasal surgery History of shoulder surgery History of cholecystectomy Social History Smoking Status: Former smoker alcohol intake: current details: Rare substance use type: does not use caffeine: Yes (occasional) ROS Constitutional Constitutional: Reports anorexia, fatigue, malaise and weakness; Denies chills or fever(s) Eyes Eyes: Denies change in vision ENT HEENT: Denies dysphagia, headache(s) or sore throat Cardiovascular Cardiovascular: Denies chest pain, dyspnea on exertion, edema, lightheadedness, orthopnea, palpitations or syncope Respiratory/Chest Respiratory/Chest: Denies cough, dyspnea, productive cough, shortness of breath at rest or shortness of breath with exertion Gastrointestinal Gastrointestinal: Reports abdominal pain, nausea and vomiting; Denies constipation or diarrhea Genitourinary Genitourinary: Denies burning urination, dysuria or urinary frequency Neurologic Neurologic: Denies confusion, dizziness, focal weakness, headache(s), numbness or seizures Psychiatric Psychiatric: Denies anxiety Vital Signs Vital Signs Vital Signs: 06/11/25 17:32 06/11/25 19:31 06/11/25 21:00 Temperature 98.2 F 98.4 F Temperature Source Oral Oral Pulse Rate 125 H 115 H 109 H Respiratory Rate 24 H 20 H 20 H Blood Pressure 119/84 H 106/76 119/73 Blood Pressure Mean 95 86 88 Pulse Ox 96 95 92 Oxygen Delivery Method Room Air Room Air Room Air Weight Weight: 243 lb 6.245 oz Body Mass Index (BMI) 34.9 Physical Exam Const alert, oriented x3 and no apparent distress General Appearance: cooperative HEENT normocephalic, head/scalp atraumatic, moist oral mucous membranes and oropharynx normal Mouth: oral and palatal mucosa normal Eyes PERRL, EOMs intact bilaterally and conjunctivae normal Neck supple Resp normal respiratory effort, no use of accessory muscles and clear to auscultation bilaterally Cardio regular rate, regular rhythm, S1 normal heart sound, S2 normal heart sound and no murmurs GI normal to inspection, nondistended, normoactive bowel sounds, soft to palpation, non-tender and non-distended Extremity normal to inspection, full ROM and no clubbing, cyanosis or edema Neuro oriented x3, moves all extremities and no focal motor deficits Sensorium / Orientation: awake and alert Motor Exam: strength 5/5 throughout Psych affect normal Results Lab / Micro Data 06/12/25 05:56 06/11/25 17:50 Labs: Laboratory Results - last 24 hr 06/11/25 17:50: WBC 17.7 H, RBC 5.26, Hgb 15.8, Hct 45.6, MCV 86.7, MCH 30.0, MCHC 34.6, RDW Std Deviation 41.8, RDW Coeff of Garima 13.2, Plt Count 281, MPV 10.9, Immature Gran % (Auto) 0.600, Neut % (Auto) 86.7 H, Lymph % (Auto) 4.7 L, [place] % (Auto) 7.7, Eos % (Auto) 0.0, Baso % (Auto) 0.3, Absolute Neuts (auto) 15.3 H, Absolute Lymphs (auto) 0.84, Nucleated RBC % 0, Sodium 136, Potassium 4.3, Chloride 98, Carbon Dioxide 21.1, Anion Gap 17 H, BUN 22 H, Creatinine 1.22 H, Est GFR (MDRD) Non-Af 66, BUN/Creatinine Ratio 17.7, Glucose 275 H, Calcium 10.2, Total Bilirubin 1.53 H, AST 41 H, ALT 70 H, Alkaline Phosphatase 75, Total Protein 7.5, Albumin 4.6, Globulin 2.9, Albumin/Globulin Ratio 1.6, Lipase 30 06/11/25 19:43: Urine Color Yellow, Urine Clarity Clear, Urine pH 5.0, Ur Specific [place] 1.015, Urine Protein 15 H, Urine Glucose (UA) 1000 H, Urine Ketones 15 H, Urine Occult Blood Negative, Urine Nitrite Negative, Urine Bilirubin Negative, Urine Urobilinogen Normal, Ur Leukocyte Esterase Negative, Urine RBC 0 SEEN, Urine WBC 0-5 SEEN, Ur Squamous Epith Cells 0 SEEN, Urine Bacteria 0 SEEN, Urine Mucus 0 SEEN Imaging Radiology Impression Abdomen/Pelvis CT 06/11/25 18:00 IMPRESSION: Focal wall thickening and mild adjacent fat stranding involving a loop of small bowel in the mid abdomen, most consistent with focal enteritis or mild segmental inflammation. Hepatic steatosis. Status post cholecystectomy. Enlarged prostate. No evidence of bowel obstruction, perforation, or abscess. Reading Location: [address] Assessment & Plan Assessment/Plan (1) Intractable abdominal pain: (2) Enteritis: (3) Nausea and vomiting: PLAN: Plan # Acute focal enteritis * Admit to [facility]. Was admitted with complaint of intractable abdominal pain with nausea and vomiting. * He said he bought some chicken from [employer] urinated and thinks that may have caused the symptoms. CT of the abdomen pelvis showed normal appendix and focal wall thickening and mild adjacent fat stranding involving a loop of small bowel in the mid abdomen most consistent with focal enteritis or mild segmental inflammation. * Started on ciprofloxacin and metronidazole. Keep n.p.o. for now. Hydrate with IV fluids. * Consult gastroenterology. P.o. Tylenol and IV morphine as needed for pain * #Hyperlipidemia: On statin #Hypertension: On carvedilol and amlodipine. IV hydralazine as needed. Also on hydrochlorothiazide and lisinopril #Type 2 diabetes mellitus: On dapagliflozin. Will hold. Insulin Sliding scale. Accu-Cheks ACHS. Hold metformin and Lantus also DVT prophylaxis: Lovenox CODE STATUS:full code * Patient and daughtercounseled extensively about different types of CODE STATUS including full code, DNR CCA and DNR CCA. Patient elects to be full code. * Total [id number] time 16 minutes. Charges/Coding Visit Charges Inpatient E&M: 84328 Init Hosp L3 Procedures Hospitalists Procedures: 60502 Advncd Care Plan 30 Min
[2025-06-11 21:45] VITALS: BP 119/73; PULSE 109; RESP 20; TEMP 36.9; O2SAT 92
--- OUTSIDE RECORDS SUMMARY | 2025-06-11 22:03 | XMS RPT_ITS | CCD ---
Author Organization [facility] CliniSyfl Care Team Providers Care Manager Of Medical Name Role Phone Rhina Mansfield Unavailable Unavailable PROVIDER, UNKNOWN Unavailable Unavailable Didkathleen, [...] Unavailable Omar Martinez Unavailable Unavailable FAVIAN DIAZ, ONLINE CONTENT EDITOR Admitting Unavailable DIDICH, SANDER Primary Care Unavailable FAVIAN DIAZ, ONLINE CONTENT EDITOR Attending Unavailable DIDICH, SANDER Primary Care Unavailable [...] A Admitting Unavailable DidSander wang DO Unavailable [phone] Starla BILLS, Blessing Unavailable Unavailable Darryl Byers DO Unavailable Eddie DO, Amina Unavailable Favian Hardwick MD Unavailable Jonathan Hardwick MD Unavailable [phone] Daniel Kumar MD Unavailable Sheila NUR, Donis Albert Unavailable [phone] Mo, [place] Unavailable Starla BILLS, Blessing Unavailable Unavailable Ranjit ONLINE CONTENT EDITOR, ONLINE CONTENT EDITOR-C Wendy Primary Care Provider Dr. Bull Ospina Attending Provider WENDY CHURCH Attending Unavailable RANJIT WENDY Consulting Unavailable RANJIT WENDY Primary Care Unavailable RANJIT WENDY Admitting Unavailable ERENDIRA CHURCHSSICA Consulting Unavailable Dr. Bull Ospina Referring Provider Ranjit ONLINE CONTENT EDITOR, ONLINE CONTENT EDITOR-C Wendy Referring Provider Ranjit ONLINE CONTENT EDITOR, ONLINE CONTENT EDITOR-C Wendy Other Provider Dr. Carlos Miller Attending Provider Delores Monroe Attending Provider Unavailable Dr. Carlos Miller Referring Provider Dr. Carlos Miller Other Provider [facility] Primary Care Pro vider Tan ONLINE CONTENT EDITOR, ONLINE CONTENT EDITOR-C Pearl Attending Provider Sander Cunningham DO Unavailable Starla BILLS, Blessing Unavailable Unavailable Darryl Byers DO Unavailable Eddie NUR, Amina Unavailable Favian Hardwick MD Unavailable Jonathan Hardwick MD Unavailable [phone] Daniel Kumar MD Unavailable Vanessanadege Donis Albert Unavailable [phone] Mo, [place] Unavailable Blessing Cha RN Unavailable Unavailable ELIZABETH VARELA Referring Unavailable RUSSELL RIDER Attending Unavailable [facility], [facility] Referring Provid er ROQUE Mayes Attending Provider [facility], [facility] Primary Care Unavailable Santino Lazo Attending Unavailable Rebeca RIVERO, Peter Referring Unavailable Wendy Church NP Referring Unavailable Wendy Church NP Attending Unavailable [facility], [facility] Primary Care Unavailable [facility], Peter Attending Unavailable Delores Mayes Attending Unavail able [facility], [place] Referring Unavailable [facility], [facility] Primary Care Unavailable WENDY CHURCH NP%C Consulting Unavailab KAITLIN Arauz APRN Attending Unavailable KAITLIN ALEJANDRO APRN Primary Care Unavailable KAITLIN ALEJANDRO APRN Admitting Unavailable PROVIDER, UNKNOWN Consulting Unavailable Allergies Allergy Classification Reported Allergen(s) Allergy Type Date of Onset Reaction(s) Facility Lactase (1 source) Lactase; Translations: [Dairy Ease] Drug Allergy [facility] Repository Lactose (1 source) Lactose; Translations: [Lactose] Drug Allergy [facility] Opioid Agonists (1 source) Codeine Drug Allergy [facility] (4 sources) Acetaminophen / HYDROcodone; Translations: [HYDROCODONE-ACET AMINOPHEN] Drug Allergy 8 Mental Status Change [facility] (4 sources) Acetaminophen / oxyCODONE; Translations: [OXYCODONE-ACETAM INOPHEN] Drug Allergy 8 Other: See Comments [facility] (4 sources) Lactose; Translations: [LACTOSE] Drug Allergy 7 Intolerance [facility] (4 sources) Codeine Drug Allergy 3 Unknown [facility] (1 source) Codeine Drug Allergy 3 [facility] Repository (1 source) HYDROcodone Drug Allergy [facility] (1 source) Opioid Agonists Drug allergy (disorder) [facility] Rep[facility] Medications Current Medications Medication Drug [...] Pain. If no pain relief call 911. Peoa-3 Fatty Acids (SUPER TWIN EPA-DHA) 1,250 mg cap (3 sources) Peoa-3 Fatty Acids (SUPER TWIN EPA-DHA) 1,250 mg cap Take by mouth. 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] Onset: 03-19-2018 Episodic [...] # 0.02 x10EE3/UL Normal 0.00 - 0.10 [facility] Comment on above: Performed By: #### 2 [id number] #### [facility],[address] [place] [address] Basophils/100 WBC (Bld) 0.4 % Normal 0.0 - 2.0 [facility] Comment on above: Performed By: #### 2 72943 #### [facility],[address] [place] [address] CBC + DIFF Normal [facility] Comment on above: Result Comment: CBC- COMPLETE BLOOD COUNT Performed By: #### 2 88404 #### [facility],[address] [place] [address] EO # 0.22 x10EE3/UL Normal 0.00 - 0.50 [facility] Comment on above: Performed By: #### 2 27496 #### [facility],[address] [place] [address] Eosinophils/100 WBC (Bld) 3.3 % Normal 0.0 - 7.0 [facility] Comment on above: Performed By: #### 2 42434 #### [facility],[address] [place] [address] Erythrocyte distribution width (RBC) [Ratio] 13.7 % Normal 12.0 - 15.6 [facility] Comment on above: Performed By: #### 2 52341 #### [facility],[address] [place] [address] Hematocrit (Bld) [Volume fraction] 46.7 % Normal 40.0 - 52.0 [facility] Comment on above: Performed By: #### 2 18685 #### [facility],[address] [place] [address] Hemoglobin (Bld) [Mass/Vol] 15.4 g/dL Normal 13.0 - 17.5 [facility] Comment on above: Performed By: #### 2 66433 #### [facility],[address] [place] [address] Lymph # 1.68 x10EE3/UL Normal 0.80 - 2.80 [facility] Comment on above: Performed By: #### 2 30746 #### [facility],[address] [place] [address] Lymphocytes/100 WBC (Bld) 24.8 % Normal 20.0 - 45.0 [facility] Comment on above: Performed By: #### 2 86402 #### [facility],[address] [place] [address] MANUAL DIFF N/A Normal [facility] Comment on above: Performed By: #### 2 36599 #### [facility],[address] [place] [address] MCH (RBC) [Entitic mass] 30 pg Normal 27 - 33 [facility] Comment on above: Performed By: #### 2 91346 #### [facility],[address] [place] [address] MCHC 33 X10 3 Normal 32 - 36 [facility] Comment on above: Performed By: #### 2 20772 #### [facility],[address] [place] [address] MCV (RBC) [Entitic vol] 90 fL Normal 81 - 98 [facility] Comment on above: Performed By: #### 2 64992 #### [facility],[address] [place] [address] [place] # 0.49 x10EE3/UL Normal 0.20 - 1.00 [facility] Comment on above: Performed By: #### 2 92634 #### [facility],[address] [place] [address] MONOS % 7.3 % Normal 0.0 - 10.0 [facility] Comment on above: Performed By: #### 2 44274 #### [facility],[address] [place], [place] [address] Morphology Ramon (Bld) [Interp] N/A Normal [facility] Comment on above: Performed By: #### 2 41603 #### [facility],[address] [place] [address] Neut # 4.37 x10EE3/UL Normal 1.50 - 7.10 [facility] Comment on above: Performed By: #### 2 52547 #### [facility],[address] [place] [address] Neutrophils/100 WBC (Bld) 64.3 % Normal 46.0 - 76.0 [facility] Comment on above: Performed By: #### 2 62299 #### [facility],[address] [place] [address]1835 PLATELET 255 x10EE3/UL Normal 150 - 450 [facility] Comment on above: Performed By: #### 2 08364 #### [facility],[address] [place] [address] 93658 Platelet mean volume (Bld) [Entitic vol] 8.9 fL Normal 6.4 - 10.5 [facility] Comment on above: Result Comment: AUTO MATED DIFFERENTIAL Performed By: #### 2 18671 #### [facility],[address] [place] [address]11 RBC 5.21 x 10EE6/UL Normal 4.50 - 6.00 [facility] Comment on above: Performed By: #### 2 58838 #### [facility],[address] [place] [address]6486 WBC 6.8 x 10EE3/UL Normal 4.5 - 10.8 [facility] Comment on above: Performed By: #### 2 29137 #### [facility],[address] [place] [address] 60789 CMP with eGFRon 07-22-2024 AGE 64 years Normal [facility] Comment on above: Performed By: #### 2 76634 #### [facility],[address] [place] [address] 89297 Albumin [Mass/Vol] 4.2 g/dL Normal 3.4 - 5.0 [facility] Comment on above: Performed By: #### 2 24015 #### [facility],[address] [place] [address] 57115 Albumin/Globulin [Mass ratio] 1.4 {ratio} Normal 0.9 - 1.6 [facility] Comment on above: Performed By: #### 2 07147 #### [facility],[address] [place] [address] 10942 ALK PHOS 72 U/L Normal 46 - 116 [facility] Comment on above: Performed By: #### 2 29784 #### [facility],[address] [place] [address] 30999 ALT [Catalytic activity/Vol] 45 U/L Normal 16 - 63 [facility] Comment on above: Performed By: #### 2 43086 #### [facility],[address] [place] [address] 33973 Anion gap [Moles/Vol] 13 mmol/L Normal 10 - 20 [facility] Comment on above: Performed By: #### 2 17831 #### [facility],[address] [place] [address] 32414 AST [Catalytic activity/Vol] 26 U/L Normal 15 - 37 [facility] Comment on above: Performed By: #### 2 64869 #### [facility],[address] [place] [address] 63622 B/C RATIO 16 ratio Normal 0 - 30 [facility] Comment on above: Performed By: #### 2 78761 #### [facility],[address] [place] [address] 26953 Bilirubin [Mass/Vol] 1.3 mg/dL High 0.2 - 1.0 [facility] Comment on above: Performed By: #### 2 78760 #### [facility],[address] [place] [address] 57334 Calcium [Mass/Vol] 9.5 mg/dL Normal 8.5 - 10.1 [facility] Comment on above: Performed By: #### 2 92030 #### [facility],[address] [place] [address] 69354 Chloride [Moles/Vol] 103 mmol/L Normal 98 - 107 [facility] Comment on above: Performed By: #### 2 93060 #### [facility],[address] [place] [address] 04104 CMP with eGFR Normal [facility] Comment on above: Result Comment: COMP REHENSIVE METABOLIC PANEL Performed By: #### 2 58458 #### [facility],[address] [place] [address] 01254 CO2 [Moles/Vol] 27.4 mmol/L Normal 21.0 - 32.0 [facility] Comment on above: Performed By: #### 2 63445 #### [facility],[address] [place] [address] 28491 Creatinine [Mass/Vol] 1.23 mg/dL Normal 0.70 - 1.30 [facility] Comment on above: Performed By: #### 2 60871 #### [facility],[address] [place] [address] 22796 eGFR 59 ML/MINUTE Low 60 - 999 [facility] Comment on above: Performed By: #### 2 28767 #### [facility],[address] [place] [address] 38575 GFR/1.73 sq M.predicted among non-blacks MDRD (S/P/Bld) [Vol rate/Area] mL/min/{1.73_m2} Normal 60 - 999 [facility] Comment on above: Result Comment: ACCO RDING TO THE NATIONAL KIDNEY DISEASE EDUCATION PROGRAM(NKDE), A NORMAL eGFR IS A VALUE GREATER THAN OR EQUAL TO 60 ML/MIN/1.73 SQ METERS. CHRONIC KIDNEY DISEASE: <60mL/MIN/1.73 SQ METERS KIDNEY FAILURE: <15mL/MIN/1.73 SQ METERS THIS TEST SHOULD ONLY BE USED FOR PATIENTS 18 YEARS OF AGE AND OLDER. Performed By: #### 2 40472 #### [facility],[address] [place] [address] 60638 Globulin (S) [Mass/Vol] 3.0 g/dL Normal 1.5 - 3.8 [facility] Comment on above: Performed By: #### 2 98121 #### [facility],[address] [place] [address] 97150 Glucose [Mass/Vol] 165 mg/dL High 74 - 106 [facility] Comment on above: Performed By: #### 2 89226 #### [facility],[address] [place] [address] 58756 Potassium [Moles/Vol] 4.5 mmol/L Normal 3.5 - 5.1 [facility] Comment on above: Performed By: #### 2 32888 #### [facility],[address] [place] [address] 88506 Protein [Mass/Vol] 7.2 g/dL Normal 6.4 - 8.2 [facility] Comment on above: Performed By: #### 2 28072 #### [facility],[address] [place] [address] 20993 Sodium [Moles/Vol] 139 mmol/L Normal 136 - 145 [facility] Comment on above: Performed By: #### 2 61895 #### [facility],[address] [place] [address] 75490 Urea nitrogen [Mass/Vol] 20 mg/dL High 7 - 18 [facility] Comment on above: Performed By: #### 2 21853 #### [facility],[address] [place] [address] 85399 HEMOGLOBIN A1C (POM)on 07-22 Glucose [Mass/Vol] 180.0 mg/dL High 0.0 - 0.0 [facility] Comment on above: Result Comment: BLDo HEMOGLOBIN A1C REFERENCE RANGESBLDo Suggested Diagnosis HbA1c(%) HbA1C (mmol/mol Diabetic >/=6.5 >/=48 Prediabetes 5.7 - 6.4 39 - 47 Normal <5.7 <39 Performed By: #### 2 43652 #### [facility],[address] [place] [address] 18097 HbA1c (Bld) [Mass fraction] 7.9 % High 0.0 - 6.5 [facility] Comment on above: Performed By: #### 2 03608 #### [facility],[address] [place] [address] 98134 LIPID PROFILEon 07-22-2024 Cholesterol [Mass/Vol] 179 mg/dL Normal 0 - 240 [facility] Comment on above: Performed By: #### 2 49765 #### [facility],[address] [place] [address] 86685 Cholesterol in HDL [Mass/Vol] 41 mg/dL Normal 40 - 60 [facility] Comment on above: Performed By: #### 2 28558 #### [facility],[address] [place] [address] 14143 Cholesterol in LDL [Mass/Vol] 73 mg/dL Normal 0 - 129 [facility] Comment on above: Performed By: #### 2 97548 #### [facility],[address] [place] [address] 20882 Cholesterol.total/Cho lesterol in HDL [Mass ratio] 4.4 {ratio} Normal 0.0 - 5.0 [facility] Comment on above: Performed By: #### 2 72372 #### [facility],[address] [place] [address] 96710 Lipid 1996 panel Normal [facility] Comment on above: Result Comment: LIPI D PROFILE Performed By: #### 2 68719 #### [facility],[address] [place] [address] 10230 Triglyceride [Mass/Vol] 323 mg/dL High 0 - 150 [facility] Comment on above: Performed By: #### 2 02431 #### [facility],[address] [place] [address] 01783 CBC-Complete Blood Cnt No Di ffon 10-18-2023 Erythrocyte distribution width (RBC) [Ratio] 13.3 % Normal 11.6-14.6 [facility] Comment on above: Performed By: #### L 500.4050, L501.9910, L500.4100, L100.0500, L502.0500 #### [facility] [address] [place], [address] Hematocrit (Bld) [Volume fraction] 41.4 % Normal 40-54 [facility] Comment on above: Performed By: #### L 500.4050, L501.9910, L500.4100, L100.0500, L502.0500 #### [facility] [address] [place], [address] Hemoglobin (Bld) [Mass/Vol] 14.0 g/dL Normal 13.0-16.5 [facility] Comment on above: Performed By: #### L 500.4050, L501.9910, L500.4100, L100.0500, L502.0500 #### [facility] [address] [place], [address] MCH (RBC) [Entitic mass] 29.7 pg Normal 27.0-32.0 [facility] Comment on above: Performed By: #### L 500.4050, L501.9910, L500.4100, L100.0500, L502.0500 #### [facility] [address] [place], [address] MCHC (RBC) [Mass/Vol] 33.8 g/dL Normal 32-36 [facility] Comment on above: Performed By: #### L 500.4050, L501.9910, L500.4100, L100.0500, L502.0500 #### [facility] [address] [place], [address] MCV (RBC) [Entitic vol] 87.9 fL Normal 80-94 [facility] Comment on above: Performed By: #### L 500.4050, L501.9910, L500.4100, L100.0500, L502.0500 #### [facility] [address] [place], [address] Platelet mean volume (Bld) [Entitic vol] 10.2 fL Normal 6.2-12.0 [facility] Comment on above: Performed By: #### L 500.4050, L501.9910, L500.4100, L100.0500, L502.0500 #### [facility] [address] [place], [address] Platelets (Bld) [#/Vol] 337 10*3/uL Normal 150-450 [facility] Comment on above: Performed By: #### L 500.4050, L501.9910, L500.4100, L100.0500, L502.0500 #### [facility] [address] [place], [address] RBC (Bld) [#/Vol] 4.71 10*6/uL Normal 4.6-6.2 [facility] Comment on above: Performed By: #### L 500.4050, L501.9910, L500.4100, L100.0500, L502.0500 #### [facility] [address] [place], [address] RDW SD 43.0 fl Normal 35.1-43.9 [facility] Comment on above: Performed By: #### L 500.4050, L501.9910, L500.4100, L100.0500, L502.0500 #### [facility] [address] [place], [address] WBC (Bld) [#/Vol] 7.2 10*3/uL Normal 4.4-11.0 [facility] Comment on above: Performed By: #### L 500.4050, L501.9910, L500.4100, L100.0500, L502.0500 #### [facility] [address] [place], [address] Comprehensive Metabolic Prof ilon 10-18-2023 Albumin [Mass/Vol] 3.9 g/dL Normal 3.2-5.0 [facility] Comment on above: Performed By: #### L 500.4050, L501.9910, L500.4100, L100.0500, L502.0500 #### [facility] [address] [place], [address] Albumin/Globulin [Mass ratio] 1.3 {ratio} Normal 0.9-2.4 [facility] Comment on above: Performed By: #### L 500.4050, L501.9910, L500.4100, L100.0500, L502.0500 #### [facility] [address] [place], [address] ALK P 60 U/L Normal 45-117 [facility] Comment on above: Performed By: #### L 500.4050, L501.9910, L500.4100, L100.0500, L502.0500 #### [facility] [address] [place], [address] ALT [Catalytic activity/Vol] 48 U/L Normal 16-61 [facility] Comment on above: Performed By: #### L 500.4050, L501.9910, L500.4100, L100.0500, L502.0500 #### [facility] [address] [place], [address] AST [Catalytic activity/Vol] 23 U/L Normal 15-37 [facility] Comment on above: Performed By: #### L 500.4050, L501.9910, L500.4100, L100.0500, L502.0500 #### [facility] [address] [place], [address] Bilirubin [Mass/Vol] 0.90 mg/dL Normal 0.20-1.00 [facility] Comment on above: Result Comment: For patients on eltrombopag therapy, use of Dimension [place] TBIL is not recommended. Performed By: #### L 500.4050, L501.9910, L500.4100, L100.0500, L502.0500 #### [facility] [address] [place], [address] BUN/CRE 16.5 RATIO Normal 10-20 [facility] Comment on above: Performed By: #### L 500.4050, L501.9910, L500.4100, L100.0500, L502.0500 #### [facility] [address] [place], [address] CA,Total 9.0 mg/dL Normal 8.5-10.1 [facility] Comment on above: Performed By: #### L 500.4050, L501.9910, L500.4100, L100.0500, L502.0500 #### [facility] [address] [place], [address] Chloride [Moles/Vol] 108 mmol/L High 98-107 [facility] Comment on above: Performed By: #### L 500.4050, L501.9910, L500.4100, L100.0500, L502.0500 #### [facility] [address] [place], [address] CO2 [Moles/Vol] 25.0 mmol/L Normal 21.0-32.0 [facility] Comment on above: Performed By: #### L 500.4050, L501.9910, L500.4100, L100.0500, L502.0500 #### [facility] [address] [place], [address] Creatinine [Mass/Vol] 0.97 mg/dL Normal 0.70-1.30 [facility] Comment on above: Result Comment: The validity of the calculated GFR GFRAA in patients over 70 years has not been determined. Clinical correlation is essential. Performed By: #### L 500.4050, L501.9910, L500.4100, L100.0500, L502.0500 #### [facility] [address] [place], [address] EST GFR - AA 101 mL/min Normal >60 [facility] Comment on above: Result Comment: Afri can Somali GFR Calc Performed By: #### L 500.4050, L501.9910, L500.4100, L100.0500, L502.0500 #### [facility] [address] [place], [address] GAP 7 Normal 5-15 [facility] Comment on above: Performed By: #### L 500.4050, L501.9910, L500.4100, L100.0500, L502.0500 #### [facility] [address] [place], [address] GFR/1.73 sq M.predicted among non-blacks MDRD (S/P/Bld) [Vol rate/Area] 83 mL/min/{1.73_m2} Normal >60 [facility] Comment on above: Result Comment: Non- GFR Calc Performed By: #### L 500.4050, L501.9910, L500.4100, L100.0500, L502.0500 #### [facility] [address] [place], [address] Globulin (S) [Mass/Vol] 3.1 g/dL Normal 2.2-4.2 [facility] Comment on above: Performed By: #### L 500.4050, L501.9910, L500.4100, L100.0500, L502.0500 #### [facility] [address] [place], [address] Glucose [Mass/Vol] 138 mg/dL High 74-106 [facility] Comment on above: Result Comment: Fast ing Glucose result greater than or equal to 126 mg/dL suggests DIABETES MELLITUS per A.D.A. criteria. Performed By: #### L 500.4050, L501.9910, L500.4100, L100.0500, L502.0500 #### [facility] [address] [place], [address] Potassium [Moles/Vol] 3.9 mmol/L Normal 3.5-5.1 [facility] Comment on above: Performed By: #### L 500.4050, L501.9910, L500.4100, L100.0500, L502.0500 #### [facility] [address] [place], [address] Sodium [Moles/Vol] 140 mmol/L Normal 136-145 [facility] Comment on above: Performed By: #### L 500.4050, L501.9910, L500.4100, L100.0500, L502.0500 #### [facility] [address] [place], [address] T PROT 7.0 g/dL Normal 6.4-8.2 [facility] Comment on above: Performed By: #### L 500.4050, L501.9910, L500.4100, L100.0500, L502.0500 #### [facility] [address] [place], [address] Urea nitrogen [Mass/Vol] 16 mg/dL Normal 7-18 [facility] Comment on above: Performed By: #### L 500.4050, L501.9910, L500.4100, L100.0500, L502.0500 #### [facility] [address] [place], [address] Lipid Profileon 10-18-2023 Cholesterol [Mass/Vol] 139 mg/dL Normal 200 [facility] Comment on above: Result Comment: <200 mg/dL Desirable 200-240 mg/dL Borderline >240 mg/dL High Risk Performed By: #### L 500.4050, L501.9910, L500.4100, L100.0500, L502.0500 #### [facility] [address] [place], [address] Cholesterol in HDL [Mass/Vol] 38 mg/dL Low [facility] Comment on above: Result Comment: The drugs N-Acetylcysteine and Metamizole may falsely depress this assay. Reference Range HDL <40 mg/dL Low HDL Cholesterol HDL >or= 60 mg/dL High HDL Cholesterol Performed By: #### L 500.4050, L501.9910, L500.4100, L100.0500, L502.0500 #### [facility] [address] [place], [address] Cholesterol in LDL [Mass/Vol] 64 mg/dL Normal 0-130 [facility] Comment on above: Performed By: #### L 500.4050, L501.9910, L500.4100, L100.0500, L502.0500 #### [facility] [address] [place], [address] Cholesterol in VLDL [Mass/Vol] 37 mg/dL Normal 5-40 [facility] Comment on above: Performed By: #### L 500.4050, L501.9910, L500.4100, L100.0500, L502.0500 #### [facility] [address] [place], [address] Triglyceride [Mass/Vol] 186 mg/dL Normal [facility] Comment on above: Result Comment: The drugs N-Acetylcysteine and Metamizole may falsely depress this assay. Serum Triglycerides Reference Interval Normal <150 mg/dL Borderline high 150 - 199 mg/dL High 200 - 499 mg/dL Very High > or = 500 mg/dL Performed By: #### L 500.4050, L501.9910, L500.4100, L100.0500, L502.0500 #### [facility] [address] [place], [place], [id number] (294) Microalbumin,Random Urineon 10-18-2023 MICROALBUMIN,UR 131.0 mg/L Normal NO RANGE EST. [facility] Comment on above: Performed By: #### L 500.4050, L501.9910, L500.4100, L100.0500, L502.0500 #### [facility] [address] [place], [place], [phone] (613) PSA,Total - Annual Screenon 10-18-2023 PSA,TOT SCREEN 3.35 ng/mL Normal 0.00-4.00 [facility] Comment on above: Result Comment: This test was performed using the TPSA assay method for the [employer] chemistry system. Values obtained with different assay methods cannot be used interchangably. When changing PSA assays in the course of monitoring a patient, additional sequential testing should be carried out to confirm baseline values. Performed By: #### L 500.4050, L501.9910, L500.4100, L100.0500, L502.0500 #### [facility] [address] [place], [place], [address] Cardiology Visit Reporton Cardiology Visit Report [facility] 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 Normal [facility] MRI SPINE LUMBAR W/O CONTRAS Ton 06-21-2023 [...] 06/21/2023 1:53:01 PM Ordering Provider: RUSSELL Ba On [facility] Office Visit (WSTR ) -------- JEISON GARCIA ([id number]) 1960 M [facility] Date Time Provider Department 05/25/23 2:15 PM ELIZABETH VARELA [facility] During your visit today, we recorded the following information about you: Temperature Pulse Respiration Blood pressure 97.4 degrees 95/minute 19/minute 140/88 Weight 111.9 kg Elizabeth Varela APRN.OPERATIONS ENGINEER 05/25/2023 3:47 PM Signed This note was [...] DAILY (Patient not taking: Reported on 05/25/2023) Peoa-3 Fatty Acids (SUPER TWIN EPA-DHA) 1,250 mg [...] Tenderness present (more content not included)... Normal [facility] XR KNEE 4V AP/PA BOTH+LAT/ME R [...] effusion. IMPRESSION: No acute fracture or dislocation. Lift Team Technician: ALEX Transcribe Date/Time: May 25 2023 3:16P Dictated by : TRUDY CERVANTES MD This examination was interpreted and the report reviewed and electronically signed by: TRUDY CERVANTES MD on May 25 2023 3:18PM EST [id number] Normal [facility] XR KNEE GENERAL 4V AP BOTH/P A BOTH/LAT/MERC LEFTon 05-25-2023 [facility] XR Knee - left 4 Viewson IMPRESSION: No acute fracture or dislocation. Lift Team Technician: ALEX Transcribe Date/Time: May 25 2023 3:16P [...] No joint effusion. DIVISION OF RADIOLOGY Provider, [facility] - 05/25/2023 * * *Final Report* [...] IMPRESSION IMPRESSION: No acute fracture or dislocation. Lift Team Technician: ALEX Transcribe Date/Time: May 25 2023 3:16P Dictated by : TRUDY CERVANTES MD This examination was interpreted and the report reviewed and electronically signed by: TRUDY CERVANTES MD on May 25 2023 3:18PM EST [facility] Radiology Study observation (narrative) [facility] XR Knee - left 4 ViewsOrdere d By: Ccf Provider on 05-25-2023 [facility] Absolute lymphocyte countOrd ered By: Dr. Miller on 02-15-2023 Lymphocytes Auto (Unsp spec) [#/Vol] 2.43 10*3/uL 0.83-4.51 [facility] Basophil percentageOrdered B y: Dr. Miller on 02-15-2023 Basophils/100 WBC (Bld) 0.9 % 0-1 [facility] Chloride [Moles/Vol] 105 mmol/L 98-107 [facility] Eosinophils/100 WBC (Bld) 4.3 % 0-5 [facility] Glucose [Mass/Vol] 207 mg/dL 74-106 [facility] Comment on above: Glucose result great er than or equal to 200 mg/dLsuggests DIABETES MELLITUS per A.D.A. criteria. Neutrophils (Bld) [#/Vol] 3.6 10*3/uL 2.0-7.7 [facility] Neutrophils/100 WBC (Bld) 51.0 % 47-70 [facility] Potassium [Moles/Vol] 4.3 mmol/L 3.5-5.1 [facility] Comment on above: Moderate Hemolysis, Result may be falsely increased. Sodium [Moles/Vol] 138 mmol/L 136-145 [facility] WBC (Bld) [#/Vol] 7.0 10*3/uL 4.4-11.0 [facility] Blood erythrocytes count (nu mber/volume)Ordered By: Dr. Miller on 02-15-2023 RBC (Bld) [#/Vol] 4.91 10*6/uL 4.6-6.2 [facility] Blood hemoglobin measurement (mass/volume)Ordered By: Dr. Miller on 02-15-2023 Hemoglobin (Bld) [Mass/Vol] 14.7 g/dL 13.0-16.5 [facility] Blood lymphocytes/100 leukoc ytesOrdered By: Dr. Miller on 02-15-2023 Lymphocytes/100 WBC (Bld) 34.7 % 19-41 [facility] Blood monocytes/100 leukocyt esOrdered By: Dr. Miller on 02-15-2023 Monocytes/100 WBC (Bld) 8.4 % 0-10 [facility] Blood platelet mean volumeOr dered By: Dr. Miller on 02-15-2023 Platelet mean volume (Bld) [Entitic vol] 10.4 fL 6.2-12.0 [facility] Determination of erythrocyte mean corpuscular volume (MCV)Ordered By: Dr. Miller on 02-15-2023 MCV (RBC) [Entitic vol] 88.0 fL 80-94 [facility] Hematocrit Auto (Bld) [Volum e fraction]Ordered By: Dr. Miller on 02-15-2023 Hematocrit (Bld) [Volume fraction] 43.2 % 40-54 [facility] - Chemistry and C hemistry - challengeOrdered By: Dr. Miller on 02-15-2023 CO2 [Moles/Vol] 24.0 mmol/L 21.0-32.0 [facility] Urea nitrogen/Creatinine [Mass ratio] 16.5 mg/mg 10-20 [facility] - Hematology and Cell countsOrdered By: Dr. Miller on 02-15-2023 Erythrocyte distribution width (RBC) [Entitic vol] 42.2 fL 35.1-43.9 [facility] Erythrocyte distribution width (RBC) [Ratio] 13.0 % 11.6-14.6 [facility] Immature granulocytes/100 WBC (Bld) 0.700 % 0.0-0.9 [facility] Comment on above: IG% - Immature Granu locytes (promyelocytes, myelocytes and metamyelocytes) > 1% indicates that a LEFT SHIFT is Present. MCH (RBC) [Entitic mass] 29.9 pg 27.0-32.0 [facility] Nucleated RBC/100 WBC (Bld) [Ratio] 0 % 0-5 [facility] MCHC Auto (RBC) [Mass/Vol]Or dered By: Dr. Miller on 02-15-2023 MCHC (RBC) [Mass/Vol] 34.0 g/dL 32-36 [facility] No Panel InformationOrdered By: Dr. Miller on 02-15-2023 Estimated GFR (MDRD) Amer 95 mL/min >60 [facility] Estimated GFR (MDRD) Non-Af Amer 78 mL/min >60 [facility] Platelets bldOrdered By: Dr. Miller on 02-15-2023 Platelets (Bld) [#/Vol] 324 10*3/uL 150-450 [facility] Serum or plasma calcium pilar urement (mass/volume)Ordered By: Dr. Miller on 02-15-2023 Calcium [Mass/Vol] 9.4 mg/dL 8.5-10.1 [facility] Serum or plasma creatinine m easurement (mass/volume)Ordered By: Dr. Miller on 02-15-2023 Creatinine [Mass/Vol] 1.03 mg/dL 0.70-1.30 [facility] Comment on above: The validity of the calculated GFR & GFRAA in patients over 70 years has not been determined. Clinical correlation is essential. Serum or plasma urea nitroge n measurement (mass/volume)Ordered By: Dr. Miller on 02-15-2023 Urea nitrogen [Mass/Vol] 17 mg/dL 7-18 [facility] Thin prep Papanicolaou smear with manual screeningOrdered By: Dr. Miller on 02-15-2023 Thin prep Papanicolaou smear with manual screening 9 5-15 [facility] Comprehensive metabolic 2000 panelon 01-10-2023 Albumin [Mass/Vol] 3.9 g/dL Normal 3.4-5.0 [facility] Comment on above: Performed By: #### 2 4323-8 #### [facility] [address] [place] [address] [employer] Counter Sales Person - Angélica VIDAL [id number] ALP [Catalytic activity/Vol] 110 U/L Normal 50-136 [facility] Comment on above: Performed By: #### 2 4323-8 #### [facility] [address] [place] [address] [employer] Counter Sales Person - Angélica Valentin CLIA [id number] ALT [Catalytic activity/Vol] 68 U/L High 16-63 [facility] Comment on above: Performed By: #### 2 4323-8 #### [facility] [address] [place] [address] [employer] Counter Sales Person - Angélica HICKSIA [id number] Anion gap [Moles/Vol] 4.0 mmol/L Normal <=15.0 [facility] Comment on above: Performed By: #### 2 4323-8 #### [facility] [address] [place] [address] [employer] Counter Sales Person - Angélica Valentin KURTIA [id number] AST [Catalytic activity/Vol] 31 U/L Normal 15-37 [facility] Comment on above: Performed By: #### 2 4323-8 #### [facility] [address] [place] [address] [employer] Counter Sales Person - Angélica Valentin CLIA [id number] Bilirubin [Mass/Vol] 0.9 mg/dL Normal 0.2-1.0 [facility] Comment on above: Performed By: #### 2 4323-8 #### [facility] [address] [place] [address] [employer] Counter Sales Person - Angélica Valentin CLIA [id number] Calcium [Mass/Vol] 9.1 mg/dL Normal 8.5-10.1 [facility] Comment on above: Performed By: #### 2 4323-8 #### [facility] [address] [place] [address] [employer] Counter Sales Person - Angélica Valentin CLIA [id number] Chloride [Moles/Vol] 103 mmol/L Normal 98-107 [facility] Comment on above: Performed By: #### 2 4323-8 #### [facility] [address] [place] [address] [employer] Counter Sales Person - Angélica Valentin CLIA [id number] CO2 [Moles/Vol] 30 mmol/L Normal 21-32 [facility] Comment on above: Performed By: #### 2 4323-8 #### [facility] [address] [place] [address] [employer] Counter Sales Person - Angélica HICKSIA [id number] Creatinine [Mass/Vol] 0.86 mg/dL Normal 0.67-1.17 [facility] Comment on above: Performed By: #### 2 4323-8 #### [facility] [address] [place] [address] [employer] Counter Sales Person - Angélica Valentin CLIA [id number] GFR/1.73 sq M.predicted MDRD (S/P/Bld) [Vol rate/Area] mL/min/{1.73_m2} Normal >=59 [facility] Comment on above: Performed By: #### 2 4323-8 #### [facility] [address] [place] [address] [employer] Counter Sales Person - Angélica Valentin CLIA [id number] Glucose [Mass/Vol] 298 mg/dL High 74-106 [facility] Comment on above: Performed By: #### 2 4323-8 #### [facility] [address] [place] [address] [employer] Counter Sales Person - Angélica VIDAL [id number] HGFR GLOMERULAR FILTRATIO N RATE INTERPRETATION~The eGFR [...] months, with or without kidney damage.~ Normal [facility] Comment on above: Performed By: #### 2 4323-8 #### [facility] [address] [place] [address] [employer] Counter Sales Person - Angélica VIDAL [id number] Potassium [Moles/Vol] 4.2 mmol/L Normal 3.5-5.1 [facility] Comment on above: Performed By: #### 2 4323-8 #### [facility] [address] [facility] [address] [place] [address] [employer] Counter Sales Person - Angélica VIDAL [id number] Protein [Mass/Vol] 6.9 g/dL Normal 6.4-8.2 [facility] Comment on above: Performed By: #### 2 4323-8 #### [facility] [address] [facility] [address] [place] [address] [employer] Counter Sales Person - Angélica VIDAL [id number] Sodium [Moles/Vol] 137 mmol/L Normal 136-145 [facility] Comment on above: Performed By: #### 2 4323-8 #### [facility] [address] [place], [place] [address] [employer] Counter Sales Person - Angélica Valentin CLIA [id number] Urea nitrogen [Mass/Vol] 18 mg/dL Normal 9-20 [facility] Comment on above: Performed By: #### 2 4323-8 #### [facility] [address] [place], [place] [address] [employer] Counter Sales Person - Angélica HICKSIA [id number] ALBUMIN/CREAT RATIO RND URon 07-15-2022 Albumin DL <= 20 mg/L (U) [Mass/Vol] 231.4 mg/L Normal [facility] Comment on above: Order Comment: Speci men Type: URINE SPECIMEN Ordering Facility: [facility] Address: [address] [place] [address], [place] [address] Performed By: #### U ACR #### [facility] CLIA [id number] [address] [place] [address] [place] Albumin/Creatinine (U) [Mass ratio] 127 mg/g High <30 [facility] Comment on above: Order Comment: Speci men Type: URINE SPECIMEN Ordering Facility: [facility] Address: [address] [place] [address], [place] [address] Result Comment: Adul t Male and Female Nephrotic Criteria: <30 mg/g is considered normal to mildly increased 30-300 mg/g is considered moderately increased >300 mg/g is considered severely increased KDIGO. (2013). KDIGO 2012 Clinical Practice Guideline for the Evaluation and Management of Chronic Kidney Disease. Official Journal of the International Society of Nephrology, 3(1), 1-150. Performed By: #### U ACR #### [facility] CLIA [id number] [address] [place] [address] [place] Creatinine (U) [Mass/Vol] 182.8 mg/dL Normal 20.0-300.0 [facility] Comment on above: Order Comment: Speci men Type: URINE SPECIMEN Ordering Facility: [facility] Address: [address] [place] [address], [place] [address] Performed By: #### U ACR #### [facility] CLIA [id number] [address] [place] [address] [place] CBC panel Auto (Bld)on 07-15 Erythrocyte distribution width (RBC) [Ratio] 13.3 % Normal 11.5-15.0 [facility] Comment on above: Order Comment: Speci men Type: BLOOD SPECIMEN Ordering Facility: [facility] Address: [address] [place] [address] Performed By: #### 5 8410-2 #### [facility] CLIA [id number] [address] [place] [address] [place] Hematocrit (Bld) [Volume fraction] 48.3 % Normal 39.0-51.0 [facility] Comment on above: Order Comment: Speci men Type: BLOOD SPECIMEN Ordering Facility: [facility] Address: [address] [place] [address] Performed By: #### 5 8410-2 #### [facility] [place] [id number] [address] [place] [address] [place] Hemoglobin (Bld) [Mass/Vol] 16.0 g/dL Normal 13.0-17.0 [facility] Comment on above: Order Comment: Speci men Type: BLOOD SPECIMEN Ordering Facility: [facility] Address: [address] [place] [address] Performed By: #### 5 8410-2 #### [facility] [place] [id number] [address] [place] [address] [place] MCH (RBC) [Entitic mass] 29.7 pg Normal 26.0-34.0 [facility] Comment on above: Order Comment: Speci men Type: BLOOD SPECIMEN Ordering Facility: [facility] Address: [address] [place] [address] Performed By: #### 5 8410-2 #### [facility] [place] [id number] [address] [place] [address] [place] MCHC (RBC) [Mass/Vol] 33.1 g/dL Normal 30.5-36.0 [facility] Comment on above: Order Comment: Speci men Type: BLOOD SPECIMEN Ordering Facility: [facility] Address: [address] [place] [address] Performed By: #### 5 8410-2 #### [facility] CLIA [id number] [address] [place] [address] [place] MCV (RBC) [Entitic vol] 89.6 fL Normal 80.0-100.0 [facility] Comment on above: Order Comment: Speci men Type: BLOOD SPECIMEN Ordering Facility: [facility] Address: [address] [place] [address] Performed By: #### 5 8410-2 #### [facility] CLIA [id number] [address] [place] [address] [place] Nucleated RBC (Bld) [#/Vol] 10*3/uL Normal <0.01 [facility] Comment on above: Order Comment: Speci men Type: BLOOD SPECIMEN Ordering Facility: [facility] Address: [address] [place] [address] Performed By: #### 5 8410-2 #### [facility] CLIA [id number] [address] [place] [address] [place] Platelet mean volume (Bld) [Entitic vol] 11.3 fL Normal 9.0-12.7 [facility] Comment on above: Order Comment: Speci men Type: BLOOD SPECIMEN Ordering Facility: [facility] Address: [address] [place] [address] Performed By: #### 5 8410-2 #### [facility] CLIA [id number] [address] [place] [address] [place] Platelets (Bld) [#/Vol] 256 10*3/uL Normal 150-400 [facility] Comment on above: Order Comment: Speci men Type: BLOOD SPECIMEN Ordering Facility: [facility] Address: [address] [place] [address] Performed By: #### 5 8410-2 #### [facility] CLIA [id number] [address] [place] [address] [place] RBC (Bld) [#/Vol] 5.39 10*6/uL Normal 4.20-6.00 [facility] Comment on above: Order Comment: Speci men Type: BLOOD SPECIMEN Ordering Facility: [facility] Address: [address] [place] [address] Performed By: #### 5 8410-2 #### [facility] CLIA [id number] [address] [place] [address] [place] WBC (Bld) [#/Vol] 6.17 10*3/uL Normal 3.70-11.00 [facility] Comment on above: Order Comment: Speci men Type: BLOOD SPECIMEN Ordering Facility: [facility] Address: [address] [place] [address], [place] [address] Performed By: #### 5 8410-2 #### [facility] CLIA [id number] [address] [place] [address] [place] Comprehensive metabolic 2000 panelon 07-15-2022 Albumin [Mass/Vol] 4.5 g/dL Normal 3.9-4.9 [facility] Comment on above: Order Comment: Speci men Type: BLOOD SPECIMEN Ordering Facility: [facility] Address: [address] [place] [address] Performed By: #### 2 4323-8, 04830-1 #### [facility] CLIA [id number] [address] [place] [address] [place] ALP [Catalytic activity/Vol] 119 U/L High 38-113 [facility] Comment on above: Order Comment: Speci men Type: BLOOD SPECIMEN Ordering Facility: [facility] Address: [address], [place] [address] Performed By: #### 2 4323-8, 91455-7 #### [facility] CLIA [id number] [address] [place] [address] [place] ALT [Catalytic activity/Vol] 39 U/L Normal 10-54 [facility] Comment on above: Order Comment: Speci men Type: BLOOD SPECIMEN Ordering Facility: [facility] Address: [address] [place] [address], [place] [address] Performed By: #### 2 4323-8, 50270-0 #### [facility] CLIA [id number] [address] [place] [address] [place] Anion gap [Moles/Vol] 10 mmol/L Normal 9-18 [facility] Comment on above: Order Comment: Speci men Type: BLOOD SPECIMEN Ordering Facility: [facility] Address: [address] [place] [address], [place] [address] Performed By: #### 2 4323-8, 57356-2 #### [facility] CLIA [id number] [address] [place] [address] [place] AST [Catalytic activity/Vol] 24 U/L Normal 14-40 [facility] Comment on above: Order Comment: Speci men Type: BLOOD SPECIMEN Ordering Facility: [facility] Address: [address] [place] [address], [place] [address] Performed By: #### 2 4323-8, 89557-6 #### [facility] CLIA [id number] [address] [place], [place] [address] [place] Bilirubin [Mass/Vol] 1.1 mg/dL Normal 0.2-1.3 [facility] Comment on above: Order Comment: Speci men Type: BLOOD SPECIMEN Ordering Facility: [facility] Address: [address] [place] [address], [place] [address] Performed By: #### 2 4323-8, #### [facility] CLIA [id number] [address] [address] [place] Calcium [Mass/Vol] 9.0 mg/dL Normal 8.5-10.2 [facility] Comment on above: Order Comment: Speci men Type: BLOOD SPECIMEN Ordering Facility: [facility] Address: [address] [place] [address], [place] [address] Performed By: #### 2 4323-8, 81968-8 #### [facility] CLIA [id number] [address] [place] [address] [place] Chloride [Moles/Vol] 101 mmol/L Normal 97-105 [facility] Comment on above: Order Comment: Speci men Type: BLOOD SPECIMEN Ordering Facility: [facility] Address: [address] [place] [address], [place] [address] Performed By: #### 2 43238, #### [facility] CLIA [id number] [address] [place] [id number] [place] CO2 [Moles/Vol] 27 mmol/L Normal 22-30 [facility] Comment on above: Order Comment: Speci men Type: BLOOD SPECIMEN Ordering Facility: [facility] Address: [address] [place] [address], [place] [address] Performed By: #### 2 4323-8, #### [facility] CLIA [id number] [address] [place] [id number] [place] Creatinine [Mass/Vol] 0.78 mg/dL Normal 0.73-1.22 [facility] Comment on above: Order Comment: Speci men Type: BLOOD SPECIMEN Ordering Facility: [facility] Address: [address] [place] [address], [place] [address] Performed By: #### 2 4323-8, 77490-0 #### [facility] CLIA [id number] [address] [place] [address] [place] ESTIMATED GLOMERULAR FILTRATION RATE 100 mL/min/1.73m??? Normal >=60 [facility] Comment on above: Order Comment: Brittany reeder Type: BLOOD SPECIMEN Ordering Facility: [facility] Address: [address] [place] [address], [place] [address] Result Comment: Leeanna mated Glomerular Filtration Rate [...] actual GFR. Performed By: #### 2 4323-8, 21495-0 #### [facility] CLIA [id number] [address] [place] [address] [place] Glucose [Mass/Vol] 230 mg/dL High 74-99 [facility] Comment on above: Order Comment: Brittany reeder Type: BLOOD SPECIMEN Ordering Facility: [facility] Address: [address] [place] [address], [place] [address] Result Comment: The [place] Diabetes Association (ADA) provides guidance for cutoff [...] Standards of Medical Care in Diabetes 2016, [place] Diabetes Association. Diabetes Care. 2016.39(Suppl 1). Performed By: #### 2 4323-8, 98089-4 #### [facility] CLIA [id number] [address] [place] [address] [place] Potassium [Moles/Vol] 4.9 mmol/L Normal 3.7-5.1 [facility] Comment on above: Order Comment: Speci men Type: BLOOD SPECIMEN Ordering Facility: [facility] Address: [address], [place] [address] Performed By: #### 2 4323-8, 33235-5 #### [facility] CLIA [id number] [address] [place] [address] [place] Protein [Mass/Vol] 6.6 g/dL Normal 6.3-8.0 [facility] Comment on above: Order Comment: Speci men Type: BLOOD SPECIMEN Ordering Facility: [facility] Address: [address] [place] [address], [place] [address] Performed By: #### 2 4323-8, 09557-8 #### [facility] CLIA [id number] [address] [place] [address] [place] Sodium [Moles/Vol] 138 mmol/L Normal 136-144 [facility] Comment on above: Order Comment: Speci men Type: BLOOD SPECIMEN Ordering Facility: [facility] Address: [address] [place] [address], [place] [address] Performed By: #### 2 4323-8, 49697-7 #### [facility] CLIA [id number] [address] [place] [address] [place] Urea nitrogen [Mass/Vol] 13 mg/dL Normal 9-24 [facility] Comment on above: Order Comment: Speci men Type: BLOOD SPECIMEN Ordering Facility: [facility] Address: [address] [place] [address], [place] [address] Performed By: #### 2 4323-8, 59494-2 #### [facility] CLIA [id number] [address] [place] [address] [place] HbA1c (Bld)on 07-15-2022 Average glucose Estimated from glycated hemoglobin (Bld) [Mass/Vol] 240 mg/dL Normal [facility] Comment on above: Order Comment: Speci men Type: BLOOD SPECIMEN Ordering Facility: [facility] Address: [address] [place] [address] Result Comment: eAG: (Estimated average glucose) is a calculated value from HgbA1c and is hr representative of the average blood glucose level in the last 2-3 month period. Performed By: #### 5 5454-3 #### [facility] CLIA [id number] [address] [place] [address] [place] HbA1c (Bld) [Mass fraction] 10.0 % High 4.3-5.6 [facility] Comment on above: Order Comment: Speci men Type: BLOOD SPECIMEN Ordering Facility: [facility] Address: [address] [place] [address] Result Comment: Amer ican Diabetes Association guidelines indicate that patients with HgbA1c in the range 5.7-6.4% are at increased risk for development of diabetes, and intervention by lifestyle modification may be beneficial. HgbA1c greater or equal to 6.5% is considered diagnostic of diabetes. Performed By: #### 5 5454-3 #### [facility] CLIA [id number] [address] [place] [address] [place] Lipid 1996 panelon 18-202 2 Cholesterol [Mass/Vol] 168 mg/dL Normal <200 [facility] Comment on above: Order Comment: Speci men Type: BLOOD SPECIMEN Ordering Facility: [facility] Address: [address] [place] [address] Result Comment: <200 mg/dL, Desirable 200-239 mg/dL, Borderline high >239 mg/dL, High Performed By: #### 2 4323-8, 91213-0 #### [facility] CLIA [id number] [address] [place] [address] [place] Cholesterol in HDL [Mass/Vol] 36 mg/dL Low >39 [facility] Comment on above: Order Comment: Speci varinder Type: BLOOD SPECIMEN Ordering Facility: [facility] Address: [address] [place] [address] Result Comment: 40-5 9 mg/dL, Acceptable >59 mg/dL, High: Negative risk factor for coronary heart disease <40 mg/dL, Low: Positive risk factor for coronary heart disease Performed By: #### 2 4323-8, 56870-0 #### [facility] CLIA [id number] [address] [address] [place] Cholesterol in LDL [Mass/Vol] 83 mg/dL Normal <100 [facility] Comment on above: Order Comment: Speci men Type: BLOOD SPECIMEN Ordering Facility: [facility] Address: [address] [place] [address], [place] [address] Result Comment: <100 mg/dL, Optimal 100-129 mg/dL, Near optimal/above optimal 130-159 mg/dL, Borderline high 160-189 mg/dL, High >189 mg/dL, Very high Secondary prevention optimal LDL Cholesterol levels are recommended to be < 70 mg/dL Performed By: #### 2 4323-8, 40109-6 #### [facility] CLIA [id number] [address] [place] [address] [place] Cholesterol in LDL/Cholesterol in HDL [Mass ratio] 2.31 {ratio} Normal <2.54 [facility] Comment on above: Order Comment: Brittany reeder Type: BLOOD SPECIMEN Ordering Facility: [facility] Address: [address] [place] [address], [place] [address] Result Comment: Refe rence: 1. National Cholesterol Education Program ATP III Guideline At-A-Glance Quick Desk Reference: National Heart, Lung, and Blood [place]. National Institutes of Health. 2001: NIH Publication No. 01-3305. 2. An International Atherosclerosis Society position paper: global recommendations for the management of dyslipidemia: executive summary, Atherosclerosis. 2014: 232(2):410-413. Performed By: #### 2 4323-8, 80295-5 #### [facility] CLIA [id number] [address] [place] [id number] [place] Cholesterol in VLDL [Mass/Vol] 49 mg/dL High <30 [facility] Comment on above: Order Comment: Speci men Type: BLOOD SPECIMEN Ordering Facility: [facility] Address: [address] [place] [address], [place] [address] Performed By: #### 2 4323-8, 14009-3 #### [facility] CLIA [id number] [address] [address] [place] Cholesterol non HDL [Mass/Vol] 132 mg/dL High <130 [facility] Comment on above: Order Comment: Speci men Type: BLOOD SPECIMEN Ordering Facility: [facility] Address: [address] [place] [address], [place] [address] Result Comment: <130 mg/dL, Optimal 130-159 mg/dL, Near optimal/above optimal 160-189 mg/dL, Borderline high 190-219 mg/dL, High >219 mg/dL, Very high Secondary prevention optimal non HDL Cholesterol levels are recommended to be <100 mg/dL Performed By: #### 2 4323-8, 18891-9 #### [facility] CLIA [id number] [address] [place] [address] [place] Cholesterol.total/Cho lesterol in HDL [Mass ratio] 4.67 {ratio} Normal <5.10 [facility] Comment on above: Order Comment: Speci men Type: BLOOD SPECIMEN Ordering Facility: [facility] Address: [address] [place] [address], [place] [address] Performed By: #### 2 4323-8, #### [facility] CLIA [id number] [address] [place] [id number] [place] FASTING TIME 10 hrs Normal [facility] Comment on above: Order Comment: Speci men Type: BLOOD SPECIMEN Ordering Facility: [facility] Address: [address] [place] [address], [place] [address] Performed By: #### 2 4323-8, 95302-7 #### [facility] CLIA [id number] [address] [place] [id number] [place] Triglyceride [Mass/Vol] 247 mg/dL High <150 [facility] Comment on above: Order Comment: Speci men Type: BLOOD SPECIMEN Ordering Facility: Tracey Mcadams [facility] Address: [address], [place] [address] Result Comment: <150 mg/dL, Normal 150-199 mg/dL, Borderline high 200-499 mg/dL, High >499 mg/dL, Very high Performed By: #### 2 4323-8, 95410-8 #### [facility] CLIA [id number] [address] [facility] [address] [address] [place] Hemoglobin A1con 09-01-2021 Glucose [Mass/Vol] 306 mg/dL Normal [facility] Comment on above: Performed By: #### H BA1C #### [facility] Routine Lab [facility] [place], [place] [id number] HbA1c (Bld) [Mass fraction] 12.3 % High 4.3-5.6 [facility] Comment on above: Performed By: #### H BA1C #### [facility] Routine Lab [address] [place] [address] [id number] Basic Metabolic Panelon 01-26 Anion gap [Moles/Vol] 9 mmol/L Normal 8-15 [facility] Comment on above: Performed By: #### B MP #### [facility] [address] [place] [address] Calcium [Mass/Vol] 9.3 mg/dL Normal 8.6-10.6 [facility] Comment on above: Performed By: #### B MP #### [facility] [address] [place], [place] [address] Chloride [Moles/Vol] 103 mmol/L Normal 98-107 [facility] Comment on above: Performed By: #### B MP #### [facility] [address] [place], [place] [address] CO2 [Moles/Vol] 26 mmol/L Normal 22-29 [facility] Comment on above: Performed By: #### B MP #### [facility] [address] [place] [address] Creatinine [Mass/Vol] 0.8 mg/dL Normal 0.5-1.2 [facility] Comment on above: Performed By: #### B MP #### [facility] [address] [place] [address]90 eGFR -Amer >=60 Normal >=60 [facility] Comment on above: Performed By: #### B MP #### [facility] [address] [place] [address] GFR/1.73 sq M.predicted among non-blacks MDRD (S/P/Bld) [Vol rate/Area] mL/min/{1.73_m2} Normal >=60 [facility] Comment on above: Performed By: #### B MP #### [facility] [address] [place] [address] Glucose [Mass/Vol] 300 mg/dL High 74-109 [facility] Comment on above: Performed By: #### B MP #### [facility] [address] [place] [address] Potassium [Moles/Vol] 4.6 mmol/L Normal 3.4-5.1 [facility] Comment on above: Performed By: #### B MP #### [facility] [address] [place] [address] Sodium [Moles/Vol] 138 mmol/L Normal 136-145 [facility] Comment on above: Performed By: #### B MP #### [facility] [address] [place] [address] Urea nitrogen [Mass/Vol] 15 mg/dL Normal 6-23 [facility] Comment on above: Performed By: #### B MP #### [facility] [address] [place] [address] CBC with Diffon 02-04-2021 BA# 0.1 x(10)3/cumm Normal 0.0-0.1 [facility] Comment on above: Performed By: #### C BCDIFF #### [facility] [address] [place] [address] Basophils/100 WBC (Bld) 0.6 % Normal 0.0-1.0 [facility] Comment on above: Performed By: #### C BCDIFF #### [facility] [address] [place] [address] EO# 0.3 x(10)3/cumm Normal 0.0-0.4 [facility] Comment on above: Performed By: #### C BCDIFF #### [facility] [address] [place] [address] Eosinophils/100 WBC (Bld) 2.8 % Normal 0.0-6.1 [facility] Comment on above: Performed By: #### C BCDIFF #### [facility] [address] [place] [address] Erythrocyte distribution width (RBC) [Ratio] 13.9 % Normal 11.1-15.3 [facility] Comment on above: Performed By: #### C BCDIFF #### [facility] [address] [place] [address] Hematocrit (Bld) [Volume fraction] 45.6 % Normal 37.6-50.6 [facility] Comment on above: Performed By: #### C BCDIFF #### [facility] [address] [place] [address] Hemoglobin (Bld) [Mass/Vol] 15.6 g/dL Normal 12.9-17.5 [facility] Comment on above: Performed By: #### C BCDIFF #### [facility] [address] [place] [address] LY# 2.3 x(10)3/cumm Normal 0.8-2.9 [facility] Comment on above: Performed By: #### C BCDIFF #### [facility] [address] [place] [address]191 Lymphocytes/100 WBC (Bld) 25.1 % Normal 12.2-42.6 [facility] Comment on above: Performed By: #### C BCDIFF #### [facility] [address] [place] [address] 38656 MCH (RBC) [Entitic mass] 30.0 pg Normal 27.2-33.6 [facility] Comment on above: Performed By: #### C BCDIFF #### [facility] [address] [place] [address] MCHC (RBC) [Mass/Vol] 34.3 g/dL Normal 32.9-35.3 [facility] Comment on above: Performed By: #### C BCDIFF #### [facility] [address] [place] [address] MCV (RBC) [Entitic vol] 87.4 fL Normal 81.3-96.7 [facility] Comment on above: Performed By: #### C BCDIFF #### [facility] [address] [place] [address] MO# 0.9 x(10)3/cumm High 0.2-0.8 [facility] Comment on above: Performed By: #### C BCDIFF #### [facility] [address] [place] [address]23[address] Monocytes/100 WBC (Bld) 10.1 % Normal 3.3-11.6 [facility] Comment on above: Performed By: #### C BCDIFF #### [facility] [address] [place] [address] NE# 5.5 x(10)3/cumm Normal 1.3-7.4 [facility] Comment on above: Performed By: #### C BCDIFF #### [facility] [address] [place] [address] Neutrophils/100 WBC (Bld) 61.4 % Normal 44.9-78.8 [facility] Comment on above: Performed By: #### C BCDIFF #### [facility] [address] [place] [address] Platelet mean volume (Bld) [Entitic vol] 9.2 fL Normal 6.4-10.0 [facility] Comment on above: Performed By: #### C BCDIFF #### [facility] [address] [place] [address] PLT 244 x(10)3/cumm Normal 138-367 [facility] Comment on above: Performed By: #### C BCDIFF #### [facility] [address] [place] [address] Plt Morph Normal [facility] Comment on above: Performed By: #### C BCDIFF #### [facility] [address] [place] [address] RBC 5.21 X(10)6/cumm Normal 4.20-5.80 [facility] Comment on above: Performed By: #### C BCDIFF #### [facility] [address] [place] [address] RBC Morph cont Normal [facility] Comment on above: Performed By: #### C BCDIFF #### [facility] [address] [place] [address] RBC morphology finding Nom (Bld) Normal [facility] Comment on above: Performed By: #### C BCDIFF #### [facility] [address] [place] [address] WBC 9.0 x(10)3/cumm Normal 3.6-10.3 [facility] Comment on above: Performed By: #### C BCDIFF #### [facility] [address] [place] [address] WBC Morph Normal [facility] Comment on above: Performed By: #### C BCDIFF #### [facility] [address] [place] [address] MRI Up Ext RT Jt wo contrast on 12-22-2020 MRI Up Ext RT Jt wo contrast Examination: MRI right shoulder Clinical Indication: [id number]: Sprain of right rotator cuff capsule Comparison: [...] by: SANTIAGO MCCURDY MD Date: 12/22/2020 15:56 [facility] Comment on above: Order Comment: CONTR AST PER RADIOLOGIST DISCRETION PROGRESSon 11-27-2019 PROGRESS HNO ID: [id number] Author: Vishal Serrano Service: ? Author Type: [...] Take 1 tablet by mouth once daily. Peoa-3 Fatty Acids (SUPER TWIN EPA-DHA) 1,250 mg [...] Abs Lymph 1.00 - 4.00 k/uL 2.68 [place]% % 8.9 Abs [place] <0.87 k/uL 0.77 Eosin% % 1.9 Abs [...] mellitus with other specified complication, unspecified whether social services specialist insulin use (HCC) - ICD9: 250.80, ICD10: [...] from patient were answered. Vishal Serrano MD, [facility] BRIEF OP NOTon 11-19-2019 BRIEF OP NOT HNO ID: [id number] Author: Martin Mueller Service: Cardiovascular Medicine Author [...] medical therapy Martin Izaguirre MD Interventional Cardiology [facility] HISTORY PHYSICALon 0 HISTORY PHYSICAL HNO ID: [id number] Author: Martin Mueller Service: Cardiovascular Medicine Author [...] November 19, 2019 TIME: 8:21 AM PAGER: [phone] [facility] NURSING PROGon 11-19-2019 NURSING PROG HNO ID: [id number] Author: Chad Goins) SANJU Cohen Service: Nursing Author Type: Registered Nurse Type: Nursing Progress Note Filed: 11/19/2019 12:12 PM Note Text: When removing TR band, a small hematoma started to form, TR band replaced and 6cc air added. Will continue protocol Normal [facility] Hector 11-11-2019 CNPN Telephone (AKJEANNIE) -------- SEGUNDOJEISON ([id number]) 1960 M [facility] Date Time Provider Department 11/11/19 VISHAL SERRANO During your visit today, we recorded the following information about you: Vishal Serrano MD, [facility] 11/11/2019 12:39 PM Signed Labs are ok. [...] Status:Closed by VISHAL SERRANO on 11/11/19 Normal [facility] CNPNon 11-08-2019 CNPN Telephone (AGCARDHWN ) -------- JEISON GARCIA ([id number]) 1960 [facility] Date Time Provider Department 11/08/19 VISHAL SERRANO AGCARDHWN During your visit today, we recorded the following information about you: Vishal Serrano MD, [facility] 11/08/2019 1:09 PM Signed Stress test shows small heart attack with mildly reduced EF. His insurance should approve the cardiac cath now. Ordered [facility]. x Blessing Concepcion RN 11/08/2019 1:12 PM Signed Left message on [employer] requesting pt return call for test results. Office phone number provided. SANJU Lowe RN 11/08/2019 1:42 PM Signed Pt notified of stress test results and Dr Serrano's message. He voices understanding. Patient scheduled for left heart cath, rt radial, with Dr Izaguirre on 11/19/19. Instructions reviewed. Questions answered. Patient verbalized understanding. Instructions were as follows: -Arrive to [facility] HANDV Entrance 11/19/19 at time assigned by [facility] laborer tin can staff in phone call 11/18/19 PM.. -Nothing [...] someone drive you home from your procedure. -laborer tin can policy is pt not be alone first evening Office phone number provided for questions or concerns. [facility] clinical lab technologist notified. SANJU Lowe RN 11/08/2019 1:42 PM [...] angina pectoris (HCC) [I20.8] Order(s):LEFT HEART CATH,PERCUTANEOUS [03596KNA] Order #: [id number]: 1 BASIC METABOLIC PNL [SQBMP] Order #: [id number] FUTURE CBC [SQCBC] Order #: [id number] FUTURE Prescriptions as of 11/08/2019 Sig: NICOTINE [...] Encounter Status:Closed by VISHAL SERRANO on 11/08/19 [facility] HOSPon 11-08-2019 HOSP Patient:Jeison Garcia MRN: [...] tablet lisinopril (ZESTRIL, PRINIVIL) 20 mg tablet Peoa-3 Fatty Acids (SUPER TWIN EPA-DHA) 1,250 mg cap docusate sodium (COLACE) 100 mg capsule aspirin, enteric coated (ASPIRIN, ENTERIC COATED) 81 mg EC tablet Admission/Clinic Administered Medications as of 11/19/19: heparin 1,000 Units in D5W 250 mL heparin 3,000 Units in NaCl 0.9% 500 mL irrigation Problem List: Uncontrolled type 2 diabetes mellitus without complication, without long-term current use of insulin [BRR1897] Spinal stenosis [M48.00] Disorder of intervertebral disc [...] 48.4 % 11/08/2019 51.0 39.0 Progress Notes ([facility]): Sander Cunningham, 11/18/2019 12:44 PM Signed Please let patient know his cologuard was negative. Wendy Guy Ma 11/18/2019 1:02 PM Signed Patient contacted. 11/18/2019 1:01 PM Wendy Guy Ma Progress Notes ([facility]): Angelika Velásquez Ma 11/18/2019 8:38 AM Signed Patient phones requesting refills as follows: Pending Prescriptions Disp Refills NICOTINE 21 MG/24 HR DAILY TRANSDERMAL PATCH 14 Patch 0 Sig: APPLY ONE PATCH EXTERNALLY ONCE DAILY SHAQUILLE: Yes Please review and advise. Angelika Velásquez Ma Normal [facility] [place] CARDIAC PERF STRESS/PHARM on 11-08-2019 NM CARDIAC PERF STRESS/PHARM * * *Final Report* * * DATE OF EXAM: Nov 08 2019 10:50AM [facility] 0006 - [place] CARDIAC PERF [...] 60 minutes later. See administered doses below. [facility] Date of service: 11/08/2019 8:00:00 AM [...] complications: none. Final -- Stress ECG Report: [facility] Date of service: 11/08/2019 8:00:00 AM Ordering physician: VISHAL SERRANO Specialist: Monica Evans Local Delivery Truck Driver: Yessy Fraah Stress ECG interpreting physician: Johnny Davis MD [...] for age. The double product achieved was [address]51. Peak heart rate was 93 bpm and [...] index (CRI): 0.33 Rate Pressure Product (RPP): 74489 Reason for test termination: End of Protocol. [...] Rare PVC, Rare Aberrant. Final -- Stress Surgical Services Tech Report: [facility] Date of service: 11/08/2019 8:00:00 AM Supervising physician: Johnny Davis MD PATIENT: Name: MR. JEISON GARICA Age: 59 years Gender: M The supervising physician was present during the stress procedure. Final Lift Team Technician: GILBERT Transcribe Date/Time: Nov 08 2019 8:00A Dictated by : SHAWN SALAZAR MD This examination was interpreted and the report reviewed and electronically signed by: SHAWN SALAZAR MD on Nov 08 2019 1:12PM EST Normal [facility] PROGRESSon 11-08-2019 PROGRESS HNO ID: [id number] Author: Lobito Vasquez (Rt) Service: ? Author Type: Lens Blocker Type: Progress Notes Filed: 11/08/2019 10:39 AM [...] STATUS: Discontinued PROCEDURE TYPE: NM Stress: 13.2mCi [id number] was administered IV for Rest Imaging at 0830 by dd. 34.5 mCi [id number] was administered IV for Stress Imaging at 0955 by ms. ADMINISTRATION TIME: 0955 PATIENT DISCHARGED TO: Ambulatory patient, left [place] department area. A Diagnostic radioactive procedure has taken place, with no further precautions necessary other than routine body substance precautions. More information regarding radiation safety can be found using this link: [email or web address] [email or web address] SIGNATURE: RT Pedro PATIENT NAME: Jeison Garcia DATE: November 08, 2019 TIME: 10:35 AM PAGER/CONTACT #: [facility] PROGRESS HNO ID: [id number] Author: Monica (Rn) SANJU Evans Service: Cardiovascular Testing Author Type: Registered Nurse Type: Progress Notes Filed: 11/08/2019 10:32 AM Note Text: #22 Jedarrello Left AC Per Katerina BILLS. Lexiscan Nuclear Stress Test Explained And Questions Answered Prior To Testing. Salo D/C'ed Post Test. [facility] CNOVon 10-11-2019 CNOV Office Visit (AGCARD HWN) -------- JEISON GARCIA ([id number]) 1960 [facility] Date Time Provider Department 10/11/19 10:20 AM VISHAL SERRANO AGCARDHWN During your visit today, we recorded the following information about you: Pulse Respiration Blood pressure Weight 92/minute 16/minute 142/78 108.4 kg Height 1.778 m Pascual Buchanan MA, [place] 10/11/2019 10:21 AM Signed Patient complains of chest tightness today. Vishal Serrano MD, [facility] 10/11/2019 10:54 AM Signed PRIMARY CARE PHYSICIAN: [...] Take 1 tablet by mouth once daily. Peoa-3 Fatty Acids (SUPER TWIN EPA-DHA) 1,250 mg [...] Abs Lymph 1.00 - 4.00 k/uL 2.68 [place]% % 8.9 Abs [place] <0.87 k/uL 0.77 Eosin% % 1.9 Abs [...] mellitus with other specified complication, unspecified whether residential insulin use (HCC) - ICD9: 250.80, ICD10: [...] Follow-up in 4 weeks Vishal Serrano MD, [facility] Referring Provider: SELF [200] Allergies As of [...] mellitus with other specified complication, unspecified whether social services specialist insulin use (HCC) [E11.69] Mixed hyperlipidemia [E78.2] Tobacco abuse [Z72.0] PVC (premature ventricular contraction) [I49.3] XIOMARA (obstructive sleep apnea) [G47.33] Order(s):ECG B/O W INTERP (MED OFFICE) [ECG06] Order #: [id number] atorvastatin (LIPITOR) 40 mg tabletTake 1 tablet by mouth once daily.Disp: 90 tabletRfl: 3 carvedilol (COREG) 6.25 mg tabletTake 1 tablet by mouth twice daily.Disp: 180 tabletRfl: 3 LEFT HEART CATH,PERCUTANEOUS [42810YMM] Order #: [id number]: 1 ECHO [598163] Order #: [id number]: 1 FUTURE nitroglycerin sublingual (NITROSTAT) 0.4 mg [...] Encounter Status:Closed by VISHAL SERRANO on 10/11/19 [facility] Telephone (AGCARDPOB ) -------- JEISON GARCIA ([id number]) 1960 [facility] Date Time Provider Department 10/11/19 VISHAL SERRANO AGCARDRosterbot During your visit today, we recorded the following information about you: Blessing Concepcion RN 10/11/2019 11:16 AM Signed Left message on [employer] requesting pt return call to discuss cath date. Office phone number provided. SANJU Lowe LPN 10/11/2019 2:57 PM Signed Patient scheduled for left heart cath, 10/11/2019, with Dr Izaguirre on 10/21/2019. Instructions reviewed and patient verbalized understanding. Instructions: -Arrive to [facility] Entrance 10/21/2019 according to the time assigned by the clinical lab technologist staff in phone call 10/18/2019 PM. -Nothing [...] from your procedure. Please contact me at [phone] with any questions or concern. Blessing Concepcion RN 10/18/2019 2:11 PM Signed Notification received from [facility] that heart cath is not approved. I left voicemail on pt's voicemail and on spouse Kell voicemail that cath is cancelled for 10/21/19. I notified Sary [facility] clinical lab technologist that cath is cancelled. SANJU Lowe MD, [facility] 10/18/2019 3:37 PM Signed Please let the patient know his insurance did not approve cardiac cath. Ordered a stress test. If abn, will do Cardiac cath then. Thx Wendy Coleman LPN 10/18/2019 3:49 PM Signed I called and left a message for to call [facility] for update. OBDULIO Cali) [employer] 10/18/2019 3:57 [...] [E78.2] Smoker [F17.200] Order(s):NM CARDIAC PERF STRESS/PHARM [6001158] Order #: [id number] FUTURE Prescriptions as of 10/11/2019 Sig: NICOTINE [...] Encounter Status:Closed by VISHAL SERRANO on 10/18/19 [facility] PROGRESSon 10-11-2019 PROGRESS HNO ID: [id number] Author: Vishal Serrano Service: ? Author Type: [...] Take 1 tablet by mouth once daily. Peoa-3 Fatty Acids (SUPER TWIN EPA-DHA) 1,250 mg [...] Abs Lymph 1.00 - 4.00 k/uL 2.68 [place]% % 8.9 Abs [place] <0.87 k/uL 0.77 E[place]% % 1.9 Abs [...] mellitus with other specified complication, unspecified whether residential insulin use (HCC) - ICD9: 250.80, ICD10: [...] Follow-up in 4 weeks Vishal Serrano MD, [facility] Normal [facility] XR CHEST 2V FRONTAL/LATon XR CHEST [...] the thoracic spine. IMPRESSION: No acute process. Lift Team Technician: ALEX Transcribe Date/Time: Oct 10 2019 11:13A Dictated by : JOSE A CONROY MD This examination was interpreted and the report reviewed and electronically signed by: JOSE A CONROY MD on Oct 10 2019 11:14AM EST Normal [facility] CT Abdomen/Pelvis w/o Contra ston 04-23-2018 CT Abdomen/Pelvis w/o Contrast Patient Name: JEISON GARCIA CT Exam Date/Time 04/23/2018 08:16:[address] Abdomen/Pelvis (No PO, No IV) Ordering Physician MD RG BADGER Accession Number [id number] CPT4 Codes 61158 (CT Abdomen/Pelvis (No PO, No IV)) Reason [...] Transcribed Date and Time: 04/23/2018 8:37 Normal [facility] CULTURE URINEon 03-24-2018 CULTURE URINE CULTURE URINE --> Status: F No growth (<1,000 CFU/ml). Normal [facility] Comment on above: Order Comment: Speci men Source Comment:Urine, clean catch Performed By: #### U AMAC, UAMIC ####[facility] [place] [employer] [employer], [place] Eosinophils,Uron 03-24-2018 Eosinophils Urine NO EOSINS SEEN Normal [facility] Comment on above: Performed By: #### C MP3, LIPA4, LACT3, HEMDF ####[facility] [place] [address] [employer] [place] [address] Glucose,Bedsideon 03-24-2018 Glucose mass conc 125 mg/dL High 70-100 [facility] Comment on above: Result Comment: Test performed by glucose meter. Results may be 10%-15% lowerthan serum/plasma values. (CLIA ID [id number]) Performed By: #### U AMAC, UAMIC ####[facility] [email or web address] [place] [address] Basic Metabolic Panelon 02-26 Anion gap 3 molar conc 6 Normal [facility] Comment on above: Performed By: #### U AMAC, UAMIC ####[facility] [email or web address] [employer], [place] Calcium mass conc 8.8 mg/dL Normal 8.4-10.4 [facility] Comment on above: Performed By: #### U AMAC, UAMIC ####[email or web address] [place], [place] CO2 molar conc 22 mmol/L Normal 22-30 [facility] Comment on above: Performed By: #### U AMAC, UAMIC ####[email or web address] [place], [place] Creatinine mass conc 0.89 mg/dL Normal 0.52-1.25 [facility] Comment on above: Performed By: #### U AMAC, UAMIC ####[email or web address] [place], [place] GFR/1.73 sq M predicted among blacks MDRD vol rate/area (S/P/Bld) mL/min/{1.73_m2} Normal >60 [facility] Comment on above: Performed By: #### U AMAC, UAMIC ####[email or web address] [place] GFR/1.73 sq M predicted among non-blacks MDRD vol rate/area (S/P/Bld) mL/min/{1.73_m2} Normal >60 [facility] Comment on above: Result Comment: Sour ce- MDRD equation with creatinine calibration to IDMS(NKDEP) eGFR not recommended for drug dose adjustment Performed By: #### U AMAC, UAMIC ####[email or web address] [place], [place] Glucose mass conc 142 mg/dL High 70-100 [facility] Comment on above: Performed By: #### U AMAC, UAMIC ####[email or web address] [place] Urea nitrogen mass conc 21 mg/dL High 7-20 [facility] Comment on above: Performed By: #### U AMAC, UAMIC ####[email or web address] [place], [place] Chloride molar conc 109 mmol/L High 98-107 [facility] Comment on above: Performed By: #### U AMAC, UAMIC ####[address] [place], [place] Potassium molar conc 3.8 mmol/L Normal 3.5-5.1 [facility] Comment on above: Performed By: #### U AMAC, UAMIC ####[address] [place], [place] Sodium molar conc 137 mmol/L Normal 137-145 [facility] Comment on above: Performed By: #### U AMAC, UAMIC ####[address] [place], [place] Calcium mass conc 9.2 mg/dL Normal 8.4-10.4 [facility] Comment on above: Performed By: #### U AMAC, UAMIC ####[address] Glucose mass conc 159 mg/dL High 70-100 [facility] Comment on above: Performed By: #### U AMAC, UAMIC ####[address] [place], [place] Urea nitrogen mass conc 26 mg/dL High 7-20 [facility] Comment on above: Performed By: #### U AMAC, UAMIC ####[address] Anion gap 3 molar conc 12 Normal [facility] Comment on above: Performed By: #### U AMAC, UAMIC ####[address] [place], [place] CO2 molar conc 23 mmol/L Normal 22-30 [facility] Comment on above: Performed By: #### U AMAC, UAMIC ####[address] [place], [place] Creatinine mass conc 1.45 mg/dL High 0.52-1.25 [facility] Comment on above: Performed By: #### U AMAC, UAMIC ####[address] [place] [address] GFR/1.73 sq M predicted among blacks MDRD vol rate/area (S/P/Bld) mL/min/{1.73_m2} Normal >60 [facility] Comment on above: Performed By: #### U AMAC, UAMIC ####[address] [place] [address] GFR/1.73 sq M predicted among non-blacks MDRD vol rate/area (S/P/Bld) 49.9 mL/min/{1.73_m2} Normal >60 [facility] Comment on above: Result Comment: Sour ce- MDRD equation with creatinine calibration to IDMS(NKDEP) eGFR not recommended for drug dose adjustment Performed By: #### U AMAC, UAMIC ####[address] [address] Potassium molar conc 4.3 mmol/L Normal 3.5-5.1 [facility] Comment on above: Performed By: #### U AMAC, UAMIC ####[address] [address] Chloride molar conc 107 mmol/L Normal 98-107 [facility] Comment on above: Performed By: #### U AMAC, UAMIC ####[address] [address] Sodium molar conc 141 mmol/L Normal 137-145 [facility] Comment on above: Performed By: #### U AMAC, UAMIC ####[address] [address] Creatinine, Ur Randomon 02-26 Creatinine, Ur Random 214.7 mg/dL Normal No Range [facility] Comment on above: Performed By: #### C MP3, LIPA4, LACT3, HEMDF ####[address] [place] [address] Glucose,Bedsideon 03-23-2018 Glucose mass conc 143 mg/dL High 70-100 [facility] Comment on above: Result Comment: Test performed by glucose meter. Results may be 10%-15% lowerthan serum/plasma values. (CLIA ID [id number]) Performed By: #### U AMAC, UAMIC ####[email or web address] [place] [address] Glucose mass conc 154 mg/dL High 70-100 [facility] Comment on above: Result Comment: Test performed by glucose meter. Results may be 10%-15% lowerthan serum/plasma values. (CLIA ID [id number]) Performed By: #### U AMAC, UAMIC ####[email or web address] [place] [address] Glucose mass conc 139 mg/dL High 70-100 [facility] Comment on above: Result Comment: Test performed by glucose meter. Results may be 10%-15% lowerthan serum/plasma values. (CLIA ID [id number]) Performed By: #### U AMAC, UAMIC ####[email or web address] [place] [address] Glucose mass conc 140 mg/dL High 70-100 [facility] Comment on above: Result Comment: Test performed by glucose meter. Results may be 10%-15% lowerthan serum/plasma values. (CLIA ID [id number]) Performed By: #### U AMAC, UAMIC ####[email or web address] [place] [address] Hemoglobin A1Con 03-23-2018 Glucose mass conc 192 mg/dL Normal [facility] Comment on above: Performed By: #### C MP3, LIPA4, LACT3, HEMDF ####[email or web address] [place] [address] Hemoglobin A1c/Hemoglobin.total mass fraction (Bld) 8.3 % High 4.0-5.7 [facility] [employer] Comment on above: Result Comment: --Hg bA1C levels may not be accurate in patients who haverenal disease, received recent blood transfusions, are anemic,or who have dyshemoglobinemia. Performed By: #### C MP3, LIPA4, LACT3, HEMDF ####[address] Hemogramon 03-23-2018 Erythrocyte distribution width Auto Ratio (RBC) 13.2 % Normal 11.5-14.5 [facility] Comment on above: Performed By: #### C MP3, LIPA4, LACT3, HEMDF ####[address] Hematocrit Auto Volume Fraction (Bld) 43.3 % Normal 40.0-52.0 [facility] Comment on above: Performed By: #### C MP3, LIPA4, LACT3, HEMDF ####[address] Hemoglobin mass conc (Bld) 15.0 g/dL Normal 13.0-18.0 [facility] Comment on above: Performed By: #### C MP3, LIPA4, LACT3, HEMDF ####[address] MCH Auto Entitic mass (RBC) 30.7 pg Normal 26.0-34.0 [facility] Comment on above: Performed By: #### C MP3, LIPA4, LACT3, HEMDF ####[address] MCHC Auto mass conc (RBC) 34.6 % Normal 32.0-36.0 [facility] Comment on above: Performed By: #### C MP3, LIPA4, LACT3, HEMDF ####[address] MCV Auto Entitic volume (RBC) 88.6 fL Normal 80.0-98.0 [facility] Comment on above: Performed By: #### C MP3, LIPA4, LACT3, HEMDF ####[address] Platelet mean volume Auto Entitic volume (Bld) 9.6 fL Normal 7.4-10.4 [facility] Comment on above: Performed By: #### C MP3, LIPA4, LACT3, HEMDF ####[facility] [address] [place], [place] Platelets Auto #/vol (Bld) 280 10*3/uL Normal 140-440 [facility] Comment on above: Performed By: #### C MP3, LIPA4, LACT3, HEMDF ####[facility] [id number] [place], [place] RBC Auto #/vol (Bld) 4.89 10*6/uL Normal 4.40-5.90 [facility] Comment on above: Performed By: #### C MP3, LIPA4, LACT3, HEMDF ####[facility] [address] [place], [place] WBC Auto #/vol (Bld) 16.3 10*3/uL High 3.6-10.7 [facility] Comment on above: Performed By: #### C MP3, LIPA4, LACT3, HEMDF ####[facility] [address] [address] [place] Procalcitoninon 03-23-2018 Protein mass conc g/dL Normal <0.10 [facility] Comment on above: Performed By: #### U AMAC, UAMIC ####[facility] [id number] [place], [place] Sodium, Ur Randomon 03-23-20 18 Sodium molar conc 81 mmol/L Normal No Range [facility] Comment on above: Performed By: #### C MP3, LIPA4, LACT3, HEMDF ####[facility] [id number] [place], [place] Urinalysis,Macroon 8 Appearance slcloudy Normal Clear [facility] Comment on above: Performed By: #### C MP3, LIPA4, LACT3, HEMDF ####[facility] [address] [place], [place] Bilirubin,Ur 1 Normal Negative [facility] Comment on above: Performed By: #### C MP3, LIPA4, LACT3, HEMDF ####[address] [place], [place] Color yellow Normal Lt. Yellow [facility] Comment on above: Performed By: #### C MP3, LIPA4, LACT3, HEMDF ####[address] [place], [place] Glucose Ql (U) NORM Normal Negative [facility] Comment on above: Performed By: #### C MP3, LIPA4, LACT3, HEMDF ####[address] Ketone,Urine 2 + mg/dL Normal Negative [facility] Comment on above: Performed By: #### C MP3, LIPA4, LACT3, HEMDF ####[address] [place], [place] Leukocytes Trace Normal Negative [facility] Comment on above: Performed By: #### C MP3, LIPA4, LACT3, HEMDF ####[address] Nitrites Negative Normal Negative [facility] Comment on above: Performed By: #### C MP3, LIPA4, LACT3, HEMDF ####[address] Occult Blood,Ur Negative Normal Negative [facility] Comment on above: Performed By: #### C MP3, LIPA4, LACT3, HEMDF ####[address] pH Test strip (U) 5.0 Normal 5.0-8.0 [facility] Comment on above: Performed By: #### C MP3, LIPA4, LACT3, HEMDF ####[address] Specific [place],Urine 1.015 Normal 1.005-1.030 [facility] Comment on above: Performed By: #### C MP3, LIPA4, LACT3, HEMDF ####[address] Total Protein,Urine 75 mg/dL Normal Negative [facility] Comment on above: Performed By: #### C MP3, LIPA4, LACT3, HEMDF ####[facility] [id number] [place], [place] Urobilinogen NORM Normal 0-1 [facility] Comment on above: Performed By: #### C MP3, LIPA4, LACT3, HEMDF ####[facility] [address] [place], [place] Urinalysis,Microscopicon Bacteria Moderate (6-50) Normal Negative [facility] Comment on above: Performed By: #### C MP3, LIPA4, LACT3, HEMDF ####[facility] [address] [place], [place] Cast, Granular 0 - 2 Normal Negative [facility] Comment on above: Performed By: #### C MP3, LIPA4, LACT3, HEMDF ####[facility] [address] [place], [place] Cast, Hyaline 6 - 10 Normal 0-1 [facility] Comment on above: Performed By: #### C MP3, LIPA4, LACT3, HEMDF ####[facility] [address] [place], [place] Epithelial Cells 3 - 5 Normal 3-5 [facility] Comment on above: Performed By: #### C MP3, LIPA4, LACT3, HEMDF ####[facility] [id number] [place], [place] Mucous Threads Moderate Normal Negative [facility] Comment on above: Performed By: #### C MP3, LIPA4, LACT3, HEMDF ####[facility] [address] [place], [place] RBC LM.HPF #/area (Urine sed) 0 - 2 Normal 0-2 [facility] Comment on above: Performed By: #### C MP3, LIPA4, LACT3, HEMDF ####[facility] [id number] [place], [place] WBC LM.HPF #/area (Urine sed) 6 - 10 Normal 0-5 [facility] Comment on above: Performed By: #### C MP3, LIPA4, LACT3, HEMDF ####[facility] [address] [place], [place] Basic Metabolic Panelon 07-2 Anion gap 3 molar conc 11 Normal [facility] Comment on above: Performed By: #### C MP3, LIPA4, LACT3, HEMDF ####[facility] [address] [place], [place] Calcium mass conc 9.2 mg/dL Normal 8.4-10.4 [facility] Comment on above: Performed By: #### C MP3, LIPA4, LACT3, HEMDF ####[facility] [address] [place] CO2 molar conc 20 mmol/L Low 22-30 [facility] Comment on above: Performed By: #### C MP3, LIPA4, LACT3, HEMDF ####[facility] [address] [place], [place] Glucose mass conc 182 mg/dL High 70-100 [facility] Comment on above: Performed By: #### C MP3, LIPA4, LACT3, HEMDF ####[facility] [address] [place] Urea nitrogen mass conc 30 mg/dL High 7-20 [facility] Comment on above: Performed By: #### C MP3, LIPA4, LACT3, HEMDF ####[facility] [address] [place], [place] Creatinine mass conc 2.41 mg/dL High 0.52-1.25 [facility] Comment on above: Performed By: #### C MP3, LIPA4, LACT3, HEMDF ####[facility] [address] [place], [place] GFR/1.73 sq M predicted among blacks MDRD vol rate/area (S/P/Bld) 33.6 mL/min/{1.73_m2} Normal >60 [facility] Comment on above: Performed By: #### C MP3, LIPA4, LACT3, HEMDF ####[facility] [address] [place] [address] GFR/1.73 sq M predicted among non-blacks MDRD vol rate/area (S/P/Bld) 27.7 mL/min/{1.73_m2} Normal >60 [facility] Comment on above: Result Comment: Sour ce- MDRD equation with creatinine calibration to IDMS(NKDEP) eGFR not recommended for drug dose adjustment Performed By: #### C MP3, LIPA4, LACT3, HEMDF ####[facility] [address] [place] [address] Chloride molar conc 106 mmol/L Normal 98-107 [facility] Comment on above: Performed By: #### C MP3, LIPA4, LACT3, HEMDF ####[facility] [address] [place] [address] Potassium molar conc 4.2 mmol/L Normal 3.5-5.1 [facility] Comment on above: Performed By: #### C MP3, LIPA4, LACT3, HEMDF ####[facility] [address] [place] [address] Sodium molar conc 137 mmol/L Normal 137-145 [facility] Comment on above: Performed By: #### C MP3, LIPA4, LACT3, HEMDF ####[facility] [address] [place] [address] CR Chest Portableon 03-22-20 18 CR Chest Portable Patient Name: JEISON GARCIA Diagnostic Radiology Exam Date/Time 03/22/2018 17:52:59 EDT Exam CR Chest Portable Ordering Physician VANI BAE ROBERT Accession Number [id number] CPT4 Codes 90166 () Reason For Exam hypotension, weakness Report [...] Transcribed Date and Time: 03/22/2018 6:13 Normal [facility] Comp Panel with Mg Reflexon 03-22-2018 ALT enzyme act/vol 29 U/L Normal 13-69 [facility] Comment on above: Performed By: #### C MP3, LIPA4, LACT3, HEMDF ####[facility] [id number] [place], [place] Calcium mass conc 9.0 mg/dL Normal 8.4-10.4 [facility] Comment on above: Performed By: #### C MP3, LIPA4, LACT3, HEMDF ####[facility] [place] [address] [place], [place] Glucose mass conc 130 mg/dL High 70-100 [facility] Comment on above: Performed By: #### C MP3, LIPA4, LACT3, HEMDF ####[facility] [address] [place] Urea nitrogen mass conc 20 mg/dL Normal 7-20 [facility] Comment on above: Performed By: #### C MP3, LIPA4, LACT3, HEMDF ####[facility] [place] [address] [place] ALP enzyme act/vol 73 U/L Normal 38-126 [facility] Comment on above: Performed By: #### C MP3, LIPA4, LACT3, HEMDF ####[facility] [place] [address] [place] Anion gap 3 molar conc 10 Normal [facility] Comment on above: Performed By: #### C MP3, LIPA4, LACT3, HEMDF ####[facility] [address] AST enzyme act/vol 16 U/L Normal 15-46 [facility] Comment on above: Performed By: #### C MP3, LIPA4, LACT3, HEMDF ####[facility] [address] [place], [place] Bilirubin mass conc 1.8 mg/dL High 0.2-1.3 [facility] Comment on above: Performed By: #### C MP3, LIPA4, LACT3, HEMDF ####[facility] [address] [place] CO2 molar conc 22 mmol/L Normal 22-30 [facility] Comment on above: Performed By: #### C MP3, LIPA4, LACT3, HEMDF ####[facility] [address] [place], [place] Creatinine mass conc 0.95 mg/dL Normal 0.52-1.25 [facility] Comment on above: Performed By: #### C MP3, LIPA4, LACT3, HEMDF ####[facility] [address] GFR/1.73 sq M predicted among blacks MDRD vol rate/area (S/P/Bld) mL/min/{1.73_m2} Normal >60 [facility] Comment on above: Performed By: #### C MP3, LIPA4, LACT3, HEMDF ####[facility] [address] GFR/1.73 sq M predicted among non-blacks MDRD vol rate/area (S/P/Bld) mL/min/{1.73_m2} Normal >60 [facility] Comment on above: Result Comment: Sour ce- MDRD equation with creatinine calibration to IDMS(NKDEP) eGFR not recommended for drug dose adjustment Performed By: #### C MP3, LIPA4, LACT3, HEMDF ####[facility] [address] [place] Protein mass conc 6.5 g/dL Normal 6.3-8.2 [facility] Comment on above: Performed By: #### C MP3, LIPA4, LACT3, HEMDF ####[email or web address] [place] [address] Chloride molar conc 105 mmol/L Normal 98-107 [facility] Comment on above: Performed By: #### C MP3, LIPA4, LACT3, HEMDF ####[email or web address] [place] [address] Potassium molar conc 3.6 mmol/L Normal 3.5-5.1 [facility] Comment on above: Performed By: #### C MP3, LIPA4, LACT3, HEMDF ####[email or web address] [place] [address] Sodium molar conc 137 mmol/L Normal 137-145 [facility] Comment on above: Performed By: #### C MP3, LIPA4, LACT3, HEMDF ####[email or web address] [place] [address] Albumin mass conc 4.3 g/dL Normal 3.5-5.0 [facility] Comment on above: Performed By: #### C MP3, LIPA4, LACT3, HEMDF ####[email or web address] [place] [address] Glucose,Bedsideon 03-22-2018 Glucose mass conc 183 mg/dL High 70-100 [facility] Comment on above: Result Comment: Test performed by glucose meter. Results may be 10%-15% lowerthan serum/plasma values. (CLIA ID [id number]) Performed By: #### C MP3, LIPA4, LACT3, HEMDF ####[email or web address] [employer] [place] [place] [address] Glucose mass conc 133 mg/dL High 70-100 [facility] Comment on above: Result Comment: Test performed by glucose meter. Results may be 10%-15% lowerthan serum/plasma values. (CLIA ID [id number]) Performed By: #### C MP3, LIPA4, LACT3, HEMDF ####[email or web address] [place] Hemogramon 03-22-2018 Erythrocyte distribution width Auto Ratio (RBC) 13.3 % Normal 11.5-14.5 [facility] Comment on above: Performed By: #### C MP3, LIPA4, LACT3, HEMDF ####[address] [place], [place] Hematocrit Auto Volume Fraction (Bld) 43.7 % Normal 40.0-52.0 [facility] Comment on above: Performed By: #### C MP3, LIPA4, LACT3, HEMDF ####[address] [place], [place] Hemoglobin mass conc (Bld) 15.1 g/dL Normal 13.0-18.0 [facility] Comment on above: Performed By: #### C MP3, LIPA4, LACT3, HEMDF ####[address] [place], [place] MCH Auto Entitic mass (RBC) 30.3 pg Normal 26.0-34.0 [facility] Comment on above: Performed By: #### C MP3, LIPA4, LACT3, HEMDF ####[address] MCHC Auto mass conc (RBC) 34.5 % Normal 32.0-36.0 [facility] Comment on above: Performed By: #### C MP3, LIPA4, LACT3, HEMDF ####[address] MCV Auto Entitic volume (RBC) 87.8 fL Normal 80.0-98.0 [facility] Comment on above: Performed By: #### C MP3, LIPA4, LACT3, HEMDF ####[address] Platelet mean volume Auto Entitic volume (Bld) 9.5 fL Normal 7.4-10.4 [facility] Comment on above: Performed By: #### C MP3, LIPA4, LACT3, HEMDF ####[address] [place] Platelets Auto #/vol (Bld) 279 10*3/uL Normal 140-440 [facility] Comment on above: Performed By: #### C MP3, LIPA4, LACT3, HEMDF ####[address] [place], [place] RBC Auto #/vol (Bld) 4.98 10*6/uL Normal 4.40-5.90 [facility] Comment on above: Performed By: #### C MP3, LIPA4, LACT3, HEMDF ####[address] WBC Auto #/vol (Bld) 16.0 10*3/uL High 3.6-10.7 [facility] Comment on above: Performed By: #### C MP3, LIPA4, LACT3, HEMDF ####[address] Magnesiumon 03-22-2018 Magnesium mass conc 2.2 mg/dL Normal 1.6-2.3 [facility] Comment on above: Performed By: #### C MP3, LIPA4, LACT3, HEMDF ####[address] Procalcitoninon 03-22-2018 Interpretation See Below Normal [facility] Comment on above: Result Comment: PCT <0.50 = Low risk of severe sepsis and/or septic shock.PCT >2.00 = High risk of severe sepsis and/or septic shock. Performed By: #### U AMAC, UAMIC ####[address] Troponin Ion 03-22-2018 Troponin I.cardiac mass conc ng/mL Normal 0.000-0.034 [facility] Comment on above: Result Comment: 0.04 6 - 0.400 = Indeterminate> 0.400 = Consider Myocardial Injury Performed By: #### C MP3, LIPA4, LACT3, HEMDF ####[address] Basic Metabolic Panelon 07-2 Anion gap 3 molar conc 7 Normal [facility] Comment on above: Performed By: #### C MP3, LIPA4, LACT3, HEMDF ####[facility] [id number] [place], [place] Calcium mass conc 8.9 mg/dL Normal 8.4-10.4 [facility] Comment on above: Performed By: #### C MP3, LIPA4, LACT3, HEMDF ####[address] [place], [place] CO2 molar conc 26 mmol/L Normal 22-30 [facility] Comment on above: Performed By: #### C MP3, LIPA4, LACT3, HEMDF ####[address] [place], [place] Glucose mass conc 161 mg/dL High 70-100 [facility] Comment on above: Performed By: #### C MP3, LIPA4, LACT3, HEMDF ####[facility] [address] Urea nitrogen mass conc 20 mg/dL Normal 7-20 [facility] Comment on above: Performed By: #### C MP3, LIPA4, LACT3, HEMDF ####[facility] [address] Creatinine mass conc 0.92 mg/dL Normal 0.52-1.25 [facility] Comment on above: Performed By: #### C MP3, LIPA4, LACT3, HEMDF ####[facility] [id number] [place], [place] GFR/1.73 sq M predicted among blacks MDRD vol rate/area (S/P/Bld) mL/min/{1.73_m2} Normal >60 [facility] Comment on above: Performed By: #### C MP3, LIPA4, LACT3, HEMDF ####[address] [place] [address] GFR/1.73 sq M predicted among non-blacks MDRD vol rate/area (S/P/Bld) mL/min/{1.73_m2} Normal >60 [facility] Comment on above: Result Comment: Sour ce- MDRD equation with creatinine calibration to IDMS(NKDEP) eGFR not recommended for drug dose adjustment Performed By: #### C MP3, LIPA4, LACT3, HEMDF ####[email or web address] [place] [address] Potassium molar conc 3.7 mmol/L Normal 3.5-5.1 [facility] Comment on above: Performed By: #### C MP3, LIPA4, LACT3, HEMDF ####[email or web address] [place] [address] Sodium molar conc 139 mmol/L Normal 137-145 [facility] Comment on above: Performed By: #### C MP3, LIPA4, LACT3, HEMDF ####[email or web address] [place] [address] Chloride molar conc 106 mmol/L Normal 98-107 [facility] Comment on above: Performed By: #### C MP3, LIPA4, LACT3, HEMDF ####[facility] [place] [address] Glucose,Bedsideon 03-21-2018 Glucose mass conc 129 mg/dL High 70-100 [facility] Comment on above: Result Comment: Test performed by glucose meter. Results may be 10%-15% lowerthan serum/plasma values. (CLIA ID [id number]) Performed By: #### C MP3, LIPA4, LACT3, HEMDF ####[facility] [place] [address] Glucose mass conc 184 mg/dL High 70-100 [facility] Comment on above: Result Comment: Test performed by glucose meter. Results may be 10%-15% lowerthan serum/plasma values. (CLIA ID [id number]) Performed By: #### C MP3, LIPA4, LACT3, HEMDF ####[facility] [facility] [place] [address] Glucose mass conc 171 mg/dL High 70-100 [facility] Comment on above: Result Comment: Test performed by glucose meter. Results may be 10%-15% lowerthan serum/plasma values. (CLIA ID [id number]) Performed By: #### C MP3, LIPA4, LACT3, HEMDF ####[email or web address] [place] [address] Glucose mass conc 171 mg/dL High 70-100 [facility] Comment on above: Result Comment: Test performed by glucose meter. Results may be 10%-15% lowerthan serum/plasma values. (CLIA ID [id number]) Performed By: #### C MP3, LIPA4, LACT3, HEMDF ####[email or web address] [place] [address] Glucose mass conc 157 mg/dL High 70-100 [facility] Comment on above: Result Comment: Test performed by glucose meter. Results may be 10%-15% lowerthan serum/plasma values. (CLIA ID [id number]) Performed By: #### C MP3, LIPA4, LACT3, HEMDF ####[email or web address] [place] [address] Troponin Ion 03-21-2018 Troponin I.cardiac mass conc ng/mL Normal 0.000-0.034 [facility] Comment on above: Result Comment: 0.04 6 - 0.400 = Indeterminate> 0.400 = Consider Myocardial Injury Performed By: #### C MP3, LIPA4, LACT3, HEMDF ####[email or web address] [place] [address] Basic Metabolic Panelon -2 Anion gap 3 molar conc 12 Normal [facility] [employer] Comment on above: Performed By: #### C MP3, LIPA4, LACT3, HEMDF ####[email or web address] [place] [address] Calcium mass conc 9.1 mg/dL Normal 8.4-10.4 [facility] Comment on above: Performed By: #### C MP3, LIPA4, LACT3, HEMDF ####[email or web address] [place] [address] CO2 molar conc 20 mmol/L Low 22-30 [facility] Comment on above: Performed By: #### C MP3, LIPA4, LACT3, HEMDF ####[email or web address] [place] [address] Glucose mass conc 147 mg/dL High 70-100 [facility] Comment on above: Performed By: #### C MP3, LIPA4, LACT3, HEMDF ####[email or web address] [place] [address] Urea nitrogen mass conc 23 mg/dL High 7-20 [facility] Comment on above: Performed By: #### C MP3, LIPA4, LACT3, HEMDF ####[employer] [id number] [place] [address] Creatinine mass conc 0.88 mg/dL Normal 0.52-1.25 [facility] Comment on above: Performed By: #### C MP3, LIPA4, LACT3, HEMDF ####[email or web address] [place] [address] GFR/1.73 sq M predicted among blacks MDRD vol rate/area (S/P/Bld) mL/min/{1.73_m2} Normal >60 [facility] Comment on above: Performed By: #### C MP3, LIPA4, LACT3, HEMDF ####[email or web address] [place] [address] GFR/1.73 sq M predicted among non-blacks MDRD vol rate/area (S/P/Bld) mL/min/{1.73_m2} Normal >60 [facility] Comment on above: Result Comment: Sour ce- MDRD equation with creatinine calibration to IDMS(NKDEP) eGFR not recommended for drug dose adjustment Performed By: #### C MP3, LIPA4, LACT3, HEMDF ####[employer] [email or web address] [place] [address] Potassium molar conc 4.0 mmol/L Normal 3.5-5.1 [facility] Comment on above: Performed By: #### C MP3, LIPA4, LACT3, HEMDF ####[facility] [id number] [place] [address] Sodium molar conc 139 mmol/L Normal 137-145 [facility] Comment on above: Performed By: #### C MP3, LIPA4, LACT3, HEMDF ####[facility] [id number] [place] [address] Chloride molar conc 107 mmol/L Normal 98-107 [facility] Comment on above: Performed By: #### C MP3, LIPA4, LACT3, HEMDF ####[facility] [employer] [place] [address] Echo Complete w/wo Contrasto n 03-20-2018 Echo Complete w/wo Contrast Patient Name: JEISON GARCIA Ultrasound Exam Date/Time 03/20/2018 14:04:19 EDT Exam Echo Complete w/wo Contrast Ordering Physician [id number] KELL GOFF Accession Number [id number] Reason For Exam frequent PVC Report TRANSTHORACIC ECHOCARDIOGRAM PATIENT: Jeison Garcia STUDY DATE: 03/20/2018 : 1960 AGE: 57 HT/WT: 177.8 cm (70 97.5 kg (214.5 in) lb) GENDER: M BP: 163 / 99 LOCATION: [facility] PATIENT Observation [facility] STATUS: *ORDERING PHYSICIAN: * Kell Wu *READING PHYSICIAN: * Jerald Lemus MD *AIR BRAKE RIGGER: * Clarissa YUNG --- --- INDICATIONS: Arrhythmia. [...] Signed by: MD LEMUS STEPHEN M Normal [email or web address] Glucose,Bedsideon 03-20-2018 Glucose mass conc 159 mg/dL High 70-100 [facility] Comment on above: Result Comment: Test performed by glucose meter. Results may be 10%-15% lowerthan serum/plasma values. (CLIA ID [id number]) Performed By: #### C MP3, LIPA4, LACT3, HEMDF ####[employer] [place] [address] Glucose mass conc 141 mg/dL High 70-100 [facility] Comment on above: Result Comment: Test performed by glucose meter. Results may be 10%-15% lowerthan serum/plasma values. (CLIA ID [id number]) Performed By: #### C MP3, LIPA4, LACT3, HEMDF ####[email or web address] [place] [address] Glucose mass conc 171 mg/dL High 70-100 [facility] Comment on above: Result Comment: Test performed by glucose meter. Results may be 10%-15% lowerthan serum/plasma values. (CLIA ID [id number]) Performed By: #### C MP3, LIPA4, LACT3, HEMDF ####[email or web address] [place] Glucose mass conc 145 mg/dL High 70-100 [facility] Comment on above: Result Comment: Test performed by glucose meter. Results may be 10%-15% lowerthan serum/plasma values. (CLIA ID [id number]) Performed By: #### C MP3, LIPA4, LACT3, HEMDF ####[email or web address] [place] [address] Glucose mass conc 168 mg/dL High 70-100 [facility] Comment on above: Result Comment: Test performed by glucose meter. Results may be 10%-15% lowerthan serum/plasma values. (CLIA ID [id number]) Performed By: #### C MP3, LIPA4, LACT3, HEMDF ####[email or web address] [place] [address] Glucose mass conc 170 mg/dL High 70-100 [facility] Comment on above: Result Comment: Test performed by glucose meter. Results may be 10%-15% lowerthan serum/plasma values. (CLIA ID [id number]) Performed By: #### C MP3, LIPA4, LACT3, HEMDF ####[email or web address] [place] [address] Hemogram w/ Autodiffon 03-20 Abs Baso Cnt 0.1 10*3/uL Normal 0.0-0.2 [facility] Comment on above: Performed By: #### C MP3, LIPA4, LACT3, HEMDF ####[employer] [address] Abs Neutrophile Cnt 8.1 10*3/uL High 1.8-7.0 [facility] Comment on above: Performed By: #### C MP3, LIPA4, LACT3, HEMDF ####[address] [place], [place] Basophils/100 WBC Auto (Bld) 0.8 % Normal 0.0-2.0 [facility] Comment on above: Performed By: #### C MP3, LIPA4, LACT3, HEMDF ####[address] Eosinophils Auto #/vol (Bld) 0.2 10*3/uL Normal 0.0-0.5 [facility] Comment on above: Performed By: #### C MP3, LIPA4, LACT3, HEMDF ####[address] Eosinophils/100 WBC Auto (Bld) 1.5 % Normal 1.0-6.0 [facility] Comment on above: Performed By: #### C MP3, LIPA4, LACT3, HEMDF ####[address] Erythrocyte distribution width Auto Ratio (RBC) 13.4 % Normal 11.5-14.5 [facility] Comment on above: Performed By: #### C MP3, LIPA4, LACT3, HEMDF ####[address] Granulocytes/100 WBC (Bld) 63.5 % Normal 40.0-80.0 [facility] Comment on above: Performed By: #### C MP3, LIPA4, LACT3, HEMDF ####[address] Hematocrit Auto Volume Fraction (Bld) 43.4 % Normal 40.0-52.0 [facility] Comment on above: Performed By: #### C MP3, LIPA4, LACT3, HEMDF ####[address] Hemoglobin mass conc (Bld) 15.0 g/dL Normal 13.0-18.0 [facility] Comment on above: Performed By: #### C MP3, LIPA4, LACT3, HEMDF ####[address] Lymphocytes Auto #/vol (Bld) 3.0 10*3/uL Normal 1.0-4.3 [facility] Comment on above: Performed By: #### C MP3, LIPA4, LACT3, HEMDF ####[address] Lymphocytes/100 WBC Auto (Bld) 23.3 % Normal 20.0-40.0 [facility] Comment on above: Performed By: #### C MP3, LIPA4, LACT3, HEMDF ####[address] MCH Auto Entitic mass (RBC) 30.1 pg Normal 26.0-34.0 [facility] Comment on above: Performed By: #### C MP3, LIPA4, LACT3, HEMDF ####[address] MCHC Auto mass conc (RBC) 34.5 % Normal 32.0-36.0 [facility] Comment on above: Performed By: #### C MP3, LIPA4, LACT3, HEMDF ####[address] MCV Auto Entitic volume (RBC) 87.5 fL Normal 80.0-98.0 [facility] Comment on above: Performed By: #### C MP3, LIPA4, LACT3, HEMDF ####[address] Monocytes Auto #/vol (Bld) 1.4 10*3/uL High 0.0-0.8 [facility] Comment on above: Performed By: #### C MP3, LIPA4, LACT3, HEMDF ####[address] Monocytes/100 WBC Auto (Bld) 10.9 % High 2.0-10.0 [facility] Comment on above: Performed By: #### C MP3, LIPA4, LACT3, HEMDF ####[facility] [place], [place] Platelet mean volume Auto Entitic volume (Bld) 9.5 fL Normal 7.4-10.4 [facility] Comment on above: Performed By: #### C MP3, LIPA4, LACT3, HEMDF ####[address] [place], [place] Platelets Auto #/vol (Bld) 268 10*3/uL Normal 140-440 [facility] Comment on above: Performed By: #### C MP3, LIPA4, LACT3, HEMDF ####[address] [place], [place] RBC Auto #/vol (Bld) 4.96 10*6/uL Normal 4.40-5.90 [facility] Comment on above: Performed By: #### C MP3, LIPA4, LACT3, HEMDF ####[address] [place], [place] WBC Auto #/vol (Bld) 12.7 10*3/uL High 3.6-10.7 [facility] Comment on above: Performed By: #### C MP3, LIPA4, LACT3, HEMDF ####[address] [place], [place] Surgical Pathologyon 018 Surgical Pathology [id number] [facility] PATHOLOGY AND [facility]ORATORY MEDICINE [address] [place] [address] FINAL SURGICAL PATHOLOGY REPORT NAME: JEISON GARCIA Neema .O.B.: 1960 57 Y M BILLING NO.: [id number]: [id number] PROCEDURE 03/20/2018 DATE:SURGEON: ELICIA [...] theirperformance characteristics [facility]. They have not been cleared by the [...] false negativity on decalcified specimens.Professional Performing Location: [address] [address]. DEPARTMENT OF PATHOLOGY AND LABORATORY MEDICINE [place], [place] [address] Normal [facility] Troponin Ion 03-20-2018 Troponin I.cardiac mass conc ng/mL Normal 0.000-0.034 [facility] Comment on above: Result Comment: 0.04 6 - 0.400 = Indeterminate> 0.400 = Consider Myocardial Injury Performed By: #### C MP3, LIPA4, LACT3, HEMDF ####[address] [place], [place] Basic Metabolic Panelon 02-26 Anion gap 3 molar conc 11 Normal [facility] Comment on above: Performed By: #### P SA3 ####[address] [place], [place] Calcium mass conc 9.4 mg/dL Normal 8.4-10.4 [facility] Comment on above: Performed By: #### P SA3 ####[address] [place], [place] CO2 molar conc 22 mmol/L Normal 22-30 [facility] Comment on above: Performed By: #### P SA3 ####[address] [place], [place] Glucose mass conc 184 mg/dL High 70-100 [facility] Comment on above: Performed By: #### P SA3 ####[address] [place], [place] Urea nitrogen mass conc 36 mg/dL High 7-20 [facility] Comment on above: Performed By: #### P SA3 ####[address] [place] [address] Creatinine mass conc 1.00 mg/dL Normal 0.52-1.25 [facility] Comment on above: Performed By: #### P SA3 ####[facility] [id number] [place] [address] GFR/1.73 sq M predicted among blacks MDRD vol rate/area (S/P/Bld) mL/min/{1.73_m2} Normal >60 [facility] Comment on above: Performed By: #### P SA3 ####[facility] [id number] [place] [address] GFR/1.73 sq M predicted among non-blacks MDRD vol rate/area (S/P/Bld) mL/min/{1.73_m2} Normal >60 [facility] Comment on above: Result Comment: Sour ce- MDRD equation with creatinine calibration to IDMS(NKDEP) eGFR not recommended for drug dose adjustment Performed By: #### P SA3 ####[facility] [address] [address] Potassium molar conc 4.0 mmol/L Normal 3.5-5.1 [facility] Comment on above: Performed By: #### P SA3 ####[facility] [id number] [place] [address] Sodium molar conc 139 mmol/L Normal 137-145 [facility] Comment on above: Performed By: #### P SA3 ####[facility] [id number] [place] [address] Chloride molar conc 107 mmol/L Normal 98-107 [facility] Comment on above: Performed By: #### P SA3 ####[facility] [id number] [place] [address] CULTURE URINEon 03-19-2018 CULTURE URINE CULTURE URINE --> Status: F Insignificant growth based on current clinical guidelines. Normal [facility] Comment on above: Order Comment: Speci men Source Comment:Urine, clean catch Performed By: #### C MP3, LIPA4, LACT3, HEMDF ####[facility] [id number] [place] [address] Glucose,Bedsideon 03-19-2018 Glucose mass conc 157 mg/dL High 70-100 [facility] Comment on above: Result Comment: Test performed by glucose meter. Results may be 10%-15% lowerthan serum/plasma values. (CLIA ID [id number]) Performed By: #### C MP3, LIPA4, LACT3, HEMDF ####[email or web address] [place] [address] Glucose mass conc 173 mg/dL High 70-100 [facility] Comment on above: Result Comment: Test performed by glucose meter. Results may be 10%-15% lowerthan serum/plasma values. (CLIA ID [id number]) Performed By: #### C MP3, LIPA4, LACT3, HEMDF ####[email or web address] [place] [address] Glucose mass conc 171 mg/dL High 70-100 [facility] Comment on above: Result Comment: Test performed by glucose meter. Results may be 10%-15% lowerthan serum/plasma values. (CLIA ID [id number]) Performed By: #### C MP3, LIPA4, LACT3, HEMDF ####[email or web address] [place] [address] Glucose mass conc 174 mg/dL High 70-100 [facility] Comment on above: Result Comment: Test performed by glucose meter. Results may be 10%-15% lowerthan serum/plasma values. (CLIA ID [id number]) Performed By: #### P SA3 ####[email or web address] [place] [address] Hemoglobin A1Con 03-19-2018 Glucose mass conc 189 mg/dL Normal [facility] Comment on above: Performed By: #### C MP3, LIPA4, LACT3, HEMDF ####[email or web address] [place] [address] Hemoglobin A1c/Hemoglobin.total mass fraction (Bld) 8.2 % High 4.0-5.7 [facility] [employer] Comment on above: Result Comment: --Hg bA1C levels may not be accurate in patients who haverenal disease, received recent blood transfusions, are anemic,or who have dyshemoglobinemia. Performed By: #### C MP3, LIPA4, LACT3, HEMDF ####[address] [address] Hemogram w/ Autodiffon 03-19 Abs Baso Cnt 0.1 10*3/uL Normal 0.0-0.2 [facility] Comment on above: Performed By: #### P SA3 ####[address] [address] Abs Neutrophile Cnt 11.4 10*3/uL High 1.8-7.0 [facility] Comment on above: Performed By: #### P SA3 ####[address] [address] Basophils/100 WBC Auto (Bld) 0.5 % Normal 0.0-2.0 [facility] Comment on above: Performed By: #### P SA3 ####[address] [address] Eosinophils Auto #/vol (Bld) 0.1 10*3/uL Normal 0.0-0.5 [facility] Comment on above: Performed By: #### P SA3 ####[address] [address] Eosinophils/100 WBC Auto (Bld) 0.7 % Low 1.0-6.0 [facility] Comment on above: Performed By: #### P SA3 ####[address] [address] Erythrocyte distribution width Auto Ratio (RBC) 13.3 % Normal 11.5-14.5 [facility] Comment on above: Performed By: #### P SA3 ####[address] [address] Granulocytes/100 WBC (Bld) 71.2 % Normal 40.0-80.0 [facility] Comment on above: Performed By: #### P SA3 ####[address] Hematocrit Auto Volume Fraction (Bld) 47.1 % Normal 40.0-52.0 [facility] Comment on above: Performed By: #### P SA3 ####[address] Hemoglobin mass conc (Bld) 15.9 g/dL Normal 13.0-18.0 [facility] Comment on above: Performed By: #### P SA3 ####[address] Lymphocytes Auto #/vol (Bld) 2.7 10*3/uL Normal 1.0-4.3 [facility] Comment on above: Performed By: #### P SA3 ####[address] Lymphocytes/100 WBC Auto (Bld) 16.9 % Low 20.0-40.0 [facility] Comment on above: Performed By: #### P SA3 ####[address] MCH Auto Entitic mass (RBC) 30.0 pg Normal 26.0-34.0 [facility] Comment on above: Performed By: #### P SA3 ####[address] MCHC Auto mass conc (RBC) 33.8 % Normal 32.0-36.0 [facility] Comment on above: Performed By: #### P SA3 ####[address] MCV Auto Entitic volume (RBC) 88.7 fL Normal 80.0-98.0 [facility] Comment on above: Performed By: #### P SA3 ####[address] Monocytes Auto #/vol (Bld) 1.7 10*3/uL High 0.0-0.8 [facility] Comment on above: Performed By: #### P SA3 ####[address] Monocytes/100 WBC Auto (Bld) 10.7 % High 2.0-10.0 [facility] Comment on above: Performed By: #### P SA3 ####[address] Platelet mean volume Auto Entitic volume (Bld) 9.2 fL Normal 7.4-10.4 [facility] Comment on above: Performed By: #### P SA3 ####[address] Platelets Auto #/vol (Bld) 284 10*3/uL Normal 140-440 [facility] Comment on above: Performed By: #### P SA3 ####[address] RBC Auto #/vol (Bld) 5.31 10*6/uL Normal 4.40-5.90 [facility] Comment on above: Performed By: #### P SA3 ####[address] WBC Auto #/vol (Bld) 16.0 10*3/uL High 3.6-10.7 [facility] Comment on above: Performed By: #### P SA3 ####[address] Troponin Ion 03-19-2018 Troponin I.cardiac mass conc ng/mL Normal 0.000-0.034 [facility] Comment on above: Result Comment: 0.04 6 - 0.400 = Indeterminate> 0.400 = Consider Myocardial Injury Performed By: #### C MP3, LIPA4, LACT3, HEMDF ####[address] Troponin I.cardiac mass conc ng/mL Normal 0.000-0.034 [facility] Comment on above: Result Comment: 0.04 6 - 0.400 = Indeterminate> 0.400 = Consider Myocardial Injury Performed By: #### P SA3 ####[address] [address] CR Abdomen APon 03-18-2018 CR Abdomen AP Patient Name: JEISON GARCIA Diagnostic Radiology Exam Date/Time 03/18/2018 19:23:28 EDT Exam CR Abdomen AP Ordering Physician FELECIA ACEVEDO REBECCA E. Accession Number [id number] CPT4 Codes 62141 () Reason For Exam stone disease, abdominal [...] on CT 03/14/2018. Report Dictated on Workstation: [employer] Final Dictated: 03/18/2018 7:28 pm Dictating Physician: MD WYNN JOHN Signed Date and Time: 03/18/2018 7:31 pm Signed by: MD WYNN JOHN Transcribed Date and Time: 03/18/2018 7:28 Normal [facility] Comp Metabolic Panelon 03-18 ALP enzyme act/vol 103 U/L Normal 38-126 [facility] Comment on above: Performed By: #### P SA3 ####[facility] [id number] [place] [address] ALT enzyme act/vol 36 U/L Normal 13-69 [facility] Comment on above: Performed By: #### P SA3 ####[facility] [address] [place] [address] Calcium mass conc 10.4 mg/dL Normal 8.4-10.4 [facility] Comment on above: Performed By: #### P SA3 ####[facility] [id number] [place] [address] Glucose mass conc 195 mg/dL High 70-100 [facility] Comment on above: Performed By: #### P SA3 ####[address] [place], [place] Anion gap 3 molar conc 14 Normal [facility] Comment on above: Performed By: #### P SA3 ####[address] [place], [place] AST enzyme act/vol 23 U/L Normal 15-46 [facility] Comment on above: Performed By: #### P SA3 ####[address] [place], [place] Bilirubin mass conc 2.1 mg/dL High 0.2-1.3 [facility] Comment on above: Performed By: #### P SA3 ####[address] CO2 molar conc 19 mmol/L Low 22-30 [facility] Comment on above: Performed By: #### P SA3 ####[address] Creatinine mass conc 0.86 mg/dL Normal 0.52-1.25 [facility] Comment on above: Performed By: #### P SA3 ####[address] [place], [place] GFR/1.73 sq M predicted among blacks MDRD vol rate/area (S/P/Bld) mL/min/{1.73_m2} Normal >60 [facility] Comment on above: Performed By: #### P SA3 ####[address] [place], [place] GFR/1.73 sq M predicted among non-blacks MDRD vol rate/area (S/P/Bld) mL/min/{1.73_m2} Normal >60 [facility] Comment on above: Result Comment: Sour ce- MDRD equation with creatinine calibration to IDMS(NKDEP) eGFR not recommended for drug dose adjustment Performed By: #### P SA3 ####[address] [place], [place] Protein mass conc 7.8 g/dL Normal 6.3-8.2 [facility] Comment on above: Performed By: #### P SA3 ####[address] [place] [address] Urea nitrogen mass conc 32 mg/dL High 7-20 [facility] Comment on above: Performed By: #### P SA3 ####[address] Potassium molar conc 3.8 mmol/L Normal 3.5-5.1 [facility] Comment on above: Performed By: #### P SA3 ####[address] Sodium molar conc 136 mmol/L Low 137-145 [facility] Comment on above: Performed By: #### P SA3 ####[address] Albumin mass conc 4.9 g/dL Normal 3.5-5.0 [facility] Comment on above: Performed By: #### P SA3 ####[address] Chloride molar conc 103 mmol/L Normal 98-107 [facility] Comment on above: Performed By: #### P SA3 ####[address] Hemogram w/ Autodiffon 03-18 Abs Baso Cnt 0.1 10*3/uL Normal 0.0-0.2 [facility] Comment on above: Performed By: #### P SA3 ####[address] [place], [place] Abs Neutrophile Cnt 12.4 10*3/uL High 1.8-7.0 [facility] Comment on above: Performed By: #### P SA3 ####[address] Basophils/100 WBC Auto (Bld) 0.5 % Normal 0.0-2.0 [facility] Comment on above: Performed By: #### P SA3 ####[address] [address] [place] [address] Eosinophils Auto #/vol (Bld) 0.0 10*3/uL Normal 0.0-0.5 [facility] Comment on above: Performed By: #### P SA3 ####[address] [address] Eosinophils/100 WBC Auto (Bld) 0.3 % Low 1.0-6.0 [facility] Comment on above: Performed By: #### P SA3 ####[address] [address] Erythrocyte distribution width Auto Ratio (RBC) 13.6 % Normal 11.5-14.5 [facility] Comment on above: Performed By: #### P SA3 ####[address] [address] Granulocytes/100 WBC (Bld) 73.4 % Normal 40.0-80.0 [facility] Comment on above: Performed By: #### P SA3 ####[address] [address] Hematocrit Auto Volume Fraction (Bld) 49.6 % Normal 40.0-52.0 [facility] Comment on above: Performed By: #### P SA3 ####[address] [address] Hemoglobin mass conc (Bld) 17.1 g/dL Normal 13.0-18.0 [facility] Comment on above: Performed By: #### P SA3 ####[address] [address] Lymphocytes Auto #/vol (Bld) 2.7 10*3/uL Normal 1.0-4.3 [facility] Comment on above: Performed By: #### P SA3 ####[address] [address] Lymphocytes/100 WBC Auto (Bld) 16.0 % Low 20.0-40.0 [facility] Comment on above: Performed By: #### P SA3 ####[address] MCH Auto Entitic mass (RBC) 30.2 pg Normal 26.0-34.0 [facility] Comment on above: Performed By: #### P SA3 ####[address] [address] MCHC Auto mass conc (RBC) 34.6 % Normal 32.0-36.0 [facility] Comment on above: Performed By: #### P SA3 ####[address] MCV Auto Entitic volume (RBC) 87.5 fL Normal 80.0-98.0 [facility] Comment on above: Performed By: #### P SA3 ####[address] Monocytes Auto #/vol (Bld) 1.6 10*3/uL High 0.0-0.8 [facility] Comment on above: Performed By: #### P SA3 ####[address] Monocytes/100 WBC Auto (Bld) 9.8 % Normal 2.0-10.0 [facility] Comment on above: Performed By: #### P SA3 ####[address] Platelet mean volume Auto Entitic volume (Bld) 9.0 fL Normal 7.4-10.4 [facility] Comment on above: Performed By: #### P SA3 ####[address] Platelets Auto #/vol (Bld) 335 10*3/uL Normal 140-440 [facility] Comment on above: Performed By: #### P SA3 ####[address] RBC Auto #/vol (Bld) 5.67 10*6/uL Normal 4.40-5.90 [facility] Comment on above: Performed By: #### P SA3 ####[facility] [address] [place], [place] WBC Auto #/vol (Bld) 16.8 10*3/uL High 3.6-10.7 [facility] Comment on above: Performed By: #### P SA3 ####[address] Magnesiumon 03-18-2018 Magnesium mass conc 2.0 mg/dL Normal 1.6-2.3 [facility] Comment on above: Performed By: #### P SA3 ####[address] [place], [place] Urinalysis,Macroon 8 Appearance clear Normal Clear [facility] Comment on above: Performed By: #### P SA3 ####[address] Bilirubin,Ur Negative Normal Negative [facility] Comment on above: Performed By: #### P SA3 ####[address] Color yellow Normal Lt. Yellow [facility] Comment on above: Performed By: #### P SA3 ####[address] Glucose Ql (U) 300 mg/dL Normal Negative [facility] Comment on above: Performed By: #### P SA3 ####[address] Ketone,Urine 3 + mg/dL Normal Negative [facility] Comment on above: Performed By: #### P SA3 ####[facility] [id number] [place], [place] Leukocytes Trace Normal Negative [facility] Comment on above: Performed By: #### P SA3 ####[address] [place], [place] Nitrites Negative Normal Negative [facility] Comment on above: Performed By: #### P SA3 ####[address] [place], [place] Occult Blood,Ur 25 {RBC}/uL Normal Negative [facility] Comment on above: Performed By: #### P SA3 ####[address] pH Test strip (U) 5.0 Normal 5.0-8.0 [facility] Comment on above: Performed By: #### P SA3 ####[address] Specific [place],Urine 1.020 Normal 1.005-1.030 [facility] Comment on above: Performed By: #### P SA3 ####[address] Total Protein,Urine 75 mg/dL Normal Negative [facility] Comment on above: Performed By: #### P SA3 ####[address] Urobilinogen NORM Normal 0-1 [facility] Comment on above: Performed By: #### P SA3 ####[address] Urinalysis,Microscopicon Bacteria Moderate (6-50) Normal Negative [facility] Comment on above: Performed By: #### P SA3 ####[address] Epithelial Cells 0 - 2 Normal 3-5 [facility] Comment on above: Performed By: #### P SA3 ####[address] Mucous Threads Few Normal Negative [facility] Comment on above: Performed By: #### P SA3 ####[address] RBC LM.HPF #/area (Urine sed) 3 - 5 Normal 0-2 [facility] Comment on above: Performed By: #### P SA3 ####[address] WBC LM.HPF #/area (Urine sed) 11 - 25 Normal 0-5 [facility] Comment on above: Performed By: #### P SA3 ####[facility] [place] [address] CULTURE URINEon 03-15-2018 CULTURE URINE CULTURE URINE --> Status: F No growth (<1,000 CFU/ml). Normal [facility] Comment on above: Order Comment: Speci men Source Comment:Urine, clean catch Performed By: #### C /UR ####[facility] [place] [address] [address] Abdomen/Pelvis w/o Contra ston 03-14-2018 CT Abdomen/Pelvis w/o Contrast Patient Name: JEISON GARCIA CT Exam Date/Time 03/14/2018 21:01:[address] Abdomen/Pelvis (No PO, No IV) Ordering Physician [id number] DWIGHT VELEZ Accession Number [id number] CPT4 Codes 56679 (CT Abdomen/Pelvis (No PO, No IV)) Reason [...] Transcribed Date and Time: 03/14/2018 9:41 Normal [facility] Comp Metabolic Panelon 03-14 ALP enzyme act/vol 119 U/L Normal 38-126 [facility] Comment on above: Performed By: #### C MP3, LIPA4, LACT3, HEMDF ####[facility] [id number] [employer], [place] ALT enzyme act/vol 40 U/L Normal 13-69 [facility] Comment on above: Performed By: #### C MP3, LIPA4, LACT3, HEMDF ####[facility] [id number] [place] [address] Anion gap 3 molar conc 17 Normal [facility] Comment on above: Performed By: #### C MP3, LIPA4, LACT3, HEMDF ####[facility] [id number] [employer], [place] AST enzyme act/vol 23 U/L Normal 15-46 [facility] Comment on above: Performed By: #### C MP3, LIPA4, LACT3, HEMDF ####[facility] [id number] [employer], [place] Bilirubin mass conc 1.8 mg/dL High 0.2-1.3 [facility] Comment on above: Performed By: #### C MP3, LIPA4, LACT3, HEMDF ####[facility] [id number] [place] [place] [address] Calcium mass conc 10.3 mg/dL Normal 8.4-10.4 [facility] Comment on above: Performed By: #### C MP3, LIPA4, LACT3, HEMDF ####[email or web address] [place] [address] CO2 molar conc 19 mmol/L Low 22-30 [facility] Comment on above: Performed By: #### C MP3, LIPA4, LACT3, HEMDF ####[employer] [id number] [place] [place] [address] Creatinine mass conc 0.87 mg/dL Normal 0.52-1.25 [facility] Comment on above: Performed By: #### C MP3, LIPA4, LACT3, HEMDF ####[email or web address] [place] [place] [address] GFR/1.73 sq M predicted among blacks MDRD vol rate/area (S/P/Bld) mL/min/{1.73_m2} Normal >60 [facility] Comment on above: Performed By: #### C MP3, LIPA4, LACT3, HEMDF ####[email or web address] [place] [place] [address] GFR/1.73 sq M predicted among non-blacks MDRD vol rate/area (S/P/Bld) mL/min/{1.73_m2} Normal >60 [facility] Comment on above: Result Comment: Sour ce- MDRD equation with creatinine calibration to IDMS(NKDEP) eGFR not recommended for drug dose adjustment Performed By: #### C MP3, LIPA4, LACT3, HEMDF ####[email or web address] [place] [address] Glucose mass conc 238 mg/dL High 70-100 [facility] Comment on above: Performed By: #### C MP3, LIPA4, LACT3, HEMDF ####[employer] [id number] [place] [address] Protein mass conc 8.2 g/dL Normal 6.3-8.2 [facility] Comment on above: Performed By: #### C MP3, LIPA4, LACT3, HEMDF ####[address] [place], [place] Urea nitrogen mass conc 19 mg/dL Normal 7-20 [facility] Comment on above: Performed By: #### C MP3, LIPA4, LACT3, HEMDF ####[address] [place], [place] Potassium molar conc 4.5 mmol/L Normal 3.5-5.1 [facility] Comment on above: Performed By: #### C MP3, LIPA4, LACT3, HEMDF ####[address] [place], [place] Albumin mass conc 5.3 g/dL High 3.5-5.0 [facility] Comment on above: Performed By: #### C MP3, LIPA4, LACT3, HEMDF ####[address] Chloride molar conc 104 mmol/L Normal 98-107 [facility] Comment on above: Performed By: #### C MP3, LIPA4, LACT3, HEMDF ####[address] [place], [place] Sodium molar conc 139 mmol/L Normal 137-145 [facility] Comment on above: Performed By: #### C MP3, LIPA4, LACT3, HEMDF ####[address] [place], [place] Hemogram w/ Autodiffon 03-14 Abs Neutrophile Cnt 9.7 10*3/uL High 1.8-7.0 [facility] Comment on above: Performed By: #### C MP3, LIPA4, LACT3, HEMDF ####[address] [place], [place] Basophils/100 WBC Auto (Bld) 0.4 % Normal 0.0-2.0 [facility] Comment on above: Performed By: #### C MP3, LIPA4, LACT3, HEMDF ####[address] [place], [place] Eosinophils/100 WBC Auto (Bld) 0.7 % Low 1.0-6.0 [facility] Comment on above: Performed By: #### C MP3, LIPA4, LACT3, HEMDF ####[address] [place], [place] Erythrocyte distribution width Auto Ratio (RBC) 14.1 % Normal 11.5-14.5 [facility] Comment on above: Performed By: #### C MP3, LIPA4, LACT3, HEMDF ####[address] Granulocytes/100 WBC (Bld) 75.9 % Normal 40.0-80.0 [facility] Comment on above: Performed By: #### C MP3, LIPA4, LACT3, HEMDF ####[address] Hematocrit Auto Volume Fraction (Bld) 49.2 % Normal 40.0-52.0 [facility] Comment on above: Performed By: #### C MP3, LIPA4, LACT3, HEMDF ####[address] [place], [place] Hemoglobin mass conc (Bld) 17.0 g/dL Normal 13.0-18.0 [facility] Comment on above: Performed By: #### C MP3, LIPA4, LACT3, HEMDF ####[address] Lymphocytes Auto #/vol (Bld) 2.1 10*3/uL Normal 1.0-4.3 [facility] Comment on above: Performed By: #### C MP3, LIPA4, LACT3, HEMDF ####[address] Lymphocytes/100 WBC Auto (Bld) 16.1 % Low 20.0-40.0 [facility] Comment on above: Performed By: #### C MP3, LIPA4, LACT3, HEMDF ####[address] MCH Auto Entitic mass (RBC) 30.5 pg Normal 26.0-34.0 [facility] Comment on above: Performed By: #### C MP3, LIPA4, LACT3, HEMDF ####[address] [place], [place] MCHC Auto mass conc (RBC) 34.6 % Normal 32.0-36.0 [facility] Comment on above: Performed By: #### C MP3, LIPA4, LACT3, HEMDF ####[address] [place], [place] MCV Auto Entitic volume (RBC) 87.9 fL Normal 80.0-98.0 [facility] Comment on above: Performed By: #### C MP3, LIPA4, LACT3, HEMDF ####[address] [place], [place] Monocytes Auto #/vol (Bld) 0.9 10*3/uL High 0.0-0.8 [facility] Comment on above: Performed By: #### C MP3, LIPA4, LACT3, HEMDF ####[address] [place], [place] Monocytes/100 WBC Auto (Bld) 6.9 % Normal 2.0-10.0 [facility] Comment on above: Performed By: #### C MP3, LIPA4, LACT3, HEMDF ####[address] [place], [place] Platelet mean volume Auto Entitic volume (Bld) 10.2 fL Normal 7.4-10.4 [facility] Comment on above: Performed By: #### C MP3, LIPA4, LACT3, HEMDF ####[address] [place], [place] Platelets Auto #/vol (Bld) 313 10*3/uL Normal 140-440 [facility] Comment on above: Performed By: #### C MP3, LIPA4, LACT3, HEMDF ####[address] RBC Auto #/vol (Bld) 5.59 10*6/uL Normal 4.40-5.90 [facility] Comment on above: Performed By: #### C MP3, LIPA4, LACT3, HEMDF ####[facility] [id number] [place], [place] WBC Auto #/vol (Bld) 12.8 10*3/uL High 3.6-10.7 [facility] Comment on above: Performed By: #### C MP3, LIPA4, LACT3, HEMDF ####[facility] [id number] [place], [place] Abs Baso Cnt 0.0 10*3/uL Normal 0.0-0.2 [facility] Comment on above: Performed By: #### C MP3, LIPA4, LACT3, HEMDF ####[facility] [address] Eosinophils Auto #/vol (Bld) 0.0 10*3/uL Normal 0.0-0.5 [facility] Comment on above: Performed By: #### C MP3, LIPA4, LACT3, HEMDF ####[facility] [id number] [place], [place] Lactic Acidon 03-14-2018 Lactate molar conc 2.6 mmol/L Critically high 0.7-2.0 [facility] Comment on above: Result Comment: REPE ATED Performed By: #### C MP3, LIPA4, LACT3, HEMDF ####[facility] [id number] [place], [place] Lipaseon 03-14-2018 Lipase enzyme act/vol 108 U/L Normal 23-300 [facility] Comment on above: Performed By: #### C MP3, LIPA4, LACT3, HEMDF ####[facility] [id number] [place], [place] Urinalysis,Macroon 8 Appearance Sl. Cloudy Normal Clear [facility] Comment on above: Performed By: #### U AMAC, UAMIC ####[address] [place], [place] Color Dark Yellow Normal Lt. Yellow [facility] Comment on above: Performed By: #### U AMAC, UAMIC ####[address] [place], [place] Bilirubin,Ur 1 Normal Negative [facility] Comment on above: Performed By: #### U AMAC, UAMIC ####[address] [place], [place] Glucose Ql (U) 1000 mg/dL Normal Negative [facility] Comment on above: Performed By: #### U AMAC, UAMIC ####[address] [place], [place] Ketone,Urine 3 + mg/dL Normal Negative [facility] Comment on above: Performed By: #### U AMAC, UAMIC ####[address] [place], [place] Leukocytes 1 + Normal Negative [facility] Comment on above: Performed By: #### U AMAC, UAMIC ####[address] [place], [place] Nitrites Positive Normal Negative [facility] Comment on above: Performed By: #### U AMAC, UAMIC ####[address] [place], [place] Occult Blood,Ur 250 {RBC}/uL Normal Negative [facility] Comment on above: Performed By: #### U AMAC, UAMIC ####[address] [place], [place] pH Test strip (U) 5.0 Normal 5.0-8.0 [facility] Comment on above: Performed By: #### U AMAC, UAMIC ####[address] [place], [place] Specific [place],Urine 1.020 Normal 1.005-1.030 [facility] Comment on above: Performed By: #### U AMAC, UAMIC ####[address] Total Protein,Urine 500(3+) Normal Negative [facility] Comment on above: Performed By: #### U AMAC, UAMIC ####[facility] [id number] [place], [place] Urobilinogen 1 mg/dL Normal 0-1 [facility] Comment on above: Performed By: #### U AMAC, UAMIC ####[facility] [id number] [place], [place] Urinalysis,Microscopicon Bacteria Present Normal Negative [facility] Comment on above: Performed By: #### U AMAC, UAMIC ####[facility] [id number] [place], [place] Epithelial Cells Present Normal 3-5 [facility] Comment on above: Performed By: #### U AMAC, UAMIC ####[facility] [address] [place], [place] Mucous Threads Present Normal Negative [facility] Comment on above: Performed By: #### U AMAC, UAMIC ####[facility] [id number] [place], [place] RBC LM.HPF #/area (Urine sed) see below Normal 0-2 [facility] Comment on above: Result Comment: Nataliia sly loaded, unable to identify any other formed elements. Performed By: #### U AMAC, UAMIC ####[facility] [id number] [place], [place] WBC LM.HPF #/area (Urine sed) Present Normal 0-5 [facility] Comment on above: Performed By: #### U AMAC, UAMIC ####[facility] [id number] [place], [place] CR Abdomen APon 03-07-2018 CR Abdomen AP Patient Name: JEISON GARCIA Diagnostic Radiology Exam Date/Time 03/06/2018 17:12:05 EDT Exam CR Abdomen AP Ordering Physician ROQUE MANSFIELD, RHINA BONDS Accession Number [id number] CPT4 Codes 67154 () Reason For Exam kidney stone Report [...] Transcribed Date and Time: 03/07/2018 11:46 Normal [facility] Prostatic Specific Ag- Diagn osticon 03-07-2018 Prostatic Specific Ag 2.100 ng/mL Normal < 4.000 [facility] Comment on above: Result Comment: Test ing performed on the [place] [address] usingan immunometric methodology. Results obtained bydifferent methods should not be used interchangeably. Performed By: #### P SA3 ####[facility] [place] [address] Vital Signs Date Time Vital Sign Value Performing Clinician Facility 06-28-2023 10:55-0400 Diastolic blood pressure 80 mm[Hg] [facility] Work Phone: [phone] [place] [address] 06-28-2023 10:55-0400 Systolic blood pressure 120 mm[Hg] [facility] Work Phone: [phone] [address] 06-28-2023 10:34-0400 Body height 177.8 cm [facility] Work Phone: [phone] [place] [address] 06-28-2023 10:34-0400 Body mass index (BMI) [Ratio] 35.3 kg/m2 [facility] Work Phone: [phone])131-200583 [address] 06-28-2023 10:34-0400 Body weight 111.58 kg [facility] Work Phone: [phone])342-959583 [address] 06-28-2023 10:34-0400 Heart rate 79 /min [facility] Work Phone: [facility] 06-28-2023 10:34-0400 Respiratory rate 20 /min [facility] Work Phone: [facility] 06-28-2023 10:34-0400 SaO2% (BldA) [Mass fraction] 94 % [facility] Work Phone: [facility] 05-25-2023 14:06-0400 Body temperature 97.39 [degF] Elizabeth Praisler-Wood DELIVERY TECH.OPERATIONS ENGINEER Work Phone: [facility] 05-25-2023 14:06-0400 Body weight 111.95 kg Elizaebth Praisler-Wood DELIVERY TECH.OPERATIONS ENGINEER Work Phone: [facility] 05-25-2023 14:06-0400 Diastolic blood pressure 88 mm[Hg] Elizabeth Praisler-Wood DELIVERY TECH.OPERATIONS ENGINEER Work Phone: [facility] 05-25-2023 14:06-0400 Heart rate 95 /min Elizabeth Praisler-Wood DELIVERY TECH.OPERATIONS ENGINEER Work Phone: [facility] 05-25-2023 14:06-0400 Respiratory rate 19 /min Elizabeth Praisler-Wood DELIVERY TECH.OPERATIONS ENGINEER Work Phone: [facility] 05-25-2023 14:06-0400 SaO2% (BldA) [Mass fraction] 98 % Elizabeth Praisler-Wood DELIVERY TECH.OPERATIONS ENGINEER Work Phone: [facility] 05-25-2023 14:06-0400 Systolic blood pressure 140 mm[Hg] Elizabeth Praisler-Wood DELIVERY TECH.OPERATIONS ENGINEER Work Phone: [facility] 03-13-2023 07:40-0400 Body height 177.8 cm ONLINE CONTENT EDITOR-C Wendy Church ONLINE CONTENT EDITOR Work Phone: [facility] 03-13-2023 07:40-0400 Body weight 114.5 kg ONLINE CONTENT EDITORAllan Church ONLINE CONTENT EDITOR Work Phone: [facility] 03-10-2023 08:19-0400 Body mass index (BMI) [Ratio] 36.2 kg/m2 ONLINE CONTENT EDITOR-C Wendy Church ONLINE CONTENT EDITOR Work Phone: [facility] 02-01-2023 10:23-0400 Body height 177.8 cm ONLINE CONTENT EDITOR-C Wendy Church ONLINE CONTENT EDITOR Work Phone: [facility] 02-01-2023 10:23-0400 Body mass index (BMI) [Ratio] 36.2 kg/m2 ONLINE CONTENT EDITOR-C Wendy Church ONLINE CONTENT EDITOR Work Phone: [facility] 02-01-2023 10:23-0400 Body weight 114.5 kg ONLINE CONTENT EDITOR-C Wendy Church ONLINE CONTENT EDITOR Work Phone: [phone] [place] [address] 02-01-2023 10:23-0400 Diastolic blood pressure 92 mm[Hg] ONLINE CONTENT EDITOR-C Wendy Church ONLINE CONTENT EDITOR Work Phone: [phone] [place] [address] 02-01-2023 10:23-0400 Heart rate 79 /min ONLINE CONTENT EDITOR-C Wendy Church ONLINE CONTENT EDITOR Work Phone: [phone] [place] [address] 02-01-2023 10:23-0400 Respiratory rate 16 /min ONLINE CONTENT EDITOR-C Wendy Church ONLINE CONTENT EDITOR Work Phone: [phone] [place] [address] 02-01-2023 10:23-0400 Systolic blood pressure 144 mm[Hg] ONLINE CONTENT EDITOR-C Wendy Church ONLINE CONTENT EDITOR Work Phone: [facility] Encounters Encounter Date Encounter Type Care Provider Facility Start: 07-22-2024 End: 07-22-2024 ambulatory WENDY MERCADO%C [facility] Start: 10-18-2023 End: 10-18-2023 ambulatory Wendy Church ONLINE CONTENT EDITOR Facility:[facility] Start: 10-10-2023 End: 10-10-[address] [facility] Work Phone: [facility] Work Phone: Start: 10-10-2023 End: 10-10-2023 Patient encounter procedure [facility] Work Phone: [facility]-Pulmonary Services/Neurology Work Phone: Start: 10-10-2023 End: 10-10-[address] [facility] Facility:[facility] Start: 06-28-2023 End: 06-28-2023 Patient encounter procedure [facility] Work Phone: [facility] Work Phone: Start: 06-28-2023 End: 06-28-2023 ambulatory Delores NEVAREZ Facility:[facility] Start: 06-16-2023 End: 06-17-2023 ambulatory RUSSELL RIDER Facility:[facility] Start: 06-16-2023 End: 06-16-2023 Patient encounter procedure RUSSELL RIDER MD [facility] Start: 05-25-2023 End: 05-25-2023 ambulatory ELIZABETH VARELA Facility:[facility] Start: 05-25-2023 End: 05-25-2023 Subsequent hospital visit by physician Xr [facility] Work Phone: Radiology Comment on above: Left knee injury, in itial encounter [S89.92XA] Start: 05-25-2023 End: 05-25-2023 Patient encounter procedure Elizabeth Varela DELIVERY TECH.OPERATIONS ENGINEER Work Phone: [facility] Comment on above: Left knee injury, in itial encounter (Primary Dx); Acute left-sided back pain with sciatica Start: 03-13-2023 End: 03-13-2023 Admission to same day surgery center ONLINE CONTENT EDITOR-C Wendy Church ONLINE CONTENT EDITOR Work Phone: [facility]-Wirer Maintenance/Special Procedures Work Phone: Start: 03-13-2023 End: 03-13-2023 ambulatory ONLINE CONTENT EDITOR-Genevieve Church ONLINE CONTENT EDITOR Work Phone: [facility] Work Phone: Start: 02-17-2023 Non-patient / Non-visit ONLINE CONTENT EDITOR-Genevieve Church ONLINE CONTENT EDITOR Work Phone: [facility] Start: 02-15-2023 End: 02-15-2023 ambulatory ONLINE CONTENT EDITOR-C Wendy Church ONLINE CONTENT EDITOR Work Phone: [facility] Work Phone: Start: 02-15-2023 End: 02-15-2023 Patient encounter procedure ONLINE CONTENT EDITOR-Genevieve Church ONLINE CONTENT EDITOR Work Phone: [facility]-Laboratory Start: 02-13-2023 Non-patient / Non-visit ONLINE CONTENT EDITOR-C Juan Antonio Church ONLINE CONTENT EDITOR Work Phone: [facility] Start: 02-13-2023 End: 02-13-2023 ambulatory ONLINE CONTENT EDITOR-C Wendy Church ONLINE CONTENT EDITOR Work Phone: [facility] Work Phone: Start: 02-13-2023 End: 02-13-2023 Patient encounter procedure ONLINE CONTENT EDITOR-Genevieve Church ONLINE CONTENT EDITOR Work Phone: [facility]-Cardiovasla r Services Start: 02-01-2023 End: 02-01-2023 Patient encounter procedure ONLINE CONTENT EDITOR-Genevieve Church ONLINE CONTENT EDITOR Work Phone: [facility] Start: 01-30-2023 Non-patient / Non-visit ONLINE CONTENT EDITOR-C Juan Antonio Church ONLINE CONTENT EDITOR Work Phone: [facility] Start: 01-24-2023 Non-patient / Non-visit ONLINE CONTENT EDITOR-C Juan Antonio Church ONLINE CONTENT EDITOR Work Phone: [facility] Start: 01-24-2023 End: 01-24-2023 Patient encounter procedure ONLINE CONTENT EDITOR-Genevieve Church ONLINE CONTENT EDITOR Work Phone: [facility]-Cardiovascula r Services Start: 01-10-2023 End: 01-11-2023 ambulatory WENDY CHURCH Facility:[facility] Start: 12-19-2022 Non-patient / Non-visit ONLINE CONTENT EDITOR-C Juan Antonio Church ONLINE CONTENT EDITOR Work Phone: [facility] Start: 12-19-2022 End: 12-19-2022 ambulatory ONLINE CONTENT EDITOR-Genevieve Church ONLINE CONTENT EDITOR Work Phone: [facility] Work Phone: Start: 12-19-2022 End: 12-19-2022 Patient encounter procedure ONLINE CONTENT EDITOR-C Wendy Church ONLINE CONTENT EDITOR Work Phone: [facility]-Cardiovascula r Services Start: 07-15-2022 End: 07-15-2022 [facility] Start: 05-16-2022 Refill Sander Cunningham DO Work Phone: [facility] Comment on above: Refill Request Start: 02-25-2021 ambulatory [facility] Start: 02-08-2021 Encounter for other preprocedural examination FAVIAN Bethea NP [facility] Start: 02-04-2021 End: 02-05-2021 ambulatory FAVIAN Bethea NP [facility] Start: 02-01-2021 End: 02-02-2021 ambulatory [facility] Start: 01-26-2021 End: 02-25-2021 ambulatory [facility] Start: 01-11-2021 End: 01-12-2021 ambulatory [facility] Start: 01-05-2021 End: 01-26-2021 ambulatory [facility] Start: 12-24-2020 End: 12-25-2020 ambulatory NO PCP AA NO PCP [facility] Start: 12-22-2020 End: 12-23-2020 ambulatory [facility] Start: 12-18-2020 End: 12-19-2020 ambulatory WALE CÁRDENAS [facility] Start: 12-11-2020 End: 12-12-2020 ambulatory SANDER CUNNINGHAM [facility] Start: 04-23-2018 Patient encounter BRANDYN Mcfarland [facility] Start: 03-22-2018 Patient encounter UNKNOWN PROVIDER [facility] Start: 03-19-2018 Patient encounter UNKNOWN PROVIDER [facility] Start: 03-14-2018 Emergency department patient visit UNKNOWN PROVIDER [facility] Start: 03-07-2018 Patient encounter BRANDYN RG [facility] Start: 03-06-2018 Patient encounter Rhina Mansfield [facility] Procedures Date Procedure Procedure Detail Performing Clinician Start: 05-25-2023 Radiologic exam knee complete 4/more views Elizabeth Varela APRN.OPERATIONS ENGINEER Work Phone: Start: 02-15-2023 Plain chest X-ray ONLINE CONTENT EDITOR-C Wendy Church ONLINE CONTENT EDITOR Work Phone: Start: 02-13-2023 Radionuclide imaging of perfusion of myocardium under exercise stress ONLINE CONTENT EDITOR-Genevieve Church ONLINE CONTENT EDITOR Work Phone: Plan of Treatment Date Care Activity Detail Author Start: 05-14-2028 Urine microalbumin profile [facility] Start: 04-28-2024 Covid-19 Vaccine () Covid-19 Vaccine () [facility] Start: 04-28-2024 Influenza vaccination Influenza Vaccine (#1) [place] Start: 08-25-2023 PROSTATE CANCER SCREENING DISCUSSION PROSTATE CANCER SCREENING DISCUSSION [facility] Start: 08-25-2023 Prostate specific antigen measurement Prostate Cancer Screening Discussion [facility] Start: 07-15-2023 Hepatitis B screening Urine Albumin:Creatinine Ratio [facility] Start: 07-15-2023 Hepatitis B surface antibody level LDL Cholesterol [facility] Start: 04-28-2023 Influenza vaccination Influenza Vaccine (#1) [place] Start: 03-13-2023 Patient discharge [facility] Start: 11-11-2022 COLOGUARD (FIT-DNA) COLOGUARD (FIT-DNA) [facility] Start: 11-11-2022 COLORECTAL CANCER SCREENING COLORECTAL CANCER SCREENING [facility] Start: 11-11-2022 Screening for malignant neoplasm of colon [facility] Start: 10-15-2022 Hemoglobin A1c measurement HbA1C [facility] Start: 10-15-2022 Hemoglobin A1c/Hemoglobin.total in Blood HbA1C [facility] Start: 08-28-2022 Depression Assessment Depression Assessment [facility] Start: 04-28-2022 Influenza vaccination INFLUENZA (#1) [facility] Start: 01-29-2022 ANNUAL PCP TEAM CHRONIC DISEASE VISIT ANNUAL PCP TEAM CHRONIC DISEASE VISIT [facility] Start: 05-01-2021 Hemoglobin A1c/Hemoglobin.total in Blood HBA1C [facility] Start: 04-02-2021 3 comp foot exam completed DIABETIC FOOT EXAM [facility] Start: 04-02-2021 BP CONTROLLED (<130/80) BP CONTROLLED (<130/80) [facility] Start: 04-02-2021 Diabetic foot examination Diabetic Foot Exam [facility] Start: 09-04-2020 Glaucoma screening Dilated Retinal Exam [facility] Start: 09-04-2020 Hepatitis C antibody, confirmatory test DILATED RETINAL EXAM [facility] Start: 08-25-2019 Hepatitis B screening URINE ALBUMIN:CREATININE RATIO [facility] Start: 08-25-2019 Hepatitis B surface antibody level LDL CHOLESTEROL [facility] Start: 2019 Hepatitis B Vaccine (1 of 3 - Risk 3-dose series) Hepatitis B Vaccine (1 of 3 - Risk 3-dose series) [facility] Start: 2019 RSV Vaccine (1 - 1-dose 60+ series) RSV Vaccine (1 - 1-dose 60+ series) [facility] Start: 2009 SHINGRIX VACCINE (1 of 2) SHINGRIX VACCINE (1 of 2) [facility] Start: 2004 Colonoscopy COLONOSCOPY [facility] Start: [address] COLONOGRAPHY [facility] Start: 2004 FECAL OCCULT BLOOD FECAL OCCULT BLOOD [facility] Start: 2004 Screening for malignant neoplasm of colon [facility] Start: 2004 SIGMOIDOSCOPY SIGMOIDOSCOPY [facility] Start: 1977 Depression Screening Depression Screening [facility] Start: 1977 HIV SCREENING HIV SCREENING [facility] Start: 1977 HIV screening HIV Screening [facility] Start: 1971 Adult depression screening assessment DEPRESSION SCREENING [facility] Start: 1965 PNEUMOCOCCAL (1 - PCV) PNEUMOCOCCAL (1 - PCV) [facility] Start: 1965 Pneumococcal vaccination [place] Start: 01-12-1960 COVID-19 VACCINE (#1) COVID-19 VACCINE (#1) [facility] Patient referral [facility] Work Phone: Immunizations Immunization Date Immunization Notes Care Provider Suleman denis 05-14-2018 influenza virus vacc ine, unspecified formulation Elizabeth Varela APRN.LIZZY Work Phone: [facility] Payers Date Payer Category Payer Self-pay 2023 Unknown [id number] 2023 Unknown [id number] 2023 Unknown PENDING 2022 Unknown [id number] 1959 Unknown [id number] 1959 Unknown [id number] 1959 Unknown [id number] 2.16.8 [id number] 1959 Unknown [id number] 2.16.8 [id number] 1959 Unknown [id number] 2.16.8 [id number] 1959 Unknown [id number] 2.16.8 [id number] 1959 Unknown [id number] 2.16.8 [id number] 1959 Unknown [id number] 2.16.8 40.1.050022.3.579.2.598 1959 Unknown [id number] 2.16.8 40.1.742518.3.579.2.598 1959 Unknown [id number] 2.16.8 40.1.622323.3.579.2.598 1959 Unknown [id number] 2.16.8 40.1.200558.3.579.2.598 1959 Unknown [id number] 2.16.8 40.1.283699.3.579.2.598 1959 Unknown [id number] 2.16.8 40.1.525877.3.579.2.419 1959 Unknown [id number] 2.16.8 40.1.574065.3.579.2.627 1959 Unknown [id number] 2.16.8 [id number] Private Health Insurance Unknown [facility] [id number] Unknown [id number] 2.16.8 [id number] Unknown [id number] 2.16.8 [id number] Unknown [id number] 2.16.8 [id number] Unknown [id number] 2.16.8 [id number] Unknown [id number] Social History Date Type Detail Facility Start: 11-27-2019 End: 05-25-2023 Tobacco smoking status NHIS Ex-smoker [facility] Start: 10-13-1979 End: 10-13-2019 History of tobacco use Current smoker [facility] Start: 10-13-1979 End: 10-13-2019 History of tobacco use Cigarette Smoker [facility] Start: 11-27-2019 End: 05-25-2023 Tobacco use and exposure Smokeless tobacco non-user [facility] Start: 02-03-2021 End: 05-25-2023 Alcohol intake Current non-drinker of alcohol (finding) [facility] Start: 05-01-2019 End: 05-25-2023 Tobacco Comment trying to quit [facility] Start: 1960 Sex Assigned At Male [facility] Start: 02-01-2023 End: 06-28-2023 Tobacco smoking status NYIS Unknown if ever smoked [facility] Start: 08-03-2020 End: 05-25-2023 History of Social function [facility] Start: 08-03-2020 End: 05-25-2023 Tobacco use panel [facility] National Score (1-10 0), lower number is lower risk Not on file [facility] Start: 08-15-2017 Gender identity Identifies as male gender (finding) [facility] Start: 12-19-2017 Sexual orientation Heterosexual (fin ding) [facility] Tobacco smoking status No Smokin g Status Entered [facility] Clinical Notes 05-19-2022 to 05-25-2023 Patient InstructionsElizabeth Varela APRN.CNP - 05/25/2023 2:23 PM EDT Note Date & Type Note Facility 05-25-2023 Note HNO ID: [id number] Author: Ame Rojas RT(R) Service: ? Author Type: Lens Blocker Type: Progress Notes Filed: 05/25/2023 3:09 PM [...] RT Raúl(R) May 25, 2023 2:53 PM [facility] 05-25-2023 Note HNO ID: [id number] Author: Elizabeth Varela APRN.LIZZY Service: ? Author Type: Nurse Practitioner Type: Progress Notes Filed: 05/25/2023 3:47 PM Note Text: This note was created using ProtonMailriter. Subjective Jeison Garcia is a 62 year [...] DAILY (Patient not taking: Reported on 05/25/2023) Peoa-3 Fatty Acids (SUPER TWIN EPA-DHA) 1,250 mg [...] negative. Posterior drawer (more content not included)... [facility] 05-25-2023 Instructions Elizabeth Varela APRN.OPERATIONS ENGINEER - 05/25/2023 3:47 PM EDT ASSESSMENT/PLAN: 1. [...] symptoms persist or worsen E Alec [employer] EQUIPMENT TENDER Student TEACHING PROVIDER (Physician/PA/DELIVERY TECH) NOTE OF PERSONAL INVOLVEMENT IN CARE: I have personally seen and examined the patient and performed the medical decision-making components. I have reviewed the Advanced Practice Registered Nurse (DELIVERY TECH) Student's documentation and verified the findings in the note as written. Any additions or changes are noted in bold/italics. Signature: Elizabeth Varela Date: 05/25/2023 Time: 3:47 PM documented in this encounter [facility] 05-25-2023 History of Presen t illness Narrative Images from the original note were not included. This note was created using ProtonMailriter. Subjective Jeison Garcia is a 62 year [...] DAILY (Patient not taking: Reported on 05/25/2023) Peoa-3 Fatty Acids (SUPER TWIN EPA-DHA) 1,250 mg [...] symptoms persist or worsen E Alec [employer] UN[employer] EQUIPMENT TENDER Student TEACHING PROVIDER (Physician/PA/DELIVERY TECH) NOTE OF PERSONAL INVOLVEMENT IN CARE: I have personally seen and examined the patient and performed the medical decision-making components. I have reviewed the Advanced Practice Registered Nurse (DELIVERY TECH) Student's documentation and verified the findings in the note as written. Any additions or changes are noted in bold/italics. Signature: Elizabeth Varela Date: 05/25/2023 Time: 3:47 PM documented in this encounter [facility] 02-18-2023 History and physi janae note Note Date/Time February 17, 2023 9:29am [facility] Medical Records Department [address] [place] [address] History & Physical Exam 02/17/23 0921 MR#: [id number] Acct: [id number] Name: JEISON GARCIA Rep #:[id number] : 1960 62 From: Pearl BALDERAS PCP: [facility] atus:[facility] [place] [place] Location: [facility] History and Physical Date of Admission: 03/13/23 Jeison Garcia is a 62 year old male who presents to the cardiac clinical lab technologist today fora cardiac catheterization. Patient was referred [...] EMR Allergies See EMR Medications See EMR [facility] Medical History Abnormal exercise tolerance [...] <Electronically signed by Carlos Miller MD> CC: ONLINE CONTENT EDITOR-C Pearl Maddox; Dr. Carlos Miller MD; [facility]~ Signed [facility] Work Phone: 1(588) 188-547009-22-2022 Miscellaneous Notes* Telephone Encounter - Zita Carver [...] supply. Zita Carver Ma [facility] note No data available for this section [facility] Evaluation note* Diagnosis GERD without esophagitis Esophageal reflux documented in this encounter [facility] noteNo assessment information availableW[facility] Work Phone: Evaluation note* Diagnosis Onset Date Resolution Status Abnormal exercise tolerance test acute Abnormal stress test acute Chest pain acute Dyslipidemia chronic Dyspnea on exertion chronic Essential hypertension chron ic Obesity chronic Obstructive sleep apnea mica spreader ion Type 2 diabetes mellitus chr onic [facility] Work Phone: Evaluation note* Diagnosis Left knee injury, initial encounter- Primary Acute left-sided back pain with sciatica documented in this encounter [facility] note* Diagnosis Onset Date Resolution Status Abnormal exercise tolerance test acute Essential hypertension chron ic [facility] Work Phone: Evaluation note* Diagnosis Left knee injury, initial encounter documented in this encounter [facility] Discharge instructions No data available for this section [facility] Progress note No data available for this section [facility] Reason for referral (narrative)* Diagnostic Procedure Only (Urgent) - Closed Specialty Diagnoses / Procedures Referred By Contac t Referred To Contact XR IMAGING Diagnoses Left knee injury, initial encounter Procedures XR KNEE GENERAL 4V AP BOTH/PA BOTH/LAT/MERC LEFT RADIOLOGIC EXAM KNEE COMPLETE 4/MORE VIEWS Elizabeth Varela APRN.OPERATIONS ENGINEER [address] [place] [address] [place] [address] Referral ID Status Reason Start Date Expiration Date V isits Requested Visits Authorized [id number] Closed Auto-Generate d Referral 05/25/2023 06/23/2024 1 1 [facility] for referral (narrative)* Diagnostic Procedure Only (Urgent) - Closed Specialty Diagnoses / Procedures Referred By Contac t Referred To Contact XR IMAGING Diagnoses Left knee injury, initial encounter Procedures XR KNEE GENERAL 4V AP BOTH/PA BOTH/LAT/MERC LEFT RADIOLOGIC EXAM KNEE COMPLETE 4/MORE VIEWS Elizabeth Varela APRN.CNP [address] [place] [address] [place] [address] Referral ID Status Reason Start Date Expiration Date V isits Requested Visits Authorized [id number] Closed Auto-Generate d Referral 05/25/2023 05/25/2023 1 1 [facility] Diagnostic Procedure Only (Urgent) - Closed Specialty Diagnoses / Procedures Referred By Contac t Referred To Contact XR IMAGING Diagnoses Left knee injury, initial encounter Procedures XR KNEE GENERAL 4V AP BOTH/PA BOTH/LAT/MERC LEFT RADIOLOGIC EXAM KNEE COMPLETE 4/MORE VIEWS Elizabeth Varela, SARAH.OPERATIONS ENGINEER [address] [place] [address] [place] [id number] Referral ID Status Reason Start Date Expiration Date V isits Requested Visits Authorized [id number] Closed Auto-Generate d Referral 05/25/2023 05/25/2023 1 1 [facility] Summary Purpose Family History No Family History Records Found Relationship Condition Age at Onset Recorded Date/T avinash father Diabetes mellitus Unknown Kidney disorder Unknown Hypertension Unknown Advance Directives No Advanced Directives Records Found Advance Directive Response Recorded Date/ Time Advance Directives No March 13 7:40am Living Will No March 13, 2023 7:40am Power of Museum Attendant No March 13 7:40am Advance Directive Response Recorded Date/ Time Advance Directives No March 13 6:40am Living Will No March 13, 2023 6:40am Power of Museum Attendant No March 13 6:40am Chief Complaint and [...] section and content) DATE CREATED AUTHOR 06/26/2018 [facility] DATE CREATED AUTHOR AUTHOR'S ORGANIZ ATION 11/27/2019 [facility] DATE CREATED AUTHOR AUTHOR'S ORGANIZ ATION 09/18/2020 [facility] DATE CREATED AUTHOR AUTHOR'S ORGANIZ ATION 03/18/2021 [facility] DATE CREATED AUTHOR AUTHOR'S ORGANIZ ATION 09/02/2021 [facility] DATE CREATED AUTHOR AUTHOR'S ORGANIZ ATION 01/11/2023 [facility] DATE CREATED AUTHOR AUTHOR'S ORGANIZ ATION 06/01/2023 [facility] DATE CREATED AUTHOR AUTHOR'S ORGANIZ ATION 06/23/2023 [facility] ([place]) DATE CREATED AUTHOR AUTHOR'S ORGANIZ ATION 03/27/2024 [facility] DATE CREATED AUTHOR AUTHOR'S ORGANIZ ATION 07/24/2024 [place] [facility] Source Comments (unrecognize d section and content) In the event this informatio n is protected by the Federal Confidentiality of Alcohol and Drug Abuse Patient Records regulations: The Federal rules restrict any use of the information to criminally investigate or prosecute any alcohol or drug abuse patient.[facility] the event this information is protected by the Federal Confidentiality of Alcohol and Drug Abuse Patient Records regulations: The Federal rules restrict any use of the information to criminally investigate or prosecute any alcohol or drug abuse patient.[facility] CenterIn the event this information is protected by the Federal Confidentiality of Alcohol and Drug Abuse Patient Records regulations: The Federal rules restrict any use of the information to criminally investigate or prosecute any alcohol or drug abuse patient.[facility] Reason for Visit (unrecogniz ed section and content) Reason Comments Refill Request Reason Comments Leg Pain Shooting pain in lef t leg, now having numbness and weakness x 1 day Care Teams (unrecognized sec tion and content) Manager Of Medical Relationship Specialty Start Date End Date Sander Cunningham, DO [address] [place] [address] Family Medicine 01/29/21 Blessing Cha, RN Registered Nurse 04/13/22 Darryl Byers, DO [address] [place] [address] Primary Staff Physician Family Medicine 04/14/22 Amina Morgan, DO [address] [place] [address] Primary Staff Physician Family Medicine 04/14/22 Favian Hardwick MD [address] [place] [address] Primary Staff Physician Family Medicine 04/14/22 Jonathan Hardwick MD [address] [place] [address] Primary Staff Physician Family Medicine 04/14/22 Daniel Kumar MD [address] [facility] [place] [address] Primary Staff Physician Family Medicine 04/14/22 Donis Sosa DO [address] [facility] [place] [address] Primary Staff Physician Family Medicine 04/14/22 [facility] [address] [facility] [place] [phone] Primary Staff Physician Family Medicine 04/14/22 Blessing Cah, SANJU Registered Nurse Family Medicine 04/15/22 Team Status: Active Member Role Status Dates Butros Latouf Family Provider Active Wendy Church ONLINE CONTENT EDITOR, ONLINE CONTENT EDITOR-C Primary Care Provider Active Team Status: Active Member Role Status Dates Wendy Church ONLINE CONTENT EDITOR, ONLINE CONTENT EDITOR-C Primary Care Provider Active Dr. Bull Ospina MD Attending Provider Active Team Status: Inactive Member Role Status Dates Wendy Church ONLINE CONTENT EDITOR, ONLINE CONTENT EDITOR-C Primary Care P rovider, Attending Provider, Referring Provider Active Team Status: Active Member Role Status Dates Butros Latouf Family Provider Active [facility] Primary Care Provider A ctive Team Status: Active Member Role Status Dates Wendy Church ONLINE CONTENT EDITOR, ONLINE CONTENT EDITOR-C Primary Care Provider Active Dr. Bull Ospina MD Attending Provider, Referring Pro vider Active Team Status: Active Member Role Status Dates Wendy Church ONLINE CONTENT EDITOR, ONLINE CONTENT EDITOR-C Primary Care P rovider, Referring Provider, Other Provider Active Dr. Carlos Miller MD Attending Provider Active Team Status: Inactive Member Role Status Dates Wendy Church NP, ONLINE CONTENT EDITOR-C Primary Care Provider, Refer ring Provider Active Dr. Carlos Miller MD Attending Provider Active Team Status: Active Member Role Status Dates Wendy Church NP, ONLINE CONTENT EDITOR-C Primary Care Provider Active Delores Monroe Attending Provider Active Team Status: Active Member Role Status Dates Dr. Carlos Miller MD Attending Provider , Referring Provider, Other Provider Active [facility] Primary Care Provider A ctive Team Status: Active Member Role Status Dates Wendy Church ONLINE CONTENT EDITOR, ONLINE CONTENT EDITOR-C Primary Care Sanford shaw, Attending Provider, Referring Provider Active Team Status: Inactive Member Role Status Dates Dr. Carlos Miller MD Attending Provider, Referring Pr ovider Active [facility] Primary Care Provider A ctive Team Status: Active Member Role Status Dates [facility] Primary Care Provider A ctive Dr. Carlos Miller MD Attending Provider, Referring Pr ovider Active Wendy Church ONLINE CONTENT EDITOR, ONLINE CONTENT EDITOR-C Other Provider Active Team Status: Active Member Role Status Dates [facility] Primary Care Provider A ctive Dr. Carlos Miller MD Other Provider Active Pearl Maddox ONLINE CONTENT EDITOR, ONLINE CONTENT EDITOR-C Attending Provider Active Team Status: Inactive Member Role Status Dates [facility] Primary Care Provider A ctive Dr. Carlos Miller MD Attending Provider, Referring Pr ovider Active Wendy Church ONLINE CONTENT EDITOR, ONLINE CONTENT EDITOR-C Other Provider Active Team Status: Inactive Member Role Status Dates [facility] Primary Care Provider A ctive Dr. Carlos Miller MD Attending Provider, Referring Pr ovider Active Manager Of Medical Relationship Specialty Start Date End Date Sander Cunningham, DO [address] [place] [phone] Family Medicine 01/29/21 Blessing Cha, SANJU Registered Nurse 04/13/22 Darryl Byers, DO [address] [place] [address] Primary Staff Physician Family Medicine 04/14/22 Amina Morgan, DO [address] [place], [place] [phone] Primary Staff Physician Family Medicine 04/14/22 Favian Hardwick MD [address] [place] [address] Primary Staff Physician Family Medicine 04/14/22 Jonathan Hardwick MD [address] [facility] [place] [address] Primary Staff Physician Family Medicine 04/14/22 Daniel Kumar MD [address] [place] [address] Primary Staff Physician Family Medicine 04/14/22 Donis Sosa DO [address] [address] Primary Staff Physician Family Medicine 04/14/22 [facility] [address] [place] [address] Primary Staff Physician Family Medicine 04/14/22 Blessing Cha, SANJU Registered Nurse Family Medicine 04/15/22 Team Status: Inactive Member Role Status Dates [facility] Primary Care Provider, Referring Provider Active Delores Fowler PA, PA Attending Provider Active Team Status: Inactive Member Role Status Dates [facility] Primary Care Provider A ctive Peter Jose [facility], ONLINE CONTENT EDITOR-C Attending Provider, Referring Pro vider Active Manager Of Medical Relationship Specialty Start Date End Date Sander Cunningham DO [address] [place] [address] Family Medicine 01/29/21 Blessing Cha, RN Registered Nurse 04/13/22 Darryl Byers DO [address] [place] [address] Primary Staff Physician Family Medicine 04/14/22 Amina Morgan DO [address] [place], [place] [phone] Primary Staff Physician Family Medicine 04/14/22 Favian Hardwick MD [address] [place] [address] Primary Staff Physician Family Medicine 04/14/22 Jonathan Hardwick MD [address] [place] [address] Primary Staff Physician Family Medicine 04/14/22 Daniel Kumar MD [address] [place] [address] Primary Staff Physician Family Medicine 04/14/22 Donis Sosa DO [address] [place] [address] Primary Staff Physician Family Medicine 04/14/22 KurtBenny [address] [place] [address] Primary Staff Physician Family Medicine 04/14/22 Blessing [...] BE BASED ON THE PRIMARY CLINICAL RECORDS. [employer] [facility]. provides no warranty or guarantee of the accuracy or completeness of information in this document.
[2025-06-11 23:04] VITALS: BMI 35.3
[2025-06-11 23:08] VITALS: BP 102/79; PULSE 108; RESP 18; TEMP 37.1; O2SAT 93
[2025-06-11] MEDS: 0.9% Normal Saline (1000mL) 1,000 ML 125 ML IV (23:13)
[2025-06-12] MEDS: metroNIDAZOLE 500 MG/100 ML BAG 100 MG IV ×3 (04:46→21:13)
[2025-06-12 06:38] LABS: Hematocrit 39.1 % (40-54); Hemoglobin 13.1 g/dL (13.0-16.5); Immature Granulocytes Count 0.060 X10^3/uL (0.0-0.0); Mean Corp Hgb Conc 33.5 g/dL (32-36); Mean Corpuscular Volume 90.3 fL (80-94); Mean Platelet Vol. 11.0 fl (6.2-12.0); NRBC Flagged by Analyzer 0 % (0-5); Platelet Count 228 K/mm3 (150-450); RBC Distribution Width CV 13.5 % (11.6-14.6); RBC Distribution Width SD 44.8 fl (35.1-43.9); Red Blood Count 4.33 M/mm3 (4.6-6.2); White Blood Count 11.5 K/mm3 (4.4-11.0)
[2025-06-12] MEDS: 0.9% Normal Saline (1000mL) 1,000 ML 125 ML IV (06:38)
[2025-06-12 06:39] VITALS: BP 134/74; PULSE 80; RESP 16; TEMP 36.6; O2SAT 97
[2025-06-12 07:03] LABS: AST(SGOT) 25 U/L (<=37); Alanine Aminotransfer ALT/SGPT 46 U/L (<=46); Albumin, Serum 3.8 g/dL (3.4-4.8); Alkaline Phosphatase 57 U/L (40-129); Anion Gap 9 (5-15); BUN 22 mg/dL (4-19); BUN/Creat Ratio 18.8 RATIO (10-20); Calcium,Total 8.8 mg/dL (7.6-11.0); Carbon Dioxide 24.5 mmol/L (21.0-32.0); Chloride 104 mmol/L (98-108); Estimated Creatinine Clearance 77.77 ml/min (50-250); Globulin 2.5 g/dL (2.2-4.2); Glucose 190 mg/dL (70-99); Potassium 4.1 mmol/L (3.3-5.1)
[2025-06-12 08:12] VITALS: BP 106/56; PULSE 74; RESP 16; TEMP 36.6; O2SAT 94
--- NOTE | 2025-06-12 08:13 | PCM.PN.HOSP ---
Reason for Visit Chief Complaint: abdominal pain Subjective Subjective Patient is a 64-year-old gentleman who presented with abdominal pain CT of the abdomen and pelvis obtained on admission demonstrated focal wall thickening and mild adjacent fat stranding involving a loop of small bowel in the mid abdomen, most consistent with focal enteritis or mild segmental inflammation. Admitted to regular nursing floor for subsequent management Objective Data Objective Data Vital Signs: Vital Signs Temp Pulse Resp BP Pulse Ox O2 Del Method 97.9 F 80 16 134/74 H 97 Room Air 06/12/25 06:39 06/12/25 06:39 06/12/25 06:39 06/12/25 06:39 06/12/25 06:39 06/12/25 08:10 Oxygen Delivery Method Room Air Weight: 108.6 kg Body Mass Index (BMI) 35.3 Intake & Output: Intake and Output for Last 24 Hours 06/10/25 06/11/25 06/12/25 23:59 23:59 23:59 Intake Total 1000 / 1000 1027.08 / 1027.08 Balance 1000 / 1000 1027.08 / 1027.08 Lab / Micro Data 06/12/25 05:56 06/12/25 05:56 Labs: Laboratory Results - last 24 hr 06/11/25 17:50: WBC 17.7 H, RBC 5.26, Hgb 15.8, Hct 45.6, MCV 86.7, MCH 30.0, MCHC 34.6, RDW Std Deviation 41.8, RDW Coeff of Garima 13.2, Plt Count 281, MPV 10.9, Immature Gran % (Auto) 0.600, Neut % (Auto) 86.7 H, Lymph % (Auto) 4.7 L, [place] % (Auto) 7.7, Eos % (Auto) 0.0, Baso % (Auto) 0.3, Absolute Neuts (auto) 15.3 H, Absolute Lymphs (auto) 0.84, Nucleated RBC % 0, Sodium 136, Potassium 4.3, Chloride 98, Carbon Dioxide 21.1, Anion Gap 17 H, BUN 22 H, Creatinine 1.22 H, Est GFR (MDRD) Non-Af 66, BUN/Creatinine Ratio 17.7, Glucose 275 H, Calcium 10.2, Total Bilirubin 1.53 H, AST 41 H, ALT 70 H, Alkaline Phosphatase 75, Total Protein 7.5, Albumin 4.6, Globulin 2.9, Albumin/Globulin Ratio 1.6, Lipase 30 06/11/25 19:43: Urine Color Yellow, Urine Clarity Clear, Urine pH 5.0, Ur Specific [place] 1.015, Urine Protein 15 H, Urine Glucose (UA) 1000 H, Urine Ketones 15 H, Urine Occult Blood Negative, Urine Nitrite Negative, Urine Bilirubin Negative, Urine Urobilinogen Normal, Ur Leukocyte Esterase Negative, Urine RBC 0 SEEN, Urine WBC 0-5 SEEN, Ur Squamous Epith Cells 0 SEEN, Urine Bacteria 0 SEEN, Urine Mucus 0 SEEN 06/12/25 00:40: POC Glucose 220 H 06/12/25 05:56: WBC 11.5 H, RBC 4.33 L, Hgb 13.1, Hct 39.1 L, MCV 90.3, MCH 30.3, MCHC 33.5, RDW Std Deviation 44.8 H, RDW Coeff of Garima 13.5, Plt Count 228, MPV 11.0, Immature Gran % (Auto) 0.500, Neut % (Auto) 79.3 H, Lymph % (Auto) 10.6 L, [place] % (Auto) 9.0, Eos % (Auto) 0.3, Baso % (Auto) 0.3, Absolute Neuts (auto) 9.1 H, Absolute Lymphs (auto) 1.22, Nucleated RBC % 0, Sodium 138, Potassium 4.1, Chloride 104, Carbon Dioxide 24.5, Anion Gap 9, BUN 22 H, Creatinine 1.15, Estim Creat Clear Calc 77.77, Est GFR (MDRD) Non-Af 71, BUN/Creatinine Ratio 18.8, Glucose 190 H, Calcium 8.8, Total Bilirubin 1.22, AST 25, ALT 46, Alkaline Phosphatase 57, Total Protein 6.3, Albumin 3.8, Globulin 2.5, Albumin/Globulin Ratio 1.5 Radiography Diagnostic Testing: Radiology Impression Abdomen/Pelvis CT 06/11/25 18:00 IMPRESSION: Focal wall thickening and mild adjacent fat stranding involving a loop of small bowel in the mid abdomen, most consistent with focal enteritis or mild segmental inflammation. Hepatic steatosis. Status post cholecystectomy. Enlarged prostate. No evidence of bowel obstruction, perforation, or abscess. Reading Location: [address] Physical Exam Narrative GENERAL: cooperative HEENT: Atraumatic; normocephalic EYES; Anicteric, Normal Conjunctiva NECK; supple, normal thyroid, RESPIRATORY: Diminished to auscultation CARDIOVASCULAR: Regular S1 S2, GI: soft, normoactive bowel sounds, : No Renal angle tenderness; EXTREMITIES: No edema, no clubbing, MUSCULOSKELETAL: no muscle wasting NEURO: Awake; no lateralizing signs. SKIN: No Rash PSYCH; Flat affect Assessment & Plan Assessment/Plan (1) Intractable abdominal pain: (2) Enteritis: (3) Nausea and vomiting: PLAN: Plan patient is a 64-year-old gentleman who presented with abdominal pain CT of the abdomen and pelvis obtained on admission demonstrated focal wall thickening and mild adjacent fat stranding involving a loop of small bowel in the mid abdomen, most consistent with focal enteritis or mild segmental inflammation. Admitted to regular nursing floor for subsequent management Acute enteritis ? Imaging studies obtained on admission did show focal wall thickening and mild adjacent fat stranding involving a loop of small bowel in the mid abdomen, most consistent with focal enteritis or mild segmental inflammation. Admitted to regular nursing floor for symptom management. Patient was kept n.p.o. on admission started patient on clear liquid starting this a.m. 2. Diabetes mellitus type II -patient's oral hypoglycemics held. Placed on long acting insulin, Accu-Cheks a.c. and at bedtime and covered with sliding scale insulin 3. Hypertension ? Blood pressure controlled, home medications continued with dose adjustment as needed 4. Dyslipidemia ?Patient is on statin therapy, continued at home dose 5. GERD ? Patient on PPI continue 6. DVT prophylaxis ? On enoxaparin Time spent in the patient's overall evaluation,decision-making process, review of diagnostic data, adjustment of management, discussion with other providers, nursing nursing and ancillary staff involved in patient's care documentation, 38 Minutes Charges/Coding Visit Charges Inpatient E&M: 76796 Subs Hosp L2
[2025-06-12] MEDS: Aspirin E.C. 81 MG Tablet PO (09:26)
--- NOTE | 2025-06-12 10:55 | CASEMGMT ---
Dx:acute focal enteritis LACE:1 6-Clicks:20 Medical record reviewed and patient evaluated for identification of discharge planning needs. Based on this review, at this time criteria are not present to indicate a need for discharge planning. Will remain available to assist with discharge planning needs as identified or requested.
[2025-06-12] MEDS: Senna/Docusate Sodium 1 Tablet 2 TABLET PO (10:57)
[2025-06-12 14:07] VITALS: BP 118/62; PULSE 79; RESP 17; TEMP 36.6; O2SAT 95
--- NOTE | 2025-06-12 14:25 | CHAPLAIN ---
Type of Pastoral Visit _x__ Initial Visit ___ Follow-up Visit ___ On-call Visit ___ General Patient Visit ___ Spiritual Assessment ___ Family Conference ___ Bereavement ___ Rapid Response ___ Code Blue ___ Other (describe below) Pastoral Care Referral From _x__ Patient ___ Family ___ Nurse ___ Physician ___ Pork Cutlet Maker ___ Contamination Consultant ___ Other (describe below) Sacrament/Intervention _x__ Active listening ___ Anointing ___ Anabaptist ___ Bereavement ___ Communion _x__ Nancy exploration ___ _x__ Life review _x__ Prayer ___ Reconciliation ___ Sacrament of Sick _x__ Supportive presence ___ Wedding ___ Other (describe below) Pastoral Comments patient is welcoming and open to discuss not only and initially his reason for hospital admission but his spiritual journey and where that has taken him so far; 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
[2025-06-12] MEDS: Magnesium Citrate 300 ML PO (14:30)
[2025-06-12 20:32] VITALS: BP 126/69; PULSE 82; RESP 18; TEMP 36.7; O2SAT 94
--- NOTE | 2025-06-12 22:16 | PCM.HOSP.N ---
Hospitalist Note Trulicity, glargine and oral anti-hyperglycemics are being held at this time. No recent hgb A1c in our system, ordered. I ordered lispro medium SSI AC/HS while on CL diet.
[2025-06-13 05:00] VITALS: BP 133/81; PULSE 89; RESP 18; TEMP 37.1; O2SAT 93
[2025-06-13] MEDS: metroNIDAZOLE 500 MG/100 ML BAG 100 MG IV (05:20)
--- NOTE | 2025-06-13 08:23 | PCM.PN.HOSP ---
Reason for Visit Chief Complaint: abdominal pain Subjective Subjective Patient seen apparently did have some bowel movement the day prior. Plan is for patient to be assessed for possible discharge Objective Data Objective Data Vital Signs: Vital Signs Temp Pulse Resp BP Pulse Ox O2 Del Method 98.7 F 89 18 133/81 H 93 Room Air 06/13/25 05:00 06/13/25 05:00 06/13/25 05:00 06/13/25 05:00 06/13/25 05:00 06/13/25 05:00 Oxygen Delivery Method Room Air Weight: 108.6 kg Body Mass Index (BMI) 35.3 Intake & Output: Intake and Output for Last 24 Hours 06/11/25 06/12/25 06/13/25 23:59 23:59 23:59 Intake Total 1000 / 1000 2552.08 / 2552.08 100 / 100 Balance 1000 / 1000 2552.08 / 2552.08 100 / 100 Lab / Micro Data 06/13/25 05:58 06/12/25 05:56 Labs: Laboratory Results - last 24 hr 06/12/25 20:37: POC Glucose 226 H 06/13/25 05:19: POC Glucose 160 H Physical Exam Narrative GENERAL: cooperative HEENT: Atraumatic; normocephalic EYES; Anicteric, Normal Conjunctiva NECK; supple, normal thyroid, RESPIRATORY: Diminished to auscultation CARDIOVASCULAR: Regular S1 S2, GI: soft, normoactive bowel sounds, : No Renal angle tenderness; EXTREMITIES: No edema, no clubbing, MUSCULOSKELETAL: no muscle wasting NEURO: Awake; no lateralizing signs. SKIN: No Rash PSYCH; Flat affect Assessment & Plan Assessment/Plan (1) Intractable abdominal pain: (2) Enteritis: (3) Nausea and vomiting: PLAN: Plan patient is a 64-year-old gentleman who presented with abdominal pain CT of the abdomen and pelvis obtained on admission demonstrated focal wall thickening and mild adjacent fat stranding involving a loop of small bowel in the mid abdomen, most consistent with focal enteritis or mild segmental inflammation. Admitted to regular nursing floor for subsequent management 1. Acute enteritis ? Imaging studies obtained on admission did show focal wall thickening and mild adjacent fat stranding involving a loop of small bowel in the mid abdomen, most consistent with focal enteritis or mild segmental inflammation. Admitted to regular nursing floor for symptom management. Patient was kept n.p.o. on admission started patient on clear liquid starting this a.m. ? 06/13/2025 patient pain improved plan is to advance diet and assess for discharge 2. Diabetes mellitus type II -patient's oral hypoglycemics held. Placed on long acting insulin, Accu-Cheks a.c. and at bedtime and covered with sliding scale insulin 3. Hypertension ? Blood pressure controlled, home medications continued with dose adjustment as needed 4. Dyslipidemia ?Patient is on statin therapy, continued at home dose 5. GERD ? Patient on PPI continue 6. DVT prophylaxis ? On enoxaparin Time spent in the patient's overall evaluation,decision-making process, review of diagnostic data, adjustment of management, discussion with other providers, nursing nursing and ancillary staff involved in patient's care documentation, 35 Minutes Charges/Coding Visit Charges Inpatient E&M: 34714 Subs Hosp L2
[2025-06-13 08:41] LABS: Hematocrit 39.4 % (40-54); Hemoglobin 13.2 g/dL (13.0-16.5); Immature Granulocytes Count 0.030 X10^3/uL (0.0-0.0); Mean Corp Hgb Conc 33.5 g/dL (32-36); Mean Corpuscular Volume 90.0 fL (80-94); Mean Platelet Vol. 11.1 fl (6.2-12.0); NRBC Flagged by Analyzer 0 % (0-5); Platelet Count 228 K/mm3 (150-450); RBC Distribution Width CV 13.4 % (11.6-14.6); RBC Distribution Width SD 44.3 fl (35.1-43.9); Red Blood Count 4.38 M/mm3 (4.6-6.2); White Blood Count 10.3 K/mm3 (4.4-11.0)
--- NOTE | 2025-06-13 08:46 | PCM.DC.SUM ---
Providers Date of Admission: 06/11/25 Date of Discharge: 06/13/25 Primary Care Physician: SHERRIE Ferrera Reason For Visit: ACUTE FOCAL ENTERITIS Diagnosis Discharge Diagnosis (1) Intractable abdominal pain: Status: Acute Code(s): R10.9 - Unspecified abdominal pain (2) Enteritis: Status: Acute Code(s): K52.9 - Noninfective gastroenteritis and colitis, unspecified (3) Nausea and vomiting: Status: Acute Code(s): R11.2 - Nausea with vomiting, unspecified Plan patient is a 64-year-old gentleman who presented with abdominal pain CT of the abdomen and pelvis obtained on admission demonstrated focal wall thickening and mild adjacent fat stranding involving a loop of small bowel in the mid abdomen, most consistent with focal enteritis or mild segmental inflammation. Admitted to regular nursing floor for subsequent management 1. Acute enteritis ? Imaging studies obtained on admission did show focal wall thickening and mild adjacent fat stranding involving a loop of small bowel in the mid abdomen, most consistent with focal enteritis or mild segmental inflammation. Admitted to regular nursing floor for symptom management. Patient was kept n.p.o. on admission started patient on clear liquid starting this a.m. ? 06/13/2025 patient pain improved plan is to advance diet and assess for discharge. Patient was discharged on Cipro and Flagyl for 7 days and instructed to follow-up primary care physician for subsequent care and 2. Diabetes mellitus type II -patient's oral hypoglycemics held. Placed on long acting insulin, Accu-Cheks a.c. and at bedtime and covered with sliding scale insulin 3. Hypertension ? Blood pressure controlled, home medications continued with dose adjustment as needed 4. Dyslipidemia ?Patient is on statin therapy, continued at home dose 5. GERD ? Patient on PPI continue 6. DVT prophylaxis ? On enoxaparin Time spent in the patient's overall evaluation,decision-making process, review of diagnostic data, adjustment of management, discussion with other providers, nursing nursing and ancillary staff involved in patient's care documentation, 35 Minutes Medications at Discharge Home Medications acetaminophen 325 mg tablet 325 mg PO DAILY PRN pain 01/30/23 aspirin 81 mg tablet,delayed release (Adult Low Dose Aspirin) 81 mg PO DAILY blood thinner 01/30/23 carvedilol 25 mg tablet 25 mg PO BID heart 01/30/23 dulaglutide 0.75 mg/0.5 mL subcutaneous pen injector (Trulicity) 0.75 mg subcut QWEEK dm 01/30/23 hydrochlorothiazide 25 mg tablet 25 mg PO DAILY bp 01/30/23 insulin glargine 100 unit/mL (3 mL) subcutaneous pen (Basaglar KwikPen U-100 Insulin) 14 unit subcut BID diabetes 01/30/23 lisinopril 40 mg tablet 40 mg PO DAILY bp 01/30/23 metformin 1,000 mg tablet 1,000 mg PO BID diabetes 01/30/23 naproxen sodium 220 mg tablet (Aleve) 220 mg PO DAILY PRN pain 01/30/23 omeprazole 40 mg capsule,delayed release 40 mg PO DAILY gerd 01/30/23 amlodipine 5 mg tablet 5 mg PO DAILY bp #30 tabs 02/01/23 glimepiride 4 mg tablet 2 mg PO DAILY diabetes 06/28/23 dapagliflozin propanediol 10 mg tablet (Farxiga) 10 mg PO DAILY diabetes 06/11/25 ezetimibe 10 mg tablet 10 mg PO DAILY 06/11/25 gabapentin 100 mg capsule 100 mg PO DAILY pain 06/11/25 ondansetron 4 mg disintegrating tablet 4 mg PO Q6H PRN PRN nausea/vomiting 06/11/25 ciprofloxacin HCl 500 mg tablet (Cipro) 500 mg PO BID #14 tabs 06/13/25 metronidazole 500 mg tablet 500 mg PO TID #21 tabs 06/13/25 sennosides 8.6 mg-docusate sodium 50 mg tablet (Stimulant Laxative Plus) 2 tab PO BID #30 tabs 06/13/25 Physical Exam Narrative GENERAL: cooperative HEENT: Atraumatic; normocephalic EYES; Anicteric, Normal Conjunctiva NECK; supple, normal thyroid, RESPIRATORY: Diminished to auscultation CARDIOVASCULAR: Regular S1 S2, GI: soft, normoactive bowel sounds, : No Renal angle tenderness; EXTREMITIES: No edema, no clubbing, MUSCULOSKELETAL: no muscle wasting NEURO: Awake; no lateralizing signs. SKIN: No Rash PSYCH; Flat affect Weight / BMI Weight Weight: 108.6 kg Body Mass Index (BMI) 35.3 ABG / Lab / Microbiology Data 06/13/25 05:58 06/12/25 05:56 Laboratory: Laboratory Results - last 24 hr 06/12/25 20:37: POC Glucose 226 H 06/13/25 05:19: POC Glucose 160 H 06/13/25 05:58: WBC 10.3, RBC 4.38 L, Hgb 13.2, Hct 39.4 L, MCV 90.0, MCH 30.1, MCHC 33.5, RDW Std Deviation 44.3 H, RDW Coeff of Garima 13.4, Plt Count 228, MPV 11.1, Immature Gran % (Auto) 0.300, Neut % (Auto) 77.4 H, Lymph % (Auto) 11.3 L, [place] % (Auto) 8.7, Eos % (Auto) 1.7, Baso % (Auto) 0.6, Absolute Neuts (auto) 8.0 H, Absolute Lymphs (auto) 1.16, Nucleated RBC % 0 D/C Instructions DC O2, CPAP, BIPAP Needs Home O2 Discharge instructions: No Meaningful Use Info Meaningful Use Meaningful Use Diagnoses (Choose all that apply): None applicable Discharge Plan Admission Admit Date/Time: 06/11/25 21:48 Attending Provider: Aaron Wheeler Primary Care Provider: aJcki Miller Consulting Providers: Goldie Silva Discharge Orders/Prescriptions Prescriptions: New ciprofloxacin HCl [Cipro] 500 mg tablet 500 mg PO BID Qty: 14 0RF metronidazole 500 mg tablet 500 mg PO TID Qty: 21 0RF sennosides-docusate sodium [Stimulant Laxative Plus] 8.6-50 mg Tablet 2 tab PO BID Qty: 30 0RF Continued amlodipine 5 mg tablet 5 mg PO DAILY Qty: 30 12RF naproxen sodium [Aleve] 220 mg tablet 220 mg PO DAILY PRN (Reason: pain) aspirin [Adult Low Dose Aspirin] 81 mg tablet,delayed release (DR/EC) 81 mg PO DAILY insulin glargine [Basaglar KwikPen U-100 Insulin] 100 unit/mL (3 mL) insulin pen 14 unit subcut BID carvedilol 25 mg tablet 25 mg PO BID Rx Instructions: must administer with a meal/food hydrochlorothiazide 25 mg tablet 25 mg PO DAILY lisinopril 40 mg tablet 40 mg PO DAILY metformin 1,000 mg tablet 1,000 mg PO BID omeprazole 40 mg capsule,delayed release(DR/EC) 40 mg PO DAILY acetaminophen 325 mg tablet 325 mg PO DAILY PRN (Reason: pain) Trulicity 0.75 mg/0.5 mL pen injector 0.75 mg subcut QWEEK Patient Comments: pt takes on monday glimepiride 4 mg tablet 2 mg PO DAILY dapagliflozin propanediol [Farxiga] 10 mg tablet 10 mg PO DAILY ezetimibe 10 mg tablet 10 mg PO DAILY gabapentin 100 mg capsule 100 mg PO DAILY ondansetron 4 mg tablet,disintegrating 4 mg PO Q6H PRN PRN (Reason: nausea/vomiting) Referrals / Follow Up: Jacki Miller NP-C [Primary Care Provider, Family Practice] - Within 1 Week Disposition Disposition (needs filled in before D/C Order can be placed): Home, Self Care Charges/Coding Visit Charges Inpatient E&M: 13431 Disch Hosp >30min
[2025-06-13 08:49] LABS: Anion Gap 11 (5-15); BUN 15 mg/dL (4-19); BUN/Creat Ratio 14.0 RATIO (10-20); Calcium,Total 8.7 mg/dL (7.6-11.0); Carbon Dioxide 23.3 mmol/L (21.0-32.0); Chloride 101 mmol/L (98-108); Estimated Creatinine Clearance 83.59 ml/min (50-250); Glucose 162 mg/dL (70-99); Magnesium 2.2 mg/dL (1.5-2.2); Potassium 3.9 mmol/L (3.3-5.1)
[2025-06-13 08:51] VITALS: BP 116/68; PULSE 80; RESP 16; TEMP 36.9; O2SAT 97
[2025-06-13] MEDS: Senna/Docusate Sodium 1 Tablet 2 TABLET PO (08:54)
[2025-06-13] MEDS: Aspirin E.C. 81 MG Tablet PO (08:55)
--- NOTE | 2025-06-13 11:14 | PHA.DC_ITS ---
Pharmacy [facility] Counseling Pharmacy Service has performed discharge medication reconciliation and counseling for this patient. 1. CIPROFLOXACIN 500MG PO BID X 7 DAYS 2. METRONIDAZOLE 500MG PO TID X 7 DAYS 3. NEUTRA-PHOS 1 PACKET PO BID 4. SENNA/DOCUSATE 2T PO BID The patient's discharge medication list was reviewed for discrepancies and discrepancies were resolved. The patient was counseled on the following discharge medications and changes in medications for homegoing were reviewed. The Reason for Use, instructions for use, and potential side effects were reviewed for all new medications. The patient's questions regarding all of their medications were answered. The patient was able to verbally demonstrate an understanding of their discharge medications. Medications at Discharge Home Medications acetaminophen 325 mg tablet 325 mg PO DAILY PRN pain 01/30/23 aspirin 81 mg tablet,delayed release (Adult Low Dose Aspirin) 81 mg PO DAILY blood thinner 01/30/23 carvedilol 25 mg tablet 25 mg PO BID heart 01/30/23 dulaglutide 0.75 mg/0.5 mL subcutaneous pen injector (Matthew Kenney Cuisine) 0.75 mg subcut QWEEK dm 01/30/23 hydrochlorothiazide 25 mg tablet 25 mg PO DAILY bp 01/30/23 insulin glargine 100 unit/mL (3 mL) subcutaneous pen (Basaglar KwikPen U-100 Insulin) 14 unit subcut BID diabetes 01/30/23 lisinopril 40 mg tablet 40 mg PO DAILY bp 01/30/23 metformin 1,000 mg tablet 1,000 mg PO BID diabetes 01/30/23 naproxen sodium 220 mg tablet (Aleve) 220 mg PO DAILY PRN pain 01/30/23 omeprazole 40 mg capsule,delayed release 40 mg PO DAILY gerd 01/30/23 amlodipine 5 mg tablet 5 mg PO DAILY bp #30 tabs 02/01/23 glimepiride 4 mg tablet 2 mg PO DAILY diabetes 06/28/23 dapagliflozin propanediol 10 mg tablet (Farxiga) 10 mg PO DAILY diabetes 06/11/25 ezetimibe 10 mg tablet 10 mg PO DAILY 06/11/25 gabapentin 100 mg capsule 100 mg PO DAILY pain 06/11/25 ondansetron 4 mg disintegrating tablet 4 mg PO Q6H PRN PRN nausea/vomiting 06/11/25 ciprofloxacin HCl 500 mg tablet (Cipro) 500 mg PO BID #14 tabs 10/17/25 metronidazole 500 mg tablet 500 mg PO TID #21 tabs 06/13/25 potassium, sodium phosphates 280 mg-160 mg-250 mg oral powder packet 1 packet PO BID #60 ea 06/13/25 sennosides 8.6 mg-docusate sodium 50 mg tablet (Stimulant Laxative Plus) 2 tab PO BID #30 tabs 06/13/25
[2025-06-13] MEDS: Na Biphos/Potassium Phosphate PACKET 1 PACKET PO (11:33)
[2025-06-13 13:20] VITALS: BP 114/69; PULSE 83; RESP 17; TEMP 36.8; O2SAT 95
== END 2025-06-13 14:12 | disposition home or self-care (01) | DRG 392 ==
LOC: ED 21:11 → MS3 21:54
PROVIDERS: Admitting Provider Student in an Organized Health Care Education/Training Program; Emergency Provider Emergency Medicine; PCP Nurse Practitioner Family; Visit Provider Internal Medicine
DX: K52.9 Noninfective gastroenteritis and colitis, unspecified (principal); E11.9 Type 2 diabetes mellitus without complications; I10 Essential (primary) hypertension; Z79.4 Long term (current) use of insulin; E78.00 Pure hypercholesterolemia, unspecified; K21.9 Gastro-esophageal reflux disease without esophagitis; G47.33 Obstructive sleep apnea (adult) (pediatric); Z79.85 Long-term (current) use of injectable non-insulin antidiabetic drugs; Z79.84 Long term (current) use of oral hypoglycemic drugs; Z87.891 Personal history of nicotine dependence; Z79.899 Other long term (current) drug therapy; Z99.89 Dependence on other enabling machines and devices; Z79.82 Long term (current) use of aspirin; Z90.49 Acquired absence of other specified parts of digestive tract
CPT/HCPCS: 36415; 74177; 80048; 80053; 81001; 82962; 83036; 83690; 83735; 84100; 85025; 97162; 97166; 99285; Q9967; J0744; J2405